=== PATIENT | female | born 1965 | race Caucasian/White ===

== ENCOUNTER 2019-12-18 09:22 | Emergency (ER) | payer OTHER, SELFPAY ==
--- NOTE | ~2019-12-18 | XR_ITS ---
EXAMINATION: XR chest 1V portable INDICATION: Shortness of breath TECHNIQUE: Portable AP chest at 1039 hours COMPARISON: None available FINDINGS: There is minimal airspace opacity of the right lung base. No pleural effusion or pneumothor ax is identified. The cardiomediastinal silhouette is normal. Surgical clips in the right upper quadr ant are likely from prior cholecystectomy. IMPRESSION: 1. Right basilar airspace opacity which could reflect atelectasis or pneumonia. Recommend followup ra diographs in 10-14 days after appropriate therapy to evaluate for improvement/resolution. Reviewed, dictated and finalized at location A. TRICAL SCENIC DESIGNER IMPRESSION: 1. Right basilar airspace opacity which could reflect atelectasis or pneumonia. Recommend followup radiographs in 10-14 days after appropriate therapy to eval uate for improvement/resolution.
[2019-12-18 09:27] VITALS: BP 130/105; PULSE 86; RESP 20; TEMP 37.2; O2SAT 95
[2019-12-18 10:30] LABS: Basophils Percent Auto 0.4 % (0.2-1.2); Eosinophils Absolute Auto 0.1 K/mm3 (0-0.3); Eosinophils Percent Auto 2.2 % (0-4.4); Hematocrit 42.7 % (37.0-47.0); Hemoglobin 14.4 g/dL (12.0-15.0); Immature Granulocyte Absolute 0.02 K/mm3 (0.00-0.031); Immature Granulocyte Percent A 0.4 % (0-0.5); Lymphocytes Percent Auto 24.2 % (18.3-44.2); Mean Corpuscular HGB Conc 33.7 g/dl (32-36); Mean Corpuscular Volume 85.9 fl (80-100); Mean Platelet Volume 10.5 fl (7.4-10.4); Monocytes Absolute Auto 0.3 K/mm3 (0.1-0.6); Monocytes Percent Auto 6.8 % (2.6-8.5); Platelet Count Result 237 k/mm3 (150-375); Red Blood Count 4.97 M/mm3 (4.2-5.4); Red Cell Distribution Width 12.5 % (11.5-14.5); White Blood Count 4.6 K/mm3 (4.5-10.0)
[2019-12-18 10:43] VITALS: BP 138/77; PULSE 75; O2SAT 96
[2019-12-18 10:45] LABS: Alanine Aminotransferase 24 U/L (4-35); Albumin Level 4.3 g/dL (3.5-5.1); Alkaline Phosphatase 80 U/L (38-126); Anion Gap 9 mmol/L (8-16); Aspartate Amino Transferase 28 U/L (14-36); Bilirubin,Total 0.5 mg/dL (0.2-1.3); Blood Urea Nitrogen 17 mg/dL (7-17); CRP 1.9 mg/dL (<1.0); Calcium 9.1 mg/dL (8.4-10.2); Carbon Dioxide 27 mmol/L (22-30); Chloride 102 mmol/L (98-107); Estimated CRCL calculation 82 ml/min; Estimated Glomerular Filt Rate > 60; Glucose 273 mg/dL (65-105); Potassium 4.3 mmol/L (3.4-5.0); Sodium 138 mmol/L (137-145)
[2019-12-18 11:04] LABS: Phosphorus 3.2 mg/dL (2.5-4.5)
[2019-12-18 11:07] LABS: Beta-Hydroxybutyrate/Acetoacetate 0.23 mmol/L (0.02-0.27)
[2019-12-18 11:08] LABS: Lactic Acid Reflex 0.7 mmol/L (0.7-2.1)
--- NOTE | 2019-12-18 11:10 | ED.GENADULT ---
HPI - General Adult General Chief complaint: Upper Respiratory Infection <Fernando Mandujano PA-C - Last Filed: 12/18/19 11:22> Stated complaint: Covid +, CP, SOB <Fernando Mandujano PA-C - Last Filed: 12/18/19 11:22> Time Seen by Provider: 12/18/19 10:03 <Fernando Mandujano PA-C - Last Filed: 12/18/19 11:22> Source: patient <Fernando Mandujano PA-C - Last Filed: 12/18/19 11:22> Mode of arrival: ambulatory <Fernando Mandujano PA-C - Last Filed: 12/18/19 11:22> Limitations: no limitations <Fernando Mandujano PA-C - Last Filed: 12/18/19 11:22> History of Present Illness HPI narrative: Patient is a 54-year-old female who presents with a roughly 6 days of COVID-19 illness diagnosed has been experiencing cough headache mild sore throat with her symptoms patient is taking vatw-[id number]-edsnadb medications with minimal improvement. Patient an insulin-dependent diabetic notes that her sugar was around 200 today. Patient notes increasing coughing last night with now having some right-sided chest discomfort. Patient also notes feeling fatigued and weak. Denies vomiting does note some loose stools <Fernando Mandujano PA-C - Last Filed: 12/18/19 11:22> Related Data Home medications: Home Medications Medication Instructions Recorded Confirmed canagliflozin [Invokana] mg 12/18/19 <Fernando Mandujano PA-C - Last Filed: 12/18/19 11:22> Allergies/adverse reactions: Allergies Allergy/AdvReac Type Severity Reaction Status Date / Time codeine Allergy Unknown Unknown Verified 12/18/19 09:38 <Fernando Mandujano PA-C - Last Filed: 12/18/19 11:22> Review of Systems Review of Systems: All systems reviewed & are unremarkable except as noted in HPI and below <Fernando Mandujano PA-C - Last Filed: 12/18/19 11:22> PMFSH Past Medical History Medical History: Medical History (Updated 12/18/19 @ 11:18 by Fernando Mandujano PA-C) Diabetes mellitus type 1 <MADISYN Mcallister Last Filed: 12/18/19 11:22> Family History Family History: Family History (Updated 07/03/17 @ 10:22 by DOCTOR UNKNOWN) Grandparent Family history of Alzheimer's disease Sibling Family history of malignant neoplasm of esophagus <Fernando Mandujano PA-C - Last Filed: 12/18/19 11:22> Social History Social History: Social History Smoking status: Never smoker Alcohol intake: never Gender identity (if verbalized by the patient): Female <Fernando Mandujano PA-C - Last Filed: 12/18/19 11:22> Exam Narrative: Exam Narrative: GENERAL: Ill-appearing, well-nourished, and in no acute distress. HEAD: Normocephalic, atraumatic. EYES: PERRLA and EOMI. ENT: Nares clear, no rhinorrhea or epistaxis. CHEST: Clear to auscultation. No respiratory distress. Slight crackles in the lung bases HEART: Regular rate and rhythm. No murmur heard. Normal peripheral pulses. EXTREMITIES: Normal range of motion. No edema. SKIN: Warm, dry, no rash. NEURO: No focal deficits. Alert and oriented x3. PSYCH: Normal mood and affect. <MADISYN Mcallister Last Filed: 12/18/19 11:22> Course Course Emergency Course: Patient in the room is been hydrated given an MDI will be sent home with continued outpatient evaluation by her physician patient hemodynamically stable ABCs stable felt appropriate for outpatient reevaluation <Fernando Mandujano PA-C - Last Filed: 12/18/19 11:22> Vital Signs Vital signs: Vital Signs Temperature 98.9 F 12/18/19 09:27 Pulse Rate 86 12/18/19 09:27 Respiratory Rate 20 12/18/19 09:27 Blood Pressure 130/105 H 12/18/19 09:27 Pulse Oximetry 95 12/18/19 09:27 Temperature 98.9 F 12/18/19 09:27 Pulse Rate 75 12/18/19 10:43 Respiratory Rate 20 12/18/19 09:27 Blood Pressure 138/77 12/18/19 10:43 Pulse Oximetry 96 12/18/19 10:43 <Fernando Mandujano PA-C - Last Filed: 12/18/19 11:22>
[2019-12-18 11:12] LABS: Alveolar/Arterial O2 Gradient 23.5 mmHg; Base Excess ABG -2.4 mEq/l (+/-2.0); Carboxyhemoglobin 0.1 % THb (0-2.0); Fractional Inspired Oxygen 21 %; HCO3 ABG 21.1 mEq/l (22.0-26.0); Methemoglobin ABG 0.2 %THb (0-1.5); Oxygen Saturation ABG 96.9 % (95.0-100.0); Oxyhemoglobin 96.1 % THb (90.0-100.0); PO2 ABG 86.7 mmHg (80.0-100.0); PO2 FiO2 Ratio Arterial Blood 4.13 %; Reduced Hemoglobin 3.6 %THb (0-5.0); Total Hemoglobin 14.8 g/dL (12.0-18.0); pH ABG 7.424 (7.350-7.450)
[2019-12-18 11:14] LABS: Device ROOM AIR; Modified Allen's Test Pass; Site Drawn RIGHT RADIAL
--- NOTE | 2019-12-18 13:39 | ECG_ITS ---
Measurements Intervals [place] Rate: 80 P: 35 ID: 154 QRS: 16 QRSD: 86 T: 34 QT: 360 QTc: 416 Interpretive Statements SINUS RHYTHM DELAYED PRECORDIAL R/S TRANSITION BORDERLINE ST ABNORMALITY- ANTEROLATERAL LEADS BASELINE ARTIFACT- I, II, III, AVR, AVF BORDERLINE ECG Electronically Signed On 12-18-2019 15:06:31 FIRER BOILER by John Jenkins D.O.
== END 2019-12-18 11:57 | disposition home or self-care (01) ==
PROVIDERS: Emergency Medicine Emergency Medical Services; Emergency Provider General Practice; PCP Family Medicine
DX: U07.1 COVID-19 (principal); E10.9 Type 1 diabetes mellitus without complications; Z79.84 Long term (current) use of oral hypoglycemic drugs; R94.31 Abnormal electrocardiogram [ECG] [EKG]
CPT/HCPCS: 36415; 36600; 71045; 80053; 82010; 82375; 82805; 83050; 83605; 83735; 84100; 85025; 86140; 93005; 99283

== ENCOUNTER 2020-08-31 06:39 | Outpatient (CLI) | payer OTHER, SELFPAY ==
--- NOTE | 2020-08-31 | ECHO_ITS ---
Patient Info Name: Kassy Maher Age: 54 years : 1965 Gender: Female Ht: 64 in Wt: 197 lbs BSA: 2.05 m2 HR: 68 bpm BP: 123 / 75 mmHg Technical Quality: Good Exam Date: 08/31/2020 7:08 AM Exam Location: [facility] Patient Status: Outpatient Admit Date: 08/31/2020 Staff Ordering Physician: Cuco Izquierdo MD Oracle Sql Developer: Linnea Boland RDCS Attending Provider: Cuco Izquierdo MD Referring Physician: Timbo SERNA; Exam Type: CA echo doppler color flow Study Info Indications C50.011 - Malignant neoplasm of nipple and areola, right female breast Complete two-dimensional, color flow and Doppler transthoracic echocardiogram is performed. Summary 1. Complete two-dimensional, color flow and Doppler transthoracic echocardiogram is performed. 2. Left ventricular chamber dimension is normal. 3. Left ventricular systolic function is normal, estimated at 65-70%. 4. There is mildly increased left ventricular wall thickness. 5. The left ventricular diastolic function is grade II diastolic dysfunction. 6. E/e' 11 is mildly elevated. 7. Global longitudinal strain is normal at -22.1%. 8. Left atrial chamber dimension is mildly enlarged. Left Ventricle E/e' 11 is mildly elevated. Global longitudinal strain is normal at -22.1%. Left ventricular chamber dimension is normal. Left ventricular systolic function is normal, estimated at 65-70%. There is mildly increased left ventricular wall thickness. The left ventricular diastolic function is grade II diastolic dysfunction. Right Ventricle Right ventricular chamber dimension is normal. Right ventricular systolic function is normal. Left Atria Left atrial chamber dimension is mildly enlarged. Right Atria Right atrial chamber dimension is normal. Aortic Valve The aortic valve is trileaflet. There is no aortic valve stenosis. There is no aortic valve regurgitation. Pulmonic Valve There is no pulmonic regurgitation. Mitral Valve There is no mitral valve stenosis. There is no mitral valve regurgitation. Tricuspid Valve There is no tricuspid valve regurgitation. Pericardium/Pleural There is trivial pericardial effusion. Inferior Vena Cava Normal inferior vena cava with >50% collapse upon inspiration consistent with normal right atrial pressure, 5 mmHg. Aorta The aortic root size at the sinus of Valsalva is normal. Left Ventricular Outflow Tract Name Value Normal LVOT 2D LVOT Diameter 1.9 cm LVOT Doppler LVOT Peak Gradient 8 mmHg LVOT Mean Gradient 4 mmHg LVOT VTI 28 cm LVOT VTI/AV VTI Ratio 1.0 LVOT Stroke Volume 80 ml LVOT CO 5.0 l/min LVOT CI 2.4 l/min/m2 Pulmonic Valve Name Value Normal RVOT Doppler
== END 2020-08-31 06:40 | disposition home or self-care (01) ==
PROVIDERS: PCP Family Medicine; Visit Provider Internal Medicine Hematology & Oncology
DX: C50.911 Malignant neoplasm of unspecified site of right female breast (principal); I51.7 Cardiomegaly
CPT/HCPCS: 93306

== ENCOUNTER 2021-03-12 08:53 | Outpatient (CLI) | payer OTHER, SELFPAY ==
--- NOTE | ~2021-03-12 | PE_ITS ---
EXAMINATION: PET skull to mid thigh DATE: 03/12/2021 10:41 INDICATION: Breast cancer TECHNIQUE: 11 mCi of 18-fluorodeoxyglucose (18-FDG) was administered i.v. Low dose computed tomograph y (CT) images were acquired from the base of the brain to the proximal thighs for attenuation correct ion and anatomic localization. Positron emission tomography (PET) images were acquired after injectio n. Images including fused PET/CT images were reconstructed in axial, coronal, and sagittal planes. Au tomatic exposure control is employed as a dose reduction technique. COMPARISON: None FINDINGS: Head/neck: There is mild FDG uptake in the mucosal space without mass, physiologic. No focal hypermetabolic area s of the neck are identified to suggest metastatic disease. There is a left internal jugular central line, tip in the SVC. Chest: There is mild asymmetry of the right pectoralis muscle with subtle asymmetric FDG uptake which may be due to prior surgery and/or radiation therapy. No discrete mass identified. There are surgical clips in the right axilla, consistent with previous lymph node dissection. There i s asymmetric soft tissue/fluid extending from the lateral margin of the pectoralis into the lateral c hest wall, likely postoperative seroma. No significant FDG uptake at this location. There is a small amount of fluid/soft tissue at a similar location in the left lateral chest wall without focal mass. No significant pleural or pericardial effusion. No thoracic lymphadenopathy. No hypermetabolic activity in the mediastinum. There is dependent atelec tasis in the lung bases. No endobronchial lesions. There is a small 3 mm right upper lobe nodule with out FDG uptake, likely benign. No abnormal FDG avid pulmonary nodules/masses. Abdomen/pelvis/proximal thighs: The liver, spleen, pancreas, adrenal glands and kidneys are unremarkable. There is mild functional up take of FDG in the small bowel without focal mass. Status post cholecystectomy. No lymphadenopathy. N o significant vascular abnormality. Bladder is decompressed. No suspicious areas of hypermetabolic ac tivity are identified in the abdomen or pelvis. Bones/Soft tissues: No abnormal FDG uptake in the osseous structures. IMPRESSION: 1. Curvilinear fluid/soft tissue involving the chest wall bilaterally with mild FDG uptake, most like ly postsurgical/post radiation therapy change. Recommend correlation with prior clinical history and prior studies. Reviewed, dictated and finalized at location B. ESSING ASSISTANT IMPRESSION: 1. Curvilinear fluid/soft tissue involving the chest wall bilaterally with mild FDG uptake, most likely postsurgical/post radiation therapy change. Recommend correlation with prior clinical history and prior studies.
[2021-03-12 09:22] LABS: Glucose Point of Care 205 mg/dl (65-105)
== END 2021-03-12 08:54 | disposition home or self-care (01) ==
PROVIDERS: PCP Family Medicine; Visit Provider Internal Medicine Hematology & Oncology
DX: C50.919 Malignant neoplasm of unspecified site of unspecified female breast (principal); R91.8 Other nonspecific abnormal finding of lung field
CPT/HCPCS: 78815; A9552

== ENCOUNTER 2021-04-23 09:21 | Outpatient (CLI) | payer OTHER, SELFPAY ==
[2021-04-23 12:53] LABS: Hemoglobin A1C 8.6 % (<5.7)
[2021-04-23 12:58] LABS: Cholesterol 179 mg/dL (0-200); HDL Direct 56 mg/dL; Triglycerides 186 mg/dL (<150)
[2021-04-23 13:09] LABS: LDL Cholesterol Direct 87 mg/dL
== END 2021-04-23 09:22 | disposition home or self-care (01) ==
PROVIDERS: PCP Family Medicine; Visit Provider Internal Medicine Hematology & Oncology
DX: R53.83 Other fatigue (principal); E11.9 Type 2 diabetes mellitus without complications; E78.2 Mixed hyperlipidemia
CPT/HCPCS: 36415; 80061; 83036; 84443

== ENCOUNTER 2021-09-18 08:59 | Outpatient (CLI) | payer OTHER, SELFPAY ==
[2021-09-18 10:54] LABS: Hemoglobin A1C 7.8 % (<5.7)
== END 2021-09-18 09:00 | disposition home or self-care (01) ==
LOC: ANHLAB 09:02
PROVIDERS: PCP Family Medicine; Visit Provider Family Medicine
DX: E11.9 Type 2 diabetes mellitus without complications (principal)
CPT/HCPCS: 36415; 83036

== ENCOUNTER 2021-09-27 08:16 | Outpatient (CLI) | payer OTHER, SELFPAY ==
--- NOTE | ~2021-09-27 | NM_ITS ---
NM bone scan whole body INDICATION: Inflammatory breast cancer TECHNIQUE: The patient was injected with 25 PET/CT scan dated 03/12/2021 mCi Tc 99m HDP. Gamma camera images of the region of interest and whole body were obtained. COMPARISON: None FINDINGS: There is normal distribution of radiopharmaceutical throughout the skeletal and soft tissue structures. There is mild polyarticular radiotracer uptake, consistent with degenerative joint disea se. IMPRESSION: 1: Normal bone scan for age. No scintigraphic evidence for metastases. Reviewed, dictated and finalized at location A.
== END 2021-09-27 08:17 | disposition home or self-care (01) ==
PROVIDERS: PCP Family Medicine; Visit Provider Internal Medicine Hematology & Oncology
DX: C50.911 Malignant neoplasm of unspecified site of right female breast (principal)
CPT/HCPCS: 78306; A9561

== ENCOUNTER 2021-10-01 10:08 | Outpatient (CLI) | payer OTHER, SELFPAY ==
--- NOTE | ~2021-10-01 | CT_ITS ---
EXAMINATION: CT chest abdomen pelvis w con DATE: 10/01/2021 11:01 INDICATION: Inflammatory breast cancer TECHNIQUE: Transaxial computed tomographic images of the chest, abdomen, and pelvis were obtained aft er the administration of 100 cc of Omnipaque 350 intravenous contrast. The dose-length product (DLP) was 738.29 mGy-cm. Automated exposure control and iterative reconstruction technique were employed. COMPARISON: PET/CT, 03/12/2021 FINDINGS: CHEST CT: There are changes of bilateral mastectomy and axillary lymph node dissection. There are subpleural op acities anteriorly in the lungs which likely reflect radiation change. There are small nodules of the right lower lobe which measure up to 4 mm, possibly obscured by atelectasis on the comparison PET/CT . No pathologically enlarged thoracic lymph nodes are identified. The heart size is normal. No pleura l effusion or pneumothorax. ABDOMEN/PELVIS CT: The liver is diffusely low in attenuation when compared with the spleen, consistent with hepatic stea tosis. The gallbladder is surgically absent. The spleen, pancreas, and adrenal glands are normal. The kidneys are unremarkable. No pathologically enlarged abdominal or pelvic lymph nodes are identified. There is a small umbilical hernia containing fat. There is mild lumbar spondylosis. There is no free intraperitoneal gas or evidence of bowel obstruction. IMPRESSION: 1. Subpleural opacities in the upper lobes anteriorly likely related to radiation change. 2. Small right lower lobe nodule which may be benign but are likely obscured by atelectasis on the co mparison CT. 3. Diffuse hepatic steatosis. Reviewed, dictated and finalized at location A. IMPRESSION: 1. Subpleural opacities in the upper lobes anteriorly likely related to radiati on change. 2. Small right lower lobe nodule which may be benign but are likely obscured by atelectasis on the comparison CT. 3. Diffuse hepatic steatosis.
== END 2021-10-01 10:09 | disposition home or self-care (01) ==
LOC: ANHIMG 10:09
PROVIDERS: PCP Family Medicine; Visit Provider Internal Medicine Hematology & Oncology
DX: C50.911 Malignant neoplasm of unspecified site of right female breast (principal); K76.0 Fatty (change of) liver, not elsewhere classified; R91.8 Other nonspecific abnormal finding of lung field
CPT/HCPCS: 71260; 74177; Q9967

== ENCOUNTER 2022-01-22 10:42 | Outpatient (CLI) | payer OTHER, SELFPAY ==
[2022-01-22 11:46] LABS: Hemoglobin A1C 11.6 % (<5.7)
[2022-01-22 12:05] LABS: Cholesterol 147 mg/dL (0-200); HDL Direct 48 mg/dL; Triglycerides 103 mg/dL (<150)
[2022-01-22 12:15] LABS: LDL Cholesterol Direct 70 mg/dL
== END 2022-01-22 10:43 | disposition home or self-care (01) ==
LOC: ANHLAB 10:44
PROVIDERS: PCP Family Medicine; Visit Provider Physician Assistant
DX: Z13.220 Encounter for screening for lipoid disorders (principal); E11.9 Type 2 diabetes mellitus without complications
CPT/HCPCS: 36415; 80061; 83036

== ENCOUNTER 2022-03-22 07:49 | Outpatient (CLI) | payer OTHER, SELFPAY ==
--- NOTE | ~2022-03-22 | CT_ITS ---
Clinical Indication: Inflammatory breast cancer CT Scan of the Chest, Abdomen, and Pelvis with Contrast: Technique: Contiguous sections were acquired throughout the chest, abdomen, and pelvis after intraven ous administration of 100 cc of Omnipaque 350. Dose reduction technique was used on this scan by alma rosa lanier automated exposure control and iterative reconstruction technique. The dose-length product (DL P) was 1173.42 mGy-cm. COMPARISON: 10/01/2021 Findings: There is no evidence of any significant mediastinal, hilar or axillary lymphadenopathy. The mediastin al soft tissues and vascular structures appear normal. Small hiatal hernia noted. Bilateral mastectom y noted. There is no evidence of pleural or pericardial effusion. Probable minimal postradiation changes noted peripherally in the bilateral upper lobes. No other pulm onary reality seen. Stable tiny right lower lobe nodule noted. Diffuse fatty infiltration of the liver noted. The spleen, pancreas, adrenals and kidneys are within normal limits. Cholecystectomy clips present. No evidence of aortic aneurysm. No lymphadenopathy. No bowel obstruction or bowel wall thickening. There is no evidence to suggest acute appendicitis. Urinary bladder is unremarkable. No pelvic mass seen. No ascites. Impression: No change from prior exam. No definite evidence for active malignancy or metastatic disease. Tiny right lower lobe pulmonary nodule, unchanged. Diffuse fatty infiltration of liver. Small hiatal hernia. Reviewed, dictated and finalized at [facility]. GAGE ADVISOR Impression: No change from prior exam. No definite evidence for active malignancy or metast atic disease. Tiny right lower lobe pulmonary nodule, unchanged. Diffuse fatty infiltration of liver. Small hiatal hernia.
[2022-03-22 08:40] LABS: Estimated Glomerular Filt Rate > 60
== END 2022-03-22 07:50 | disposition home or self-care (01) ==
PROVIDERS: PCP Family Medicine; Visit Provider Internal Medicine Hematology & Oncology
DX: C50.911 Malignant neoplasm of unspecified site of right female breast (principal); K44.9 Diaphragmatic hernia without obstruction or gangrene; K76.0 Fatty (change of) liver, not elsewhere classified
CPT/HCPCS: 71260; 74177; Q9967

== ENCOUNTER 2022-06-12 11:58 | Outpatient (CLI) | payer OTHER, SELFPAY ==
--- NOTE | ~2022-06-12 | PE_ITS ---
EXAMINATION: PET skull to mid thigh DATE: 06/12/2022 14:12 INDICATION: Inflammatory breast cancer TECHNIQUE: Blood glucose level was 150 mg/dL. 11.0 mCi of 18-fluorodeoxyglucose (18-FDG) was administ ered i.v. Low dose computed tomography (CT) images were acquired from the base of the brain to the pr oximal thighs for attenuation correction and anatomic localization. Positron emission tomography (PET ) images were acquired in the same distribution beginning 65 minutes after injection. The dose-length product (DLP) was 629.17 mGy-cm. COMPARISON: 03/12/2021 FINDINGS: Head/neck: No abnormal FDG uptake is identified. FDG activity in the oral cavity, vocal cords, and or bits without suspicious CT correlate is likely physiologic. Chest: No abnormal FDG uptake is identified. A left internal jugular Port-A-Cath ends in the proximal superior vena cava. There are changes of bilateral mastectomy and axillary lymph node dissection. No pathologically enlarged thoracic lymph nodes are identified. The heart size is normal. Again seen ar e subpleural opacities anteriorly in the lungs, likely related to radiation change. The lungs are aurelio e of acute airspace opacities. Tiny nodules of the right lower lobe are stable and do not demonstrate significant FDG uptake. There are no pathologically enlarged thoracic lymph nodes. The heart size is normal. Abdomen/pelvis/proximal thighs: Physiologic FDG activity is present in the bowel and urinary tract. No abnormal FDG uptake is identif ied. Gallbladder is surgically absent. The liver, spleen, pancreas, and adrenal glands are normal. Th e kidneys are unremarkable. No pathologically enlarged abdominal or pelvic lymph nodes are identified . No free intraperitoneal gas or evidence of bowel obstruction. Musculoskeletal: No suspicious FDG uptake is identified. There is osteoarthritis of the shoulders. Th ere is mild spondylosis of the spine. IMPRESSION: 1. No evidence of recurrent or metastatic disease. Reviewed, dictated and finalized at location L.
[2022-06-12 12:22] LABS: Glucose Point of Care 150 mg/dl (65-105)
== END 2022-06-12 11:59 | disposition home or self-care (01) ==
PROVIDERS: PCP Family Medicine; Visit Provider Internal Medicine Hematology & Oncology
DX: C50.911 Malignant neoplasm of unspecified site of right female breast (principal)
CPT/HCPCS: 78815; A9552

== ENCOUNTER 2022-09-19 08:07 | Outpatient (CLI) | payer OTHER, SELFPAY ==
[2022-09-19 12:27] LABS: Cholesterol 137 mg/dL (0-200); HDL Direct 43 mg/dL; Triglycerides 111 mg/dL (<150)
[2022-09-19 12:38] LABS: Hemoglobin A1C 10.6 % (<5.7)
[2022-09-19 12:38] LABS: LDL Cholesterol Direct 68 mg/dL
== END 2022-09-19 08:08 | disposition home or self-care (01) ==
LOC: ANHLAB 08:09
PROVIDERS: Physician Assistant; PCP Family Medicine; Visit Provider Internal Medicine Hematology & Oncology
DX: Z13.220 Encounter for screening for lipoid disorders (principal); E11.9 Type 2 diabetes mellitus without complications; Z13.1 Encounter for screening for diabetes mellitus
CPT/HCPCS: 36415; 80061; 83036

== ENCOUNTER 2022-10-13 00:43 | Day surgery (SDC) | payer OTHER, SELFPAY ==
[2022-10-09 09:43] VITALS: BMI 33.7
--- NOTE | 2022-10-09 09:52 | PC.NURSE ---
Report to the Outpatient Waiting Room, entrance under the green pavilion located off [facility], at time 0900 on date 10/13/22. Planned Procedure Time: 1100. Time changes happen often and if your time is changed the preop area will call you the afternoon before. - You and your visitor will be asked to self-screen and do not enter if you have any COVID symptoms. - A mask is optional within the hospital at this time. Patients may have clear liquids (water, carbonated beverages, clear teas, apple juice) until 3 hours prior to surgery with a maximum of 20 ounces. - No food from midnight until time of surgery Take the following medications with a SIP of water the morning of surgery: CITALOPRAM, LORAZEPAM IF NEEDED DO NOT STOP ANY OF YOUR OTHER PRESCRIPTION MEDICATIONS PRIOR TO SURGERY ?EXCEPT THE FOLLOWING Medications to discontinue per physician: N/A Date to take last dose: N/A Please no make-up, nail south african, hairspray, perfume, deodorant, or body powder the day of surgery. No jewelry (including any body piercings) or valuables the day of surgery, leave them at home. Please take a shower or bath the night before, or the morning of, surgery with an antibacterial soap. Wear comfortable, loose fitting clothing. - Jewelry must be removed prior to entering the operating room. Rings and piercings that are not removed may be cut off. - The hospital will not accept responsibility for valuables. - Please leave all valuables, including medications, at home the day of surgery. If you are going home after surgery, a licensed driver guide must drive you home. - NO public transportation without another adult if you receive anesthesia. - We recommend that an adult stay with you for 24 hours following discharge. - We also recommend that you do not drive, make important decision, drink alcoholic beverages, or take any drugs that were not prescribed by your health care provider for at least 24 hours after your discharge time. Follow any additional instructions given to you from your surgeon. If you or anyone in your household have experienced Covid symptoms in the past week, please notify your surgeon or the nurse liaison at the phone number below for possible testing. Telephone instructions given to PT - ROBERT RODRIGUEZ and asked if any additional questions and then verbalized understanding. Patient advised to call surgeon office or pre surgery nurse liaison [phone] if any additional questions.
[2022-10-13 09:30] VITALS: BP 149/108; PULSE 84; RESP 16; TEMP 36.2; O2SAT 98
[2022-10-13 09:52] LABS: Glucose Point of Care 212 mg/dl (65-105)
--- NOTE | 2022-10-13 09:59 | SUR.PREOP ---
Informed Dr Ford of blood sugar of 212 and that patient had taken 6 units insulin this am.
--- NOTE | 2022-10-13 10:04 | WPDANESEPPF ---
Anes - Initial Pre Proc Eval Procedure: Operation Date: 10/13/22 11:00 Proposed Procedures p Removal Sera Cath - Anthony Powell MD Date/Time: 10/13/22 10:04 Surgeon: Anthony Powell MD Pre Op Diagnosis: breast cancer Patient Data Age: 57 Gender: F Height: 1.63 m Weight: 88.5 kg Last Vital Signs Temp 97.1 F L 10/13/22 09:30 Pulse 84 10/13/22 09:30 Resp 16 10/13/22 09:30 BP 149/108 H 10/13/22 09:30 Pulse Ox 98 10/13/22 09:30 O2 Del Method Room Air 10/13/22 09:30 Allergies Allergy/AdvReac Type Severity Reaction Status Date / Time No Known Allergies Allergy Verified 10/13/22 09:20 Home Medications Medication Instructions Recorded Confirmed Type lorazepam 0.5 mg tablet 0.5 mg PO BID PRN anxiety #10 tabs 08/16/20 10/09/22 Rx insulin lispro 100 unit/mL See Rx Instructions .Route 05/13/21 10/09/22 Rx subcutaneous pen .COMPLEX #15 mL sitagliptin phosphate 25 mg tablet 25 mg PO DAILY #90 tabs 11/25/21 10/09/22 Rx (Januvia) anastrozole 1 mg tablet 1 mg PO DAILY 12/20/21 10/09/22 History insulin detemir U-100 100 unit/mL 70 unit (0.7 mL) subcut QHS #30 mL 03/20/22 10/09/22 Rx (3 mL) subcutaneous pen (Levemir FlexPen) pen needle, diabetic 32 gauge x #200 ea 05/07/22 08/26/22 Rx (BD Joya 2nd Gen Pen Needle) atorvastatin 40 mg tablet 40 mg PO DAILY #90 tabs 08/25/22 10/09/22 Rx citalopram 40 mg tablet See Rx Instructions .Route 08/25/22 10/09/22 Rx .COMPLEX #90 tabs ezetimibe 10 mg tablet 10 mg PO DAILY #90 tabs 08/25/22 10/09/22 Rx Laboratory Tests 10/13/22 09:49 POC Capillary Glucose 212 H mg/dl (65-105) Patient hx anesthesia problems: none Family hx anesthesia problems: none Results Review: All pre-operative results and documents have been reviewed as part of the pre-operative evaluation. FOR[facility]LY [facility], [facility] Past Medical History Medical History Anxiety Chronic right shoulder pain Depression Diabetes mellitus type 1 Generalized anxiety disorder Hypercholesteremia retirement (current) use of insulin Shoulder pain Suspected sleep apnea Type 2 diabetes mellitus Type 2 diabetes mellitus treated with insulin Surgical History Surgical History History of hysterectomy Family History Family History Grandparent Family history of Alzheimer's disease Sibling Family history of malignant neoplasm of esophagus Social History Social History Smoking status: Never smoker Second hand tobacco smoke exposure: No Alcohol intake: never Substance use: never Substance use type: does not use Lack of Transportation: No Lack of Food: Never True Current Housing: I Have Housing Concerned About Future Housing: No Difficulty Paying Gas/Electric Bills: No Difficulty Paying for Meds: No Currently Unemployed: YES Education: Bachelor's Degree Difficulty w/ Childcare or Family Care: No Living arrangements: with family Gender identity (if verbalized by the patient): Female Spiritual care concerns: No Anes - Eval Final PreProcedure Day of Procedure 10/13/22 10:04 Patient weight: obese Heart: regular rate and rhythm Lungs: clear to auscultation Airway: Mallampati scale class II Neurological: alert and oriented Last oral intake: >/= 8 hours ASA classification: III Emergent: no Anesthetic plan: proceed Anesthesia type and monitoring: general GIVS and standard monitoring Results Review: All pre-operative results and documents have been reviewed as part of the pre-operative evaluation. Informed Consent: The patient's anesthetic plan and its attendant risks and benefits were discussed with the patient/family/POA. Questions were solicited and answers provided to the satisfaction of the patient/family/P
--- NOTE | 2022-10-13 10:54 | PM.IMHP ---
H&P: HPI History of Present Illness Date/Time: 10/13/22 10:54 Chief Complaint: Hx breast CA, need for port removal. Narrative: Pt with hx of breast CA now in remission. No longer needs left side port and presents for removal. Review of Systems Review of Systems: The remainder of the review of systems to include constitutional, HEENT, cardiovascular, respiratory, GI, , integumentary, musculoskeletal, endocrine, immunologic, hematologic, psychiatric, and neurologic are all negative except for which is mentioned above in the HPI. 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 Shoulder pain Suspected sleep apnea Type 2 diabetes mellitus Type 2 diabetes mellitus treated with insulin Surgical History Surgical History History of hysterectomy Family History Family History Grandparent Family history of Alzheimer's disease Sibling Family history of malignant neoplasm of esophagus Social History Social History Smoking status: Never smoker Second hand tobacco smoke exposure: No Alcohol intake: never Substance use: never Substance use type: does not use Lack of Transportation: No Lack of Food: Never True Current Housing: I Have Housing Concerned About Future Housing: No Difficulty Paying Gas/Electric Bills: No Difficulty Paying for Meds: No Currently Unemployed: YES Education: Bachelor's Degree Difficulty w/ Childcare or Family Care: No Living arrangements: with family Gender identity (if verbalized by the patient): Female Spiritual care concerns: No Meds Home Medications and Allergies Home Medications Medication Instructions Recorded Confirmed Type lorazepam 0.5 mg tablet 0.5 mg PO BID PRN anxiety #10 tabs 08/16/20 10/09/22 Rx insulin lispro 100 unit/mL See Rx Instructions .Route 05/13/21 10/09/22 Rx subcutaneous pen .COMPLEX #15 mL sitagliptin phosphate 25 mg tablet 25 mg PO DAILY #90 tabs 11/25/21 10/09/22 Rx (Januvia) anastrozole 1 mg tablet 1 mg PO DAILY 12/20/21 10/09/22 History insulin detemir U-100 100 unit/mL 70 unit (0.7 mL) subcut QHS #30 mL 03/20/22 10/09/22 Rx (3 mL) subcutaneous pen (Levemir FlexPen) pen needle, diabetic 32 gauge x #200 ea 05/07/22 08/26/22 Rx (BD Joya 2nd Gen Pen Needle) atorvastatin 40 mg tablet 40 mg PO DAILY #90 tabs 08/25/22 10/09/22 Rx citalopram 40 mg tablet See Rx Instructions .Route 08/25/22 10/09/22 Rx .COMPLEX #90 tabs ezetimibe 10 mg tablet 10 mg PO DAILY #90 tabs 08/25/22 10/09/22 Rx Allergies Allergy/AdvReac Type Severity Reaction Status Date / Time No Known Allergies Allergy Verified 10/13/22 09:20 Vital Signs Vital Signs - 24 hr 10/13/22 09:30 Temperature 36.2 C L Pulse Rate 84 Respiratory Rate 16 Blood Pressure 149/108 H Pulse Oximetry 98 Oxygen Delivery Room Air Exam Const: General: comfortable and no acute distress HENMT: Ears: TM's normal bilaterally Face/Nose/Sinus: Normal nares present Mouth: Yes moist mucous membranes Eyes: General: appearance normal, both eyes and all related structures Sclera: sclerae normal Pupils: Equal, round and reactive pupils present EOM: EOMs intact bilaterally Neck: Neck: supple and no JVD Chest: Other: Left anterior chest wall port in place. No redness or tenderness. Resp: Effort & Inspection: normal respiratory effort Auscultation: clear to auscultation bilaterally Cardio: Rate: regular rate Rhythm: regular rhythm GI: GI Palp: Yes Soft to palpation, No Firmness to palpation present (GI), No Tenderness to palpation present (GI), No Guarding due to palpation
--- NOTE | 2022-10-13 10:58 | WPDHPUPDATE1 ---
History and Physical Update Update Date/Time: 10/13/22 10:58 History and Physical has been reviewed, including an updated exam of the patient. There are NO changes in the patient's condition. Risks, benefits, and alternatives have been discussed and questions answered. Patient agrees to proceed with procedure.
[2022-10-13] MEDS: ceFAZolin 2 GM/D5W 50 ML 2 GM/50 ML BAG IVPB (11:03)
[2022-10-13] MEDS: BUPivacaine HCL 0.5% 10 ML AMP INFILTRATE (11:32)
[2022-10-13] MEDS: LIDO 1%/EPINEPHRINE 1:100,000 20 ML VIAL 10 ML INFILTRATE (11:34)
--- NOTE | 2022-10-13 11:44 | W.PM.PROC2 ---
Procedure Note - Detailed Date of Procedure 10/13/22 Pre-op Diagnosis History of bilateral breast cancer Post-op Diagnosis Same Procedure Performed Removal of her left subclavian vein anderson catheter Surgeon Anthony Powell MD Anesthesia MAC Indications Patient is a 57-year-old female who has a history of bilateral breast cancer treated with adjuvant chemotherapy. She has been in remission for 1 year now and no longer needs the port. She presents now for removal Port-A-Cath. Findings None Description of Procedure After informed consent was obtained patient brought to the operating room she was placed supine position and then IV sedation was administered by anesthesia. The area the left upper anterior neck and chest was then prepped and draped in usual sterile fashion. A time-out was then performed correctly identifying the patient as well as procedure to be performed verifying she was gotten some perioperative IV antibiotics. 1% lidocaine mixed with 0.5% Marcaine in a 50 50 mixture with some epinephrine was injected around the port for local anesthetic effect. I then made a small elliptical transverse incision with a scalpel to include the old scar from the placement of the port. Dissection carried deeply down through the dermis skin with a scalpel and then electrocautery was used to resect off the ellipse of skin. I then continued to dissect down through the subcutaneous tissues to I encountered the port and the hub to the port. I continued dissection around the hub of the port and then identified the catheter. Once I freed up the catheter from the surrounding subcutaneous tissue with electrocautery I then proceeded to gently pull on the catheter until was removed from the left subclavian vein. Pressure was then held on the area the left subclavian vein for hemostasis. I then completely excised out the port from the subcutaneous port pocket utilized electrocautery. The port and catheter were passed off the table and discarded. I then fulgurated the fibrous capsule in the subcutaneous tissues from the port pocket. This abdominal electrocautery. The incision was irrigated sterile saline solution hemostasis was good. I then close incision utilizing interrupted 3-0 Vicryl sutures in the subcutaneous tissues. The skin edges were approximated utilizing a running subcuticular 4 Monocryl suture. The incision was then cleaned the skin glue was applied. The patient tolerated the procedure well no complications. All sponges, needles, and instrument counts were correct at the end procedure. EBL was __5_cc. The patient was awakened and taken to recovery in stable and satisfactory condition. Implants None Estimated Blood Loss 5 Drains No Packing No Pathology None sent Complications No immediate complications Condition Stable Disposition PACU [facility] Billing Surgery - Charge Forward: Surgery Billing
[2022-10-13 11:45] VITALS: BP 118/64; PULSE 76; RESP 16; O2SAT 98
[2022-10-13] MEDS: LACTATED RINGERS 1,000 ML 30 ML IV CONT (11:45)
[2022-10-13 12:15] VITALS: BP 137/97; PULSE 75; RESP 16
[2022-10-13 12:36] VITALS: BP 143/115; PULSE 68; RESP 16
[2022-10-13 12:51] LABS: Glucose Point of Care 199 mg/dl (65-105)
== END 2022-10-13 12:54 | disposition home or self-care (01) ==
PROVIDERS: PCP Family Medicine; Visit Provider Surgery
PROC: (CPT 36589; principal; 2022-10-13 11:00)
DX: Z45.2 Encounter for adjustment and management of vascular access device (principal); Z92.21 Personal history of antineoplastic chemotherapy; Z85.3 Personal history of malignant neoplasm of breast; E10.9 Type 1 diabetes mellitus without complications; F32.A Depression, unspecified; E78.00 Pure hypercholesterolemia, unspecified; F41.1 Generalized anxiety disorder; Z79.4 Long term (current) use of insulin; E66.9 Obesity, unspecified; Z68.33 Body mass index [BMI] 33.0-33.9, adult; Z79.811 Long term (current) use of aromatase inhibitors
CPT/HCPCS: 36590; 82948; J0690; J2405; J2704; J7120

== ENCOUNTER 2022-12-22 08:34 | Outpatient (CLI) | payer OTHER, SELFPAY ==
[2022-12-22 09:53] LABS: Alanine Aminotransferase 31 U/L (6-35); Albumin Level 4.6 g/dL (3.5-5.1); Alkaline Phosphatase 67 U/L (38-126); Aspartate Amino Transferase 28 U/L (14-36); Bilirubin,Total 0.5 mg/dL (0.2-1.3)
[2022-12-22 12:32] LABS: Hemoglobin A1C 6.8 % (<5.7)
== END 2022-12-22 08:35 | disposition home or self-care (01) ==
LOC: ANHLAB 08:35
PROVIDERS: Internal Medicine; Physician Assistant; PCP Family Medicine; Visit Provider Family Medicine
DX: R74.8 Abnormal levels of other serum enzymes (principal); E11.65 Type 2 diabetes mellitus with hyperglycemia
CPT/HCPCS: 36415; 80076; 83036

== ENCOUNTER 2023-04-01 09:04 | Outpatient (CLI) | payer BC, SELFPAY ==
[2023-04-01 15:57] LABS: Free T4 Free Thyroxine 0.75 ng/mL (0.78-2.19)
[2023-04-04 04:49] LABS: Thyroid Peroxidase Antibodies <1 IU/mL (<9)
== END 2023-04-01 09:05 | disposition home or self-care (01) ==
LOC: ANHLAB 09:05
PROVIDERS: PCP Family Medicine; Visit Provider Internal Medicine
DX: E78.5 Hyperlipidemia, unspecified (principal); L67.9 Hair color and hair shaft abnormality, unspecified; Z13.820 Encounter for screening for osteoporosis
CPT/HCPCS: 36415; 84439; 84443; 86376

== ENCOUNTER 2023-05-22 08:17 | Outpatient (CLI) | payer BC, SELFPAY ==
[2023-05-22 14:41] LABS: Free T4 Free Thyroxine 0.88 ng/mL (0.78-2.19)
[2023-05-22 14:59] LABS: Total Triiodothyronine (T3) 1.12 NG/ML (0.97-1.69)
[2023-05-25 05:06] LABS: Thyroid Peroxidase Antibodies <1 IU/mL (<9)
== END 2023-05-22 08:18 | disposition home or self-care (01) ==
PROVIDERS: Internal Medicine; PCP Family Medicine; Visit Provider Internal Medicine Hematology & Oncology
DX: E03.9 Hypothyroidism, unspecified (principal)
CPT/HCPCS: 36415; 84439; 84443; 84480; 86376

== ENCOUNTER 2023-07-09 08:24 | Outpatient (CLI) | payer BC, SELFPAY ==
[2023-07-09 08:41] LABS: Basophils Percent Auto 0.8 % (0.2-1.2); Eosinophils Absolute Auto 0.2 K/mm3 (0-0.3); Eosinophils Percent Auto 4.3 % (0-4.4); Hematocrit 43.2 % (37.0-47.0); Hemoglobin 13.8 g/dL (12.0-15.0); Immature Granulocyte Absolute 0.02 K/mm3 (0.00-0.031); Immature Granulocyte Percent A 0.4 % (0-0.5); Lymphocytes Absolute Auto 1.18 K/mm3 (0.9-3.2); Lymphocytes Percent Auto 23.2 % (18.3-44.2); Mean Corpuscular HGB Conc 31.9 g/dl (32-36); Mean Corpuscular Volume 90.8 fl (80-100); Mean Platelet Volume 9.8 fl (7.4-10.4); Monocytes Absolute Auto 0.3 K/mm3 (0.1-0.6); Monocytes Percent Auto 6.7 % (2.6-8.5); Neutrophils Absolute Auto 3.3 K/mm3 (1.3-6.7); Neutrophils Percent Auto 64.6 % (45.5-73.1); Platelet Count Result 254 k/mm3 (150-375); Red Blood Count 4.76 M/mm3 (4.2-5.4); Red Cell Distribution Width 13.1 % (11.5-14.5); White Blood Count 5.1 K/mm3 (4.5-10.0)
[2023-07-09 09:29] LABS: Alanine Aminotransferase 28 U/L (6-35); Albumin Level 4.7 g/dL (3.5-5.1); Alkaline Phosphatase 74 U/L (38-126); Anion Gap 6 mmol/L (4-12); Aspartate Amino Transferase 28 U/L (14-36); Bilirubin,Total 0.7 mg/dL (0.2-1.3); Blood Urea Nitrogen 20 mg/dL (7-17); Calcium 9.4 mg/dL (8.4-10.2); Carbon Dioxide 27 mmol/L (22-30); Chloride 106 mmol/L (98-107); Estimated Glomerular Filt Rate > 60; Glucose 179 mg/dL (65-110); Potassium 4.3 mmol/L (3.4-5.0); Sodium 139 mmol/L (137-145)
[2023-07-10 16:09] LABS: CA 15-3 16 U/mL (<32)
== END 2023-07-09 08:25 | disposition home or self-care (01) ==
LOC: ANHLAB 08:26
PROVIDERS: PCP Family Medicine; Visit Provider Internal Medicine Hematology & Oncology
DX: C50.911 Malignant neoplasm of unspecified site of right female breast (principal)
CPT/HCPCS: 36415; 80053; 85025; 86300

== ENCOUNTER 2023-11-02 08:15 | Outpatient (CLI) | payer BC, SELFPAY ==
[2023-11-02 08:35] LABS: Basophils Percent Auto 0.9 % (0.2-1.2); Eosinophils Absolute Auto 0.3 K/mm3 (0-0.3); Eosinophils Percent Auto 6.8 % (0-4.4); Hematocrit 42.6 % (37.0-47.0); Hemoglobin 13.7 g/dL (12.0-15.0); Lymphocytes Absolute Auto 1.04 K/mm3 (0.9-3.2); Lymphocytes Percent Auto 23.6 % (18.3-44.2); Mean Corpuscular HGB Conc 32.2 g/dl (32-36); Mean Corpuscular Hemoglobin 29.5 pg (26-34); Mean Corpuscular Volume 91.6 fl (80-100); Mean Platelet Volume 9.5 fl (7.4-10.4); Monocytes Absolute Auto 0.4 K/mm3 (0.1-0.6); Monocytes Percent Auto 8.8 % (2.6-8.5); Neutrophils Absolute Auto 2.6 K/mm3 (1.3-6.7); Neutrophils Percent Auto 59.9 % (45.5-73.1); Platelet Count Result 259 k/mm3 (150-375); Red Blood Count 4.65 M/mm3 (4.2-5.4); White Blood Count 4.4 K/mm3 (4.5-10.0)
[2023-11-02 10:58] LABS: Alanine Aminotransferase 33 U/L (6-35); Albumin Level 4.7 g/dL (3.5-5.1); Alkaline Phosphatase 69 U/L (38-126); Anion Gap 9 mmol/L (4-12); Aspartate Amino Transferase 30 U/L (14-36); Bilirubin,Total 0.6 mg/dL (0.2-1.3); Blood Urea Nitrogen 17 mg/dL (7-17); Calcium 9.3 mg/dL (8.4-10.2); Carbon Dioxide 26 mmol/L (22-30); Chloride 101 mmol/L (98-107); Estimated Glomerular Filt Rate > 60; Glucose 122 mg/dL (65-110); Potassium 4.3 mmol/L (3.4-5.0); Sodium 136 mmol/L (137-145)
[2023-11-02 11:07] LABS: MALB Creatinine Ratio 8.7 mg/g (0-30); Microalbumin Urine Random 12.3 mg/L (0-16.7)
[2023-11-02 12:57] LABS: Free T4 Free Thyroxine 0.65 ng/mL (0.78-2.19)
[2023-11-05 07:08] LABS: CA 15-3 20 U/mL (<32)
== END 2023-11-02 08:16 | disposition home or self-care (01) ==
LOC: ANHLAB 08:17
PROVIDERS: Internal Medicine; PCP Family Medicine; Visit Provider Internal Medicine Hematology & Oncology
DX: C50.911 Malignant neoplasm of unspecified site of right female breast (principal); E78.5 Hyperlipidemia, unspecified; E03.8 Other specified hypothyroidism; E11.65 Type 2 diabetes mellitus with hyperglycemia
CPT/HCPCS: 36415; 80053; 82043; 84439; 84443; 85025; 86300

== ENCOUNTER 2024-07-22 08:33 | Outpatient (CLI) | payer OTHER, SELFPAY ==
--- OUTSIDE RECORDS SUMMARY | 2024-07-22 08:38 | XMS_ITS | Clinical Summary ---
Author Organization [facility] Address [address] [place] [address] Phone Care Team Providers Care Sociology Faculty Member Name Role Phone Brianne Yusuf MD Primary Care Provider [phone] Allergies Active Allergy Reactions Criticality Noted Date Comments Codeine Other (See Comments) 08/14/2020 My chest hurts Medications atorvastatin (LIPITOR) 40 mg tablet Take 40 mg by mouth daily at bedtime. Active ezetimibe-rosuv astatin 10-10 mg Tablet Take by mouth daily. Active citalopram (CeleXA) 40 mg tablet Take 40 mg by mouth daily. Active insulin glargine,hum.re c.anlog (LANTUS SUBCUT) Inject 50 Units by subcutaneous injection daily at bedtime. Active insulin lispro (HumaLOG) 100 unit/mL vial Inject by subcutaneous injection. Active LORazepam (ATIVAN) 0.5 mg tabletIndicatio ns:Inflammatory breast cancer, right (CMS/HCC) Take 1 Tablet (0.5 mg) by mouth every 8 hours as needed for Anxiety. 30 Tablet 2 2 Active Januvia 25 mg Tablet Take 25 mg by mouth daily. 1 Active ezetimibe (ZETIA) 10 mg tablet Take 10 mg by mouth daily. 2 Active diphenhydrAMINE 12.5 mg/5 mL-viscous lidocaine-Maalo x 1:1:1 (MAGIC MOUTHWASH) oral suspension compound 2 Active capecitabine (XELODA) 150 mg tablet Take 3 Tablets (450 mg) by mouth 2 times daily with meals with 1 other capecitabine prescription for 2,450 mg total. 84 Tablet 6 2 Active capecitabine (Xeloda) 500 mg tablet Take 4 Tablets (2,000 mg) by mouth 2 times daily with meals with 1 other capecitabine prescription for 2,450 mg total. 112 Tablet 6 2 Active BD Joya 2nd Gen Pen Needle 32 gauge x 5/32 Needle USE TO INJECT INSULIN TWICE A DAY 2 Active Levemir FlexTouch U-100 Insuln 100 unit/mL (3 mL) pen syringe INJECT 65 UNITS UNDER THE SKIN EVERY NIGHT AT BEDTIME 2 Active busPIRone (BUSPAR) 5 mg tablet Take 5 mg by mouth 3 times daily. 4 Active Ozempic 2 mg/dose (8 mg/3 mL) Pen Injector Inject 2 mg by subcutaneous injection every 7 days. 4 Active levothyroxine 25 mcg tablet Take 50 mcg by mouth daily. 4 Active anastrozole (ARIMIDEX) 1 mg tabletIndicatio ns:Inflammatory breast cancer, right (CMS/HCC) Take 1 Tablet (1 mg) by mouth daily. 90 Tablet 1 5 Active Active Problems Patient Care Coordination No te Formatting of this note migh t be different from the original. Primary Care: Brianne Yusuf MD Referring Provider: Brianne Yusuf MD [address] [place] [address] Other: Dr. Kerry Correia MD Problem Noted Date Diagnosed Date S/P bilateral mastectomy 03/07/2021 Hard to intubate 01/30/2021 Inflammatory breast cancer, right 08/23/2020 Cancer Staging:Clinical stage from 08/23/2020:Stage IIIB(cT4b, cN1(f), cM0, G2, ER+, OH+, HER2-) - Signed by Kerry Correia MD on 08/23/2020 Encounters Date Type Department Care Team Description 07/06/2024 External Device Data ST[facility] ABSTRACTION Provider, Abstract 07/05/2024 External Device Data [facility] ABSTRACTION Provider, Abstract 06/15/2024 [facility]ology [address] [place] [address] Cuco Izquierdo MD Inflammatory breast cancer, right (CMS/HCC) (Primary Dx) 04/25/2024 External Device Data STL ABSTRACTION Provider, Abstract from Last 3 Months Immunizations Immunization Administration Dates Next Due (NORBERTO) COVID-19 VACCINE - EMERGENCY USE AUTHORIZATION, AD26,COV2S(PF) 0.5 ML IM SUSP 04/24/2020 Family History Medical History Relation Name Comments Esophageal Cancer Brother 47 Breast Cancer Other mat gr gma Relation Name Status Comments Brother 47 Father Mother Alive Other mat gr gma Alive Sister 1 Alive Sister 2 Alive Son Social History Tobacco Use Types Packs/Day Years Used Date Smoking Tobacco: Never Smokeless Tobacco: Never Tobacco Cessation:Counseling Given: Not Answered Alcohol Use Standard Drinks/Week Comments Yes 0 (1 standard drink = 0.6 oz pur e alcohol) 2/ year Feeling Safe Answer Date Recorded Fear of Current or Ex-Partner Not on file Emotionally Abused Not on file 09/22/2023 Within the last year, have y ou been kicked, hit, slapped, or otherwise physically hurt by your partner or ex-partner? No 09/22/2023 Sexually Abused Not on file 09/22/2023 Comments No Sex and Gender Information Value Date Recorded Sex Assigned at Not on file Legal Sex Female 9:16 AM CDT Gender Identity Not on file Sexual Orientation Not on file Last Filed Vital Signs Vital Sign Reading Time Taken Comments Blood Pressure 102/67 03/25/2024 8:34 AM TRACTOR MECHANIC HELPER Pulse 80 03/25/2024 8:34 AM TRACTOR MECHANIC HELPER Temperature 36.2 C (97.1 F) 03/25/2024 8:34 AM TRACTOR MECHANIC HELPER Respiratory Rate 16 03/25/2024 8:34 AM TRACTOR MECHANIC HELPER Oxygen Saturation 98% 03/25/2024 8:34 AM TRACTOR MECHANIC HELPER Inhaled Oxygen Concentration - - Weight 72.1 kg (159 lb) 03/25/2024 8:34 AM TRACTOR MECHANIC HELPER Height 162.6 cm (5' 4) 09/22/2023 10:56 AM CDT Body Mass Index 27.29 09/22/2023 10:56 AM CDT Plan of Treatment Upcoming Encounters Date Type Department Care Team (Late st Contact Info) Description 07/29/2024 9:15 AM CDT Office Visit [facility] Oncology and Hematology - [address] [facility] [address] [place] [address] Cuco Izquierdo MD [address] [facility] [address] [place] [address] 09/22/2024 11:00 AM CDT Office Visit [facility] Breast Surgery [facility] [address] [facility] [address] [place] [address] [place] [address] [facility] [address] [place] [address] Health Maintenance Due Date Last Done Comments DTAP/TDAP/TD VACCINES (1 - Tdap) 09/13/1982 HPV/Cotest (21-29) 09/13/1984 CERVICAL CANCER SCREENING 09/13/1993 HPV/Cotest (30-65) 09/13/1993 PAP SMEAR 09/13/1993 COLORECTAL SCREENING 09/13/2008 Colorectal Cancer Screening 09/13/2008 FIT-DNA Q 3 years 09/13/2008 FIT/FOBT Q 1 year 09/13/2008 Flex Sig/CT Colonography Q 5 years 09/13/2008 ZOSTER VACCINE (1 of 2) 09/13/2013 INFLUENZA VACCINE (#1) 2023 COVID-19 Vaccine (2 - 2023-2 5 season) 2023 04/24/2020 Preventative Visit- Commercial 02/17/2024 Pre-Diabetes and Diabetes Screening 04/23/2024 04/23/2021 RSV VACCINE (60+ or ) (1 - 1-dose 75+ series) 09/13/2038 HEPATITIS B VACCINES Aged Out No long er eligible based on patient's age to complete this topic Medical Devices Implanted Type Area City Planning Engineer Device Identifier Shelf Expiration Date Model / Serial / Lot Boil Off Worker Clip Surgiclip Ii Cheo 9.75in [id number] - [id number] Implanted:Qty: 1 on 01/30/2021 by Kerry Correia MD at [facility] Clip Right: Breast [employer] - COVIDIEN 05/16/2025 [id number] / / [id number] Boil Off Worker Clip Surgiclip Ii Cheo 9.75in [id number] - [id number] Implanted:Qty: 1 on 01/30/2021 by Kerry Correia MD at [facility] Clip Right: Breast [employer] - COVIDIEN 07/16/2025 [id number] / / [id number] Hemostatic Surgicel 4x8in 1953 [id number] Implanted:Qty: 4 on 01/30/2021 by Kerry Correia MD at [facility] Hemostatic N/A: Breast [employer] 02/15/20251951 / / [id number] Description:two on left,two on right Port Powerport Clearvue 8fr Mri [id number] - [id number] Implanted:Qty: 1 on 09/03/2020 by Kerry Correia MD at [facility] Port Left: Chest CR BARD- REGIN[employer]ASC [employer] 10/16/2021 [id number] / / [id number] Procedures Procedure Name Priority Date/Time Associated Diagnosis Comments HEMOGLOBIN A1C Routine 04/23/2021 from Last 3 Months or Most Recently Relevant to Health Maintenance Results * HEMOGLOBIN A1C (04/23/2021) Blood us Abstract Provider CHEMISTRY ORDERABLES Final Res ult from Last 3 Months or Most Recently Relevant to Health Maintenance Insurance RX [employer] [facility] Advance Directives For more information, please contact: [phone] * Full Code (Latest Code Status on File) Date Activated Date Inactivated Comments 01/30/2021 3:28 PM 01/31/2021 12:30 PM Care Teams Sociology Faculty Member Relationship Specialty Start Date End Date Brianne Yusuf MD [facility] [place] [address] PCP - General Family Practice 08/17/20
--- OUTSIDE RECORDS SUMMARY | 2024-07-22 08:38 | XMS_ITS ---
Author Organization [facility] Address [address] [place] [address] Phone Care Team Providers Care Biogeographer Name Role Phone Brianne Yusuf MD Primary Care Provider [phone] Active Problems Patient Care Coordination No te Formatting of this note migh t be different from the original. Primary Care: Brianne Yusuf MD Referring Provider: Brianne Yusuf MD [address] [place] [address] Other: Dr. Kerry Correia MD Problem Noted Date Diagnosed Date S/P bilateral mastectomy 03/07/2021 Hard to intubate 01/30/2021 Inflammatory breast cancer, right 08/23/2020 Cancer Staging:Clinical stage from 08/23/2020:Stage IIIB(cT4b, cN1(f), cM0, G2, ER+, DE+, HER2-) - Signed by Kerry Correia MD on 08/23/2020 Current Treatment and Therapy Plans No current plan information found. Past Treatment and Therapy Plans No past plan information found. Lifetime Dose Tracking * Chemical Lifetime Dose Automatic Entry Manual Entr y Effective Dose 23.7 mSv 23.7 mSv 0 mSv Total DLP 1,723 DLP 1,723 DLP 0 DLP CTDIvol Max 31.2 mGy 31.2 mGy 0 mGy CTDIvol Min 29 mGy 29 mGy 0 mGy
--- OUTSIDE RECORDS SUMMARY | 2024-07-22 08:38 | XMS_ITS | Encounter Summary ---
Author Organization [facility] Address [address] [place] [address] Care Team Providers Care Racing Mechanic Name Role Phone Brianne Yusuf MD Primary Care Provider [phone] Encounter Details Date Type Department Care Team ([facility] Contact Info) Description 02/14/2021 Chart Note [facility] Radiation Oncology [address] [place] [address] Jorge Farmer MD [address] [address] Social History Tobacco Use Types Packs/Day Years Used Date Smoking Tobacco: Never Smokeless Tobacco: Never Alcohol Use Standard Drinks/Week Comments Yes 0 (1 standard drink = 0.6 oz pur e alcohol) 2/ year Comments No Sex and Gender Information Value Date Recorded Sex Assigned at Not on file Legal Sex Female 9:16 AM CDT Gender Identity Not on file Sexual Orientation Not on file COVID-19 Exposure Response Date Recorded In the last month, have you been in contact with someone who was confirmed or suspected to have Coronavirus / COVID-19? No / Unsure 02/05/2021 12:22 PM LAUNDRY OPERATOR WASH ROOM documented as of this encounter Plan of Treatment Upcoming Encounters Date Type Department Care Team (Late Contact Info) Description 07/29/2024 9:15 AM CDT Office Visit [facility] Oncology and Hematology - [address] [facility] [address] [place] [address] Cuco Izquierdo MD [address] [facility] [address] [place] [phone] 09/22/2024 11:00 AM CDT Office Visit [facility] Breast Surgery [address] [facility] [address] [place] [address] [place] [address] [address] [facility] [address] [place] [address] documented as of this encounter Visit Diagnoses Not on filedocumented in this encounter Care Teams Racing Mechanic Relationship Specialty Start Date End Date Brianne Yusuf MD [address] [place] [phone] PCP - General Family Practice 08/17/20 documented as of this encounter
[2024-07-22 08:54] LABS: Basophils Percent Auto 0.6 % (0.2-1.2); Eosinophils Absolute Auto 0.2 K/mm3 (0-0.3); Eosinophils Percent Auto 3.8 % (0-4.4); Hematocrit 41.6 % (37.0-47.0); Hemoglobin 13.5 g/dL (12.0-15.0); Immature Granulocyte Absolute 0.01 K/mm3 (0.00-0.031); Immature Granulocyte Percent A 0.2 % (0-0.5); Lymphocytes Absolute Auto 0.96 K/mm3 (0.9-3.2); Lymphocytes Percent Auto 20.2 % (18.3-44.2); Mean Corpuscular HGB Conc 32.5 g/dl (32-36); Mean Corpuscular Hemoglobin 29.8 pg (26-34); Mean Corpuscular Volume 91.8 fl (80-100); Mean Platelet Volume 9.5 fl (7.4-10.4); Monocytes Absolute Auto 0.4 K/mm3 (0.1-0.6); Monocytes Percent Auto 7.8 % (2.6-8.5); Neutrophils Absolute Auto 3.2 K/mm3 (1.3-6.7); Neutrophils Percent Auto 67.4 % (45.5-73.1); Platelet Count Result 254 k/mm3 (150-375); Red Blood Count 4.53 M/mm3 (4.2-5.4); Red Cell Distribution Width 12.6 % (11.5-14.5); White Blood Count 4.8 K/mm3 (4.5-10.0)
[2024-07-22 09:27] LABS: Alanine Aminotransferase 54 U/L (6-35); Albumin Level 4.4 g/dL (3.5-5.1); Alkaline Phosphatase 66 U/L (38-126); Anion Gap 8 mmol/L (4-12); Aspartate Amino Transferase 34 U/L (14-36); Bilirubin,Total 0.6 mg/dL (0.2-1.3); Blood Urea Nitrogen 19 mg/dL (7-17); Calcium 9.4 mg/dL (8.4-10.2); Carbon Dioxide 26 mmol/L (22-30); Chloride 103 mmol/L (98-107); Estimated Glomerular Filt Rate > 60; Glucose 141 mg/dL (65-110); Potassium 4.5 mmol/L (3.4-5.0); Sodium 137 mmol/L (137-145); Total Protein 7.3 g/dL (6.3-8.2)
[2024-07-22 09:42] LABS: Free T4 Free Thyroxine 1.15 ng/dL (0.78-2.19)
[2024-07-24 02:12] LABS: CA 15-3 22 U/mL (<32)
== END 2024-07-22 08:34 | disposition home or self-care (01) ==
LOC: ANHLAB 08:34
PROVIDERS: Internal Medicine; PCP Family Medicine; Visit Provider Internal Medicine Hematology & Oncology
DX: C50.911 Malignant neoplasm of unspecified site of right female breast (principal); E03.8 Other specified hypothyroidism
CPT/HCPCS: 36415; 80053; 84439; 84443; 85025; 86300

== ENCOUNTER 2024-09-12 08:10 | Outpatient (CLI) | payer OTHER, SELFPAY ==
--- NOTE | ~2024-09-12 | DEXA_ITS ---
Bone Density Report Name: ASH RODRIGUEZ Age: 58 Sex: Female Ethnicity: White Date of : 1965 Indication: postmenopausal; screening for osteoporosis; cancer; hysterectomy; Referring Provider: PORFIRIO WHALEN Study: Bone densitometry was performed. Exam Date: September 12, 2024 Accession number: [id number] Bone Density: Region BMD T-score Z-score Classification AP Spine(L1-L4) 0.875 -1.6 -0.1 Osteopenia Femoral Neck (Left) 0.698 -1.4 0.0 Osteopenia Total Hip (Left) 0.901 -0.3 0.7 Normal Femoral Neck (Right) 0.680 -1.5 -0.2 Osteopenia Total Hip (Right) 0.809 -1.1 -0.1 Osteopenia Total Hip Mean 0.855 -0.7 0.3 Normal World Health Organization criteria for BMD impression classify patients as: Normal (T-score at or above -1.0), Osteopenia (T-score between -1.0 and -2.5), or Osteoporosis (T-score at or below -2.5). 10-year Fracture Risk(1): Major Osteoporotic Fracture 8.3% Hip Fracture 0.7% Reported Risk Factors: [place] (), Neck BMD=0.680, BMI=26.8 (1) FRAX(R) Version 3.08. Fracture probability calculated for an untreated patient. Fracture probability may be lower if the patient has received treatment. Clinical Information Provided by Patient: Has the following medical conditions: Cancer, Hysterectomy Patient maximum height was 64.0 Menopause Age: 34 No regular weight bearing exercise Drinks caffeinated beverages Onset of menses at age 11 Number of children 1 Impression: The patient has low bone mass, based on the Total Spine T-score. The patient has an estimated ten-year risk of hip fracture of 0.7% and an estimated ten-year risk of major fracture of 8.3%, based on the WHO FRAX algorithm. Discussion: BONE DENSITY IS LOW AT ONE OR MORE SKELETAL SITES. This patient's lowest T-score is low at one or more skeletal sites. It meets the World Health Organization's (WHO) criteria for ?low bone mass? (T-score between -1.0 and -2.5). The patient's 10-year risk of fracture as calculated by FRAX is less than the threshold where pharmacological therapy is recommended by the National Osteoporosis Foundation (NOF). However, all treatment decisions require clinical judgment and consideration of individual patient factors, including patient preferences, comorbidities, previous drug use, risk factors not captured in the FRAX model (e.g., frailty, falls, vitamin D deficiency, increased bone turnover, interval significant decline in bone density) and possible under or overestimation of fracture risk by FRAX. The patient should follow a healthful lifestyle (good nutrition with adequate calcium and vitamin D, and appropriate weight-bearing exercise). Follow-Up: Consider repeating this study in 2 to 3 years to reassess this patient's status, or sooner if there is some new clinical indication. Reported by: LIZET on 09/12/2024 8:57:00 AM. Reviewed, dictated and finalized at location A.
--- OUTSIDE RECORDS SUMMARY | 2024-09-12 08:17 | XMS_ITS | Encounter Summary ---
Author Organization [facility] Address [address] [place] [address] Care Team Providers Care Inspector Water Pollution Control Name Role Phone Brianne Yusuf MD Primary Care Provider [phone] Encounter Details Date Type Department Care Team (Late Contact Info) Description 02/14/[address] [facility] Radiation Oncology [address] [place] [address] Jorge Farmer MD [address] [address] Social History Tobacco Use Types [...] COVID-19? No / Unsure 02/05/2021 12:22 PM DIRECTOR OF CASEWORK DEPARTMENT documented as of this encounter Plan of Treatment Upcoming Encounters Date Type Department Care Team (Late Contact Info) Description 09/22/2024 12:30 PM CDT Office Visit [facility] Breast Surgery [address] [facility] [address] [place] [address] Margoth Pineda, YARN TWISTER [address] [facility] [address] [place] [address] 12/02/2024 9:00 AM CDT Office Visit [facility] Oncology and Hematology - [place] [address] [facility] [address] [place] [address] Cuco Izquierdo MD [address] [facility] [address] [place] [address] documented as of this encounter Visit Diagnoses Not on filedocumented in this encounter Care Teams Inspector Water Pollution Control Relationship Specialty Start Date End Date Brianne Yusuf MD [address] [place] [address] PCP - General Family Practice 08/17/20 documented as of this encounter
--- OUTSIDE RECORDS SUMMARY | 2024-09-12 08:17 | XMS_ITS ---
Author Organization [facility] [place] Address [address] [place] [address] Phone Care Team Providers Care Resident Doctor Name Role Phone Brianne Yusuf MD Primary Care Provider [phone] Active Problems Patient Care Coordination No te Formatting of this note migh t be different from the original. Primary Care: Brianne Yusuf MD Referring Provider: Brianne Yusuf MD [address] [place] [address] Other: Dr. Kerry Correia MD Problem Noted Date Diagnosed Date S/P bilateral mastectomy 03/07/2021 Hard to intubate 01/30/2021 Inflammatory breast cancer, right 08/23/2020 Cancer Staging:Clinical stage from 08/23/2020:Stage IIIB(cT4b, cN1(f), cM0, G2, ER+, MT+, HER2-) - Signed by Kerry Correia MD [...]
--- OUTSIDE RECORDS SUMMARY | 2024-09-12 08:17 | XMS_ITS | Clinical Summary ---
Author Organization [facility] Address [address] [place] [address] Phone Care Team Providers Care Billet Worker Name Role Phone Brianne Yusuf MD Primary Care Provider [phone] Allergies Active Allergy Reactions Criticality Noted Date Comments Codeine Other (See Comments) 08/14/2020 My chest hurts Medications atorvastatin (LIPITOR) 40 mg tablet Take 40 mg by mouth daily at bedtime. Active ezetimibe-rosuv astatin 10-10 mg Tablet Take by mouth daily. Active citalopram (CeleXA) 40 mg tablet Take 40 mg by mouth daily. Active LORazepam (ATIVAN) 0.5 mg tabletIndicatio ns:Inflammatory [...] 2nd Gen Pen Needle 32 gauge x /32 Needle USE TO INJECT INSULIN TWICE A DAY 2 Active busPIRone (BUSPAR) 5 mg tablet [...] Yusuf MD Referring Provider: Brianne Yusuf MD [address] [place] [phone] Other: Dr. Kerry Correia MD Problem Noted Date Diagnosed Date S/P bilateral mastectomy 03/07/2021 Hard to intubate 01/30/2021 Inflammatory breast cancer, right 08/23/2020 Cancer Staging:Clinical stage from 08/23/2020:Stage IIIB(cT4b, cN1(f), cM0, G2, ER+, IA+, HER2-) - Signed by Kerry Correia MD on 08/23/2020 Encounters Date Type Department Care Team Description 08/31/2024 External Device Data STL ABSTRACTION Provider, Abstract 08/30/2024 External Device Data STL ABSTRACTION Provider, Abstract 08/03/2024 External Device Data STL ABSTRACTION Provider, Abstract 07/29/2024 9:15 AM CDT Office Visit [facility] Oncology and Hematology [facility] [address] [place] [address] Cuco Izquierdo MD Inflammatory breast cancer, right (CMS/HCC) (Primary Dx) 07/29/2024 Orders Only [facility] On[facility] and [facility] [address] [place] [address] Cuco Izquierdo MD 07/25/2024 Orders Only [facility] [address] [place] [address] Cuco Izquierdo MD 07/06/2024 External Device Data STL ABSTRACTION Provider, Abstract 07/05/2024 External Device Data STL ABSTRACTION Provider, Abstract 06/15/2024 Refill [facility] Oncology and Hematology [facility] [address] [place] [address] Cuco Izquierdo MD Inflammatory breast cancer, right (CMS/HCC) (Primary Dx) from Last 3 Months Immunizations Immunization Administration Dates Next Due (CL3VER) COVID-19 VACCINE - EMERGENCY USE AUTHORIZATION, AD26,COV2S(PF) [...] Sign Reading Time Taken Comments Blood Pressure 115/73 07/29/2024 9:17 AM CDT Pulse 74 07/29/2024 9:17 AM CDT Temperature 36.6 C (97.8 F) 07/29/2024 9:17 AM CDT Respiratory Rate 15 07/29/2024 9:17 AM CDT Oxygen Saturation 97% 07/29/2024 9:17 AM CDT Inhaled Oxygen Concentration - - Weight 71.2 kg (157 lb) 07/29/2024 9:17 AM CDT Height 162.6 cm (5' 4) 09/22/2023 10:56 AM CDT Body Mass Index 26.95 09/22/2023 10:56 AM CDT Plan of Treatment Upcoming Encounters Date Type Department Care Team (Late st Contact Info) Description 09/22/2024 12:30 PM CDT Office Visit [facility] Breast Surgery [place] Day [address] [facility] [address] [place] [address] Margoth Pineda FNP [address] [facility] [address] [place] [address] 12/02/2024 9:00 AM CDT Office Visit [facility] Oncology and Hematology [facility] [address] [facility] [address] [place] [address] Cuco Izquierdo MD [address] [facility] [address] [place] [address] Health Maintenance Due Date Last Done Comments DTAP/TDAP/TD VACCINES (1 - Tdap) 09/13/1982 HPV/Cotest (21-29) 09/13/1984 CERVICAL CANCER SCREENING 09/13/1993 HPV/Cotest (30-65) 09/13/1993 PAP SMEAR 09/13/1993 COLORECTAL SCREENING 09/13/2008 Colorectal Cancer Screening 09/13/2008 FIT-DNA Q 3 years 09/13/2008 FIT/FOBT Q 1 year 09/13/2008 Flex Sig/CT Colonography Q 5 years 09/13/2008 ZOSTER VACCINE (1 of 2) 09/13/2013 COVID-19 Vaccine (2 - 2023-2 5 season) 2023 04/24/2020 Pre-Diabetes and Diabetes Screening 04/23/2024 04/23/2021 INFLUENZA VACCINE (#1) 2024 RSV VACCINE (60+ or ) (1 - 1-dose 75+ series) 09/13/2038 HEPATITIS B VACCINES Aged Out No long er eligible based on patient's age to complete this topic Medical Devices Implanted Type Area Assistant Infant Toddler Teacher Device Identifier Shelf Expiration Date Model / Serial / Lot Aquaculture Farm Manager Clip Surgiclip Ii Cheo 9.75in [id number] - [id number] Implanted:Qty: 1 on 01/30/2021 by Kerry Correia MD at [facility] Clip Right: Breast [employer] - COVIDIEN 05/16/2025 [id number] / / [id number] Aquaculture Farm Manager Clip Surgiclip Ii Cheo 9.75in [id number] - [id number] Implanted:Qty: 1 on 01/30/2021 by Kerry Correia MD at [facility] Clip Right: Breast [employer] - COVIDIEN 07/16/2025 [id number] / / [id number] Hemostatic Surgicel 4x8in 1953 - [id number] Implanted:Qty: 4 on 01/30/2021 by Kerry Correia MD at [facility] Hemostatic N/A: Breast [employer]- [employer] 02/15/20251951 / / [id number] Description:two on left,two on right Port Powerport Clearvue 8fr Mri [id number] - [id number] Implanted:Qty: 1 on 09/03/2020 by Kerry Correia MD at [facility] Port Left: Chest CR BARD- REGINO VASC INC 10/16/2021 [id number] / / [id number] Procedures Procedure Name Priority Date/Time Associated Diagnosis Comments COMPREHENSIVE METABOLIC PANEL Routine 07/22/2024 1:17 PM CDT CHG CA 15 3 Routine 07/22/2024 11:26 AM CDT HEMOGLOBIN A1C Routine 04/23/2021 from Last 3 Months or Most Recently Relevant to Health Maintenance Results * COMPREHENSIVE METABOLIC PANEL (07/22/2024 1:17 PM CDT) Blood us Cuco Izquierdo MD CHEMISTRY ORDERABLES Final Resu lt * CHG CA 15 3 (07/22/2024 11:26 AM CDT) us Cuco Izquierdo MD CHG - LABORATORY Final Result * HEMOGLOBIN A1C (04/23/2021) Blood us Abstract Provider CHEMISTRY ORDERABLES Final Res ult from Last 3 Months or Most Recently Relevant to Health Maintenance Insurance [employer] CIGNA HMO CIGNA HMO Advance Directives For more information, please contact: [phone] * Full Code (Latest Code Status on File) Date Activated Date Inactivated Comments 01/30/2021 3:28 PM 01/31/2021 12:30 PM Care Teams Billet Worker Relationship Specialty Start Date End Date Brianne Yusuf MD [address] [place] [phone] PCP - General Family Practice 08/17/20
== END 2024-09-12 08:11 | disposition home or self-care (01) ==
LOC: ANHIMG 08:12
PROVIDERS: PCP Family Medicine; Visit Provider Internal Medicine Hematology & Oncology
DX: M85.89 Other specified disorders of bone density and structure, multiple sites (principal)
CPT/HCPCS: 77080

== ENCOUNTER 2024-11-12 14:19 | Inpatient (IN) | payer OTHER, SELFPAY ==
[2024-11-12] VITALS (9 sets, daily range): BP systolic 129–167; BP diastolic 72–90; PULSE 83–96; RESP 15–22; TEMP 36.4–36.6; O2SAT 96–100; BMI 29.0
--- NOTE | ~2024-11-12 | XR_ITS ---
EXAMINATION: [id number] DATE: 11/14/2024 11:56 INDICATION: Status post thoracentesis for left pleural effusion TECHNIQUE: frontal view of the chest was obtained. COMPARISON: Chest radiograph dated 11/12/2024 FINDINGS: Significant decrease in size of a now small to moderate-sized residual left pleural effusion with improved aeration at the medial two thirds of the left mid to lower lung zones. Residual opacities in the mid to lower lung zone corresponding to the pleural effusion and associated atelectasis and/or pneu monia. Mild rightward shift of the heart and mediastinum has resolved. Minimal increased interstitial pattern at the right lower lung zone suggesting minimal pulmonary edema. There is also a tiny right pleural effusion. No pneumothorax. Cardiac silhouette is partially obscured but does not appear enlarged. Multiple surgical clips projecting over the bilateral axillae and lateral chest wall suggesting prior lymph node dissections. Cholecystectomy clips in right upper quadrant. IMPRESSION: 1. Interval decrease in size of a now small to moderate left pleural effusion with improved aeration of the left lung. Residual opacity left mid to lower lung zone consistent with associated atelectasis and/or pneumonia. 2. Minimal pulmonary edema in the right lower lung zone and tiny right pleural effusion. Reviewed, dictated and finalized at location A. IMPRESSION: 1. Interval decrease in size of a now small to moderate left pleural effusion w ith improved aeration of the left lung. Residual opacity left mid to lower lung zone consistent with associated atelectasis and/or pneumonia. 2. Minimal pulmonary edema in the right lower lung zone and tiny right pleural effusion.
--- NOTE | ~2024-11-12 | CT_ITS ---
EXAMINATION: CTA chest PE protocol, 11/12/2024 16:15 CDT HISTORY: shortness of breath COMPARISON: No comparisons available. TECHNIQUE: CTA examination is obtained with contrast CTA examination technique is performed with arterial phase of contrast-enhancement. 3-D reconstruction with thin MIP axial and MPR coronal imaging is provided Isovue 300, 92cc injected IV. One or more of the following dose reduction techniques were used: automated exposure control, adjustment of the mA and/or kV according to patient size, use of iterative reconstruction technique. FINDINGS: No significant coronary calcification is present ([id number]) LUNGS: Small simple appearing right pleural effusion. Large left pleural effusion with compressive atelectasis with abnormal density noted in the left lung which appears confluent with the hilum with narrowing of the bronchi in this location consenting for neoplasm. Contrast bolus adequate, no pulmonary embolism identified. Minimal emphysematous changes. Right lower leg there are micronodules noted the largest 7 x 7 mm. Moderate emphysematous changes are noted. Mild pulmonary fibrotic changes. HEART AND PERICARDIUM: Within normal limits. AORTA: Normal caliber aorta.. PULMONARY ARTERIES: No pulmonary embolism ADENOPATHY/MEDIASTINUM: There are enlarged lymph nodes in the visualized abdomen the largest peripancreatic space 2.3 x 2.4 cm. LIMITED VIEWS OF THE ABDOMEN: Within normal limits. OSSEOUS STRUCTURES: No sclerotic or lytic lesions appreciated. OVERLYING SOFT TISSUES: Unremarkable. THYROID: The thyroid is unremarkable. IMPRESSION: 1. Negative for pulmonary embolism. Left-sided bronchopneumonia with neoplasm suspected. Bronchoscopy suggested. 2. Incidental findings above Reviewed, dictated and finalized at location P. IMPRESSION: 1. Negative for pulmonary embolism. Left-sided bronchopneumonia with neoplasm s uspected. Bronchoscopy suggested. 2. Incidental findings above
--- NOTE | ~2024-11-12 | US_ITS ---
EXAMINATION: US thoracentesis DATE: 11/14/2024 12:05 INDICATION: Left pleural effusion TECHNIQUE: The procedure and its risks and benefits were discussed with the patient. Potential risks discussed included bleeding, infection, and pneumothorax. The patient understood the risks and agreed to proceed. The skin was prepped and draped in sterile fashion. 1% lidocaine was used for local anes thesia. Under ultrasound guidance, a 5 Fr catheter with trochar was advanced into the left pleural effusion. Fluid was aspirated. The catheter was removed, and a dressing was applied. There were no immediate complications. FINDINGS: Ultrasound images demonstrate a large left pleural effusion and the catheter within the fluid. IMPRESSION: 1. Successful ultrasound-guided thoracentesis yielding 1100 mL of straw-colored fluid. Reviewed, dictated and finalized at location A. IMPRESSION: 1. Successful ultrasound-guided thoracentesis yielding 1100 mL of straw-colore d fluid.
--- NOTE | ~2024-11-12 | XR_ITS ---
EXAMINATION: XR chest 2V, 11/12/2024 15:32 CDT HISTORY: SOB, chest pain COMPARISON: No comparisons available. Technique: 2 views obtained. Findings: Large right basilar infiltrate and effusion. Small right basilar infiltrate. No pneumothorax. Heart is normal size. Mediastinal and hilar contours are within normal limits. Bony thorax no acute abnormality. Impression: Bilateral pneumonia. Underlying mass is not excluded. CT suggested Reviewed, dictated and finalized at location P. Impression: Bilateral pneumonia. Underlying mass is not excluded. CT suggested
--- OUTSIDE RECORDS SUMMARY | 2024-11-12 14:21 | XMS_ITS | Encounter Summary ---
Author Organization [facility] Address [address] [place] [address] Care Team Providers Care Venetian Blind Worker Name Role Phone Brianne Yusuf MD Primary Care Provider [phone] Encounter Details Date Type Department Care Team ([facility] Contact Info) Description 02/14/2021 Chart Note [facility] Radiation Oncology [address] [place] [address] Jorge Farmer MD [address] [address] Social History Tobacco Use Types [...] COVID-19? No / Unsure 02/05/2021 12:22 PM GLUE JOINTER FEEDER documented as of this encounter Plan of Treatment Upcoming Encounters Date Type Department Care Team (Late Contact Info) Description 12/02/2024 9:00 AM CDT Office Visit [facility] Oncology and Hematology - [place] [address] [facility] [address] [place] [address] Cuco Izquierdo MD [address] [address] documented as of this encounter Visit Diagnoses Not on filedocumented in this encounter Care Teams Venetian Blind Worker Relationship Specialty Start Date End Date Brianne Yusuf MD [address] [place] [address] PCP - General Family Practice 08/17/20 documented as of this encounter
--- OUTSIDE RECORDS SUMMARY | 2024-11-12 14:21 | XMS_ITS | Clinical Summary ---
Author Organization [facility] [place] Address [address] [place] [address] Phone Care Team Providers Care Professor Of Chemistry Name Role Phone Brianne Yusuf MD Primary Care Provider [phone] Allergies Active Allergy Reactions Criticality Noted Date Comments Codeine Other (See Comments) 08/14/2020 My chest hurts Medications atorvastatin (LIPITOR) 40 mg tablet Take 40 mg by mouth daily at bedtime. Active ezetimibe-rosuv astatin 10-10 mg Tablet Take by mouth daily. Active citalopram (CeleXA) 40 mg tablet Take 40 mg by mouth daily. Active LORazepam (ATIVAN) 0.5 mg tabletIndicatio ns:Inflammatory breast cancer, right Take 1 Tablet (0.5 mg) by mouth [...] 2nd Gen Pen Needle 32 gauge x 32 Needle USE TO INJECT INSULIN TWICE A [...] 1 mg tabletIndicatio ns:Inflammatory breast cancer, right Take 1 Tablet (1 mg) by mouth daily. 90 Tablet 1 5 Active Active Problems Patient Care Coordination No te Formatting of this note migh t be different from the original. Primary Care: Brianne Yusuf MD Referring Provider: Brianne Yusuf MD [address] [place] [address] Other: Dr. Kerry Correia MD Problem Noted Date Diagnosed Date S/P bilateral mastectomy 03/07/2021 Hard to intubate 01/30/2021 Inflammatory breast cancer, right 08/23/2020 Cancer Staging:Clinical stage from 08/23/2020:Stage IIIB(cT4b, cN1(f), cM0, G2, ER+, [place]+, HER2-) - Signed by Kerry Correia MD on 08/23/2020 Encounters Date Type Department Care Team Description 10/25/2024 External Device Data STL ABSTRACTION Provider, Abstract 10/18/2024 External Device Data STL ABSTRACTION Provider, Abstract 10/04/2024 External Device Data STL ABSTRACTION Provider, Abstract 10/04/2024 External Device Data STL ABSTRACTION Provider, Abstract 09/27/2024 External Device Data STL ABSTRACTION Provider, Abstract 09/21/2024 External Device Data STL ABSTRACTION Provider, Abstract 2024 Orders Only [facility] Oncology and Hematology - [place] [address] [address] Cuco Izquierdo MD 08/31/2024 External Device Data STL ABSTRACTION Provider, [...] Care Team (Late st Contact Info) Description 12/02/2024 9:00 AM CDT Office Visit [facility] Oncology and Hematology - [place] [address] [place] [address] Cuco Izquierdo MD [address] [facility] [address] [place] [address] Health Maintenance Due Date Last Done Comments DTAP/TDAP/TD VACCINES (1 - Tdap) 09/13/1982 HPV/Cotest (21-29) 09/13/1984 CERVICAL CANCER SCREENING 09/13/1993 HPV/Cotest (30-65) 09/13/1993 PAP SMEAR 09/13/1993 COLORECTAL SCREENING 09/13/2008 Colorectal Cancer Screening 09/13/2008 FIT-DNA Q 3 years 09/13/2008 FIT/FOBT Q 1 year 09/13/2008 Flex Sig/CT Colonography Q 5 years 09/13/2008 ZOSTER VACCINE (1 of 2) 09/13/2013 Pre-Diabetes and Diabetes Screening 04/23/202404/23 INFLUENZA VACCINE (#1) 2024 COVID-19 Vaccine (2 - season) 10/17/202410/2020 RSV VACCINE (60+ or ) (1 - 1-dose 75+ series) 09/13/2038 Medical Devices Implanted Type Area Metal Stamper Device Identifier Shelf Expiration Date Model / Serial / Lot Hand Fretted Instrument Maker Clip Surgiclip Ii Cheo 9.75in [id number] - [id number] Implanted:Qty: 1 on 01/30/2021 by Kerry Correia MD at [facility] Clip Right: Breast [employer] - COVIDIEN 05/16/2025 [id number] / / [id number] Hand Fretted Instrument Maker Clip Surgiclip Ii Cheo 9.75in [id number] - [id number] Implanted:Qty: 1 on 01/30/2021 by Kerry Correia MD at [facility] Clip Right: Breast [employer] - COVIDIEN 07/16/2025 [id number] / / [id number] Hemostatic Surgicel 4x8in 1953 - [id number] Implanted:Qty: 4 on 01/30/2021 by Kerry Correia MD at [facility] Hemostatic N/A: Breast J[employer]J- [employer] 02/15/20251951 / / [id number] Description:two on left,two on right Port Powerport Clearvue 8fr Mri [id number] - [id number] Implanted:Qty: 1 on 09/03/2020 by Kerry Correia MD at [facility] Port Left: Chest CR BARD- REGINO VASC INC 10/16/2021 [id number] / / [id number] Procedures Procedure Name Priority Date/Time Associated Diagnosis Comments NM BONE DENSITY Routine 09/12/2024 2:43 PM CDT HEMOGLOBIN A1C Routine 04/23/2021 from Last 3 Months or Most Recently Relevant to Health Maintenance Results * NM BONE DENSITY (09/12/2024 2:43 PM CDT) Anatomical Region Laterality Modality Nuclear Medicine us Cuco Izquierdo MD NM ORDERABLES Final Result * HEMOGLOBIN A1C (04/23/2021) Blood us Abstract Provider CHEMISTRY ORDERABLES Final Res ult from Last 3 Months or Most Recently Relevant to Health Maintenance Insurance [employer] CIGNA HMO CIG HMO Advance Directives For more information, please contact: [phone] * Full Code (Latest Code Status on File) Date Activated Date Inactivated Comments 01/30/2021 3:28 PM 01/31/2021 12:30 PM Care Teams Professor Of Chemistry Relationship Specialty Start Date End Date Brianne Yusuf MD [address] [place] [phone] PCP - General Family Practice 08/17/20
--- NOTE | 2024-11-12 15:04 | ECG_ITS ---
Test Date: 2024-11-12 15:12:18 Measurements Intervals [place] Rate: 82 P: 39 MS: 167 QRS: 19 QRSD: 89 T: 28 QT: 373 QTc: 437 Interpretive Statements SINUS RHYTHM No previous ECG available for comparison Electronically Signed On 11-13-2024 20:44:26 CDT by Paul Veronica D.O
--- NOTE | 2024-11-12 15:06 | ED_ITS ---
HPI - SOB/Dyspnea General Chief Complaint: Shortness of Breath/Dyspnea Stated Complaint: DYSPNEA Time Seen by Provider: 11/12/24 14:50 History of Present Illness HPI Narrative: Patient is a 59-year-old female presents to the ER with complaints of shortness of breath and right-sided back pain for the past week. She reports she has had the symptoms before when she had COVID pneumonia. Patient endorses a dry cough and intermittent chest pain. She denies any recent fevers, lower extremity edema, or productive cough. Patient endorses a history of breast cancer, but she completed her treatment 3 years ago. 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 Obesity (BMI 30.0-34.9) Suspected sleep apnea Generalized anxiety disorder Anxiety Hypercholesteremia Depression Surgical History Surgical History Hx of section Hx of cholecystectomy History of removal of Port-a-Cath H/O bilateral mastectomy History of hysterectomy Family History Family History Grandparent Family history of Alzheimer's disease Sibling Family history of malignant neoplasm of esophagus Social History Social History Smoking status: Never smoker Second hand tobacco smoke exposure: No Alcohol intake: never Substance use: never Substance use type: does not use Do You Feel Safe in your Home?: Yes Lack of Transportation: No Lack of Food: Never True Current Housing: I Have Housing Concerned About Future Housing: No Difficulty Paying Gas/Electric Bills: No Difficulty Paying for Meds: No Currently Unemployed: YES Education: Bachelor's Degree Difficulty w/ Childcare or Family Care: No Living arrangements: with family Gender identity (if verbalized by the patient): Female Spiritual care concerns: No Exam 2 Narrative: GENERAL: Well appearing, well-nourished, non-toxic, in no acute distress. HEAD: Normocephalic, atraumatic. NECK: Supple. No adenopathy, no masses. RESPIRATORY: Airway patent, respirations nonlabored. Clear to auscultation bilaterally, L side diminished CARDIOVASCULAR: Regular rate and rhythm without murmurs, rubs, or gallops. Peripheral pulses 2+ and equal bilaterally. ABDOMINAL: Soft, nontender, nondistended, no hepatosplenomegaly. Normoactive BS. MUSCULOSKELETAL: Moves all extremities. Strength/ROM intact without gross deformities. SKIN: Warm, dry, normal color. No rashes. NEURO: A&O X3. Speech clear. Cranial nerves II-XII intact. No ataxic movements. PSYCHIATRIC: Appropriate mood and affect. Normal interaction. Course Vital Signs Vital signs: Vital Signs Temperature 36.6 C 11/12/24 14:20 Pulse Rate 94 11/12/24 14:20 Respiratory Rate 22 H 11/12/24 14:20 Blood Pressure 129/87 11/12/24 14:20 Pulse Oximetry 100 11/12/24 14:20 Oxygen Delivery Room Air 11/12/24 14:20 Temperature 36.6 C 11/12/24 14:20 Pulse Rate 92 11/12/24 16:38 Respiratory Rate 18 11/12/24 16:38 Blood Pressure 129/78 11/12/24 16:38 Pulse Oximetry 96 11/12/24 16:38 Oxygen Delivery Room Air 11/12/24 14:20 MDM - SOB/Dyspnea MDM Narrative Medical decision making narrative: Patient is a 59-year-old female presents to the ER with complaints of shortness of breath and right-sided back pain for the past week. She reports she has had the symptoms before when she had COVID pneumonia. Patient endorses a dry cough and intermittent chest pain. She denies any recent fevers, lower extremity edema, or productive cough. Patient endorses a history of breast cancer, but she completed her treatment 3 years ago. Labs Ordered: CBC, CMP, lactic acid, magnesium, proBNP, CRP, ESR, UA, procalcitonin, blood cultures, COVID/flu/RSV Imaging Ordered: CTA chest PE, chest x-ray Medications Ordered: DuoNeb, ceftriaxone IV, azithromycin IV, 1 L normal saline IV bolus Results: Pt's CTA indicates LUNGS: Small simple appearing right pleural effusion. Large left pleural effusion with compressive atelectasis with abnormal density noted in the left lung which appears confluent with the hilum with narrowing of the bronchi in this location consenting for neoplasm. Contrast bolus adequate, no pulmonary embolism identified. Minimal emphysematous changes. Right lower leg there are micronodules noted the largest 7 x 7 mm. Moderate emphysematous changes are noted. Mild pulmonary fibrotic changes. HEART AND PERICARDIUM: Within normal limits. AORTA: Normal caliber aorta.. PULMONARY ARTERIES: No pulmonary embolism ADENOPATHY/MEDIASTINUM: There are enlarged lymph nodes in the visualized abdomen the largest peripancreatic space 2.3 x 2.4 cm. LIMITED VIEWS OF THE ABDOMEN: Within normal limits. OSSEOUS STRUCTURES: No sclerotic or lytic lesions appreciated. OVERLYING SOFT TISSUES: Unremarkable. THYROID: The thyroid is unremarkable. Diagnosis: Pulmonary neoplasm, bilateral pneumonia Consults: 1700-spoke with pulmonology, Dr. Cee, who was in agreement with plan for patient to be admitted to the hospital. He would like patient to receive ceftriaxone and azithromycin IV to treat her pneumonia. He would also like patient to receive DuoNebs every [address] Cee reports if patient's proBNP is elevated she can receive Lasix. He reports he will see patient tomorrow morning in the hospital and will plan to do a thoracentesis on Thursday. 1730-spoke with hospitalist, TATYANA Ortiz, who was in agreement with plan for admission. Patient will be admitted to the med/surg with telemetry. Results of imaging and lab work shared with patient and her family. They were very tearful upon diagnosis. It was advised patient be admitted to the hospital for further evaluation and treatment. Patient and her family verbalized understanding and are in agreement with plan. CRITICAL CARE ADDENDUM: Indication: shortness of breath, concern for sepsis Time type: intermittent I provided a total of 45 minutes of critical care excluding separately billable procedures. This includes time w/initial bedside evaluation, reviewing old records, review of testing done while under my care, discussion w/ the family, nurses, wealth management consultant and guiding the patient?s care while in the emergency department. Approximate time distribution: 5 minutes ? Initial evaluation, d/w involved parties, attempting to gather old records. 10 minutes ? Documenting medical record 10 minutes ? Review of results (EKGs, labs, imaging) 10 minutes ? Serial repeat bedside evaluation 10 minutes ? Discussing case with multiple providers Please see main chart for details. Excludes separately billable procedures. Differential Diagnosis Differential diagnosis: Likely acute exacerbation of chronic obstructive airways disease, congestive heart failure, community acquired pneumonia, asthma with exacerbation, pulmonary embolism and other (Neoplasm) Lab Data Attestation: I reviewed the patient's lab results. 11/12/24 15:46 11/12/24 16:57 Labs: Lab Results 11/12/24 11/12/24 11/12/24 Range/Units 15:46 15:55 16:57 WBC 6.5 (4.5-10.0) K/mm3 RBC 4.69 (4.2-5.4) M/mm3 Hgb 13.8 (12.0-15.0) g/dL Hct 42.4 (37.0-47.0) % MCV 90.4 (80-100) fl MCH 29.4 (26-34) pg MCHC 32.5 (32-36) g/dl RDW 12.9 (11.5-14.5) % Plt Count 291 (150-375) k/mm3 MPV 9.6 (7.4-10.4) fl Immature Gran % (Auto) 0.2 (0-0.5) % Neut % (Auto) 73.6 H (45.5-73.1) % Lymph % (Auto) 15.8 L (18.3-44.2) % [place] % (Auto) 7.6 (2.6-8.5) % Eos % (Auto) 2.3 (0-4.4) % Baso % (Auto) 0.5 (0.2-1.2) % Lymph # (Auto) 1.02 (0.9-3.2) K/mm3 [place] # (Auto) 0.5 (0.1-0.6) K/mm3 Eos # (Auto) 0.2 (0-0.3) K/mm3 Baso # (Auto) 0.0 (0.0-0.1) K/mm3 Abs Immat Gran (auto) 0.01 (0.00-0.031) K/mm3 Absolute Neuts (auto) 4.8 (1.3-6.7) K/mm3 Absolute Nucleated RBC 0.000 (0.0-0.012) K/mm3 Nucleated RBC % 0.0 (0.0-0.2) % ESR 18 (0-20) mm/hr PT 13.1 (11.1-14.7) Seconds INR 1.0 APTT 23.3 (22.3-36.8) Seconds D-Dimer 0.32 (<0.48) ug/mL Sodium 136 L (137-145) mmol/L Potassium 3.8 (3.4-5.0) mmol/L Chloride 103 (98-107) mmol/L Carbon Dioxide 27 (22-30) mmol/L Anion Gap 6 (4-12) mmol/L BUN 21 H (7-17) mg/dL Creatinine 1.08 H (0.7-1.0) mg/dL Estim Creat Clear Calc 42 ml/min Estimated GFR 52 L (59 - ) Glucose 158 H (65-110) mg/dL Lactic Acid 1.0 1.4 (0.7-2.0) mmol/L Calcium 8.7 (8.4-10.2) mg/dL Magnesium 2.2 (1.6-2.3) mg/dL Total Bilirubin 0.4 (0.2-1.3) mg/dL AST 31 (14-36) U/L ALT 36 H (6-35) U/L Alkaline Phosphatase 77 (38-126) U/L Troponin I < 0.012 (0.000-0.034) ng/mL C-Reactive Protein < 0.5 (<1.0) mg/dL NT-Pro-B Natriuret Pep (19.9-100) pg/mL Total Protein (6.3-8.2) g/dL Albumin (3.5-5.1) g/dL Urine Color (Yellow) Urine Appearance (Clear) Urine pH (5.0-9.0) Ur Specific [place] (1.001-1.035) Urine Protein (Negative) mg/dL Urine Glucose (UA) (Negative) mg/dL Urine Ketones (Negative) mg/dL Ur Blood (Man) (Negative) Urine Nitrate (Negative) Urine Bilirubin (Negative) Urine Urobilinogen (<2.0) mg/dL Leukocyte Esterase Rfl (Negative) SHANICE/UL Urine RBC (0-2) /hpf Urine WBC (0-3) /hpf Ur Squamous Epith Cells (Few) /hpf Urine Bacteria /hpf Urine Casts Influenza A (RT-PCR) Negative (Negative) Influenza B (RT-PCR) Negative (Negative) RSV (RT-PCR) Negative (Negative) SARS-CoV-2 RNA (RT-PCR) Negative (Negative) 11/12/24 Range/Units 16:57 WBC (4.5-10.0) K/mm3 RBC (4.2-5.4) M/mm3 Hgb (12.0-15.0) g/dL Hct (37.0-47.0) % MCV (80-100) fl MCH (26-34) pg MCHC (32-36) g/dl RDW (11.5-14.5) % Plt Count (150-375) k/mm3 MPV (7.4-10.4) fl Immature Gran % (Auto) (0-0.5) % Neut % (Auto) (45.5-73.1) % Lymph % (Auto) (18.3-44.2) % [place] % (Auto) (2.6-8.5) % Eos % (Auto) (0-4.4) % Baso % (Auto) (0.2-1.2) % Lymph # (Auto) (0.9-3.2) K/mm3 [place] # (Auto) (0.1-0.6) K/mm3 Eos # (Auto) (0-0.3) K/mm3 Baso # (Auto) (0.0-0.1) K/mm3 Abs Immat Gran (auto) (0.00-0.031) K/mm3 Absolute Neuts (auto) (1.3-6.7) K/mm3 Absolute Nucleated RBC (0.0-0.012) K/mm3 Nucleated RBC % (0.0-0.2) % ESR (0-20) mm/hr PT (11.1-14.7) Seconds INR APTT (22.3-36.8) Seconds D-Dimer (<0.48) ug/mL Sodium (137-145) mmol/L Potassium (3.4-5.0) mmol/L Chloride (98-107) mmol/L Carbon Dioxide (22-30) mmol/L Anion Gap (4-12) mmol/L BUN (7-17) mg/dL Creatinine (0.7-1.0) mg/dL Estim Creat Clear Calc ml/min Estimated GFR (59 - ) Glucose (65-110) mg/dL Lactic Acid (0.7-2.0) mmol/L Calcium (8.4-10.2) mg/dL Magnesium (1.6-2.3) mg/dL Total Bilirubin (0.2-1.3) mg/dL AST (14-36) U/L ALT (6-35) U/L Alkaline Phosphatase (38-126) U/L Troponin I (0.000-0.034) ng/mL C-Reactive Protein Cancelled (<1.0) mg/dL NT-Pro-B Natriuret Pep 175 H (19.9-100) pg/mL Total Protein 6.9 (6.3-8.2) g/dL Albumin 4.1 (3.5-5.1) g/dL Urine Color Yellow (Yellow) Urine Appearance Clear (Clear) Urine pH 7.0 (5.0-9.0) Ur Specific [place] > 1.045 H (1.001-1.035) Urine Protein Negative (Negative) mg/dL Urine Glucose (UA) 3+ H (Negative) mg/dL Urine Ketones Negative (Negative) mg/dL Ur Blood (Man) Negative (Negative) Urine Nitrate Negative (Negative) Urine Bilirubin Negative (Negative) Urine Urobilinogen 0.2 (<2.0) mg/dL Leukocyte Esterase Rfl 1+ H (Negative) SHANICE/UL Urine RBC 0-2 (0-2) /hpf Urine WBC 21-50 H (0-3) /hpf Ur Squamous Epith Cells None seen (Few) /hpf Urine Bacteria None seen /hpf Urine Casts 0-2 Influenza A (RT-PCR) (Negative) Influenza B (RT-PCR) (Negative) RSV (RT-PCR) (Negative) SARS-CoV-2 RNA (RT-PCR) (Negative) Imaging Data Attestation: I personally reviewed and interpreted this imaging study as follows: Radiologist's impression: Impressions Chest X-Ray 11/12/24 15:39 Impression: Bilateral pneumonia. Underlying mass is not excluded. CT suggested Chest CTA 11/12/24 16:36 IMPRESSION: 1. Negative for pulmonary embolism. Left-sided bronchopneumonia with neoplasm suspected. Bronchoscopy suggested. 2. Incidental findings above Discharge Plan Discharge Clinical Impression: Lung neoplasm, Bilateral pneumonia, H/O bilateral mastectomy, History of bilateral breast cancer, Urinary tract infection Patient Disposition: Still a Patient Condition: Serious Patient Language: Belizean Prescriptions: No Action anastrozole 1 mg tablet 1 mg PO DAILY glucose 4 gram tablet,chewable 16 g PO Q15M PRN (Reason: hypoglycemia) Qty: 360 4RF Rx Instructions: until symptoms of low blood sugar are controlled atorvastatin 40 mg tablet 40 mg PO DAILY Qty: 90 5RF lorazepam 0.5 mg tablet 0.5 mg PO BID PRN (Reason: anxiety) Qty: 10 0RF (DME) pen needle, diabetic [BD Joya 2nd Gen Pen Needle] 32 gauge x 5/32 needle See Rx Instructions .ROUTE .COMPLEX Qty: 200 11RF Dose Instruction: USE TO INJECT INSULIN TWICE A DAY Rx Instructions: USE TO INJECT INSULIN FIVE TIMES A DAY citalopram 40 mg tablet See Rx Instructions .ROUTE .COMPLEX Qty: 90 1RF Dose Instruction: TAKE 1 TABLET BY MOUTH EVERY DAY Rx Instructions: TAKE 1 TABLET BY MOUTH EVERY DAY buspirone 5 mg tablet 10 mg PO TID Qty: 90 1RF glucagon 1 mg/0.2 mL auto-injector 1 mg subcut ONCE Qty: 0.4 0RF Rx Instructions: as a single dose; may repeat once after 15 minutes if no response (DME) FreeStyle Ania 3 Plus Sensor Device See Rx Instructions .Route Qty: 6 1RF Rx Instructions: change sensor every 15 days Ozempic 2 mg/dose (8 mg/3 mL) pen injector See Rx Instructions .ROUTE .COMPLEX Qty: 9 2RF Dose Instruction: INJECT 2 MG ONCE A WEEK Rx Instructions: INJECT 2 MG ONCE A WEEK levothyroxine 50 mcg tablet See Rx Instructions .ROUTE .COMPLEX Qty: 90 2RF Dose Instruction: Take 1 tablet by mouth once daily Rx Instructions: Take 1 tablet by mouth once daily Jardiance 25 mg tablet See Rx Instructions .ROUTE .COMPLEX Qty: 90 1RF Dose Instruction: Take 1 tablet by mouth once daily Rx Instructions: Take 1 tablet by mouth once daily ezetimibe 10 mg tablet See Rx Instructions .ROUTE .COMPLEX Qty: 90 3RF Dose Instruction: Take 1 tablet by mouth once daily Rx Instructions: Take 1 tablet by mouth once daily Follow-up/Referrals: Brianne Yusuf MD [Primary Care Provider, Family Practice]
--- OUTSIDE RECORDS SUMMARY | 2024-11-12 15:35 | XMS_ITS ---
Author Organization [facility] Address [address] [place] [address] Phone Care Team Providers Care Senior Business Development Manager Name Role Phone Brianne Yusuf MD Primary Care Provider [phone] Active Problems Patient Care Coordination No te Formatting of this note migh t be different from the original. Primary Care: Brianne Yusuf MD Referring Provider: Brianne Yusuf MD [address] [place] [address] Other: Dr. Kerry Correia MD Problem Noted Date Diagnosed Date S/P bilateral mastectomy 03/07/2021 Hard to intubate 01/30/2021 Inflammatory breast cancer, right 08/23/2020 Cancer Staging:Clinical stage from 08/23/2020:Stage IIIB(cT4b, cN1(f), cM0, G2, ER+, UT+, HER2-) - Signed by Kerry Correia MD [...]
--- OUTSIDE RECORDS SUMMARY | 2024-11-12 15:36 | XMS_ITS | Encounter Summary ---
Author Organization [facility] Address [address] [place] [address] Care Team Providers Care Kersey Department Supervisor Name Role Phone Brianne Yusuf MD Primary Care Provider [phone] Encounter Details Date Type Department Care Team ([facility] Contact Info) Description 02/14/20[address] Note [facility] Radiation Oncology [address] [place] [address] Jorge Farmer MD [address] [address] Social History Tobacco Use Types [...] COVID-19? No / Unsure 02/05/2021 12:22 PM STATE ASSESSED PROPERTIES DIRECTOR documented as of this encounter Plan of Treatment Upcoming Encounters Date Type Department Care Team (Late Contact Info) Description 12/02/2024 9:00 AM CDT Office Visit [facility] Oncology and Hematology - [place] [address] [facility] [address] [place] [address] Cuco Izquierdo MD [address] [address] documented as of this encounter Visit Diagnoses Not on filedocumented in this encounter Care Teams Kersey Department Supervisor Relationship Specialty Start Date End Date Brianne Yusuf MD [address] [place] [address] PCP - General Family Practice 08/17/20 documented as of this encounter
--- OUTSIDE RECORDS SUMMARY | 2024-11-12 15:36 | XMS_ITS | Clinical Summary ---
Author Organization [facility] Address [address] [place] [address] Phone Care Team Providers Care Metal Trim Erector Name Role Phone Brianne Yusuf MD Primary Care Provider [phone] Allergies Active Allergy Reactions Criticality Noted Date [...] Yusuf MD Referring Provider: Brianne Yusuf MD [address] [place] [address] Other: Dr. Kerry Correia MD Problem Noted Date Diagnosed Date S/P bilateral mastectomy 03/07/2021 Hard to intubate 01/30/2021 Inflammatory breast cancer, right 08/23/2020 Cancer Staging:Clinical stage from 08/23/2020:Stage IIIB(cT4b, cN1(f), cM0, G2, ER+, WA+, HER2-) - Signed by Kerry Correia MD [...] STL ABSTRACTION Provider, Abstract 2024 Orders Only [facility] Oncology and Hematology - [place] [address] [place] [address] [address] Cuco Izquierdo MD 08/31/2024 External [...] Description 12/02/2024 9:00 AM CDT Office Visit [facility] Oncology and Hematology - [place] [address] [place] [address] Cuco Izquierdo MD [address] [facility] [address] [place] [address] Health Maintenance Due Date Last [...] series) 09/13/2038 Medical Devices Implanted Type Area Central Stores Attendant Device Identifier Shelf Expiration Date Model / Serial / Lot Database Marketing Specialist Clip Surgiclip Ii Cheo 9.75in [id number] - [id number] Implanted:Qty: 1 on 01/30/2021 [place] [facility] [place]: Breast [employer] - COVIDIEN 05/16/2025 [id number] / / [id number] Database Marketing Specialist Clip Surgiclip Ii Cheo 9.75in [id number] - [id number] Implanted:Qty: 1 on 01/30/2021 by [place]ia [place] [facility] Right: Breast [employer] - COVIDIEN 07/16/2025 [id number] / / [id number] Hemostatic Surgicel 4x8in 1953 - [id number] Implanted:Qty: 4 on 01/30/2021 by [place] [facility] [place]ostatic N/A: Breast [employer] 02/15/20251951 / / [id number] Description:two on left,two on right Port Powerport Clearvue 8fr Mri [id number] - [id number] Implanted:Qty: 1 on 09/03/2020 by Kerry Correia MD at [facility] Port Left: Chest CR BARD- [employer]ASC [employer] 10/16/2021 [id number] / / [id number] Procedures Procedure Name Priority Date/Time Associated Diagnosis [...] Advance Directives For more information, please contact: [phone] * Full Code (Latest Code Status on File) Date Activated Date Inactivated Comments 01/30/2021 3:28 PM 01/31/2021 12:30 PM Care Teams Metal Trim Erector Relationship Specialty Start Date End Date Brianne Yusuf MD [address] [place] [id number] PCP - General Family Practice 08/17/20
[2024-11-12 15:52] LABS: Hematocrit 42.4 % (37.0-47.0); Hemoglobin 13.8 g/dL (12.0-15.0); Immature Granulocyte Percent A 0.2 % (0-0.5); Lymphocytes Absolute Auto 1.02 K/mm3 (0.9-3.2); Mean Corpuscular HGB Conc 32.5 g/dl (32-36); Mean Corpuscular Hemoglobin 29.4 pg (26-34); Mean Corpuscular Volume 90.4 fl (80-100); Nucleated Red Blood Cells Absolute Auto 0.000 K/mm3 (0.0-0.012); Nucleated Red Blood Cells Perc 0.0 % (0.0-0.2); Platelet Count Result 291 k/mm3 (150-375); Red Blood Count 4.69 M/mm3 (4.2-5.4); White Blood Count 6.5 K/mm3 (4.5-10.0)
[2024-11-12 16:03] LABS: INR 1.0; Prothrombin Time 13.1 Seconds (11.1-14.7)
[2024-11-12 16:04] LABS: Partial Thromboplastin Time 23.3 Seconds (22.3-36.8)
[2024-11-12] MEDS: IPRATROPIUM 0.5 MG/ALBUTEROL SULFATE 2.5 MG AMPUL.NEB 3 ML INHALATION ×2 (16:05→19:49)
[2024-11-12 16:14] LABS: Troponin I < 0.012 ng/mL (0.000-0.034)
[2024-11-12 17:13] LABS: Add Urine Microscopic? YES; Appearance Urine Clear (Clear); Glucose Urine UA 3+ mg/dL (Negative); Leukocyte Esterase Ur 1+ LEU/UL (Negative); Nitrate Urine Negative (Negative); Non Pathogenic Casts 0-2; Specific Grav Ur > 1.045 (1.001-1.035)
[2024-11-12 17:23] LABS: Alanine Aminotransferase 36 U/L (6-35); Albumin Level 4.1 g/dL (3.5-5.1); Alkaline Phosphatase 77 U/L (38-126); Anion Gap 6 mmol/L (4-12); Aspartate Amino Transferase 31 U/L (14-36); Bilirubin,Total 0.4 mg/dL (0.2-1.3); Blood Urea Nitrogen 21 mg/dL (7-17); CRP < 0.5 mg/dL (<1.0); Calcium 8.7 mg/dL (8.4-10.2); Carbon Dioxide 27 mmol/L (22-30); Chloride 103 mmol/L (98-107); Estimated CRCL calculation 42 ml/min; Estimated Glomerular Filt Rate 52; Glucose 158 mg/dL (65-110); Magnesium 2.2 mg/dL (1.6-2.3); Potassium 3.8 mmol/L (3.4-5.0); Sodium 136 mmol/L (137-145); Total Protein 6.9 g/dL (6.3-8.2)
[2024-11-12 17:29] LABS: NT Pro B Type Natriuretic Pept 175 pg/mL (19.9-100)
[2024-11-12 17:51] LABS: Influenza A QL RT-PCR Negative (Negative); Influenza B QL RT-PCR Negative (Negative); RSV RNA, RT-PCR Negative (Negative); SARS-CoV-2 RNA PCR Negative (Negative)
[2024-11-12] MEDS: SODIUM CHLORIDE 0.9% IV 1,000 ML 999 ML IV CONT (18:01)
--- NOTE | 2024-11-12 18:10 | PC.NURSE ---
Phlebotomy called for blood cultures due to limited options due to limb alert.
[2024-11-12] MEDS: cefTRIAXone 1 GM in SODIUM CHLORIDE 0.9% IV 50 ML 100 ML IVPB (18:32)
[2024-11-12] MEDS: AZITHROMYCIN IV 500 MG in SODIUM CHLORIDE 0.9% IV 250 ML IVPB (19:09)
--- NOTE | 2024-11-12 21:35 | ADMGEN ---
This patient, Kassy Maher, was admitted to Medical Room 254-01. Patient/family oriented to hospital policies and general routines including ID bracelet, bed and alarms, visiting hours, pain management, procedures, bathroom and other care routines, personal items, smoking policy, room service/diet, and visiting hours. Information on how to activate the Rapid Response Team has been discussed. Patient/Family are encouraged to report perceived risks to care and to ask questions if they do not understand what they are told or what they should do.
[2024-11-12 22:11] LABS: Procalcitonin 0.1 ng/mL
[2024-11-13] VITALS (9 sets, daily range): BP systolic 142–155; BP diastolic 77–89; PULSE 77–97; RESP 14–16; TEMP 36.7–37; O2SAT 91–97
[2024-11-13] MEDS: IPRATROPIUM 0.5 MG/ALBUTEROL SULFATE 2.5 MG AMPUL.NEB 3 ML INHALATION (04:19)
--- NOTE | 2024-11-13 04:20 | PCRCNOTE ---
Patients 0200 was missed, due to miscommunication on being moved from ED to [address] [place] [address].
[2024-11-13] MEDS: LEVOTHYROXINE SODIUM 50 MCG TABLET PO (05:45)
--- NOTE | 2024-11-13 07:33 | PM.CNPUL ---
Assessment and Plan Assessment and plan (1) Pleural effusion, left: Code(s): J90 - Pleural effusion, not elsewhere classified Status: Acute Assessment and Plan: Patient had T4 N3aM1 stage IV right breast cancer with 16 of 19 positive lymph nodes and left metastatic cancer with 1 of 5 lymph nodes positive, status post right and left mastectomy on 01/30/2021. She received Adriamycin, Cytoxan and Taxol x4 cycles completed 11. She received radiation therapy with Xeloda completed 04/26/2021. She received adjuvant Xeloda 6 of 6 cycles completed 10/15/2021 and has been maintained on Arimidex 1 mg p.o. q.day since 10/29/2021. CT scan of the chest on 03/22/2022 with minimal post radiation scarring of the upper lobe. On 06/12/2022 she had a skin punch biopsy of the right breast which was negative for malignancy. On 06/12/2022 she had a PET scan with no evidence of recurrent or metastatic disease. On 07/29/2024 the patient had no complaints with no evidence of metastatic or recurrent disease with plan for CT scan chest abdomen pelvis in 4 months and follow-up in 4 months. 11/13/24: she presents now with a large left pleural effusion and a left hilar mass. She is on room air. Plan: Will order left thoracentesis for 11/14/2024 and will send full set of chemistries, cytology, cell count and microbiology studies. discussed with Britt Esteban, will follow with you. (2) Lung mass: Code(s): R91.8 - Other nonspecific abnormal finding of lung field Status: Acute Assessment and Plan: Patient with a CT scan with a large left pleural effusion and a left lung lesion at the confluence of the left upper and lower lobe takeoff with compression of both airways. This is new from her most recent CT scan on 03/22/2022. She has a cough and worsening shortness of breath. Plan: I have a low clinical suspicion for pneumonia but this time will continue ceftriaxone and azithromycin, Both started 11/12/2024. Await cytology studies from thoracentesis on 11/14/2024. If this is negative, the patient will need to be referred for EBUS procedure as I am unable to perform EBUS and feel the diagnostic yield would be low without EBUS. recommend consulting Dr. Izquierdo's team on 11/14/2024. History of Present Illness History of Present Illness Consult date: 11/13/24 Chief complaint: Bilateral pneumonia, New diagnosis lung cancer Narrative: 11/13/2024: This is a new pulmonary consult for large left pleural effusion and lung nodule. 59-year-old with a history of breast cancer, depression, fatty liver, diabetes. Regarding patient's breast cancer: She is followed by oncology Dr. Izquierdo and last office visit note 07/29/2024. Patient had T4 N3aM1 stage IV right breast cancer with 16 of 19 positive lymph nodes and left metastatic cancer with 1 of 5 lymph nodes positive, status post right and left mastectomy on 01/30/2021. She received Adriamycin, Cytoxan and Taxol x4 cycles completed . She received radiation therapy with Xeloda completed 04/26/2021. She received adjuvant Xeloda 6 of 6 cycles completed 10/15/2021 and has been maintained on Arimidex 1 mg p.o. q.day since 10/29/2021. CT scan of the chest on 03/22/2022 with minimal post radiation scarring of the upper lobe. On 06/12/2022 she had a skin punch biopsy of the right breast which was negative for malignancy. On 06/12/2022 she had a PET scan with no evidence of recurrent or metastatic disease. On 07/29/2024 the patient had no complaints with no evidence of metastatic or recurrent disease with plan for CT scan chest abdomen pelvis in 4 months and follow-up in 4 months. At baseline the patient tells me she could walk 1.5 miles over 30 minutes 2 to 3 times a week and had no respiratory limitations in her activities of daily living. Patient is a never smoker. She was exposed to secondhand smoke from her father and from her from [id number] and is currently exposed to her 's secondhand vaping since then. She denies illicit drug use. 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 11/12/2024: Patient presented to the emergency room with 1 week history of rest shortness of breath and dyspnea on exertion. She also complained of a dry cough that started at that time and right back pain when she was walking. Over the last week her ability to walk has decreased to 1/4 block. In the emergency room her blood pressure is 129/87, heart rate 94, respirations 22, room air saturations 100%. White blood cell count 6.5, creatinine 1.08, BUN 21, BNP 175, CRP less than 0.5, troponin negative x2, D-dimer negative at 0.32. COVID influenza and RSV RT PCR assay negative. Patient had a chest x-ray with a large left pleural effusion occupying approximately 80% of the left hemithorax. CT angiogram of the chest showed no PE, large left pleural effusion with shift to the mediastinum left to right, left hilar mass at the confluence of the left upper lobe and left lower lobe with compression on both. Patient was started on ceftriaxone azithromycin. She was given DuoNebs and admitted. 11/13/2024: Overall the patient states she feels the same. Her cough is better. She denies fever, chills, rigors, phlegm production or hemoptysis. Room air saturations are 94%. She tells me the DuoNebs have provided her no benefit. DATA: 11/12/24: EXAMINATION: CTA chest PE protocol, 11/12/2024 16:15 CDT HISTORY: shortness of breath COMPARISON: No comparisons available. FINDINGS: No significant coronary calcification is present ([id number]) LUNGS: Small simple appearing right pleural effusion. Large left pleural effusion with compressive atelectasis with abnormal density noted in the left lung which appears confluent with the hilum with narrowing of the bronchi in this location consenting for neoplasm. Contrast bolus adequate, no pulmonary embolism identified. Minimal emphysematous changes. Right lower leg there are micronodules noted the largest 7 x 7 mm. Moderate emphysematous changes are noted. Mild pulmonary fibrotic changes. HEART AND PERICARDIUM: Within normal limits. AORTA: Normal caliber aorta.. PULMONARY ARTERIES: No pulmonary embolism ADENOPATHY/MEDIASTINUM: There are enlarged lymph nodes in the visualized abdomen the largest peripancreatic space 2.3 x 2.4 cm. LIMITED VIEWS OF THE ABDOMEN: Within normal limits. OSSEOUS STRUCTURES: No sclerotic or lytic lesions appreciated. OVERLYING SOFT TISSUES: Unremarkable. THYROID: The thyroid is unremarkable. IMPRESSION: 1. Negative for pulmonary embolism. Left-sided bronchopneumonia with neoplasm suspected. Bronchoscopy suggested. 2. Incidental findings above 06/12/2022: EXAMINATION: PET skull to mid thigh DATE: 06/12/2022 14:12 INDICATION: Inflammatory breast cancer TECHNIQUE: Blood glucose level was 150 mg/dL. 11.0 mCi of 18-fluorodeoxyglucose (18-FDG) was administered i.v. Low dose computed tomography (CT) images were acquired from the base of the brain to the proximal thighs for attenuation correction and anatomic localization. Positron emission tomography (PET) images were acquired in the same distribution beginning 65 minutes after injection. The dose-length product (DLP) was 629.17 mGy-cm. COMPARISON: 03/12/2021 FINDINGS: Head/neck: No abnormal FDG uptake is identified. FDG activity in the oral cavity, vocal cords, and orbits without suspicious CT correlate is likely physiologic. Chest: No abnormal FDG uptake is identified. A left internal jugular Port-A-Cath ends in the proximal superior vena cava. There are changes of bilateral mastectomy and axillary lymph node dissection. No pathologically enlarged thoracic lymph nodes are identified. The heart size is normal. Again seen are subpleural opacities anteriorly in the lungs, likely related to radiation change. The lungs are free of acute airspace opacities. Tiny nodules of the right lower lobe are stable and do not demonstrate significant FDG uptake. There are no pathologically enlarged thoracic lymph nodes. The heart size is normal. Abdomen/pelvis/proximal thighs: Physiologic FDG activity is present in the bowel and urinary tract. No abnormal FDG uptake is identified. Gallbladder is surgically absent. The liver, spleen, pancreas, and adrenal glands are normal. The kidneys are unremarkable. No pathologically enlarged abdominal or pelvic lymph nodes are identified. No free intraperitoneal gas or evidence of bowel obstruction. Musculoskeletal: No suspicious FDG uptake is identified. There is osteoarthritis of the shoulders. There is mild spondylosis of the spine. IMPRESSION: 1. No evidence of recurrent or metastatic disease. 03/22/2022: Clinical Indication: Inflammatory breast cancer CT Scan of the Chest, Abdomen, and Pelvis with Contrast: Technique: Contiguous sections were acquired throughout the chest, abdomen, and pelvis after intravenous administration of 100 cc of Omnipaque 350. Dose reduction technique was used on this scan by utilizing automated exposure control and iterative reconstruction technique. The dose-length product (DLP) was 1173.42 mGy-cm. COMPARISON: 10/01/2021 Findings: There is no evidence of any significant mediastinal, hilar or axillary lymphadenopathy. The mediastinal soft tissues and vascular structures appear normal. Small hiatal hernia noted. Bilateral mastectomy noted. There is no evidence of pleural or pericardial effusion. Probable minimal postradiation changes noted peripherally in the bilateral upper lobes. No other pulmonary reality seen. Stable tiny right lower lobe nodule noted. Diffuse fatty infiltration of the liver noted. The spleen, pancreas, adrenals and kidneys are within normal limits. Cholecystectomy clips present. No evidence of aortic aneurysm. No lymphadenopathy. No bowel obstruction or bowel wall thickening. There is no evidence to suggest acute appendicitis. Urinary bladder is unremarkable. No pelvic mass seen. No ascites. Impression: No change from prior exam. No definite evidence for active malignancy or metastatic disease. Tiny right lower lobe pulmonary nodule, unchanged. Diffuse fatty infiltration of liver. Small hiatal hernia. Review of Systems Constitutional: Constitutional: Reports no additional constitutional complaints Eyes: Eyes: Reports no additional eye complaints ENT: Reports system reviewed and no additional complaints, except as documented Cardiovascular: Cardiovascular: Reports no additional cardiovascular complaints Respiratory: Respiratory: Reports no additional respiratory complaints Gastrointestinal: Gastrointestinal: Reports no additional gastrointestinal complaints Musculoskeletal: Musculoskeletal: Reports no additional musculoskeletal complaints Neurologic: Reports system reviewed and no additional complaints, except as documented Psychiatric: Psychiatric: Reports no additional psychiatric complaints Endocrine: Endocrine: Reports no additional endocrine complaints Hematologic/Lymphatic: Hematologic/Lymphatic: Reports no additional hematologic/lymphatic complaints Allergic/Immunologic: Allergic/Immunologic: Reports no additional allergic/immunologic complaints FOR[facility]LY [facility] Past Medical History Medical History Hair changes Type 2 diabetes mellitus treated with insulin retirement (current) use of insulin Obesity (BMI 30.0-34.9) Suspected sleep apnea Generalized anxiety disorder Anxiety Hypercholesteremia Depression Surgical History Surgical History Hx of section Hx of cholecystectomy History of removal of Port-a-Cath H/O bilateral mastectomy History of hysterectomy Family History Family History Grandparent Family history of Alzheimer's disease Sibling Family history of malignant neoplasm of esophagus Social History Social History Smoking status: Never smoker Second hand tobacco smoke exposure: No Alcohol intake: never Substance use: never Substance use type: does not use Do You Feel Safe in your Home?: Yes Lack of Transportation: No Lack of Food: Never True Current Housing: I Have Housing Concerned About Future Housing: No Difficulty Paying Gas/Electric Bills: No Difficulty Paying for Meds: No Currently Unemployed: No Education: Bachelor's Degree Difficulty w/ Childcare or Family Care: No Living arrangements: with family Gender identity (if verbalized by the patient): Female Spiritual care concerns: No Meds Home Medications and Allergies Home Medications ?Medication ?Instructions ?Recorded ?Confirmed ?Type anastrozole 1 mg tablet 1 mg PO DAILY 12/20/21 11/12/24 History pen needle, diabetic 32 gauge x #200 ea 05/07/22 11/12/24 Rx /32 (BD Joya 2nd Gen Pen Needle) glucose 4 gram chewable tablet 16 g (4 x 4 gram) PO Q15M PRN 10/16/22 11/12/24 Rx hypoglycemia #360 tabs buspirone 5 mg tablet 10 mg (2 x 5 mg) PO TID #90 tabs 01/26/24 11/12/24 Rx citalopram 40 mg tablet See Rx Instructions .Route 01/26/24 11/12/24 Rx .COMPLEX #90 tabs glucagon 1 mg/0.2 mL subcutaneous 1 mg (0.2 mL) subcut ONCE #0.4 mL 01/27/24 11/12/24 Rx auto-injector atorvastatin 40 mg tablet 40 mg PO DAILY #90 tabs 02/12/24 11/12/24 Rx FreeStyle Ania 3 Plus Sensor #6 ea 03/03/24 11/12/24 Rx (blood-glucose sensor) semaglutide 2 mg/dose (8 mg/3 mL) See Rx Instructions .Route 07/12/24 11/12/24 Rx subcutaneous pen injector (Ozempic) .COMPLEX #9 mL levothyroxine 50 mcg tablet See Rx Instructions .Route 08/26/24 11/12/24 Rx .COMPLEX #90 tabs empagliflozin 25 mg tablet See Rx Instructions .Route 08/29/24 11/12/24 Rx (Jardiance) .COMPLEX #90 tabs ezetimibe 10 mg tablet See Rx Instructions .Route 10/24/24 11/12/24 Rx .COMPLEX #90 tabs Allergies Allergy/AdvReac Type Severity Reaction Status Date / Time metformin AdvReac Intermediate Gastrointestinal Verified 08/12/24 09:36 Upset Vital Signs Vital Signs - 24 hr 11/12/24 14:20 11/12/24 14:53 11/12/24 16:05 Temperature 36.6 C Pulse Rate 94 90 83 Respiratory Rate 22 H 16 Blood Pressure 129/87 Pulse Oximetry 100 Oxygen Delivery Room Air 11/12/24 16:13 11/12/24 16:38 11/12/24 19:51 Temperature Pulse Rate 84 92 93 Respiratory Rate 15 18 16 Blood Pressure 129/78 Pulse Oximetry 96 Oxygen Delivery 11/12/24 19:54 11/12/24 20:23 11/12/24 21:15 Temperature 36.4 C Pulse Rate 90 89 96 Respiratory Rate 18 20 16 Blood Pressure 149/90 H 167/72 H Pulse Oximetry 99 96 Oxygen Delivery 11/13/24 00:00 11/13/24 04:00 11/13/24 05:36 Temperature 36.7 C Pulse Rate 77 80 85 Respiratory Rate 14 Blood Pressure 142/77 H Pulse Oximetry 93 Oxygen Delivery Exam Const: General: cooperative, healthy appearing and comfortable Orientation/consciousness: oriented to person, oriented to place and oriented to time Other: no distress HENMT: Head: normal to inspection Ears: hearing grossly normal bilaterally Eyes: General: appearance normal, both eyes and all related structures Neck: Neck: normal visual inspection Chest: Chest palpation & inspection: normal inspection of the chest Other: mastectomy stars well-healed with no changes per patient. Resp: Effort & Inspection: normal respiratory effort and able to speak in complete sentences Auscultation: no crackles, no rales, no rhonchi, no wheezes and diminished lung sounds Other: decreased breath sounds entire left lung Cardio: Jugular venous distension: no JVD GI: Inspection: normal to inspection GI Palp: No abdominal tenderness Skin: General skin exam: normal color Neuro: General: oriented to person, oriented to place and oriented to time Extrem: General: normal to inspection Other: No edema Psych: Appearance: grossly normal Results Laboratory Findings 11/12/24 15:46 11/12/24 16:57 ABG, PT/INR, D-dimer: PT/INR, D-dimer PT 13.1 Seconds (11.1-14.7) 11/12/24 15:46 INR 1.0 11/12/24 15:46 D-Dimer 0.32 ug/mL (<0.48) 11/12/24 15:46 Abnormal lab findings: Abnormal Labs 11/12/24 11/12/24 15:46 16:57 Neut % (Auto) 73.6 H Lymph % (Auto) 15.8 L Sodium 136 L BUN 21 H Creatinine 1.08 H Estimated GFR 52 L Glucose 158 H ALT 36 H NT-Pro-B Natriuret Pep 175 H Ur Specific [place] > 1.045 H Urine Glucose (UA) 3+ H Leukocyte Esterase Rfl 1+ H Urine WBC 21-50 H Diagnostic Findings Additional studies: ITS Impressions Chest X-Ray 11/12/24 15:39 Impression: Bilateral pneumonia. Underlying mass is not excluded. CT suggested Chest CTA 11/12/24 16:36
--- NOTE | 2024-11-13 08:16 | PM.IMHP ---
H&P: HPI History of Present Illness Date/Time: 11/13/24 08:16 Chief Complaint: Shortness of breath & right sided back pain Narrative: Kassy Maher hx DMII, S[place], breast cancer s/p double mastectomy with chemo and radiation, who presented for shortness of breath and right sided back pain. In the ED, WBC normal. Creatine 1.08, glucose 158, Na 136 She reports she's been feeling well until a week ago when she noticed shortness of breath with activity. She denies fevers, chills, sweats, nausea, vomiting, diarrhea, chest pain, rashes or other symptoms. Started on empiric Ceftiraxone and Azithromycin for Pneumonia. 11/12 Chest x-ray Bilateral pneumonia. Underlying mass is not excluded. CT suggested 11/12/24 CTA 1. Negative for pulmonary embolism. Left-sided bronchopneumonia with neoplasm suspected. Bronchoscopy suggested. 2. Incidental findings above Pulmonary was consulted, planning a thoracentesis in AM She follows with Dr. 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 She completed treatment with neoadjuvant chemotherapy with Adriamycin, Cytoxan, and Taxol cycle 4 in December 2020. Adjuvant radiation with Xeloda in April 2021. Xeloda cycle 6/6 completed in October 15, 2021. Has been tolerating anastrozole. PET scan 08/2022 showed no evidence of recurrent or metastatic disease. Patient reports monitoring labs every 3 months. [facility] Past Medical History Medical History Hair changes Type 2 diabetes mellitus treated with insulin skilled nursing (current) use of insulin Obesity (BMI 30.0-34.9) Suspected sleep apnea Generalized anxiety disorder Anxiety Hypercholesteremia Depression Surgical History Surgical History Hx of section Hx of cholecystectomy History of removal of Port-a-Cath H/O bilateral mastectomy History of hysterectomy Family History Family History Grandparent Family history of Alzheimer's disease Sibling Family history of malignant neoplasm of esophagus Social History Social History Smoking status: Never smoker Second hand tobacco smoke exposure: No Alcohol intake: never Substance use: never Substance use type: does not use Do You Feel Safe in your Home?: Yes Lack of Transportation: No Lack of Food: Never True Current Housing: I Have Housing Concerned About Future Housing: No Difficulty Paying Gas/Electric Bills: No Difficulty Paying for Meds: No Currently Unemployed: No Education: Bachelor's Degree Difficulty w/ Childcare or Family Care: No Living arrangements: with family Gender identity (if verbalized by the patient): Female Spiritual care concerns: No Meds Home Medications and Allergies Home Medications ?Medication ?Instructions ?Recorded ?Confirmed ?Type anastrozole 1 mg tablet 1 mg PO DAILY 12/20/21 11/12/24 History pen needle, diabetic 32 gauge x #200 ea 05/07/22 11/12/24 Rx (BD Joya 2nd Gen Pen Needle) glucose 4 gram chewable tablet 16 g (4 x 4 gram) PO Q15M PRN 10/16/22 11/12/24 Rx hypoglycemia #360 tabs buspirone 5 mg tablet 10 mg (2 x 5 mg) PO TID #90 tabs 01/26/24 11/12/24 Rx citalopram 40 mg tablet See Rx Instructions .Route 01/26/24 11/12/24 Rx .COMPLEX #90 tabs glucagon 1 mg/0.2 mL subcutaneous 1 mg (0.2 mL) subcut ONCE #0.4 mL 01/27/24 11/12/24 Rx auto-injector atorvastatin 40 mg tablet 40 mg PO DAILY #90 tabs 02/12/24 11/12/24 Rx FreeStyle Ania 3 Plus Sensor #6 ea 03/03/24 11/12/24 Rx (blood-glucose sensor) semaglutide 2 mg/dose (8 mg/3 mL) See Rx Instructions .Route 07/12/24 11/12/24 Rx subcutaneous pen injector (Ozempic) .COMPLEX #9 mL levothyroxine 50 mcg tablet See Rx Instructions .Route 08/26/24 11/12/24 Rx .COMPLEX #90 tabs empagliflozin 25 mg tablet See Rx Instructions .Route 08/29/24 11/12/24 Rx (Jardiance) .COMPLEX #90 tabs ezetimibe 10 mg tablet See Rx Instructions .Route 10/24/24 11/12/24 Rx .COMPLEX #90 tabs Allergies Allergy/AdvReac Type Severity Reaction Status Date / Time metformin AdvReac Intermediate Gastrointestinal Verified 08/12/24 09:36 Upset Vital Signs Vital Signs - 24 hr 11/12/24 14:20 11/12/24 14:53 11/12/24 16:05 Temperature 97.9 F Pulse Rate 94 90 83 Respiratory Rate 22 H 16 Blood Pressure 129/87 Pulse Oximetry 100 Oxygen Delivery Room Air 11/12/24 16:13 11/12/24 16:38 11/12/24 19:51 Temperature Pulse Rate 84 92 93 Respiratory Rate 15 18 16 Blood Pressure 129/78 Pulse Oximetry 96 Oxygen Delivery 11/12/24 19:54 11/12/24 20:23 11/12/24 21:15 Temperature 97.6 F Pulse Rate 90 89 96 Respiratory Rate 18 20 16 Blood Pressure 149/90 H 167/72 H Pulse Oximetry 99 96 Oxygen Delivery 11/13/24 00:00 11/13/24 04:00 11/13/24 05:36 Temperature 98.0 F Pulse Rate 77 80 85 Respiratory Rate 14 Blood Pressure 142/77 H Pulse Oximetry 93 Oxygen Delivery Exam Narrative: General - Awake and alert. No acute distress Eyes - PERRLA, EOM intact ENT - No thrush, No erythema Neck - No noticeable or palpable swelling Lymph Nodes - No lymphadenopathy Cardiovascular - RRR no m/r/g, no JVD Lungs: Clear to auscultation, No wheezing, use of accessory muscles, no crackles Skin - Skin warm and dry, no wounds or rashes Abdomen - Normal bowel sounds, abdomen soft and nontender Extremities - No edema, cyanosis or clubbing Musculoskeletal - 5/5 strength, normal range of motion, no swollen or erythematous joints. Neurological ? Alert and oriented x 3, CN 2-12 grossly intact. Psych: Normal mood and affect H&P: Results Labs Labs: Short CBC 11/12/24 Range/Units 15:46 WBC 6.5 (4.5-10.0) K/mm3 Hgb 13.8 (12.0-15.0) g/dL Hct 42.4 (37.0-47.0) % Plt Count 291 (150-375) k/mm3 BMP 11/12/24 16:57 Sodium 136 L Potassium 3.8 Chloride 103 Carbon Dioxide 27 BUN 21 H Creatinine 1.08 H Glucose 158 H Calcium 8.7 Cardiac Enzymes 11/12/24 Range/Units 15:46 Troponin I < 0.012 (0.000-0.034) ng/mL Liver Function 11/12/24 Range/Units 16:57 Total Bilirubin 0.4 (0.2-1.3) mg/dL AST 31 (14-36) U/L ALT 36 H (6-35) U/L Alkaline Phosphatase 77 (38-126) U/L Albumin 4.1 (3.5-5.1) g/dL Urine 11/12/24 Range/Units 16:57 Urine Color Yellow (Yellow) Urine Appearance Clear (Clear) Urine pH 7.0 (5.0-9.0) Ur Specific [place] > 1.045 H (1.001-1.035) Urine Protein Negative (Negative) mg/dL Urine Glucose (UA) 3+ H (Negative) mg/dL Assessment and Plan Assessment and plan (1) Type 2 diabetes mellitus with hyperglycemia: Qualifiers: Diabetes mellitus nursing home insulin use: with nursing home use Qualified Code(s): E11.65 - Type 2 diabetes mellitus with hyperglycemia; Z79.4 - skilled nursing (current) use of insulin Code(s): E11.65 - Type 2 diabetes mellitus with hyperglycemia Status: Acute Assessment and Plan: Home meds: Empagliflozin 25mg daily, Ozempic weekly Continue empagliflozin --SSI --Holding ozempic during admission (2) Pneumonia: Code(s): J18.9 - Pneumonia, unspecified organism Status: Acute Assessment and Plan: Continue Ceftiriaxone and Azithromycin (3) HX: breast cancer: Code(s): Z85.3 - Personal history of malignant neoplasm of breast Status: Acute Assessment and Plan: continue anastrozole 1mg daily (4) Hypothyroidism: Code(s): E03.9 - Hypothyroidism, unspecified Status: Acute Assessment and Plan: Continue synthroid (5) Pleural effusion, left: Code(s): J90 - Pleural effusion, not elsewhere classified Status: Acute Assessment and Plan: 11/12 CT showed a large left pleural effusion, abnormal density noted in the left lung which appears confluent with the hilum and narrowing of the bronchi concerning for neoplasm --Thoracentesis in AM --Cytology, pH, cell count, cholesterol, glucose, body fluid GS & culture, amylase, albumin ordered --LDH, amylase in AM Plan 57 minutes Quality VTE Prophylaxis VTE prophylaxis: mechanical ordered Hospitalist MIPS Advance Care Plan I have confirmed that the patient's Advanced Care Plan is present, code status is documented, or surrogate decision maker is listed in patient medical record.: Yes Medication Reconciliation I have utilized all available resources to obtain, update and review the patients current medications (includes all prescriptions, OTC, herbals, cannabis, and nutritional supplements).: Yes
[2024-11-13] MEDS: EZETIMIBE 10 MG TABLET PO (09:20)
[2024-11-13] MEDS: ATORVASTATIN 40 MG TABLET PO (09:20)
[2024-11-13] MEDS: ANASTROZOLE (*CHEMO) 1 MG TABLET PO (09:20)
[2024-11-13] MEDS: ENOXAPARIN 40 MG/0.4 ML SYRINGE SUB-Q (09:20)
[2024-11-13] MEDS: CITALOPRAM HYDROBROMIDE 20 MG TABLET 40 MG PO (09:20)
--- NOTE | 2024-11-13 12:16 | CY_PTH ---
PATIENT: Kassy Maher LOC: [id number] U#:[id number] AGE/SX: 59/F ROOM: 254 RE11/12/[address]: Sofie Ordoñez MD : [id number] BED: 01 DIS: 11/14/2024 SPEC #: [id number] RECD: 11/15/24 07:38 STATUS: JONG REQ #: [id number] OLI: 11/13/24 12:[address]: Federico Cee DEPT: [facility] Cytology RECD BY: Rk Castellon ENTERED: 11/15/24 07:38 SP TYPE: Cytology OTHR DR: MD Brianne Khan, MD Nova Lynn, CNA HHA Tissues: A - Pleural Fluid Procedures: Dubois Keratin Hematoxylin and Eosin Stain Estrogen Receptor Immuno Cell Block [id number] Calretinin Cytopathology Cytospin AYLIN-3
[2024-11-13] MEDS: AZITHROMYCIN 500 MG TABLET PO (13:37)
[2024-11-13] MEDS: cefTRIAXone 2 GM in SODIUM CHLORIDE 0.9% IV 100 ML 200 ML IVPB (17:26)
[2024-11-13] MEDS: ACETAMINOPHEN 325 MG TABLET 650 MG PO (17:35)
[2024-11-14] VITALS (8 sets, daily range): BP systolic 137–144; BP diastolic 78–86; PULSE 73–92; RESP 16–17; TEMP 36.4–36.7; O2SAT 92–99
[2024-11-14 05:19] LABS: Hematocrit 39.4 % (37.0-47.0); Hemoglobin 12.7 g/dL (12.0-15.0); Immature Granulocyte Percent A 0.0 % (0-0.5); Lymphocytes Absolute Auto 1.07 K/mm3 (0.9-3.2); Mean Corpuscular HGB Conc 32.2 g/dl (32-36); Mean Corpuscular Hemoglobin 29.3 pg (26-34); Mean Corpuscular Volume 90.8 fl (80-100); Nucleated Red Blood Cells Absolute Auto 0.000 K/mm3 (0.0-0.012); Nucleated Red Blood Cells Perc 0.0 % (0.0-0.2); Platelet Count Result 251 k/mm3 (150-375); Red Blood Count 4.34 M/mm3 (4.2-5.4); White Blood Count 4.2 K/mm3 (4.5-10.0)
[2024-11-14 05:31] LABS: INR 1.1; Prothrombin Time 14.6 Seconds (11.1-14.7)
[2024-11-14 05:32] LABS: Partial Thromboplastin Time 26.1 Seconds (22.3-36.8)
[2024-11-14 05:45] LABS: Albumin Level 3.8 g/dL (3.5-5.1); Anion Gap 6 mmol/L (4-12); Blood Urea Nitrogen 18 mg/dL (7-17); Calcium 8.9 mg/dL (8.4-10.2); Carbon Dioxide 24 mmol/L (22-30); Chloride 108 mmol/L (98-107); Estimated CRCL calculation 60 ml/min; Estimated Glomerular Filt Rate > 60; Glucose 106 mg/dL (65-110); Potassium 3.9 mmol/L (3.4-5.0); Sodium 138 mmol/L (137-145); Total Protein 6.4 g/dL (6.3-8.2)
[2024-11-14] MEDS: LEVOTHYROXINE SODIUM 50 MCG TABLET PO (05:53)
--- NOTE | 2024-11-14 08:00 | P.PNIM_ITS ---
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: with longterm use Qualified Code(s): E11.65 - Type 2 diabetes mellitus with hyperglycemia; Z79.4 - USP (current) use of insulin Code(s): E11.65 - Type 2 diabetes mellitus with hyperglycemia Status: Acute (2) Pneumonia: Code(s): J18.9 - Pneumonia, unspecified organism Status: Acute (3) HX: breast cancer: Code(s): Z85.3 - Personal history of malignant neoplasm of breast Status: Acute Assessment and Plan: continue anastrozole 1mg daily (4) Hypothyroidism: Code(s): E03.9 - Hypothyroidism, unspecified Status: Acute (5) Pleural effusion, left: Code(s): J90 - Pleural effusion, not elsewhere classified Status: Acute Plan 1. Left-sided bronchopneumonia with neoplasm Status post thoracentesis G stain negative for organism but shows white blood cells Pending cytology and microbiology Pulmonology was consulted, appreciate rec Discussed with oncology office-'s office will schedule appointment with cass gonzalez so if they need additional investigations, they will do it as Outpatient. will discharge patient with levaquin Time Spent With Patient Time: 45 minutes. Subjective Date/time seen: 11/14/24 08:00 Interval history: Patient is not complaining shortness of breath any longer. She is working better. Exam Narrative: APPEARANCE: No acute distress, and obese EYES: EOMI HEENT: Normocephalic, atraumatic, OMM RESPIRATORY: No respiratory distress Clear to auscultation bilaterally with no rhonchi wheezing or rales. CARDIOVASCULAR: RRR, S1 and S2 without murmurs rubs or gallops. ABDOMINAL: Soft, nontender, nondistended, no rebound or guarding MUSCULOSKELETAl: No issues NEURO: Awake and alert. Following commands, speech normal, no focal deficits SKIN:: Warm, dry. No rashes lesions or abrasions PSYCHIATRIC: Bright Objective Data Vital Signs Vital Signs: Vital Signs - 24 hr 11/13/24 11:07 11/13/24 12:00 11/13/24 12:14 Temperature 36.7 C Pulse Rate 97 88 Respiratory Rate 16 Blood Pressure 142/89 H Pulse Oximetry 93 91 Oxygen Delivery Room Air Oxygen Flow Rate 11/13/24 16:00 11/13/24 20:00 11/13/24 20:00 Temperature 37.0 C Pulse Rate 81 87 Respiratory Rate 16 Blood Pressure 155/88 H Pulse Oximetry 97 Oxygen Delivery Room Air Oxygen Flow Rate 11/13/24 20:00 11/14/24 00:00 11/14/24 01:32 Temperature Pulse Rate 80 73 Respiratory Rate Blood Pressure Pulse Oximetry 98 Oxygen Delivery Nasal Cannula Oxygen Flow Rate 1 11/14/24 04:00 11/14/24 05:19 Temperature 36.7 C Pulse Rate 73 85 Respiratory Rate 17 Blood Pressure 144/86 H Pulse Oximetry 99 Oxygen Delivery Oxygen Flow Rate Intake/Output Intake/Output: Intake & Output 11/11/24 11/12/24 11/13/24 11/14/24 23:59 23:59 23:59 23:59 Intake Total 1300 1740 150 Balance 1300 1740 150 Meds/Results Medications: Active Medications Generic Name Dose Route Start Last Admin Trade Name Freq PRN Reason Stop Dose Admin Acetaminophen 650 mg 11/12/24 17:23 11/13/24 17:35 Acetaminophen 325 Mg Tablet PO 650 mg Q4H PRN Administration Mild Pain (1-3) or Fever Anastrozole 1 mg 11/13/24 09:00 11/13/24 09:20 Anastrozole (*Chemo) 1 Mg Tablet PO 1 mg DAILY PATT Administration Atorvastatin Calcium 40 mg 11/13/24 09:00 11/13/24 09:20 Atorvastatin 40 Mg Tablet PO 40 mg DAILY PATT Administration Azithromycin 500 mg 11/13/24 12:30 11/13/24 13:37 Azithromycin 500 Mg Tablet PO 11/16/24 12:29 500 mg DAILY PATT Administration Buspirone HCl 10 mg 11/13/24 06:00 11/14/24 05:53 Buspirone Hcl 10 Mg Tablet PO 10 mg Q8HR PATT Administration Calcium Carbonate 200 mg 11/12/24 23:33 Calcium Carbonate (Tums) 500 Mg (200 Mg Elemental) PO Q6H PRN Indigestion Citalopram Hydrobromide 40 mg 11/13/24 09:00 11/13/24 09:20 Citalopram Hydrobromide 20 Mg Tablet PO 40 mg DAILY PATT Administration Dextrose 12.5 gm 11/13/24 11:39 Dextrose 50% 25 Gm/50 Ml Syringe IV PUSH PRN PRN Hypoglycemia Protocol Docusate Sodium 100 mg 11/12/24 23:33 Docusate Sodium 100 Mg Capsule PO Q12H PRN Constipation Ezetimibe 10 mg 11/13/24 09:00 11/13/24 09:20 Ezetimibe 10 Mg Tablet PO 10 mg DAILY PATT Administration Glucagon 1 mg 11/13/24 11:39 Glucagon For Inj 1 Mg Vial IM PRN PRN Hypoglycemia Protocol Glucose 15 gm 11/13/24 11:39 Glucose Oral Gel 15 Gm Of Glucse In 37.5 Gm Tube PO PRN PRN Hypoglycemia Protocol Dextrose 1,000 mls @ 100 mls/hr 11/13/24 11:39 Dextrose 5% 1,000 Ml IVPB PRN PRN Hypoglycemia Protocol Ceftriaxone Sodium 2 gm/ 100 mls @ 200 mls/hr 11/13/24 18:00 11/13/24 17:26 Sodium Chloride IVPB 11/18/24 18:29 200 mls/hr Q24H PATT Administration Insulin Aspart 2 - 5 units 11/13/24 12:00 11/13/24 17:25 Insulin Aspart (*Bkc) 100 Units/Ml SUB-Q Not Given TIDWM [facility] Protocol Insulin Aspart 1 - 2 units 11/13/24 21:00 11/13/24 21:09 Insulin Aspart (*Bkc) 100 Units/Ml SUB-Q Not Given HS [facility] Protocol Levothyroxine Sodium 50 mcg 11/13/24 06:30 11/14/24 05:53 Levothyroxine Sodium 50 Mcg Tablet PO 50 mcg DAILY@0630 PATT Administration Morphine Sulfate 2 mg 11/12/24 17:31 Morphine Sulfate (*Crx) 4 Mg/Ml Inj IV PUSH Q2H PRN Pain Rated 7-10 Radiology Results: ITS Impressions Chest X-Ray 11/12/24 15:39 Impression: Bilateral pneumonia. Underlying mass is not excluded. CT suggested Chest CTA 11/12/24 16:36 IMPRESSION: 1. Negative for pulmonary embolism. Left-sided bronchopneumonia with neoplasm suspected. Bronchoscopy suggested. 2. Incidental findings above Labs Labs: Laboratory Results - last 24 hr 11/13/24 11/13/24 11/13/24 08:31 12:00 17:22 WBC RBC Hgb Hct MCV MCH MCHC RDW Plt Count MPV Immature Gran % (Auto) Neut % (Auto) Lymph % (Auto) [place] % (Auto) Eos % (Auto) Baso % (Auto) Lymph # (Auto) [place] # (Auto) Eos # (Auto) Baso # (Auto) Abs Immat Gran (auto) Absolute Neuts (auto) Absolute Nucleated RBC Nucleated RBC % PT INR APTT Sodium Potassium Chloride Carbon Dioxide Anion Gap BUN Creatinine Estim Creat Clear Calc Estimated GFR Glucose POC Capillary Glucose 134 H 165 H 108 H Calcium Lactate Dehydrogenase Total Protein Albumin 11/13/24 11/14/24 11/14/24 19:58 04:56 07:51 WBC 4.2 L RBC 4.34 Hgb 12.7 Hct 39.4 MCV 90.8 MCH 29.3 MCHC 32.2 RDW 12.9 Plt Count 251 MPV 9.7 Immature Gran % (Auto) 0.0 Neut % (Auto) 54.9 Lymph % (Auto) 25.5 [place] % (Auto) 13.1 H Eos % (Auto) 5.5 H Baso % (Auto) 1.0 Lymph # (Auto) 1.07 [place] # (Auto) 0.6 Eos # (Auto) 0.2 Baso # (Auto) 0.0 Abs Immat Gran (auto) 0.00 Absolute Neuts (auto) 2.3 Absolute Nucleated RBC 0.000 Nucleated RBC % 0.0 PT 14.6 INR 1.1 APTT 26.1 Sodium 138 Potassium 3.9 Chloride 108 H Carbon Dioxide 24 Anion Gap 6 BUN 18 H Creatinine 0.83 Estim Creat Clear Calc 60 Estimated GFR > 60 Glucose 106 POC Capillary Glucose 139 H 111 H Calcium 8.9 Lactate Dehydrogenase 243 Total Protein 6.4 Albumin 3.8 Quality VTE Prophylaxis VTE prophylaxis: mechanical ordered
[2024-11-14] MEDS: EZETIMIBE 10 MG TABLET PO (08:31)
[2024-11-14] MEDS: CITALOPRAM HYDROBROMIDE 20 MG TABLET 40 MG PO (08:31)
[2024-11-14] MEDS: ATORVASTATIN 40 MG TABLET PO (08:31)
[2024-11-14] MEDS: AZITHROMYCIN 500 MG TABLET PO (08:31)
[2024-11-14] MEDS: ANASTROZOLE (*CHEMO) 1 MG TABLET PO (08:31)
--- NOTE | 2024-11-14 10:15 | PM.PNPUL ---
Progress Note: A&P Assessment and Plan (1) Pleural effusion, left: Code(s): J90 - Pleural effusion, not elsewhere classified Status: Acute Assessment and Plan: Patient had T4 N3aM1 stage IV right breast cancer with 16 of 19 positive lymph nodes and left metastatic cancer with 1 of 5 lymph nodes positive, status post right and left mastectomy on 01/30/2021. She received Adriamycin, Cytoxan and Taxol x4 cycles completed 11. She received radiation therapy with Xeloda completed 04/26/2021. She received adjuvant Xeloda 6 of 6 cycles completed 10/15/2021 and has been maintained on Arimidex 1 mg p.o. q.day since 10/29/2021. CT scan of the chest on 03/22/2022 with minimal post radiation scarring of the upper lobe. On 06/12/2022 she had a skin punch biopsy of the right breast which was negative for malignancy. On 06/12/2022 she had a PET scan with no evidence of recurrent or metastatic disease. On 07/29/2024 the patient had no complaints with no evidence of metastatic or recurrent disease with plan for CT scan chest abdomen pelvis in 4 months and follow-up in 4 months. 11/13/24: she presents now with a large left pleural effusion and a left hilar mass. She is on room air. Plan: Will order left thoracentesis for 11/14/2024 and will send full set of chemistries, cytology, cell count and microbiology studies. 11/14/2024: Patient tells me she is breathing better. She has a dry cough with no phlegm or hemoptysis. She states her dyspnea on exertion has improved. She has hot and cold feelings but no sweats. Last night during her sleep her saturations were 87-88% and they put her on 1 L nasal cannula. Room air saturations are 99%. White blood cell count 4.2, creatinine 0.83, weight 72.1. I spoke with ultrasound and patient is on the schedule for ultrasound-guided left thoracentesis today. Oncology has been consulted. Plan: If patient tolerates the left ultrasound-guided thoracentesis with no complications and she is clinically improved she can be discharged from a pulmonary perspective on these pulmonary medications: Levofloxacin 750 mg p.o. q.day x4 days. Discussed with Dr. Ordoñez, will sign off, call with questions. (2) Lung mass: Code(s): R91.8 - Other nonspecific abnormal finding of lung field Status: Acute Assessment and Plan: Patient with a CT scan with a large left pleural effusion and a left lung lesion at the confluence of the left upper and lower lobe takeoff with compression of both airways. This is new from her most recent CT scan on 03/22/2022. She has a cough and worsening shortness of breath. 11/13/24: Plan: I have a low clinical suspicion for pneumonia but this time will continue ceftriaxone and azithromycin, Both started 11/12/2024. Await cytology studies from thoracentesis on 11/14/2024. If this is negative, the patient will need to be referred for EBUS procedure as I am unable to perform EBUS and feel the diagnostic yield would be low without EBUS. Recommend consulting Dr. Izquierdo's team on 11/14/2024. 11/14/24: Oncology, Dr. Izquierdo, has been consulted. Plan: Will complete course for possible pneumonia with Levaquin 750 mg p.o. q.day x4 days. Follow cytology results from left pleural effusion and if negative will need additional workup of lung mass with possible repeat left thoracentesis, PET scan looking for additional biopsy sites or bronchoscopy with EBUS. Will defer to Oncology at this time. Subjective Date/time seen: 11/14/24 10:15 Interval history: 11/13/2024: This is a new pulmonary consult for large left pleural effusion and lung nodule. 59-year-old with a history of breast cancer, depression, fatty liver, diabetes. Regarding patient's breast cancer: She is followed by oncology Dr. Izquierdo and last office visit note 07/29/2024. Patient had T4 N3aM1 stage IV right breast cancer with 16 of 19 positive lymph nodes and left metastatic cancer with 1 of 5 lymph nodes positive, status post right and left mastectomy on 01/30/2021. She received Adriamycin, Cytoxan and Taxol x4 cycles completed . She received radiation therapy with Xeloda completed 04/26/2021. She received adjuvant Xeloda 6 of 6 cycles completed 10/15/2021 and has been maintained on Arimidex 1 mg p.o. q.day since 10/29/2021. CT scan of the chest on 03/22/2022 with minimal post radiation scarring of the upper lobe. On 06/12/2022 she had a skin punch biopsy of the right breast which was negative for malignancy. On 06/12/2022 she had a PET scan with no evidence of recurrent or metastatic disease. On 07/29/2024 the patient had no complaints with no evidence of metastatic or recurrent disease with plan for CT scan chest abdomen pelvis in 4 months and follow-up in 4 months. At baseline the patient tells me she could walk 1.5 miles over 30 minutes 2 to 3 times a week and had no respiratory limitations in her activities of daily living. Patient is a never smoker. She was exposed to secondhand smoke from her father and from her from [id number] and is currently exposed to her 's secondhand vaping since then. She denies illicit drug use. 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 11/12/2024: Patient presented to the emergency room with 1 week history of rest shortness of breath and dyspnea on exertion. She also complained of a dry cough that started at that time and right back pain when she was walking. Over the last week her ability to walk has decreased to 1/4 block. In the emergency room her blood pressure is 129/87, heart rate 94, respirations 22, room air saturations 100%. White blood cell count 6.5, creatinine 1.08, BUN 21, BNP 175, CRP less than 0.5, troponin negative x2, D-dimer negative at 0.32. COVID influenza and RSV RT PCR assay negative. Patient had a chest x-ray with a large left pleural effusion occupying approximately 80% of the left hemithorax. CT angiogram of the chest showed no PE, large left pleural effusion with shift to the mediastinum left to right, left hilar mass at the confluence of the left upper lobe and left lower lobe with compression on both. Patient was started on ceftriaxone azithromycin. She was given DuoNebs and admitted. 11/13/2024: Overall the patient states she feels the same. Her cough is better. She denies fever, chills, rigors, phlegm production or hemoptysis. Room air saturations are 94%. She tells me the DuoNebs have provided her no benefit. 11/14/2024: Patient tells me she is breathing better. She has a dry cough with no phlegm or hemoptysis. She states her dyspnea on exertion has improved. She has hot and cold feelings but no sweats. Last night during her sleep her saturations were 87-88% and they put her on 1 L nasal cannula. Room air saturations are 99%. White blood cell count 4.2, creatinine 0.83, weight 72.1. I spoke with ultrasound and patient is on the schedule for ultrasound-guided left thoracentesis today. Oncology has been consulted. DATA: 11/12/24: EXAMINATION: CTA chest PE protocol, 11/12/2024 16:15 CDT HISTORY: shortness of breath COMPARISON: No comparisons available. FINDINGS: No significant coronary calcification is present ([id number]) LUNGS: Small simple appearing right pleural effusion. Large left pleural effusion with compressive atelectasis with abnormal density noted in the left lung which appears confluent with the hilum with narrowing of the bronchi in this location consenting for neoplasm. Contrast bolus adequate, no pulmonary embolism identified. Minimal emphysematous changes. Right lower leg there are micronodules noted the largest 7 x 7 mm. Moderate emphysematous changes are noted. Mild pulmonary fibrotic changes. HEART AND PERICARDIUM: Within normal limits. AORTA: Normal caliber aorta.. PULMONARY ARTERIES: No pulmonary embolism ADENOPATHY/MEDIASTINUM: There are enlarged lymph nodes in the visualized abdomen the largest peripancreatic space 2.3 x 2.4 cm. LIMITED VIEWS OF THE ABDOMEN: Within normal limits. OSSEOUS STRUCTURES: No sclerotic or lytic lesions appreciated. OVERLYING SOFT TISSUES: Unremarkable. THYROID: The thyroid is unremarkable. IMPRESSION: 1. Negative for pulmonary embolism. Left-sided bronchopneumonia with neoplasm suspected. Bronchoscopy suggested. 2. Incidental findings above 06/12/2022: EXAMINATION: PET skull to mid thigh DATE: 06/12/2022 14:12 INDICATION: Inflammatory breast cancer TECHNIQUE: Blood glucose level was 150 mg/dL. 11.0 mCi of 18-fluorodeoxyglucose (18-FDG) was administered i.v. Low dose computed tomography (CT) images were acquired from the base of the brain to the proximal thighs for attenuation correction and anatomic localization. Positron emission tomography (PET) images were acquired in the same distribution beginning 65 minutes after injection. The dose-length product (DLP) was 629.17 mGy-cm. COMPARISON: 03/12/2021 FINDINGS: Head/neck: No abnormal FDG uptake is identified. FDG activity in the oral cavity, vocal cords, and orbits without suspicious CT correlate is likely physiologic. Chest: No abnormal FDG uptake is identified. A left internal jugular Port-A-Cath ends in the proximal superior vena cava. There are changes of bilateral mastectomy and axillary lymph node dissection. No pathologically enlarged thoracic lymph nodes are identified. The heart size is normal. Again seen are subpleural opacities anteriorly in the lungs, likely related to radiation change. The lungs are free of acute airspace opacities. Tiny nodules of the right lower lobe are stable and do not demonstrate significant FDG uptake. There are no pathologically enlarged thoracic lymph nodes. The heart size is normal. Abdomen/pelvis/proximal thighs: Physiologic FDG activity is present in the bowel and urinary tract. No abnormal FDG uptake is identified. Gallbladder is surgically absent. The liver, spleen, pancreas, and adrenal glands are normal. The kidneys are unremarkable. No pathologically enlarged abdominal or pelvic lymph nodes are identified. No free intraperitoneal gas or evidence of bowel obstruction. Musculoskeletal: No suspicious FDG uptake is identified. There is osteoarthritis of the shoulders. There is mild spondylosis of the spine. IMPRESSION: 1. No evidence of recurrent or metastatic disease. 03/22/2022: Clinical Indication: Inflammatory breast cancer CT Scan of the Chest, Abdomen, and Pelvis with Contrast: Technique: Contiguous sections were acquired throughout the chest, abdomen, and pelvis after intravenous administration of 100 cc of Omnipaque 350. Dose reduction technique was used on this scan by utilizing automated exposure control and iterative reconstruction technique. The dose-length product (DLP) was 1173.42 mGy-cm. COMPARISON: 10/01/2021 Findings: There is no evidence of any significant mediastinal, hilar or axillary lymphadenopathy. The mediastinal soft tissues and vascular structures appear normal. Small hiatal hernia noted. Bilateral mastectomy noted. There is no evidence of pleural or pericardial effusion. Probable minimal postradiation changes noted peripherally in the bilateral upper lobes. No other pulmonary reality seen. Stable tiny right lower lobe nodule noted. Diffuse fatty infiltration of the liver noted. The spleen, pancreas, adrenals and kidneys are within normal limits. Cholecystectomy clips present. No evidence of aortic aneurysm. No lymphadenopathy. No bowel obstruction or bowel wall thickening. There is no evidence to suggest acute appendicitis. Urinary bladder is unremarkable. No pelvic mass seen. No ascites. Impression: No change from prior exam. No definite evidence for active malignancy or metastatic disease. Tiny right lower lobe pulmonary nodule, unchanged. Diffuse fatty infiltration of liver. Small hiatal hernia. Review of Systems Constitutional: Constitutional: Reports no additional constitutional complaints Eyes: Eyes: Reports no additional eye complaints ENT: Reports system reviewed and no additional complaints, except as documented Cardiovascular: Cardiovascular: Reports no additional cardiovascular complaints Respiratory: Respiratory: Reports no additional respiratory complaints Gastrointestinal: Gastrointestinal: Reports no additional gastrointestinal complaints Musculoskeletal: Musculoskeletal: Reports no additional musculoskeletal complaints Neurologic: Reports system reviewed and no additional complaints, except as documented Psychiatric: Psychiatric: Reports no additional psychiatric complaints Endocrine: Endocrine: Reports no additional endocrine complaints Hematologic/Lymphatic: Hematologic/Lymphatic: Reports no additional hematologic/lymphatic complaints Allergic/Immunologic: Allergic/Immunologic: Reports no additional allergic/immunologic complaints Exam Const: General: cooperative, healthy appearing and comfortable Orientation/consciousness: oriented to person, oriented to place and oriented to time Other: no distress HENMT: Head: normal to inspection Ears: hearing grossly normal bilaterally Eyes: General: appearance normal, both eyes and all related structures Neck: Neck: normal visual inspection Chest: Chest palpation & inspection: normal inspection of the chest Other: mastectomy stars well-healed with no changes per patient. Resp: Effort & Inspection: normal respiratory effort and able to speak in complete sentences Auscultation: no crackles, no rales, no rhonchi, no wheezes and diminished lung sounds Other: decreased breath sounds entire left lung Cardio: Jugular venous distension: no JVD GI: Inspection: normal to inspection Skin: General skin exam: normal color Neuro: General: oriented to person, oriented to place and oriented to time Extrem: General: normal to inspection Other: No edema Psych: Appearance: grossly normal Objective Data Vital Signs Vital Signs: Vital Signs - 24 hr 11/13/24 11:07 11/13/24 12:00 11/13/24 12:14 Temperature 36.7 C Pulse Rate 97 88 Respiratory Rate 16 Blood Pressure 142/89 H Pulse Oximetry 93 91 Oxygen Delivery Room Air Oxygen Flow Rate 11/13/24 16:00 11/13/24 20:00 11/13/24 20:00 Temperature 37.0 C Pulse Rate 81 87 Respiratory Rate 16 Blood Pressure 155/88 H Pulse Oximetry 97 Oxygen Delivery Room Air Oxygen Flow Rate 11/13/24 20:00 11/14/24 00:00 11/14/24 01:32 Temperature Pulse Rate 80 73 Respiratory Rate Blood Pressure Pulse Oximetry 98 Oxygen Delivery Nasal Cannula Oxygen Flow Rate 1 11/14/24 04:00 11/14/24 05:19 11/14/24 08:31 Temperature 36.7 C Pulse Rate 73 85 85 Respiratory Rate 17 17 Blood Pressure 144/86 H Pulse Oximetry 99 99 Oxygen Delivery Room Air Oxygen Flow Rate Intake/Output Intake/Output: Intake & Output 11/11/24 11/12/24 11/13/24 11/14/24 23:59 23:59 23:59 23:59 Intake Total 1300 1740 150 Balance 1300 1740 150 Meds/Results Medications: Active Medications Generic Name Dose Route Start Last Admin Trade Name Freq PRN Reason Stop Dose Admin Acetaminophen 650 mg 11/12/24 17:23 11/13/24 17:35 Acetaminophen 325 Mg Tablet PO 650 mg Q4H PRN Administration Mild Pain (1-3) or Fever Anastrozole 1 mg 11/13/24 09:00 11/14/24 08:31 Anastrozole (*Chemo) 1 Mg Tablet PO 1 mg DAILY PATT Administration Atorvastatin Calcium 40 mg 11/13/24 09:00 11/14/24 08:31 Atorvastatin 40 Mg Tablet PO 40 mg DAILY PATT Administration Azithromycin 500 mg 11/13/24 12:30 11/14/24 08:31 Azithromycin 500 Mg Tablet PO 11/16/24 12:29 500 mg DAILY PATT Administration Buspirone HCl 10 mg 11/13/24 06:00 11/14/24 05:53 Buspirone Hcl 10 Mg Tablet PO 10 mg Q8HR PATT Administration Calcium Carbonate 200 mg 11/12/24 23:33 Calcium Carbonate (Tums) 500 Mg (200 Mg Elemental) PO Q6H PRN Indigestion Citalopram Hydrobromide 40 mg 11/13/24 09:00 11/14/24 08:31 Citalopram Hydrobromide 20 Mg Tablet PO 40 mg DAILY PATT Administration Dextrose 12.5 gm 11/13/24 11:39 Dextrose 50% 25 Gm/50 Ml Syringe IV PUSH PRN PRN Hypoglycemia Protocol Docusate Sodium 100 mg 11/12/24 23:33 Docusate Sodium 100 Mg Capsule PO Q12H PRN Constipation Ezetimibe 10 mg 11/13/24 09:00 11/14/24 08:31 Ezetimibe 10 Mg Tablet PO 10 mg DAILY PATT Administration Glucagon 1 mg 11/13/24 11:39 Glucagon For Inj 1 Mg Vial IM PRN PRN Hypoglycemia Protocol Glucose 15 gm 11/13/24 11:39 Glucose Oral Gel 15 Gm Of Glucse In 37.5 Gm Tube PO PRN PRN Hypoglycemia Protocol Dextrose 1,000 mls @ 100 mls/hr 11/13/24 11:39 Dextrose 5% 1,000 Ml IVPB PRN PRN Hypoglycemia Protocol Ceftriaxone Sodium 2 gm/ 100 mls @ 200 mls/hr 11/13/24 18:00 11/13/24 17:26 Sodium Chloride IVPB 11/18/24 18:29 200 mls/hr Q24H PATT Administration Insulin Aspart 2 - 5 units 11/13/24 12:00 11/14/24 08:37 Insulin Aspart (*Bkc) 100 Units/Ml SUB-Q Not Given TIDWM [facility] Protocol Insulin Aspart 1 - 2 units 11/13/24 21:00 11/13/24 21:09 Insulin Aspart (*Bkc) 100 Units/Ml SUB-Q Not Given HS [facility] Protocol Levothyroxine Sodium 50 mcg 11/13/24 06:30 11/14/24 05:53 Levothyroxine Sodium 50 Mcg Tablet PO 50 mcg DAILY@0630 PATT Administration Morphine Sulfate 2 mg 11/12/24 17:31 Morphine Sulfate (*Crx) 4 Mg/Ml Inj IV PUSH Q2H PRN Pain Rated 7-10 Radiology Results: ITS Impressions Chest X-Ray 11/12/24 15:39 Impression: Bilateral pneumonia. Underlying mass is not excluded. CT suggested Chest CTA 11/12/24 16:36 IMPRESSION: 1. Negative for pulmonary embolism. Left-sided bronchopneumonia with neoplasm suspected. Bronchoscopy suggested. 2. Incidental findings above Labs Labs: Laboratory Results - last 24 hr 09/11/13/24 11/13/24 12:00 17:22 19:58 WBC RBC Hgb Hct MCV MCH MCHC RDW Plt Count MPV Immature Gran % (Auto) Neut % (Auto) Lymph % (Auto) [place] % (Auto) Eos % (Auto) Baso % (Auto) Lymph # (Auto) [place] # (Auto) Eos # (Auto) Baso # (Auto) Abs Immat Gran (auto) Absolute Neuts (auto) Absolute Nucleated RBC Nucleated RBC % PT INR APTT Sodium Potassium Chloride Carbon Dioxide Anion Gap BUN Creatinine Estim Creat Clear Calc Estimated GFR Glucose POC Capillary Glucose 165 H 108 H 139 H Calcium Lactate Dehydrogenase Total Protein Albumin 11/14/24 11/14/24 04:56 07:51 WBC 4.2 L RBC 4.34 Hgb 12.7 Hct 39.4 MCV 90.8 MCH 29.3 MCHC 32.2 RDW 12.9 Plt Count 251 MPV 9.7 Immature Gran % (Auto) 0.0 Neut % (Auto) 54.9 Lymph % (Auto) 25.5 [place] % (Auto) 13.1 H Eos % (Auto) 5.5 H Baso % (Auto) 1.0 Lymph # (Auto) 1.07 [place] # (Auto) 0.6 Eos # (Auto) 0.2 Baso # (Auto) 0.0 Abs Immat Gran (auto) 0.00 Absolute Neuts (auto) 2.3 Absolute Nucleated RBC 0.000 Nucleated RBC % 0.0 PT 14.6 INR 1.1 APTT 26.1 Sodium 138 Potassium 3.9 Chloride 108 H Carbon Dioxide 24 Anion Gap 6 BUN 18 H Creatinine 0.83 Estim Creat Clear Calc 60 Estimated GFR > 60 Glucose 106 POC Capillary Glucose 111 H Calcium 8.9 Lactate Dehydrogenase 243 Total Protein 6.4 Albumin 3.8
[2024-11-14 12:41] LABS: Appearance Pleural Fluid Hazy (Clear); Color Pleural Fluid Yellow (Colorless); Nucleated Cell Pleural Fluid 916 /uL (0-1000)
[2024-11-14 12:42] LABS: Lymphocytes Pleural Fluid 54 %; Macrophages Pleural Fluid 42 %; Mesothelial Cells Pleural Flui 4 %
--- NOTE | 2024-11-14 15:49 | P.DS_ITS ---
DS: Admitting Diagnosis Discharge Date 11/14/2024 Admitting Diagnosis Left pleural effusion DS: Discharge Diagnosis Discharge Diagnosis (1) Pleural effusion, left: Code(s): J90 - Pleural effusion, not elsewhere classified Status: Acute (2) Pneumonia: Code(s): J18.9 - Pneumonia, unspecified organism Status: Acute (3) Lung mass: Code(s): R91.8 - Other nonspecific abnormal finding of lung field Status: Acute (4) HX: breast cancer: Code(s): Z85.3 - Personal history of malignant neoplasm of breast Status: Acute DS: Summary Hospital Course Reason for hospitalization: Shortness of breath Hospital Course: Kassy Maher is a 59 year old female with pmhx of Breast cancer s/p chemoradiation who presented yesterday for shortness of breath. she was found to have a left-sided bronchopneumonia with neoplasm and pleural effusion. 1100 cc status post 1100 cc thoracentesis with straw-colored fluid. G-stain did show organism but shows multiple white blood cells. Cytology and microbiology are pending. Oncology office was contacted in the office will make arrangement for earlier appointment. The if the need extra investigation they will take care of that as outpatient. There was concern for pneumonia and patient was discharged with Levaquin for 4 days. Time Spent with Patient Time attestation: 35 minutes Total time spent providing and/or coordinating discharge services: Exam Narrative: APPEARANCE: Obese EYES: EOMI HEENT: Normocephalic, atraumatic, OMM RESPIRATORY: No respiratory distress Clear to auscultation bilaterally with no rhonchi wheezing or rales. CARDIOVASCULAR: RRR, S1 and S2 without murmurs rubs or gallops. ABDOMINAL: Soft, nontender, nondistended, no rebound or guarding MSK: 5/5 motor strength throughout her extremities. NEURO: Awake and alert. Following commands, speech normal, no focal deficits SKIN:: Warm, dry. No rashes lesions or abrasions PSYCHIATRIC: Normal affect/mood, DS: Data Data Completed and Pending Pending studies at discharge: Pending at discharge 11/13/24 12:16 Cytology [PTH] Routine Labs on day of discharge: Labs from last 24 hours 11/14/24 11/14/24 11/14/24 12:16 11:40 11:20 WBC RBC Hgb Hct MCV MCH MCHC RDW Plt Count MPV Immature Gran % (Auto) Neut % (Auto) Lymph % (Auto) [place] % (Auto) Eos % (Auto) Baso % (Auto) Lymph # (Auto) [place] # (Auto) Eos # (Auto) Baso # (Auto) Abs Immat Gran (auto) Absolute Neuts (auto) Absolute Nucleated RBC Nucleated RBC % PT INR APTT Sodium Potassium Chloride Carbon Dioxide Anion Gap BUN Creatinine Estim Creat Clear Calc Estimated GFR Glucose POC Capillary Glucose 108 H Calcium Lactate Dehydrogenase Total Protein Albumin Fluid Glucose Pending Fluid Total Protein Pending Fluid Albumin Pending Fluid LDH Pending Fluid Amylase Pending Fluid Cholesterol Pending Fluid Triglycerides Pending Pleural Fluid Source Pleural Color Pleural Appearance Pleural pH 7.386 Pleural RBC Pleural Nuc Cells Pleural Lymphocytes Pleural Macrophages Pleural Mesothelial 11/14/24 11/14/24 11/14/24 11:19 07:51 04:56 WBC 4.2 L RBC 4.34 Hgb 12.7 Hct 39.4 MCV 90.8 MCH 29.3 MCHC 32.2 RDW 12.9 Plt Count 251 MPV 9.7 Immature Gran % (Auto) 0.0 Neut % (Auto) 54.9 Lymph % (Auto) 25.5 [place] % (Auto) 13.1 H Eos % (Auto) 5.5 H Baso % (Auto) 1.0 Lymph # (Auto) 1.07 [place] # (Auto) 0.6 Eos # (Auto) 0.2 Baso # (Auto) 0.0 Abs Immat Gran (auto) 0.00 Absolute Neuts (auto) 2.3 Absolute Nucleated RBC 0.000 Nucleated RBC % 0.0 PT 14.6 INR 1.1 APTT 26.1 Sodium 138 Potassium 3.9 Chloride 108 H Carbon Dioxide 24 Anion Gap 6 BUN 18 H Creatinine 0.83 Estim Creat Clear Calc 60 Estimated GFR > 60 Glucose 106 POC Capillary Glucose 111 H Calcium 8.9 Lactate Dehydrogenase 243 Total Protein 6.4 Albumin 3.8 Fluid Glucose Fluid Total Protein Fluid Albumin Fluid LDH Fluid Amylase Fluid Cholesterol Fluid Triglycerides Pleural Fluid Source Pleural fluid Pleural Color Yellow Pleural Appearance Hazy Pleural pH Pleural RBC 2000 Pleural Nuc Cells 916 Pleural Lymphocytes 54 Pleural Macrophages 42 Pleural Mesothelial 4 11/13/24 11/13/24 19:58 17:22 WBC RBC Hgb Hct MCV MCH MCHC RDW Plt Count MPV Immature Gran % (Auto) Neut % (Auto) Lymph % (Auto) [place] % (Auto) Eos % (Auto) Baso % (Auto) Lymph # (Auto) [place] # (Auto) Eos # (Auto) Baso # (Auto) Abs Immat Gran (auto) Absolute Neuts (auto) Absolute Nucleated RBC Nucleated RBC % PT INR APTT Sodium Potassium Chloride Carbon Dioxide Anion Gap BUN Creatinine Estim Creat Clear Calc Estimated GFR Glucose POC Capillary Glucose 139 H 108 H Calcium Lactate Dehydrogenase Total Protein Albumin Fluid Glucose Fluid Total Protein Fluid Albumin Fluid LDH Fluid Amylase Fluid Cholesterol Fluid Triglycerides Pleural Fluid Source Pleural Color Pleural Appearance Pleural pH Pleural RBC Pleural Nuc Cells Pleural Lymphocytes Pleural Macrophages Pleural Mesothelial Preliminary micro results at discharge 11/12/24 18:14 Blood Culture - Preliminary Blood 11/12/24 18:19 Blood Culture - Preliminary Blood Discharge Plan Discharge Attending physician on discharge: Sofie Ordoñez Consulting providers: Federico Cee; Nova Esteban; Cuco Izquierdo Discharging Clinician: Sofie Ordoñez Anticipated Discharge Date/Time: 11/14/24 16:00 Patient Disposition: Home Activity: unlimited Diet: as tolerated Discharge Instructions: Take Levaquin 750 mg daily for 4 days If Oncology does not call you please make a call and make an appointment Patient Instructions: Antibiotic Form Patient Language: Greek Stand Alone Forms: General Discharge Information Follow-up/Referrals: Cuco Izquierdo MD [Physician, Hematology] - 1 Week Discharge Medications: New levofloxacin 750 mg tablet 750 mg PO DAILY Qty: 4 0RF Continued glucose 4 gram tablet,chewable 16 g PO Q15M PRN (Reason: hypoglycemia) Qty: 360 4RF Rx Instructions: until symptoms of low blood sugar are controlled (DME) pen needle, diabetic [BD Joya 2nd Gen Pen Needle] 32 gauge x 5/32 needle See Rx Instructions .ROUTE .COMPLEX Qty: 200 11RF Dose Instruction: USE TO INJECT INSULIN TWICE A DAY Rx Instructions: USE TO INJECT INSULIN FIVE TIMES A DAY (DME) FreeStyle Ania 3 Plus Sensor Device See Rx Instructions .Route Qty: 6 1RF Rx Instructions: change sensor every 15 days Ozempic 2 mg/dose (8 mg/3 mL) pen injector See Rx Instructions .ROUTE .COMPLEX Qty: 9 2RF Dose Instruction: INJECT 2 MG ONCE A WEEK Rx Instructions: INJECT 2 MG ONCE A WEEK levothyroxine 50 mcg tablet See Rx Instructions .ROUTE .COMPLEX Qty: 90 2RF Dose Instruction: Take 1 tablet by mouth once daily Rx Instructions: Take 1 tablet by mouth once daily Jardiance 25 mg tablet See Rx Instructions .ROUTE .COMPLEX Qty: 90 1RF Dose Instruction: Take 1 tablet by mouth once daily Rx Instructions: Take 1 tablet by mouth once daily ezetimibe 10 mg tablet See Rx Instructions .ROUTE .COMPLEX Qty: 90 3RF Dose Instruction: Take 1 tablet by mouth once daily Rx Instructions: Take 1 tablet by mouth once daily No Action anastrozole 1 mg tablet 1 mg PO DAILY atorvastatin 40 mg tablet 40 mg PO DAILY Qty: 90 5RF citalopram 40 mg tablet See Rx Instructions .ROUTE .COMPLEX Qty: 90 1RF Dose Instruction: TAKE 1 TABLET BY MOUTH EVERY DAY Rx Instructions: TAKE 1 TABLET BY MOUTH EVERY DAY buspirone 5 mg tablet 10 mg PO TID Qty: 90 1RF glucagon 1 mg/0.2 mL auto-injector 1 mg subcut ONCE Qty: 0.4 0RF Rx Instructions: as a single dose; may repeat once after 15 minutes if no response Date of admission: 11/12/24 17:23 Primary Care Provider: Brianne Yusuf Admitting Provider: Bautista Ragland Attending physician on admission: Bautista Ragland Condition: Serious
[2024-11-15 15:09] LABS: Albumin, Body Fluid 2.8 g/dL (Not Estab.); Glucose, Body Fluid 76 mg/dL (.); LD, Body Fluid 624 IU/L (.); Triglycerides, Body Fluid 18 mg/dL (Not Estab.)
== END 2024-11-14 17:20 | disposition home or self-care (01) | DRG 180 ==
LOC: ANHED 17:47 → ANH3MEDSUR 18:48 → ANH2MED 19:52
PROVIDERS: Internal Medicine Pulmonary Disease; Nurse Practitioner Acute Care; Admitting Provider Internal Medicine; Emergency Provider Registered Nurse; PCP Family Medicine; Visit Provider Student in an Organized Health Care Education/Training Program
DX: D49.1 Neoplasm of unspecified behavior of respiratory system (principal); J18.9 Pneumonia, unspecified organism; J91.0 Malignant pleural effusion; E11.9 Type 2 diabetes mellitus without complications; G47.30 Sleep apnea, unspecified; E78.00 Pure hypercholesterolemia, unspecified; F41.1 Generalized anxiety disorder; F32.A Depression, unspecified; Z20.822 Contact with and (suspected) exposure to COVID-19; Z90.13 Acquired absence of bilateral breasts and nipples; Z85.3 Personal history of malignant neoplasm of breast; Z79.4 Long term (current) use of insulin
CPT/HCPCS: 32555; 36415; 71046; 71275; 80048; 80053; 81001; 82040; 82042; 82150; 82945; 82948; 83605; 83615; 83735; 83880; 83986; 84145; 84155; 84157; 84311; 84478; 84484; 85025; 85380; 85610; 85652; 85730; 86140; 87040; 87086; 87206; 87637; 88108; 88305; 88342; 89051; 93005; 94640; 99285; A9270; J0456; J0696; J1650; J7030; J7050; Q9967

== ENCOUNTER 2024-11-16 10:06 | Outpatient (CLI) | payer OTHER, SELFPAY ==
--- OUTSIDE RECORDS SUMMARY | 2024-11-16 09:30 | XMS_ITS | Encounter Summary ---
Author Organization [facility] [email or web address] [facility] Address [address] [place] [address] Care Team Providers Care Fire Adjuster Name Role Phone Brianne Yusuf MD Primary Care Provider [phone] Reason for Referral * PET Scan (Urgent) - Open Specialty Diagnoses / Procedures Referred By Contac t Referred To Contact Diagnoses Inflammatory breast cancer, right Procedures PET TUMOR OR INFECTION IMG W CT SKB MD Cuco Izquierdo MD [address] [address] Phone: tel: fax: Referral ID Status Reason Start Date Expiration Date Visits Re quested Visits Authorized [id number] Open 11/16/2024 12/17/2025 1 1 Reason for Visit * Reason Comments Cancer Follow Up Encounter Details Date Type Department Care Team (Late st Contact Info) Description 11/16/2024 9:30 AM CDT Office Visit [facility] On[facility] and [facility] - [facility] [address] [facility] [address] [address] Cuco Izquierdo MD [address] [place] [address] Inflammatory breast cancer, right (Primary Dx) Social History Tobacco Use Types Packs/Day Years [...] on file Sexual Orientation Not on file documented as of this encounter Last Filed Vital Signs Vital Sign Reading Time Taken Comments Blood Pressure 118/88 11/16/2024 9:40 AM CDT Pulse 94 11/16/2024 9:40 AM CDT Temperature 35.8 C (96.5 F) 11/16/2024 9:40 AM CDT Respiratory Rate 16 11/16/2024 9:40 AM CDT Oxygen Saturation 94% 11/16/2024 9:40 AM CDT Inhaled Oxygen Concentration - - Weight 69.4 kg (153 lb) 11/16/2024 9:40 AM CDT Height - - Body Mass Index 26.26 09/22/2023 10:56 AM CDT documented in this encounter Progress Notes * Cuco Izquierdo MD - 11/16/2024 10:08 AM CDT HEMATOLOGY / ONCOLOGY PROGRESS NOTE Patient Identification: Name: Kassy Maher Age: 59 y.o. 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 Status post right-sided mastectomy with axillary lymph node dissection done on January 30, 2021. Left-sided metastatic carcinoma in one of five lymph node measures 4 mm in size status post left-sided mastectomy and Lymph node dissection done on January 30, 2021. Genetic testing negative. Prior to that patient was diagnosed with T4b N1 M0 stage IIIB invasive ductal carcinoma of the right breast status post ultrasound-guided biopsy performed on August 17, 2020. Grade 3 tumor ER/GA positive HER-2/quentin negative with DCIS intermediate grade. Metastatic ductal carcinoma in the axillary lymph node. Genetic testing negative CURRENT TREATMENT Arimidex 1 mg daily started October 29, 2021 TREATMENT HISTORY Patient completed neoadjuvant chemotherapy with Adriamycin, Cytoxan and Taxol cycle four in December 2020. Adjuvant radiation therapy with Xeloda completed April 26, 2021. Adjuvant Xeloda cycle 6/6 completed October 15, 2021 Right skin punch biopsy done on June 12, 2022 showed no evidence of malignancy. SUBJECTIVE Patient came to the office for follow-up visit. She was admitted to the hospital on November 13 with shortness of breath and CTA chest was performed that showed no evidence of pulm embolism but there was a left-sided pneumonia. There was right lower lobe micronodule 7 x 7 mm. She had thoracentesisdone with removal of 1100 cc of fluid on November 14. She is concerned about malignancy. Denies any chest pain and shortness of breath at this time. No other new complaints. Review of system Constitutional: Denies any tiredness and fatigue, 5 pound weight loss HEENT: denies sinus congestion, hearing or vision problems, denies any sore throat. Respiratory: denies cough, dyspnea, wheeze Cardiovascular: denies chest pain, exertional chest pressure/discomfort, syncope, shortness of breath GI: denies constipation, diarrhea, dsyphagia, reflux symptoms, denies any nausea vomiting : denies dysuria, frequency, incontinence, urgency Integumentary system: no lymphadenopathy, sweats, flushing Musculoskeletal: denies: myalgia, stable arthralgia Neurological: Stable-neuropathy Skin: No lumps, denies any chest wall rash 12 point review of system was reviewed Objective: Vital signs in last 24 hours: As per nursing note Exam: General appearance: alert, cooperative, no distress, appears stated age Head: normocephalic, without obvious abnormality, atraumatic Eyes: conjunctivae/corneas clear, EOM's intact Ears: normal external ear canals AU Nose: Nares normal. Septum midline. Mucosa normal. No drainage or sinus tenderness Throat: Lips, mucosa, and tongue normal. Teeth and gums normal, neck: supple, symmetrical, trachea midline. Lungs: clear to auscultation bilaterally Heart: regular rate and rhythm, S1, S2 normal, no murmur, click, rub or gallop Abdomen: soft, non-tender. Bowel sounds normal. No masses, No organomegaly Extremities: extremities normal, atraumatic, no cyanosis or edema Skin: Skin color, texture, turgor normal. No rashes or lesions Lymph nodes: No lymphadenopathy Neuro: No obvious focal deficit Bilateral chest wall examination showed no masses and lymphadenopathy Exam as above PATH LABS Labs from September 13, 2020 showed WBC 4.8 hemoglobin 12.4 platelet 267,000 creatinine 0.9 Labs from September 27 showed WBC 10.2 hemoglobin 13 platelet 216,000 creatinine 0.9 ANC 7600 Labs from October 11 showed WBC 1.6 hemoglobin 11.4 platelet 173,000 ANC 380 creatinine 0.9 labs from November 15 showed WBC 10.8 hemoglobin 9.6 platelet 215,000 creatinine 0.7 Labs from December 27 showed WBC 5.8 hemoglobin 11.7 platelet 212,000 creatinine 0.7 Labs from February 22 show WBC 3.4 hemoglobin 13 platelet 212,000 creatinine 0.8 Labs from March 19 showed WBC 3.4 hemoglobin 13 platelet 228,000 creatinine 0.9 Labs from April 02 showed WBC 4.9 hemoglobin 12.9 platelet 174,000 creatinine 0.9 Labs from April 23 showed WBC 2.9 hemoglobin 12.8 platelet 157,000 creatinine 0.9 ANC 2200 Labs from May 21 showed WBC 3.1 hemoglobin 12.7 platelet 205,000 creatinine 0.9 Labs from June 04 showed WBC 3.5 hemoglobin 12.6 platelet 211,000 ANC 2100 creatinine 1.0 Labs from June 25 showed WBC 3.1 hemoglobin 12.2 platelet 270,000 ANC 1900 creatinine 0.9 Labs from June show WBC 4.9 hemoglobin 12.2 platelet 202,000 creatinine 0.9 Labs from August 06 showed WBC 2.9 hemoglobin 11.6 platelet 177,000 creatinine 0.9 AST 37 CA 15-3 34 Labs from September 17 2 WBC 2.1 hemoglobin 11.5 platelet 192,000 ANC 1500 creatinine 0.9 Labs from October 25, 2021 showed WBC 2.4 hemoglobin 12.3 platelet 130,000 creatinine 0.8 AST 44 ALT 47 CA 15-3 33 Labs from December 10 show WC 3.1 hemoglobin 12.8 platelet 195,000 CEA 15-3 19 Labs from January 22 showed creatinine 0.8 total bilirubin 0.5 WBC 4.4 hemoglobin 13.6 platelet 191,000 CA 15-3 18 Labs from March 24 showed creatinine 0.8 bilirubin 0.7 WBC 4.2 hemoglobin 13.3 platelet 216,000 CEA 15-3 25 Labs from May 21 showed CA 15-3 of 22. Labs from September 19 showed creatinine 0.7 ALT 42 AST 33 WBC 4.5 hemoglobin 12.7 platelet 225,000 CA 15-3 is pending. Labs from showed creatinine 1.0 WBC 4.3 hemoglobin 12.9 platelet 213,000 CA 15-3 18 Labs from April 01 showed CA 15-3 18 hemoglobin 13.4 creatinine 0.9 total bilirubin 0.6 Labs from July 08 showed creatinine 0.9 total bilirubin 0.7 WBC 5.1 hemoglobin 13.8 platelet 254,000CA 15-3 pending Labs from November 01 showed creatinine 0.9 total bilirubin 0.6 hemoglobin 13.7 CA 15-3 20 Labs from March 21 showed creatinine 0.8 total bilirubin 0.7 WBC 3.9 hemoglobin 13.8 platelet 231,000 CEA 15-3 16 ALT 59 Labs from July 22 showed WBC 4.8 hemoglobin 13.5 platelet 254,000 creatinine 0.8 CA 15-3 22 Assessment: Plan: Patient Active Problem List Diagnosis Date Noted S/P bilateral mastectomy 03/07/2021 Hard to intubate 01/30/2021 Inflammatory breast cancer, right 08/23/2020 T4 N3 aM1 stage IV ER GA positive HER2/quentin negative right-sided inflammatory breast cancer multifocal disease with five foci with intermediate grade lymphovascular invasion with dermal lymphatic invasion along with DCIS intermediate grade less than 1 mm posterior margins along with atypical ductal h yperplasia, atypical lobular hyperplasia and metastatic carcinoma 16 of 19 axillary lymph node withlargest at 1.3 cm. Status post right-sided mastectomy with axillary lymph node dissection done on January 30, 2021. Left-sided metastatic carcinoma in one of five lymph node measures 4 mm in size status post left-sided mastectomy and Lymph node dissection done on January 30, 2021. Genetic testing negative. PET scan done on March 12 showed soft tissue/fluid involving the chest wall bilaterally with mildFDG uptake likely post surgical changes. No evidence of metastatic disease. Patient started adjuvant radiation therapy with Xeloda on March 14, 2021. Completed on April 26, 2021. Patient completed patient completed adjuvant chemotherapy patient completed cycle 6/6 of Xeloda on October 15, 2021. Arimidex was started on November 01, 2021. Events noted. Patient had CTA chest done on November 12 that showed left-sided pleural effusion. She had thoracentesis done with 1100 cc fluid removed. Cytology is pending. I will check CA 15-3 today and we will also order the PET scan. She will continue anastrozole. I will discuss the finding with her next week. Elevated liver enzyme. Stable. Anemia. Resolved. Bone health. Bone density done on September 12, 2024 showed osteopenia. Continue vitamin D. Phone visit in 1 week 11/16/2024 Cuco Izquierdo MD documented in this encounter Plan of Treatment Upcoming Encounters Date Type Department Care Team (Late st Contact Info) Description 11/29/2024 4:30 PM CDT Telephone Check Up [facility] Oncology and Hematology [facility] [address] [address] Cuco Izquierdo MD [address] [facility] [address] [place] [address] Scheduled Orders Name Type Priority Associated Diagnoses Orde r Schedule CANCER ANTIGEN 15-3 Lab Routine Inflammatory breast cancer, right (CMS/HCC) Expected: 11/16/2024, Expires: 11/16/2025 PET TUMOR OR INFECTION IMG W CT SKB MDTH Imaging Stat Inflammatory breast cancer, right (CMS/HCC) Expected: 11/17/2024, Expires: 11/16/2025 documented as of this encounter Visit Diagnoses Diagnosis Inflammatory breast cancer, right- Primary documented in this encounter Care Teams Fire Adjuster Relationship Specialty Start Date End Date Brianne Yusuf MD [address] [place] [address] PCP - General Family Practice 08/17/20 documented as of this encounter
--- OUTSIDE RECORDS SUMMARY | 2024-11-16 10:47 | XMS_ITS | Encounter Summary ---
Author Organization [facility] Address [address] [place] [address] Care Team Providers Care Mobile Heavy Equipment Operator Name Role Phone Brianne Yusuf MD Primary Care Provider [phone] Encounter Details Date Type Department Care Team ([facility] Contact Info) Description 02/14/2021 Chart Note [facility] Radiation Oncology [address] [place] [address] Jorge Farmer MD [address] [address] Social History Tobacco Use Types [...] COVID-19? No / Unsure 02/05/2021 12:22 PM STILL CLEANER TUBE documented as of this encounter Plan of Treatment Upcoming Encounters Date Type Department Care Team (Late Contact Info) Description 11/29/2024 4:30 PM CDT Telephone Check Up [facility] Oncology and Hematology - [place] [address] [place] [address] Cuco Izquierdo MD [address] [address] documented as of this encounter Visit Diagnoses Not on filedocumented in this encounter Care Teams Mobile Heavy Equipment Operator Relationship Specialty Start Date End Date Brianne Yusuf MD [address] [place] [address] PCP - General Family Practice 08/17/20 documented as of this encounter
--- OUTSIDE RECORDS SUMMARY | 2024-11-16 10:47 | XMS_ITS | Clinical Summary ---
Author Organization [facility] [place] Address [address] [place] [address] Phone Care Team Providers Care Director Prospect Name Role Phone Brianne Yusuf MD Primary Care Provider [phone] Allergies Active Allergy Reactions Criticality Noted Date [...] Yusuf MD Referring Provider: Brianne Yusuf MD [address] [place] [address] Other: Dr. Kerry Correia MD Problem Noted Date Diagnosed Date S/P bilateral mastectomy 03/07/2021 Hard to intubate 01/30/2021 Inflammatory breast cancer, right 08/23/2020 Cancer Staging:Clinical stage from 08/23/2020:Stage IIIB(cT4b, cN1(f), cM0, G2, ER+, GA+, HER2-) - Signed by Kerry Correia MD on 08/23/2020 Encounters Date Type Department Care Team Description 11/16/2024 9:30 AM CDT Office Visit [facility] Oncology and Hematology [place] [address] [facility] [address] [address] Cuco Izquierdo MD Inflammatory breast cancer, right (Primary Dx) 10/25/2024 External Device Data STL ABSTRACTION Provider, Abstract 10/18/2024 External Device Data STL ABSTRACTION Provider, Abstract 10/04/2024 External Device Data STL ABSTRACTION Provider, Abstract 10/04/2024 External Device Data STL ABSTRACTION Provider, Abstract 09/27/2024 External Device Data STL ABSTRACTION Provider, Abstract 09/21/2024 External Device Data STL ABSTRACTION Provider, Abstract 2024 Orders Only [facility] Oncology and Hematology - [place] [address] [place] [address] Cuco Izquierdo MD 08/31/2024 External Device [...] (153 lb) 11/16/2024 9:40 AM CDT Height 162.6 cm (5' 4) 09/22/2023 10:56 AM CDT Body Mass Index 26.26 09/22/2023 10:56 AM CDT Plan of Treatment Upcoming Encounters Date Type Department Care Team (Late st Contact Info) Description 11/29/2024 4:30 PM CDT Telephone Check Up [facility] Oncology and Hematology - [place] [address] [facility] [address] [place] [address] Cuco Izquierdo MD [address] [facility] [address] [place] [address] Health Maintenance Due Date Last Done Comments DTAP/TDAP/TD VACCINES (1 - Tdap) 09/13/1982 HPV/Cotest (21-29) 09/13/1984 CERVICAL CANCER SCREENING 09/13/1993 HPV/Cotest (30-65) 09/13/1993 PAP SMEAR 09/13/1993 COLORECTAL SCREENING 09/13/2008 Colorectal Cancer Screening 09/13/2008 FIT-DNA Q 3 years 09/13/2008 FIT/FOBT Q 1 year 09/13/2008 Flex Sig/CT Colonography Q 5 years 09/13/2008 ZOSTER VACCINE (1 of 2) 09/13/2013 Preventative Visit- Commercial 02/17/2024 Pre-Diabetes and Diabetes Screening 04/23/202404/23 INFLUENZA VACCINE (#1) 2024 COVID-19 Vaccine (2 - season) 10/17/202410/2020 RSV VACCINE (60+ or ) (1 - 1-dose 75+ series) 09/13/2038 Medical Devices Implanted Type Area Training Assistant Device Identifier Shelf Expiration Date Model / Serial / Lot Business Risk Consultant Clip Surgiclip Ii Cheo 9.75in [id number] - [id number] Implanted:Qty: 1 on 01/30/2021 by Kerry Correia MD at [facility] Right: Breast [employer] - COVIDIEN 05/16/2025 [id number] / / [id number] Business Risk Consultant Clip Surgiclip Ii Cheo 9.75in [id number] - [id number] Implanted:Qty: 1 on 01/30/2021 by Kerry Correia MD at [facility] [place] Clip Right: Breast [employer] - COVIDIEN 07/16/2025 [id number] / / [id number] Hemostatic Surgicel 4x8in 1953 - [id number] Implanted:Qty: 4 on 01/30/20[facility] Hem[facility] N/A: Breast [employer] 02/15/20251951 / / [id number] Description:two on left,two on right Port Powerport Clearvue 8fr Mri [id number] - [id number] Implanted:Qty: 1 on 09/03/2020 by Kerry Correia MD at [facility] Port Left: Chest CR BARD- [employer] 10/16/2021 [id number] / / [id number] Procedures Procedure Name Priority Date/Time Associated Diagnosis [...] Maintenance Insurance RX [employer] Express [employer] O Advance Directives For more information, please contact: [phone] * Full Code (Latest Code Status on File) Date Activated Date Inactivated Comments 01/30/2021 3:28 PM 01/31/2021 12:30 PM Care Teams Director Prospect Relationship Specialty Start Date End Date Brianne Yusuf MD [address] [place] [id number] PCP - General Family Practice 08/17/20
--- OUTSIDE RECORDS SUMMARY | 2024-11-16 10:47 | XMS_ITS ---
Author Organization [facility] [place] Address [address] [place] [address] Phone Care Team Providers Care Cashier General Name Role Phone Brianne Yusuf MD Primary Care Provider [phone] Active Problems Patient Care Coordination No te Formatting of this note migh t be different from the original. Primary Care: Brianne Yusuf MD Referring Provider: Brianne Yusuf MD [address] [place] [address] Other: Dr. Kerry Correia MD Problem Noted Date Diagnosed Date S/P bilateral mastectomy 03/07/2021 Hard to intubate 01/30/2021 Inflammatory breast cancer, right 08/23/2020 Cancer Staging:Clinical stage from 08/23/2020:Stage IIIB(cT4b, cN1(f), cM0, G2, ER+, [place]+, HER2-) - Signed by Kerry Correia MD [...]
== END 2024-11-16 10:07 | disposition home or self-care (01) ==
PROVIDERS: PCP Family Medicine; Visit Provider Internal Medicine Hematology & Oncology
DX: C50.919 Malignant neoplasm of unspecified site of unspecified female breast (principal); C50 Malignant neoplasm of breast
CPT/HCPCS: 86300

== ENCOUNTER 2024-11-22 11:53 | Outpatient (CLI) | payer OTHER, SELFPAY ==
--- NOTE | ~2024-11-22 | PE_ITS ---
EXAMINATION: PET skull to mid thigh DATE: 11/22/2024 14:07 INDICATION: Inflammatory breast cancer TECHNIQUE: Blood glucose level was 101 mg/dL. 11.169 mCi of 18- fluorodeoxyglucose (18-FDG) was administered i.v. Low dose computed tomography (CT) images were acquired from the base of the brain to the proximal thighs for attenuation correction and anatomic localization. Positron emission tomography (PET) images were acquired in the same distribution beginning 64 minutes after injection. Images including fused PET/CT images were reconstructed in axial, coronal, and sagittal planes. Automated exposure control technique was employed. The dose-length product was 866.05mGy-cm. COMPARISON: 06/12/2022 FINDINGS: Head/neck: There is symmetric increased activity in the oral cavity, palatine tonsils, parotid glands, submandibular glands, laryngeal muscles and ocular muscles without CT correlate, likely physiologic. No pathologically enlarged cervical lymphadenopathy or suspicious foci of increased soft tissue FDG uptake in the visualized head or neck. Chest: Postoperative changes of bilateral mastectomies and right axillary lymph node dissection with multiple surgical clips at the right axilla. Large left and [id number] right pleural effusions. Extensive likely pleural-based metastatic disease in the left hemithorax with mild pleural thickening and subpleural reticulonodular pattern throughout the left lung with prominent associated increased FDG uptake. Additional FDG avid nodule along the parietal pleura most prominent at the anterior left lung base. Although difficult to distinguish from the pleural effusion on CT imaging there appears to be a subtle 1.8 x 0.8 cm FDG avid soft tissue density nodule with maximal SUV of 25.3 positioned along the anterolateral left eighth rib. There are few more isolated and less intensely FDG avid foci of increased uptake along the pleura and peripheral lung at the right lung base. For reference there is approximately 11 x 8 mm subpleural nodule on the posterior dome of the liver with maximal SUV of 4.1 also suspicious for metastatic disease. Heart size is normal. No pericardial effusion. Thoracic aorta is normal in caliber. There is FDG avid mediastinal and right hilar lymphadenopathy also consistent with metastatic disease. Abdomen/pelvis/proximal thighs: Physiologic renal accumulation and excretion of FDG activity in the kidneys, bladder and along portions of ureters. Cholecystectomy clips at the gallbladder fossa. Normal degree and heterogenous pattern of increased uptake throughout the liver without radiologic correlate or dominant FDG avid lesion. The pancreas, spleen and bilateral adrenal glands are normal. Mild uptake scattered throughout the bowels without radiologic correlate, also likely physiologic. FDG avid mildly enlarged and normal-sized upper abdominal lymphadenopathy with the largest lymph nodes in the periportal and the caval chains with smaller aortocaval, left periaortic, peripancreatic and gastrohepatic lymph nodes. For reference a 2.0 x 1.1 cm portacaval lymph node demonstrates maximal SUV of 19.8. No other abnormal foci of increased soft tissues FDG uptake or pathologically enlarged lymphadenopathy pelvic or inguinal lymphadenopathy. Musculoskeletal: There are numerous FDG avid bone lesions throughout the axial and appendicular skeleton which are occult on CT imaging consistent with metastatic disease. For reference there FDG avid lesions at both the left and right posterior iliac spines with maximal SUV values of 9.7 on the right and 12.1 on the left. IMPRESSION: 1. Extensive FDG avid metastatic disease including multiple scattered FDG avid bone lesions in the axial and uptake or skeleton, FDG avid normal to mildly enlarged lymphadenopathy at the mediastinum, bilateral gianni and upper abdomen, extensive pleural-based and subpleural metastatic disease at the periphery of the left lung with large left pleural effusion and small amount of pleural and subpleural metastatic disease at the basilar right lung with small to moderate- sized right pleural effusion. Reviewed, dictated and finalized at location A. IMPRESSION: 1. Extensive FDG avid metastatic disease including multiple scattered FDG avid bone lesions in the axial and uptake or skeleton, FDG avid normal to mildly enl arged lymphadenopathy at the mediastinum, bilateral gianni and upper abdomen, ext ensive pleural-based and subpleural metastatic disease at the periphery of the left lung with large left pleural effusion and small amount of pleural and subp leural metastatic disease at the basilar right lung with small to moderate-size d right pleural effusion.
--- OUTSIDE RECORDS SUMMARY | 2024-11-22 13:05 | XMS_ITS | Clinical Summary ---
Author Organization [facility] [place] Address [address] [place] [address] Phone Care Team Providers Care Safety Spec Name Role Phone Brianne Yusuf MD Primary Care Provider [phone] Allergies Active Allergy Reactions Criticality Noted Date Comments Codeine Other (See Comments) 08/14/2020 My chest hurts Medications atorvastatin (LIPITOR) 40 mg tablet Take 40 mg by mouth daily at bedtime. Active ezetimibe-rosu vastatin 10-10 mg Tablet Take by mouth daily. Active citalopram (CeleXA) 40 mg tablet Take 40 mg by mouth daily. Active LORazepam (ATIVAN) 0.5 mg tabletIndicati ons:Inflammato ry breast cancer, right Take 1 Tablet (0.5 mg) by mouth every 8 hours as needed for Anxiety. 30 Tablet 2 03/08/19 22 Active Januvia 25 mg Tablet Take 25 mg by mouth daily. 02/15/20 21 Active ezetimibe (ZETIA) 10 mg tablet Take 10 mg by mouth daily. 03/04/19 22 Active diphenhydrAMIN E12.5 mg/5 mL-viscous lidocaine-Maal ox 1:1:1 (MAGIC MOUTHWASH) oral suspension compound 04/24/19 22 Active capecitabine (XELODA) 150 mg tablet Take 3 Tablets (450 mg) by mouth 2 times daily with meals with 1 other capecitabine prescription for 2,450 mg total. 84 Tablet 6 05/22/19 22 Active capecitabine (Xeloda) 500 mg tablet Take 4 Tablets (2,000 mg) by mouth 2 times daily with meals with 1 other capecitabine prescription for 2,450 mg total. 112 Tablet 6 05/22/19 22 Active BD Joya 2nd Gen Pen Needle 32 gauge x Needle USE TO INJECT INSULIN TWICE A DAY 05/09/19 22 Active busPIRone (BUSPAR) 5 mg tablet Take 5 mg by mouth 3 times daily. 03/27/19 24 Active Ozempic 2 mg/dose (8 mg/3 mL) Pen Injector Inject 2 mg by subcutaneous injection every 7 days. 06/30/19 24 Active levothyroxine 25 mcg tablet Take 50 mcg by mouth daily. 11/02/19 24 Active anastrozole (ARIMIDEX) 1 mg tabletIndicati ons:Inflammato ry breast cancer, right TAKE 1 TABLET BY MOUTH ONCE A DAY 90 Tablet 1 11/17/19 25 Active anastrozole (ARIMIDEX) 1 mg tabletIndicati ons:Inflammato ry breast cancer, right Take 1 Tablet (1 mg) by mouth daily. 90 Tablet 1 06/16/19 25 025 Discontinued Active Problems Patient Care Coordination No te Formatting of this note migh t be different from the original. Primary Care: Brianne Yusuf MD Referring Provider: Brianne Yusuf MD [address] [place] [address] Other: Dr. Kerry Correia MD Problem Noted Date Diagnosed Date S/P bilateral mastectomy 03/07/2021 Hard to intubate 01/30/2021 Inflammatory breast cancer, right 08/23/2020 Cancer Staging:Clinical stage from 08/23/2020:Stage IIIB(cT4b, cN1(f), cM0, G2, ER+, [place]+, HER2-) - Signed by Kerry Correia MD on 08/23/2020 Encounters Date Type Department Care Team Description 11/16/2024 9:30 AM CDT Office Visit [facility] Oncology and Hematology [facility] [address] [place] [address] Cuco Izquierdo MD Inflammatory breast cancer, right (Primary Dx) 11/16/2024 Refill [facility] Oncology and Hematology [facility] [address] [place] [address] Cuco Izquierdo MD Inflammatory breast cancer, right 10/25/2024 External Device Data STL ABSTRACTION Provider, Abstract 10/18/2024 External Device Data ST[place] ABSTRACTION Provider, Abstract 10/04/2024 External Device Data ST[place] ABSTRACTION Provider, Abstract 10/04/2024 External Device Data ST[place] ABSTRACTION Provider, Abstract 09/27/2024 External Device Data STL ABSTRACTION Provider, Abstract 09/21/2024 External Device Data STL ABSTRACTION Provider, Abstract 2024 Orders Only [facility] Oncology and Hematology - [place] [address] [place] [address] Cuco Izquierdo MD 08/31/2024 External Device Data STL ABSTRACTION Provider, Abstract 08/30/2024 External Device Data STL ABSTRACTION Provider, Abstract from Last 3 Months Immunizations Immunization Administration Dates Next Due (Kardium) COVID-19 VACCINE - EMERGENCY USE AUTHORIZATION, AD26,COV2S(PF) [...] 11/29/2024 4:30 PM CDT Telephone Check Up [facility] Oncology and Hematology - [place] [address] [facility] [address] [place] [address] Cuco Izquierdo MD [address] [place] [address] Health Maintenance Due Date Last [...] series) 09/13/2038 Medical Devices Implanted Type Area Systems Eng Device Identifier Shelf Expiration Date Model / Serial / Lot Cashier And Waiter/Waitress Clip Surgiclip Ii Cheo 9.75in [id number] - [id number] Implanted:Qty: 1 on 01/30/[place] [facility] [place] Right: Breast [employer] - COVIDIEN 05/16/2025 [id number] / / [id number] Cashier And Waiter/Waitress Clip Surgiclip Ii Cheo 9.75in [id number] - [id number] Implanted:Qty: 1 on 01/30/2021 by [place] [facility] [place] Right: Breast [employer] - COVIDIEN 07/16/2025 [id number] / / [id number] Hemostatic Surgicel 4x8in 1953 [id number] Implanted:Qty: 4 on 01/30/2021 [place] [facility] [place]ostatic N/A: Breast [employer]- [employer] 02/15/20251951 / / [id number] Description:two on left,two on right Port Powerport Clearvue 8fr Mri [id number] - [id number] Implanted:Qty: 1 on 09/03/2020 by Kerry Correia MD at [facility] [place] Left: Chest CR BARD- REGIN[employer]ASC [employer] 10/16/2021 [id number] / / [id number] Procedures Procedure Name Priority Date/Time Associated Diagnosis [...] Advance Directives For more information, please contact: [phone] * Full Code (Latest Code Status on File) Date Activated Date Inactivated Comments 01/30/2021 3:28 PM 01/31/2021 12:30 PM Care Teams Safety Spec Relationship Specialty Start Date End Date Brianne Yusuf MD [address] [id number] PCP - General Family Practice 08/17/20
--- OUTSIDE RECORDS SUMMARY | 2024-11-22 13:05 | XMS_ITS | Encounter Summary ---
Author Organization [facility] Address [address] [place] [address] Care Team Providers Care Health Actuary Name Role Phone Brianne Yusuf MD Primary Care Provider [phone] Encounter Details Date Type Department Care Team ([facility] Contact Info) Description 02/14/2021 Chart Note [facility] Radiation Oncology [address] [place] [address] Jorge Farmer MD [address] [address] Social History Tobacco Use Types [...] COVID-19? No / Unsure 02/05/2021 12:22 PM POURER OFF documented as of this encounter Plan of Treatment Upcoming Encounters Date Type Department Care Team (Late Contact Info) Description 11/29/2024 4:30 PM CDT Telephone Check Up [facility] Oncology and Hematology - [place] [address] [place] [address] Cuco Izquierdo MD [address] [address] documented as of this encounter Visit Diagnoses Not on filedocumented in this encounter Care Teams Health Actuary Relationship Specialty Start Date End Date Brianne Yusuf MD [address] [place] [address] PCP - General Family Practice 08/17/20 documented as of this encounter
--- OUTSIDE RECORDS SUMMARY | 2024-11-22 13:05 | XMS_ITS ---
Author Organization [facility] [place] Address [address] [place] [address] Phone Care Team Providers Care Cooling Pan Tender Name Role Phone Brianne Yusuf MD Primary Care Provider [phone] Active Problems Patient Care Coordination No te Formatting of this note migh t be different from the original. Primary Care: Brianne Yusuf MD Referring Provider: Brianne Yusuf MD [address] [place] [address] Other: Dr. Kerry Correia MD Problem Noted Date Diagnosed Date S/P bilateral mastectomy 03/07/2021 Hard to intubate 01/30/2021 Inflammatory breast cancer, right 08/23/2020 Cancer Staging:Clinical stage from 08/23/2020:Stage IIIB(cT4b, cN1(f), cM0, G2, ER+, [place]+, HER2-) - Signed by Kerry Correia MD [...]
== END 2024-11-22 11:54 | disposition home or self-care (01) ==
PROVIDERS: PCP Family Medicine; Visit Provider Internal Medicine Hematology & Oncology
DX: C50 Malignant neoplasm of breast (principal)
CPT/HCPCS: 78815; A9552

== ENCOUNTER 2024-11-29 13:37 | Outpatient (CLI) | payer OTHER, SELFPAY ==
--- OUTSIDE RECORDS SUMMARY | 2024-11-29 13:15 | XMS_ITS | Encounter Summary ---
Author Organization [facility] Address [address] [place] [address] Care Team Providers Care Custom Tailor Name Role Phone Brianne Yusuf MD Primary Care Provider [phone] Reason for Visit * Reason Comments Cancer Follow Up Encounter Details Date Type Department Care Team ([facility] st Contact Info) Description 11/29/2024 1:15 PM CDT Office Visit [facility] Oncology and Hematology - [place] [address] [place] [address] [address] [place] [address] Cuco Izquierdo MD [address] [facility] [address] [place] [address] Inflammatory breast cancer, right (Primary [...] Sign Reading Time Taken Comments Blood Pressure 118/90 11/29/2024 1:15 PM CDT Pulse 65 11/29/2024 1:15 PM CDT Temperature 36.1 C (96.9 F) 11/29/2024 1:15 PM CDT Respiratory Rate 16 11/29/2024 1:15 PM CDT Oxygen Saturation 90% 11/29/2024 1:15 PM CDT Inhaled Oxygen Concentration - - Weight 69.1 kg (152 lb 6.4 oz) 11/29/2024 1:15 P M CDT Height - - Body Mass Index 26.16 09/22/2023 10:56 AM CDT documented in this encounter Progress Notes * Cuco Izquierdo MD - 11/29/2024 1:11 PM CDT HEMATOLOGY / ONCOLOGY PROGRESS NOTE Patient Identification: Name: Kassy Maher Age: 59 y.o. Sex: female : 1965 DIAGNOSIS Metastatic breast cancer. Patient was initially diagnosed with T4 N3 aM1 stage IV ER VT positive HER2/quentin negative right-sided inflammatory breast cancer multifocal disease with five foci with intermediate grade lymphovascular invasion with dermal lymphatic invasion along with DCIS intermediate grade less than 1 mm posterior margins along with atypical ductal hyperplasia, atypical lobular hyperplasia and metastatic carcinoma 16 of 19 axillary lymph node with largest at 1.3 cm. Status post right-sided mastectomy [...] on August 17, 2020. Grade 3 tumor ER/VT positive HER-2/quentin negative with DCIS intermediate grade. Metastatic ductal carcinoma in the axillary lymphnode. Genetic testing negative CURRENT TREATMENT Arimidex 1 mg daily started October 29, 2021 TREATMENT HISTORY Patient completed neoadjuvant chemotherapy with Adriamycin, Cytoxan and Taxol cycle four in December 2020. Adjuvant radiation therapy with Xeloda completed April 26, 2021. Adjuvant Xeloda cycle 6/6 completed October 15, 2021 Right skin punch biopsy done on June 12, 2022 showed no evidence of malignancy. Status post left-sided thoracentesis done on November 13, 2024 came back positive for metastatic breast cancer. I will SUBJECTIVE Came into the office for follow-up visit after the PET scan was performed. She is complaining of mild tiredness and fatigue but denies any excessive shortness of breath. No other new complaints. Review of system Constitutional: Complain of tiredness and fatigue, weight and appetite stable HEENT: denies sinus congestion, hearing or vision [...] No lymphadenopathy Neuro: No obvious focal deficit Exam as above PATH LABS Labs from [...] 225,000 CA 15-3 is pending. Labs from N6 showed creatinine 1.0 WBC 4.3 hemoglobin 12.9 [...] platelet 254,000 creatinine 0.8 CA 15-3 22 Labs from November 16, 2024 showed CA 15-3 76.9 Assessment: Plan: Patient Active Problem List Diagnosis Date Noted S/P bilateral mastectomy 03/07/2021 Hard to intubate 01/30/2021 Inflammatory breast cancer, right 08/23/2020 Metastatic breast cancer with malignant pleural effusion status post left-sided thoracentesis done on November 13, 2024 came back positive for metastatic breast cancer. PET scan was performed on November 22, 2024 showed extensive bone metastasis as well as mildly enlarged lymphadenopathy in the mediastinum, bilateral hilum and upper abdomen along with extensive pleural-based metastasis and small to moderate right sided pleural effusion. Patient was previously diagnosed with T4 N3 aM1 stage IV ER VT positive HER2/quentin negative right-sided inflammatory breast cancer multifocal disease with five foci with intermediate grade lymphovascular invasion with dermal lymphatic invasion along with DCIS intermediate grade less than 1 mm posterior margins along with atypical ductal hyperplasia, atypical lobular hyperplasia and metastatic carcinoma 16 of 19 axillary lymph node with largest at 1.3 cm. Status post right-sided mastectomy with axillary lymph node dissection done on January 30, 2021. Left-sided metastatic carcinoma in one of five lymph node measures 4 mm in size status post left-sided mastectomy and Lymph node dissection done on January 30, 2021. Genetic testing negative. I ordered [employer] next-generation sequencing. Tumor marker was elevated. I will start treatment with Ibrance and discontinue anastrozole. Will start Faslodex. Follow-up with repeat labs in 6 weeks. I have discussed the side effects in detail. Bone metastasis. She is asymptomatic and would not require radiation therapy. Will start monthly Xgeva. She will continue vitamin D and calcium. Anemia. Resolved. Follow-up with labs in 6 weeks 11/29/2024 Cuco Izquierdo MD documented in this encounter Miscellaneous Notes * Addendum Note - Perri Arce - 11/29/2024 2:16 PM CDTAddended by: PERRI ARCE on: 11/29/2024 02:16 PM Modules accepted: Orders documented in this encounter Plan of Treatment Upcoming Encounters Date Type Department Care Team (Late st Contact Info) Description 01/10/2025 8:30 AM CULTURAL ANTHROPOLOGY PROFESSOR Office Visit [facility] Oncology and Hematology [facility] [address] [facility] [address] [place] [address] Cuco Izquierdo MD [address] [facility] [address] [place] [address] Pending Results Name Type Priority Associated Diagnoses Date /Time TEMPUS XT DNA AND RNA Lab Routine Inflammatory breast cancer, right 11/29/2024 2:16 PM CDT TEMPUS XT NORMAL BLOOD Lab Routine Inflammatory breast cancer, right 11/29/2024 2:16 PM CDT Scheduled Orders Name Type Priority Associated Diagnoses Orde r Schedule CBC WITH DIFFERENTIAL Lab Stat Inflammatory breast cancer, right Expected: 01/10/2025, Expires: 04/10/2025 COMPREHENSIVE METABOLIC PANEL Lab Stat Inflammatory breast cancer, right Expected: 01/10/2025, Expires: 04/10/2025 CANCER ANTIGEN 15-3 Lab Routine Inflammatory breast cancer, right Expected: 01/10/2025, Expires: 04/10/2025 MISCELLANEOUS LAB TEST Lab Routine Inflammatory breast cancer, right Expected: 11/29/2024, Expires: 11/29/2025 TEMPUS XT DNA AND RNA Lab Routine Inflammatory breast cancer, right Expected: 11/29/2024, Expires: 11/29/2025 TEMPUS XF Lab Routine Inflammatory breast cancer, right Expected: 11/29/2024, Expires: 11/29/2025 TEMPUS XT DNA AND RNA SOLID TUMOR Lab Routine Inflammatory breast cancer, right Ordered: 11/29/2024 documented as of this encounter Visit Diagnoses Diagnosis Inflammatory breast cancer, right- Primary documented in this encounter Care Teams Custom Tailor Relationship Specialty Start Date End Date Brianne Yusuf MD [address] [place] [phone] PCP - General Family Practice 08/17/20 documented as of this encounter
--- OUTSIDE RECORDS SUMMARY | 2024-11-29 15:35 | XMS_ITS ---
Author Organization [facility] [place] Address [address] [place] [address] Phone Care Team Providers Care Threshing Operator Name Role Phone Brianne Yusuf MD Primary Care Provider [phone] Active Problems Patient Care Coordination No te Formatting of this note migh t be different from the original. Primary Care: Brianne Yusuf MD Referring Provider: Brianne Yusuf MD [address] [place] [address] Other: Dr. Kerry Correia MD Problem Noted [...]
--- OUTSIDE RECORDS SUMMARY | 2024-11-29 15:35 | XMS_ITS | Encounter Summary ---
Author Organization [facility] [facility] Address [address] [place] [address] Care Team Providers Care Architectural Design Lecturer Name Role Phone Brianne Yusuf MD Primary Care Provider [phone] Encounter Details Date Type Department Care Team (Late Contact Info) Description 11/28/2024 Orders Only [facility] Oncology and Hematology - [place] [address] [facility] [address] [place] [address] Cuco Izquierdo MD [address] [facility] [address] [place] [address] Social History Tobacco Use Types Packs/Day Years [...] on file documented as of this encounter Plan of Treatment Upcoming Encounters Date Type Department Care Team (Late Contact Info) Description 01/10/2025 8:30 AM EDITOR DEPARTMENT Office Visit [facility] Oncology and Hematology - [place] [address] [facility] [address] [place] [address] Cuco Izquierdo MD [address] [facility] [address] [place] [address] documented as of this encounter Procedures Procedure Name Priority Date/Time Associated Diagnosis Comments PET BONE IMG W CT SKL BSE MID THG Routine 11/22/2024 11:03 AM CDT documented in this encounter Results * PET BONE IMG W CT SKB MDTH (11/22/2024 11:03 AM CDT) Anatomical Region Laterality Modality Positron Emissio n Tomography (PET) Cuco Izquierdo MD PE ORDERABLES Final Result documented in this encounter Visit Diagnoses Not on filedocumented in this encounter Care Teams Architectural Design Lecturer Relationship Specialty Start Date End Date Brianne Yusuf MD [address] [place] [address] PCP - General Family Practice 08/17/20 documented as of this encounter
--- OUTSIDE RECORDS SUMMARY | 2024-11-29 15:35 | XMS_ITS | Encounter Summary ---
Author Organization [facility] Address [address] [place] [address] Care Team Providers Care Steam Shovel Operating Engineer Name Role Phone Brianne Yusuf MD Primary Care Provider Encounter Details Date Type Department Care Team (Late Contact Info) Description 02/14/2021 Chart Note [facility] Radiation Oncology [address] [place] [address] Jorge Farmer MD [address] [address] Social History Tobacco Use Types [...] COVID-19? No / Unsure 02/05/2021 12:22 PM CENTER MEDICAL DIRECTOR documented as of this encounter Plan of Treatment Upcoming Encounters Date Type Department Care Team (Late Contact Info) Description 01/10/2025 8:30 AM CENTER MEDICAL DIRECTOR Office Visit [facility] Oncology and Hematology - Noel [address] [facility] [address] [place] [address] Cuco Izquierdo MD [address] [address] documented as of this encounter Visit Diagnoses Not on filedocumented in this encounter Care Teams Steam Shovel Operating Engineer Relationship Specialty Start Date End Date Brianne Yusuf MD [address] [place] [address] PCP - General Family Practice 08/17/20 documented as of this encounter
--- OUTSIDE RECORDS SUMMARY | 2024-11-29 15:35 | XMS_ITS | Clinical Summary ---
Author Organization [facility] [place] Address [address] [place] [address] Phone Care Team Providers Care Bleach Liquor Maker Name Role Phone Brianne Yusuf MD Primary Care Provider [phone] Allergies Active Allergy Reactions Criticality Noted Date [...] DAY 90 Tablet 1 11/17/19 25 Active palbociclib (Ibrance) 125 mg tablet Take 1 Tablet (125 mg) by mouth daily with breakfast for 21 days. 21 Tablet 11/30/19 25 025 Active anastrozole (ARIMIDEX) 1 mg tabletIndicati ons:Inflammato ry breast cancer, right Take 1 Tablet (1 mg) by mouth daily. 90 Tablet 1 06/16/19 25 025 Discontinued Active Problems Patient Care Coordination No te Formatting of this note migh t be different from the original. Primary Care: Brianne Yusuf MD Referring Provider: Brianne Yusuf MD [address] [place] [address] Other: Dr. Kerry Correia MD Problem Noted Date Diagnosed Date S/P bilateral mastectomy 03/07/2021 Hard to intubate 01/30/2021 Inflammatory breast cancer, right 08/23/2020 Cancer Staging:Clinical stage from 08/23/2020:Stage IIIB(cT4b, cN1(f), cM0, G2, ER+, [place]+, HER2-) - Signed by Kerry Correia MD on 08/23/2020 Encounters Date Type Department Care Team Description 11/29/2024 1:15 PM CDT Office Visit [facility] Oncology and Hematology [address] [address] Cuco Izquierdo MD Inflammatory breast cancer, right (Primary Dx) 11/28/2024 Orders Only [facility] Oncology and Hematology [facility] [address] [place] [address] Cuco Izquierdo MD 11/22/2024 External Device Data STL ABSTRACTION Provider, Abstract 11/16/2024 9:30 AM CDT Office Visit [facility] Oncology [facility] Hematology [facility] [address] [place] [address] Cuco Izquierdo MD Inflammatory breast cancer, right (Primary Dx) 11/16/2024 Refill [facility] Oncology [facility] Hematology [facility] [address] [place] [address] Cuco Izquierdo MD Inflammatory breast cancer, right 10/25/2024 External Device Data STL ABSTRACTION Provider, Abstract 10/18/2024 External Device Data STL ABSTRACTION Provider, Abstract 10/04/2024 External Device Data STL ABSTRACTION Provider, Abstract 10/04/2024 External Device Data STL ABSTRACTION Provider, Abstract 09/27/2024 External Device Data STL ABSTRACTION Provider, Abstract 09/21/2024 External Device Data STL ABSTRACTION Provider, Abstract 2024 Orders Only [facility] Oncology and Hematology [facility] [address] [place] [address] Cuco Izquierdo MD 08/31/2024 External Device Data STL ABSTRACTION Provider, Abstract 08/30/2024 External Device Data STL ABSTRACTION Provider, Abstract from Last 3 Months Immunizations Immunization Administration Dates Next Due ([employer]) COVID-19 VACCINE - EMERGENCY USE AUTHORIZATION, AD26,COV2S(PF) [...] oz) 11/29/2024 1:15 P M CDT Height 162.6 cm (5' 4) 09/22/2023 10:56 AM CDT Body Mass Index 26.16 09/22/2023 10:56 AM CDT Plan of Treatment Upcoming Encounters Date Type Department Care Team (Late st Contact Info) Description 01/10/2025 8:30 AM MANAGED CARE COORDINATOR Office Visit [facility] Oncology and Hematology - Noel [address] [facility] [address] [place] [address] Cuco Izquierdo MD [address] [facility] [employer] [address] [place] [address] Health Maintenance Due Date Last [...] series) 09/13/2038 Medical Devices Implanted Type Area Blast Furnace Blower Device Identifier Shelf Expiration Date Model / Serial / Lot Tool Setter Apprentice Clip Surgiclip Ii Cheo 9.75in [id number] - [id number] Implanted:Qty: 1 on 01/30/2021 [place] [facility] Cl[place] Right: Breast [employer] - COVIDIEN 05/16/2025 [id number] / / [id number] Tool Setter Apprentice Clip Surgiclip Ii Cheo 9.75in [id number] - [id number] Implanted:Qty: 1 on 01/30/2021 by [place] Correia [place] [facility] Clip Right: Breast [employer] - COVIDIEN 07/16/2025 [id number] / / [id number] Hemostatic Surgicel 4x8in 1953 - [id number] Implanted:Qty: 4 on 01/30/2021 by [place] Cor[place]ia [place] [facility] [place] Hemostatic N/A: Breast [employer] 02/15/20251951 / / [id number] Description:two on left,two on right Port Powerport Clearvue 8fr Mri [id number] - [id number] Implanted:Qty: 1 on 09/03/2020 by Kerry Correia MD at [facility] Port Left: Chest CR BARD- REGINO VASC [employer] 10/16/2021 [id number] / / [id number] Procedures Procedure Name Priority Date/Time Associated Diagnosis Comments PET BONE IMG W CT SKL BSE MID THG Routine 11/22/2024 11:03 AM CDT NM BONE DENSITY Routine 09/12/2024 2:43 PM CDT HEMOGLOBIN A1C Routine 04/23/2021 from Last 3 Months or Most Recently Relevant to Health Maintenance Results * PET BONE IMG W CT SKB TH (11/22/2024 11:03 AM CDT) Anatomical Region Laterality Modality Positron Emissio n Tomography (PET) us Cuco Izquierdo MD PE ORDERABLES Final Result * NM BONE DENSITY (09/12/2024 2:43 PM CDT) Anatomical Region Laterality Modality Nuclear Medicine us Cuco Izquierdo MD NM ORDERABLES Final Result * HEMOGLOBIN A1C (04/23/2021) Blood us Abstract Provider CHEMISTRY ORDERABLES Final Res ult from Last 3 Months or Most Recently Relevant to Health Maintenance Insurance RX EXPRESS SCRIP[employer] Express RX MEDIMPACT Member Subscriber Plan / Payer (Ef fective for All Dates) Name:Kassy Maher Relation to Subscriber:Self Name:Juventino Maherrodriguez Shepard Payer ID:Not on file Group ID:[id number] Type:RX Commercial Address: [address] HMO [employer] HMO Advance Directives For more information, please contact: [phone] * Full Code (Latest Code Status on File) Date Activated Date Inactivated Comments 01/30/2021 3:28 PM 01/31/2021 12:30 PM Care Teams Bleach Liquor Maker Relationship Specialty Start Date End Date Brianne Yusuf MD [address] [place] [address] PCP - General Family Practice 08/17/20
== END 2024-11-29 13:38 | disposition home or self-care (01) ==
LOC: ANHLAB 13:39
PROVIDERS: Visit Provider Internal Medicine Hematology & Oncology
DX: C50 Malignant neoplasm of breast (principal)
CPT/HCPCS: 36415

== ENCOUNTER 2024-12-08 05:25 | Observation (INO) | payer OTHER, SELFPAY ==
[2024-12-08] VITALS (23 sets, daily range): BP systolic 98–161; BP diastolic 78–98; PULSE 85–102; RESP 16–29; TEMP 36.6; O2SAT 88–98
--- NOTE | ~2024-12-08 | CT_ITS ---
CTA CHEST CLINICAL HISTORY: DENIA, hx cancer w/ mets . COMPARISON: Chest x-ray today PET/CT 11/22/2024 TECHNIQUE: Helical CTA performed from thoracic inlet to upper abdomen 100 mL Omnipaque 350 Coronal, sagittal reformats. Multiplanar MIPS CT images acquired with automatic exposure control for dose reduction DLP: 295 mGy-cm FINDINGS: Pulmonary arteries: No PE. Thoracic Aorta: No dissection or aneurysm. Heart/pericardium: Small pericardial effusion. RV/LV ratio: Normal. Lungs/Pleura: Massive left and large right pleural effusions. Complete atelectasis of left lung with upper and lower lobe bronchial occlusions. Pleural studding anterior medial left lung. Small foci of probable additional pleural studding. Tracheobronchial tree: Occluded left lung bronchi. Nodes: Right hilar nodes. Bones: No acute bony abnormality. Soft tissues: Diffuse esophagitis. Visualized upper abdomen: Unremarkable. IMPRESSION: 1. Complete left lung atelectasis with bronchial occlusions most likely aspiration. 2. Large bilateral pleural effusions. 3. No PE. Reviewed, dictated and finalized at location R. IMPRESSION: 1. Complete left lung atelectasis with bronchial occlusions most likely aspira tion. 2. Large bilateral pleural effusions. 3. No PE.
--- NOTE | ~2024-12-08 | US_ITS ---
EXAMINATION: US thoracentesis DATE: 12/08/2024 14:59 INDICATION: Left pleural effusion TECHNIQUE: The procedure and its risks and benefits were discussed with the patient. Potential risks discussed included bleeding, infection, and pneumothorax. The patient understood the risks and agreed to proceed. The skin was prepped and draped in sterile fashion. 1% lidocaine was used for local anes thesia. Under ultrasound guidance, a 5 Fr catheter with trochar was advanced into the left pleural effusion. Fluid was aspirated. The catheter was removed, and a dressing was applied. There were no immediate complications. FINDINGS: Ultrasound images demonstrate a large left pleural effusion and the catheter within the fluid. IMPRESSION: 1. Successful ultrasound-guided thoracentesis yielding 1000 mL of reddish-daniel fluid. Reviewed, dictated and finalized at location A. IMPRESSION: 1. Successful ultrasound-guided thoracentesis yielding 1000 mL of reddish-ambe r fluid.
--- NOTE | ~2024-12-08 | XR_ITS ---
EXAMINATION: [id number], 12/08/2024 14:42 CDT HISTORY: recurrent malginant effusion COMPARISON: No comparisons available. Technique: Single view. Findings: Large left infiltrate and effusion, underlying mass cannot excluded. Small right basilar infiltrate. No pneumothorax. Heart is normal size. Mediastinal and hilar contours are within normal limits. Bony thorax no acute abnormality. Impression: Bilateral pneumonia. CT chest with contrast suggested Reviewed, dictated and finalized at location P. Impression: Bilateral pneumonia. CT chest with contrast suggested
--- NOTE | ~2024-12-08 | XR_ITS ---
Examination: XR chest 1V portable Clinical History: sob hx of lung ca Comparison: X-ray 11/14/2024 Technique: Portable AP Findings: Heart size obscured. Complete whiteout left hemithorax. Left basilar airspace disease. No acute bony abnormality. IMPRESSION: 1. White out left hemithorax combination of large effusion and lobar atelectasis. 2. Right basilar airspace disease. Reviewed, dictated and finalized at location R. IMPRESSION: 1. White out left hemithorax combination of large effusion and lobar atelectas is. 2. Right basilar airspace disease.
--- OUTSIDE RECORDS SUMMARY | 2024-12-08 05:27 | XMS_ITS | Encounter Summary ---
Author Organization [facility] Address [address] [place] [address] Care Team Providers Care Dna Sequencing Associate Name Role Phone Brianne Yusuf MD Primary Care Provider [phone] Encounter Details Date Type Department Care Team (Late Contact Info) Description 12/07/2024 External Device Data STL ABSTRACTION Provider, Abstract NO ADDRESS ON FILE Social History Tobacco Use Types Packs/Day Years [...] (Late Contact Info) Description 01/10/2025 8:30 AM REGISTERED NURSING PROFESSOR Office Visit [facility] Oncology and Hematology - Noel [address] [facility] [address] [place] [address] Cuco Izquierdo MD [address] [facility] [address] [place] [address] documented as of this encounter Visit Diagnoses Not on filedocumented in this encounter Care Teams Dna Sequencing Associate Relationship Specialty Start Date End Date Brianne Yusuf MD [address] [place] [address] PCP - General Family Practice 08/17/20 documented as of this encounter
--- OUTSIDE RECORDS SUMMARY | 2024-12-08 05:27 | XMS_ITS ---
Author Organization [facility] [place] Address [address] [place] [address] Phone Care Team Providers Care Plant Electrician Name Role Phone Brianne Yusuf MD Primary Care Provider [phone] Active Problems Patient Care Coordination No te Formatting of this note migh t be different from the original. Primary Care: Brianne Yusuf MD Referring Provider: Brianne Yusuf MD [address] [place] [address] Other: Dr. Kerry Correia MD Problem Noted Date Diagnosed Date S/P bilateral mastectomy 03/07/2021 Hard to intubate 01/30/2021 Inflammatory breast cancer, right 08/23/2020 Cancer Staging:Clinical stage from 08/23/2020:Stage IIIB(cT4b, cN1(f), cM0, G2, ER+, [place]+, HER2-) - Signed by Kerry Correia MD [...]
--- OUTSIDE RECORDS SUMMARY | 2024-12-08 05:27 | XMS_ITS | Clinical Summary ---
Author Organization [facility] [place] Address [address] [place] [address] Phone Care Team Providers Care Licensed Massage Therapist Name Role Phone Brianne Yusuf MD Primary Care Provider [phone] Allergies Active Allergy Reactions Criticality Noted Date Comments Codeine Other (See Comments) 08/14/2020 My chest hurts Medications atorvastatin (LIPITOR) 40 mg tablet Take 40 mg by mouth daily at bedtime. Active ezetimibe-ros uvastatin 10-10 mg Tablet Take by mouth daily. Active citalopram (CeleXA) 40 mg tablet Take 40 mg by mouth daily. Active LORazepam (ATIVAN) 0.5 mg tabletIndicat ions:Inflamma tory breast cancer, right Take 1 Tablet (0.5 mg) by mouth every 8 hours as needed for Anxiety. 30 Tablet 2 03/08/19 22 Active Januvia 25 mg Tablet Take 25 mg by mouth daily. 02/15/20 21 Active ezetimibe (ZETIA) 10 mg tablet Take 10 mg by mouth daily. 03/04/19 22 Active diphenhydrAMI NE12.5 mg/5 mL-viscous lidocaine-Maa lox 1:1:1 (MAGIC MOUTHWASH) oral suspension compound 04/24/19 [...] TO INJECT INSULIN TWICE A DAY 05/09/19 Active busPIRone (BUSPAR) 5 mg tablet Take 5 mg by mouth 3 times daily. 03/27/19 24 Active Ozempic 2 mg/dose (8 mg/3 mL) Pen Injector Inject 2 mg by subcutaneous injection every 7 days. 06/30/19 24 Active levothyroxine 25 mcg tablet Take 50 mcg by mouth daily. 11/02/19 24 Active anastrozole (ARIMIDEX) 1 mg tabletIndicat ions:Inflamma tory breast cancer, right TAKE 1 TABLET BY MOUTH ONCE A DAY 90 Tablet 1 11/17/19 25 Active abemaciclib (Verzenio) 150 mg tablet Take 1 Tablet (150 mg) by mouth 2 times daily. 56 Tablet 4 12/07/19 25 Active anastrozole (ARIMIDEX) 1 mg tabletIndicat ions:Inflamma tory breast cancer, right Take 1 Tablet (1 mg) by mouth daily. 90 Tablet 1 06/16/19 25 025 Discontinued palbociclib (Ibrance) 125 mg tablet Take 1 Tablet (125 mg) by mouth daily with breakfast for 21 days. 21 Tablet 11/30/19 25 025 Discontinued(F ormulary Change) Active Problems Patient Care Coordination No te Formatting of this note migh t be different from the original. Primary Care: Brianne Yusuf MD Referring Provider: Brianne Yusuf MD [address] [place] [address] Other: Dr. Kerry Correia MD Problem Noted Date Diagnosed Date S/P bilateral mastectomy 03/07/2021 Hard to intubate 01/30/2021 Inflammatory breast cancer, right 08/23/2020 Cancer Staging:Clinical stage from 08/23/2020:Stage IIIB(cT4b, cN1(f), cM0, G2, ER+, [place]+, HER2-) - Signed by Kerry Correia MD on 08/23/2020 Encounters Date Type Department Care Team Description 12/07/2024 External Device Data STL ABSTRACTION Provider, Abstract 12/06/2024 Orders Only [facility] Oncology and Hematology - [address] [place] [address] Cuco Izquierdo MD 12/05/2024 2:03 PM CDT - 12/05/2024 11:59 PM CDT Hospital Encounter [facility] [address] [place] [address] [place] [address] Cuco Izquierdo MD Discharge Disposition: Home or Self Care 11/29/2024 1:15 PM CDT Office Visit [facility] Oncology [facility] Hematology [facility] [address] [place] [address] Cuco Izquierdo MD Inflammatory breast cancer, right (Primary Dx); Metastasis to bone 11/28/2024 Orders Only [facility] Oncology and Hematology - No[address] [place] [address] Cuco Izquierdo MD 11/22/2024 External Device Data STL ABSTRACTION Provider, Abstract 11/16/2024 9:30 AM CDT Office Visit [facility] Oncology [facility] Hematology [facility] [address] [place] [address] Cuco Izquierdo MD Inflammatory breast cancer, right (Primary Dx) 11/16/2024 Refill [facility] Oncology and Hematology [facility] [address] [place] [address] Cuco Izquierdo MD Inflammatory breast cancer, right 10/25/2024 External Device Data STL ABSTRACTION Provider, Abstract 10/18/2024 External Device Data STL ABSTRACTION Provider, Abstract 10/04/2024 External Device Data STL ABSTRACTION Provider, Abstract 10/04/2024 External Device Data STL ABSTRACTION Provider, Abstract 09/27/2024 External Device Data STL ABSTRACTION Provider, Abstract 09/21/2024 External Device Data STL ABSTRACTION Provider, Abstract 2024 Orders Only [facility] Oncology and Hematology [address] [place] [address] Cuco Izquierdo MD from Last 3 Months Immunizations Immunization Administration [...] st Contact Info) Description 01/10/2025 8:30 AM GATE PERSON Office Visit [facility] Oncology and Hematology - Noel [address] [place] [address] Cuco Izquierdo MD [address] [facility] [address] [place] [address] Health Maintenance Due Date Last [...] series) 09/13/2038 Medical Devices Implanted Type Area Backend Developer Device Identifier Shelf Expiration Date Model / Serial / Lot Art Manager Clip Surgiclip Ii Cheo 9.75in [id number] - [id number] Implanted:Qty: 1 on 01/30/2021 by Kerry Correia MD at [facility] [place] Clip Right: Breast [employer] - COVIDIEN 05/16/2025 [id number] / / [id number] Art Manager Clip Surgiclip Ii Cheo 9.75in [id number] - [id number] Implanted:Qty: 1 on 01/30/2021 by Kerry Correia MD at [facility] Clip Right: Breast [employer] - COVIDIEN 07/16/2025 [id number] / / [id number] Hemostatic Surgicel 4x8in 1953 - [id number] Implanted:Qty: 4 on 01/30/2021 by Kerry Correia MD at [facility] N/A: Breast J[employer]J- [employer] 02/15/20251951 / / [id number] Description:two on left,two on right Port [employer] Clearvue 8fr Mri [id number] - [id number] Implanted:Qty: 1 on 09/03/2020 by Kerry Correia MD at [facility] Port Left: Chest CR BARD- REGINO VASC INC 10/16/2021 [id number] / / [id number] Procedures Procedure Name Priority Date/Time Associated Diagnosis Comments PATHOLOGY Pathology 12/05/2024 2:09 PM CDT Encounter for laboratory test [facility] XT NORMAL BLOOD Routine 11/29/2024 2:16 PM CDT Inflammatory breast cancer, right PET BONE IMG W CT SKL BSE MID THG Routine 11/22/2024 11:03 AM CDT NM BONE DENSITY Routine 09/12/2024 2:43 PM CDT HEMOGLOBIN A1C Routine 04/23/2021 from Last 3 Months or Most Recently Relevant to Health Maintenance Results * PATHOLOGY (12/05/2024 2:09 PM CDT) CASE REPORT Surgical Pathology Report Case: [id number] Authorizing Provider: Cuco Izquierdo MD Collected: 12/05/2024 02:09 PM Ordering Location: [facility] Received: 12/05/2024 02:10 PM Services [facility] Pathologist: Amy King MD Specimen: Other, specify 4:26 PM CDT [facility] FINAL DIAGNOSIS A request for [facility] was received on 11/30/[address] Cuco Izquierdo. This test was performed on tissue from case [id number]. The case report, slides, and blocks for this case were retrieved from archives. The pathologist reviewed the original pathology report, examined candidate slides, and selected the most appropriate block B7. This selected material was forwarded to [facility] where the test was performed. The final report will be issued directly to the requesting physician. 5 4:26 PM CDT [facility] at 1626 CDT CLINICAL INFORMATION Z01.89 - Encounter for laboratory test [ICD-10-CM] 4:26 PM CDT [facility] COMMENT Special stain, immunohistochemical, and/or in situ hybridization results are interpreted with controls that demonstrate appropriate staining reactions. Note on use of immunohistochemistry reagents and in situ hybridization probes: These tests were developed and their performance characteristics determined by [facility], Department of Laboratory Medicine. It has not been cleared or approved by the U.S. Food and Drug Administration. The FDA has determined that such clearance or approval is not necessary. The test is used for clinical purposes. It should not be regarded as investigational or for research. This laboratory is certified to perform high complexity testing. Frozen section/operating room consultation, gross examination and dissection, and case sign out may have been performed in part or completely in the following laboratories: [facility], CLIA #[id number] [address] [place] [address] [facility], [place] #[id number] [address] [place] [id number] [place] [address], CLIA #[id number] [address] [place] [address] This report was created with the silkfred voice-activated dictation system. Inherent to this system is the possibility of syntax, grammar, punctuation and other errors that could impact the interpretation of the report. If there are interpretative questions about aspects of this report, please contact the performing pathologist. 4:26 PM CDT [facility] Tissue (Other, specify) 12/05/2024 2:09 PM CDT 12/05/2024 2:10 PM CDT Cuco Izquierdo MD PATHOLOGY/CYTOLOGY ORDERABLES F inal Result [facility] CLIA# [id number] [address] [place] [id number] * [facility] XT NORMAL BLOOD (11/29/2024 2:16 PM CDT) [facility] 11/29/2024 11:01 PM CDT [facility] Comment:See NGS Report for R esults. Blood specimen (specimen) 11/29/2024 2:16 PM CDT 11/29/2024 2:17 PM CDT Cuco Izquierdo MD MOLECULAR ORDERABLES Final Resu lt [facility] [address] [facility], [address] [place] [address], [facility] [address] [facility], [address] [place] [address] * PET BONE IMG W CT SKB MD (11/22/2024 11:03 AM CDT) Anatomical Region Laterality Modality Positron Emissio n Tomography (PET) Cuco Izquierdo MD PE ORDERABLES Final Result * NM BONE DENSITY (09/12/2024 2:43 PM CDT) Anatomical Region Laterality Modality Nuclear Medicine Cuco Izquierdo MD NM ORDERABLES Final Result * HEMOGLOBIN A1C (04/23/2021) Blood Abstract Provider CHEMISTRY ORDERABLES Final Res ult from Last 3 Months or Most Recently Relevant to Health Maintenance Insurance RX [employer] S[employer] Express RX MEDIMPACT Member Subscriber Plan / Payer (Ef fective for All Dates) Name:Kassy Maher Relation to Subscriber:Self Name:Kassy Maher Payer ID:Not on file Group ID:[id number] Type:RX Commercial Address: [address] [facility] [place] H[place] Advance Directives For more information, please contact: [phone] * Full Code (Latest Code Status on File) Date Activated Date Inactivated Comments 01/30/2021 3:28 PM 01/31/2021 12:30 PM Care Teams Licensed Massage Therapist Relationship Specialty Start Date End Date Brianne Yusuf MD [address] [place] [id number] PCP - General Family Practice 08/17/20
--- NOTE | 2024-12-08 05:29 | ECG_ITS ---
Test Date: 2024-12-08 05:37:16 Measurements Intervals [place] Rate: 94 P: 54 MA: 159 QRS: 27 QRSD: 85 T: 45 QT: 358 QTc: 449 Interpretive Statements SINUS RHYTHM DELAYED PRECORDIAL R/S TRANSITION LOW QRS VOLTAGE IN LIMB LEADS BORDERLINE ST ABNORMALITY- INF/HIGH LAT LEADS BASELINE ARTIFACT- I, II, III, AVR, AVL, AVF, V4-V6 BORDERLINE ECG Compared to ECG 11/12/2024 15:12:18 Low QRS voltage now present Electronically Signed On 12-08-2024 05:54:15 CDT by John Jenkins D.O.
[2024-12-08 05:47] LABS: Hematocrit 45.6 % (37.0-47.0); Hemoglobin 14.8 g/dL (12.0-15.0); Immature Granulocyte Percent A 0.3 % (0-0.5); Lymphocytes Absolute Auto 1.09 K/mm3 (0.9-3.2); Mean Corpuscular HGB Conc 32.5 g/dl (32-36); Mean Corpuscular Hemoglobin 29.1 pg (26-34); Mean Corpuscular Volume 89.6 fl (80-100); Nucleated Red Blood Cells Absolute Auto 0.000 K/mm3 (0.0-0.012); Nucleated Red Blood Cells Perc 0.0 % (0.0-0.2); Platelet Count Result 309 k/mm3 (150-375); Red Blood Count 5.09 M/mm3 (4.2-5.4); White Blood Count 6.5 K/mm3 (4.5-10.0)
--- NOTE | 2024-12-08 05:59 | ED.SOB ---
HPI - SOB/Dyspnea General Chief Complaint: Shortness of Breath/Dyspnea Stated Complaint: sob Time Seen by Provider: 12/08/24 05:38 History of Present Illness HPI Narrative: 59-year-old female with a history of metastatic breast cancer previously in remission now having a recurrence. She presents with difficulty breathing for last 2 days. Recently admitted to the hospital with large left-sided pleural effusion requiring drainage. She had a diagnostic and therapeutic thoracentesis done by Radiology here last month. She has been doing well since then and trying to work with her oncologist to start chemotherapy but insurance issues have been precluding her current treatments. No further surgeries or radiation surgeries. She has a history of mastectomy. No fever, chills. Dry cough noted. No chest pain. No nausea, vomiting, leg swelling, diarrhea. No history of thrombosis or blood clots but does take a baby aspirin daily. 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 Hair changes Type 2 diabetes mellitus treated with insulin [facility] (current) use of insulin Obesity (BMI 30.0-34.9) Suspected sleep apnea Generalized anxiety disorder Anxiety Hypercholesteremia Depression Surgical History Surgical History Hx of section Hx of cholecystectomy History of removal of Port-a-Cath H/O bilateral mastectomy History of hysterectomy Family History Family History Grandparent Family history of Alzheimer's disease Sibling Family history of malignant neoplasm of esophagus Social History Social History Smoking status: Never smoker Second hand tobacco smoke exposure: No Alcohol intake: never Substance use: never Substance use type: does not use Do You Feel Safe in your Home?: Yes Lack of Transportation: No Lack of Food: Never True Current Housing: I Have Housing Concerned About Future Housing: No Difficulty Paying Gas/Electric Bills: No Difficulty Paying for Meds: No Currently Unemployed: No Education: Bachelor's Degree Difficulty w/ Childcare or Family Care: No Living arrangements: with family Gender identity (if verbalized by the patient): Female Spiritual care concerns: No Exam Narrative: GENERAL: Ill-appearing and dyspneic but conversing. Awake alert oriented. HEAD: [Normocephalic, atraumatic.] EYES: [PERRLA and EOMI.] ENT: Nares clear, no rhinorrhea or epistaxis. Mucous membranes moist. NECK: Supple. CHEST: Asymmetric breath sounds with near silent left-sided chest, no retractions. No wheezing or rales in the right chest. HEART: [Regular rate and rhythm]. No murmur heard. [Normal peripheral pulses.] ABDOMEN: [Soft, nondistended], [nontender], [No rigidity or guarding] EXTREMITIES: Normal range of motion. [No edema.] SKIN: Warm, dry, no rash. NEURO: [No focal deficits]. Alert and oriented [x3.] PSYCH: [Normal mood and affect.] Course Vital Signs Vital signs: Vital Signs Temperature 36.6 C 12/08/24 05:30 Pulse Rate 102 H 12/08/24 05:30 Respiratory Rate 17 12/08/24 05:30 Blood Pressure 161/98 H 12/08/24 05:30 Pulse Oximetry 93 12/08/24 05:30 Oxygen Delivery Room Air 12/08/24 05:30 Temperature 36.6 C 12/08/24 05:30 Pulse Rate 94 12/08/24 20:21 Respiratory Rate 16 12/08/24 20:21 Blood Pressure 119/78 12/08/24 20:21 Pulse Oximetry 92 12/08/24 20:21 Oxygen Delivery Room Air 12/08/24 12:43 Oxygen Flow Rate 2 12/08/24 07:32 MDM - SOB/Dyspnea MDM Narrative Medical decision making narrative: 59-year-old female with a history of metastatic breast cancer previously in remission now having a recurrence. She presents with difficulty breathing for last 2 days. Recently admitted to the hospital with large left-sided pleural effusion requiring drainage. She had a diagnostic and therapeutic thoracentesis done by Radiology here last month. She has been doing well since then and trying to work with her oncologist to start chemotherapy but insurance issues have been precluding her current treatments. No further surgeries or radiation surgeries. She has a history of mastectomy. No fever, chills. Dry cough noted. No chest pain. No nausea, vomiting, leg swelling, diarrhea. No history of thrombosis or blood clots but does take a baby aspirin daily. Asymmetric breath sounds with near silent left-sided chest, no retractions. No wheezing or rales in the right chest. Hemodynamically mildly tachycardic but but stable blood pressure. No tachypnea or fever. Saturating 92% on room air improved to 95 on 2 L nasal cannula. X-ray called to bedside to rule out pneumothorax and there is a large whiteout of left lung similar to her prior 1100 cc pleural effusion on the left side likely recurrence and malignant versus parapneumonic in nature. Further workup ordered this time including CBC, CMP, EKG and a CT angio of the chest to rule out thromboembolic event and better characterize the pleural effusion. She will require admission for thoracentesis. Currently stable on oxygen and improved vital signs afterwards. No need for emergent thoracentesis at bedside at this juncture but will admit for IR guided thoracentesis. Lab Data 12/08/24 05:41 12/08/24 05:41 Labs: Lab Results 12/08/24 Range/Units 05:41 WBC 6.5 (4.5-10.0) K/mm3 RBC 5.09 (4.2-5.4) M/mm3 Hgb 14.8 (12.0-15.0) g/dL Hct 45.6 (37.0-47.0) % MCV 89.6 (80-100) fl MCH 29.1 (26-34) pg MCHC 32.5 (32-36) g/dl RDW 12.8 (11.5-14.5) % Plt Count 309 (150-375) k/mm3 MPV 9.6 (7.4-10.4) fl Immature Gran % (Auto) 0.3 (0-0.5) % Neut % (Auto) 68.8 (45.5-73.1) % Lymph % (Auto) 16.9 L (18.3-44.2) % [place] % (Auto) 10.2 H (2.6-8.5) % Eos % (Auto) 3.3 (0-4.4) % Baso % (Auto) 0.5 (0.2-1.2) % Lymph # (Auto) 1.09 (0.9-3.2) K/mm3 [place] # (Auto) 0.7 H (0.1-0.6) K/mm3 Eos # (Auto) 0.2 (0-0.3) K/mm3 Baso # (Auto) 0.0 (0.0-0.1) K/mm3 Abs Immat Gran (auto) 0.02 (0.00-0.031) K/mm3 Absolute Neuts (auto) 4.4 (1.3-6.7) K/mm3 Absolute Nucleated RBC 0.000 (0.0-0.012) K/mm3 Nucleated RBC % 0.0 (0.0-0.2) % Sodium 139 (137-145) mmol/L Potassium 3.9 (3.4-5.0) mmol/L Chloride 106 (98-107) mmol/L Carbon Dioxide 23 (22-30) mmol/L Anion Gap 10 (4-12) mmol/L BUN 24 H (7-17) mg/dL Creatinine 0.88 (0.7-1.0) mg/dL Estim Creat Clear Calc 51 ml/min Estimated GFR > 60 (59 - ) Glucose 132 H (65-110) mg/dL Calcium 9.4 (8.4-10.2) mg/dL Total Bilirubin 0.6 (0.2-1.3) mg/dL AST 32 (14-36) U/L ALT 23 (6-35) U/L Alkaline Phosphatase 83 (38-126) U/L Total Protein 7.4 (6.3-8.2) g/dL Albumin 4.4 (3.5-5.1) g/dL Critical Care Time Critical Care Time Critical Care Time: Yes Total Critical Care Time: 35 Discharge Plan Discharge Clinical Impression: Hypoxemia requiring supplemental oxygen, Bilateral pleural effusion, Difficulty breathing, History of bilateral breast cancer Patient Disposition: Still a Patient Condition: Stable
[2024-12-08 06:07] LABS: Alanine Aminotransferase 23 U/L (6-35); Albumin Level 4.4 g/dL (3.5-5.1); Alkaline Phosphatase 83 U/L (38-126); Anion Gap 10 mmol/L (4-12); Aspartate Amino Transferase 32 U/L (14-36); Bilirubin,Total 0.6 mg/dL (0.2-1.3); Blood Urea Nitrogen 24 mg/dL (7-17); Calcium 9.4 mg/dL (8.4-10.2); Carbon Dioxide 23 mmol/L (22-30); Chloride 106 mmol/L (98-107); Estimated CRCL calculation 51 ml/min; Estimated Glomerular Filt Rate > 60; Glucose 132 mg/dL (65-110); Potassium 3.9 mmol/L (3.4-5.0); Sodium 139 mmol/L (137-145); Total Protein 7.4 g/dL (6.3-8.2)
[2024-12-08] MEDS: FUROSEMIDE INJ 40 MG/4 ML VIAL IV PUSH (07:00)
--- NOTE | 2024-12-08 07:32 | PC.NURSE ---
patient ambulated to the wheelchair to go to the bathroom- upon returning to louie patient was tachypnic and hypoxic. patient placed back on 2L NC and bedside commode placed at bedside to minimize ambulation distance.
--- NOTE | 2024-12-08 09:23 | PM.IMHP ---
H&P: HPI History of Present Illness Date/Time: 12/08/24 09:23 Chief Complaint: Shorntess of breath Narrative: Kassy Maher hx DMII, [place], breast cancer s/p double mastectomy with chemo and radiation, recently diagnosed metastatic breast cancer, who presented for worsening shortness of breath, found to have large bilateral pleural effusions. In the ER she was afebrile, RR 19-22, O2 88% On 2L O2, BP 139/88. 97% on 2L O2. 12/08 CTA showed 1. Complete left lung atelectasis with bronchial occlusions most likely aspiration. 2. Large bilateral pleural effusions. 3. No PE. Planning a thoracentesis today. She was recently admitted for evaluation of back pain and was found to have a pleural effusion, concern for malignancy. She has been seeing Dr. Izquierdo in the clinic. A left sided thoracentesis done 11/13/24 was positive for metastatic breast cancer. A PET CT scan November 22 showed extensive bone metastasis and mildly enlarged lymphadenopathy in the mediastinum, bilateral hilum, and upper abdomen, as well as extensive pleural based metastasis. Tumor markers were elevated. Ibrance was started and anastrozole was discontinued. Starting monthly Xgeva She has a history of [id number] stage IV ER [place] positive HER2/quentin negative right sided inflammatory breast cancer. She completed treatment with neoadjuvant chemotherapy with Adriamycin, Cytoxan, and Taxol cycle 4 in December 2020. Adjuvant radiation with Xeloda in April 2021. Xeloda cycle 6/6 completed in October 15, 2021. Has been tolerating anastrozole. PET scan 08/2022 showed no evidence of recurrent or metastatic disease. 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 Hair changes Type 2 diabetes mellitus treated with insulin assisted (current) use of insulin Obesity (BMI 30.0-34.9) Suspected sleep apnea Generalized anxiety disorder Anxiety Hypercholesteremia Depression Surgical History Surgical History Hx of section Hx of cholecystectomy History of removal of Port-a-Cath H/O bilateral mastectomy History of hysterectomy Family History Family History Grandparent Family history of Alzheimer's disease Sibling Family history of malignant neoplasm of esophagus Social History Social History Smoking status: Never smoker Second hand tobacco smoke exposure: No Alcohol intake: never Substance use: never Substance use type: does not use Do You Feel Safe in your Home?: Yes Lack of Transportation: No Lack of Food: Never True Current Housing: I Have Housing Concerned About Future Housing: No Difficulty Paying Gas/Electric Bills: No Difficulty Paying for Meds: No Currently Unemployed: No Education: Bachelor's Degree Difficulty w/ Childcare or Family Care: No Living arrangements: with family Gender identity (if verbalized by the patient): Female Spiritual care concerns: No Meds Home Medications and Allergies Home Medications ?Medication ?Instructions ?Recorded ?Confirmed ?Type anastrozole 1 mg tablet 1 mg PO DAILY 12/20/21 12/08/24 History pen needle, diabetic 32 gauge x #200 ea 05/07/22 12/08/24 Rx (BD Joya 2nd Gen Pen Needle) citalopram 40 mg tablet See Rx Instructions .Route 01/26/24 12/08/24 Rx .COMPLEX #90 tabs atorvastatin 40 mg tablet 40 mg PO DAILY #90 tabs 02/12/24 12/08/24 Rx FreeStyle Ania 3 Plus Sensor #6 ea 03/03/24 12/08/24 Rx (blood-glucose sensor) semaglutide 2 mg/dose (8 mg/3 mL) See Rx Instructions .Route 07/12/24 12/08/24 Rx subcutaneous pen injector (Ozempic) .COMPLEX #9 mL levothyroxine 50 mcg tablet See Rx Instructions .Route 08/26/24 12/08/24 Rx .COMPLEX #90 tabs empagliflozin 25 mg tablet See Rx Instructions .Route 08/29/24 12/08/24 Rx (Jardiance) .COMPLEX #90 tabs ezetimibe 10 mg tablet See Rx Instructions .Route 10/24/24 12/08/24 Rx .COMPLEX #90 tabs buspirone 5 mg tablet 10 mg PO TID PRN anxiety 12/08/24 12/08/24 History Allergies Allergy/AdvReac Type Severity Reaction Status Date / Time metformin AdvReac Intermediate Gastrointestinal Verified 12/08/24 11:43 Upset Vital Signs Vital Signs - 24 hr 12/08/24 05:30 12/08/24 05:36 12/08/24 05:37 Temperature 97.9 F Pulse Rate 102 H 97 95 Respiratory Rate 17 23 H Blood Pressure 161/98 H Pulse Oximetry 93 Oxygen Delivery Room Air Oxygen Flow Rate 12/08/24 05:37 12/08/24 05:37 12/08/24 05:45 Temperature Pulse Rate 95 96 Respiratory Rate 20 24 H Blood Pressure 161/98 H Pulse Oximetry 94 93 94 Oxygen Delivery Room Air Oxygen Flow Rate 12/08/24 05:47 12/08/24 05:56 12/08/24 05:57 Temperature Pulse Rate 95 Respiratory Rate 26 H Blood Pressure 98/85 L Pulse Oximetry 94 91 94 Oxygen Delivery Room Air Nasal Cannula Oxygen Flow Rate 2 12/08/24 06:00 12/08/24 06:02 12/08/24 06:15 Temperature Pulse Rate 89 88 87 Respiratory Rate 29 H 19 23 H Blood Pressure 139/91 H Pulse Oximetry 93 97 97 Oxygen Delivery Oxygen Flow Rate 12/08/24 06:30 12/08/24 06:44 12/08/24 06:45 Temperature Pulse Rate 86 88 87 Respiratory Rate 20 23 H 20 Blood Pressure 141/84 H Pulse Oximetry 96 94 96 Oxygen Delivery Oxygen Flow Rate 12/08/24 06:46 12/08/24 07:00 12/08/24 07:15 Temperature Pulse Rate 87 94 85 Respiratory Rate 19 28 H 22 H Blood Pressure 146/85 H Pulse Oximetry 98 89 L 98 Oxygen Delivery Oxygen Flow Rate 12/08/24 07:16 12/08/24 07:31 12/08/24 07:32 Temperature Pulse Rate 86 Respiratory Rate 19 Blood Pressure 139/88 Pulse Oximetry 98 88 L 97 Oxygen Delivery Room Air Nasal Cannula Oxygen Flow Rate 2 Exam Narrative: General - Awake and alert. No acute distress Eyes - PERRLA, EOM intact ENT - No thrush, No erythema Neck - No noticeable or palpable swelling Lymph Nodes - No lymphadenopathy Cardiovascular - RRR no m/r/g, no JVD Lungs: Decreased breath sounds left lung, N wheezing, no use of accessory muscles, no crackles Skin - Skin warm and dry, no wounds or rashes Abdomen - Normal bowel sounds, abdomen soft and nontender Extremities - No edema, cyanosis or clubbing Musculoskeletal - 5/5 strength, normal range of motion, no swollen or erythematous joints. Neurological ? Alert and oriented x 3, CN 2-12 grossly intact. Psych: Normal mood and affect H&P: Results Labs Labs: Short CBC 12/08/24 Range/Units 05:41 WBC 6.5 (4.5-10.0) K/mm3 Hgb 14.8 (12.0-15.0) g/dL Hct 45.6 (37.0-47.0) % Plt Count 309 (150-375) k/mm3 BMP 12/08/24 05:41 Sodium 139 Potassium 3.9 Chloride 106 Carbon Dioxide 23 BUN 24 H Creatinine 0.88 Glucose 132 H Calcium 9.4 Liver Function 12/08/24 Range/Units 05:41 Total Bilirubin 0.6 (0.2-1.3) mg/dL AST 32 (14-36) U/L ALT 23 (6-35) U/L Alkaline Phosphatase 83 (38-126) U/L Albumin 4.4 (3.5-5.1) g/dL Assessment and Plan Assessment and plan (1) Pleural effusion: Code(s): J90 - Pleural effusion, not elsewhere classified Status: Acute Assessment and Plan: CT showed large pleural effusion --Thoracentesis today --PT/PTT, LDH --pH, cultures --Follow CBC, BMP (2) Hypothyroidism: Code(s): E03.9 - Hypothyroidism, unspecified Status: Acute Assessment and Plan: Continue synthroid (3) Type 2 diabetes mellitus with hyperglycemia: Qualifiers: Diabetes mellitus half-way insulin use: with half-way use Qualified Code(s): E11.65 - Type 2 diabetes mellitus with hyperglycemia; Z79.4 - assisted (current) use of insulin Code(s): E11.65 - Type 2 diabetes mellitus with hyperglycemia Status: Acute Assessment and Plan: SSI Consistent carb diet Quality VTE Prophylaxis VTE prophylaxis: mechanical ordered Hospitalist [facility] Advance Care Plan I have confirmed that the patient's Advanced Care Plan is present, code status is documented, or surrogate decision maker is listed in patient medical record.: Yes Medication Reconciliation I have utilized all available resources to obtain, update and review the patients current medications (includes all prescriptions, OTC, herbals, cannabis, and nutritional supplements).: Yes
--- NOTE | 2024-12-08 10:31 | ADMGEN ---
This patient, Kassy Maher, was admitted to Medical Room 342-01. Patient/family oriented to hospital policies and general routines including ID bracelet, bed and alarms, visiting hours, pain management, procedures, bathroom and other care routines, personal items, smoking policy, room service/diet, and visiting hours. Information on how to activate the Rapid Response Team has been discussed. Patient/Family are encouraged to report perceived risks to care and to ask questions if they do not understand what they are told or what they should do.
[2024-12-08 12:05] LABS: INR 1.0; Partial Thromboplastin Time 23.2 Seconds (22.3-36.8); Prothrombin Time 13.8 Seconds (11.1-14.7)
--- NOTE | 2024-12-08 14:21 | CONSULT_PTH ---
PATIENT: Kassy Maher LOC: [id number] U#:[id number] AGE/SX: 59/F ROOM: 342 RE12/08/[address]: Mi Erickson MD : [id number] BED: 01 DIS: 12/09/2024 SPEC #: [id number] RECD: 12/08/24 16:09 STATUS: JONG REQ #: [id number] OLI: 12/08/24 14:[address]: Mi Erickson DEPT: [facility] Consult RECD BY: Bronson Howard MLT, [facility] ENTERED: 12/08/24 16:10 SP TYPE: Consult OTHR DR: Jose Saleem MD UNKNOWN,DOCTOR Tissues: A - Pleural Fluid Procedures: Cell Block Cytopathology Cytospin
[2024-12-08 16:07] LABS: Appearance Pleural Fluid Cloudy (Clear); Color Pleural Fluid Red (Colorless)
[2024-12-08 16:08] LABS: Lymphocytes Pleural Fluid 11 %; Macrophages Pleural Fluid 89 %; Nucleated Cell Pleural Fluid 803 /uL (0-1000)
[2024-12-08] MEDS: ONDANSETRON INJ 4 MG/2 ML VIAL IV PUSH (20:02)
[2024-12-09] VITALS: PULSE 89
[2024-12-09 04:00] VITALS: PULSE 89
[2024-12-09] MEDS: LEVOTHYROXINE SODIUM 50 MCG TABLET PO (05:46)
[2024-12-09 05:49] VITALS: BP 122/77; PULSE 87; RESP 16; TEMP 36.8; O2SAT 94
--- NOTE | 2024-12-09 07:31 | PM.IMPN ---
Progress Note: A&P Assessment and Plan (1) Pleural effusion: Code(s): J90 - Pleural effusion, not elsewhere classified Status: Acute Assessment and Plan: CT showed large pleural effusion --Thoracentesis today --PT/PTT, LDH --pH, cultures --Follow CBC, BMP (2) Hypothyroidism: Code(s): E03.9 - Hypothyroidism, unspecified Status: Acute Assessment and Plan: Continue synthroid (3) Type 2 diabetes mellitus with hyperglycemia: Qualifiers: Diabetes mellitus buttermaker insulin use: with residential use Qualified Code(s): E11.65 - Type 2 diabetes mellitus with hyperglycemia; Z79.4 - long term acute care registered nurse (current) use of insulin Code(s): E11.65 - Type 2 diabetes mellitus with hyperglycemia Status: Acute Assessment and Plan: SSI Consistent carb diet Subjective Date/time seen: 12/09/24 07:31 Exam Narrative: General - Awake and alert. No acute distress Eyes - PERRLA, EOM intact ENT - No thrush, No erythema Neck - No noticeable or palpable swelling Lymph Nodes - No lymphadenopathy Cardiovascular - RRR no m/r/g, no JVD Lungs: Decreased breath sounds left lung, N wheezing, no use of accessory muscles, no crackles Skin - Skin warm and dry, no wounds or rashes Abdomen - Normal bowel sounds, abdomen soft and nontender Extremities - No edema, cyanosis or clubbing Musculoskeletal - 5/5 strength, normal range of motion, no swollen or erythematous joints. Neurological ? Alert and oriented x 3, CN 2-12 grossly intact. Psych: Normal mood and affect Objective Data Vital Signs Vital Signs: Vital Signs - 24 hr 12/08/24 07:32 12/08/24 12:43 12/08/24 16:00 Temperature Pulse Rate 86 95 Respiratory Rate 19 Blood Pressure Pulse Oximetry 97 93 Oxygen Delivery Nasal Cannula Room Air Oxygen Flow Rate 2 12/08/24 20:00 12/08/24 20:21 12/09/24 00:00 Temperature Pulse Rate 96 94 89 Respiratory Rate 16 Blood Pressure 119/78 Pulse Oximetry 92 Oxygen Delivery Oxygen Flow Rate 12/09/24 04:00 12/09/24 05:49 Temperature 98.2 F Pulse Rate 89 87 Respiratory Rate 16 Blood Pressure 122/77 Pulse Oximetry 94 Oxygen Delivery Oxygen Flow Rate Intake/Output Intake/Output: Intake & Output 10/21/25 12/07/24 12/08/24 12/09/24 23:59 23:59 23:59 23:59 Intake Total 100 200 Output Total 1000 Balance -900 200 Meds/Results Medications: Active Medications Generic Name Dose Route Start Last Admin Trade Name Freq PRN Reason Stop Dose Admin Acetaminophen 650 mg 12/08/24 06:51 Acetaminophen 325 Mg Tablet PO Q4H PRN Mild Pain (1-3) or Fever Atorvastatin Calcium 40 mg 12/09/24 09:00 Atorvastatin 40 Mg Tablet PO DAILY PATT Buspirone HCl 10 mg 12/08/24 18:59 Buspirone Hcl 10 Mg Tablet PO TID PRN Anxiety Citalopram Hydrobromide 40 mg 12/09/24 09:00 Citalopram Hydrobromide 20 Mg Tablet PO DAILY [facility] Dextrose 12.5 gm 12/08/24 10:35 Dextrose 50% 25 Gm/50 Ml Syringe IV PUSH PRN PRN Hypoglycemia Protocol Glucagon 1 mg 12/08/24 10:35 Glucagon For Inj 1 Mg Vial IM PRN PRN Hypoglycemia Protocol Glucose 15 gm 12/08/24 10:35 Glucose Oral Gel 15 Gm Of Glucse In 37.5 Gm Tube PO PRN PRN Hypoglycemia Protocol Dextrose 1,000 mls @ 100 mls/hr 12/08/24 10:35 Dextrose 5% 1,000 Ml IVPB PRN PRN Hypoglycemia Protocol Insulin Aspart 2 - 5 units 12/08/24 12:00 12/08/24 16:40 Insulin Aspart (*Bkc) 100 Units/Ml SUB-Q Not Given TIDWM [facility] Protocol Insulin Aspart 1 - 2 units 12/08/24 21:00 12/08/24 20:08 Insulin Aspart (*Bkc) 100 Units/Ml SUB-Q Not Given HS [facility] Protocol Levothyroxine Sodium 50 mcg 12/09/24 06:30 12/09/24 05:46 Levothyroxine Sodium 50 Mcg Tablet PO 50 mcg DAILY@0630 [facility] Administration Ondansetron HCl 4 mg 12/08/24 06:51 12/08/24 20:02 Ondansetron Inj 4 Mg/2 Ml Vial IV PUSH 4 mg Q4H PRN Administration Nausea Radiology Results: ITS Impressions Chest CTA 12/08/24 06:53 IMPRESSION: 1. Complete left lung atelectasis with bronchial occlusions most likely aspiration. 2. Large bilateral pleural effusions. 3. No PE. Chest X-Ray 12/08/24 14:51 Impression: Bilateral pneumonia. CT chest with contrast suggested Thoracentesis Ultrasound 12/08/24 15:05 IMPRESSION: 1. Successful ultrasound-guided thoracentesis yielding 1000 mL of reddish-daniel fluid. Labs Labs: Laboratory Results - last 24 hr 12/08/24 12/08/24 12/08/24 10:16 11:05 11:53 PT 13.8 INR 1.0 APTT 23.2 POC Capillary Glucose 129 H Lactate Dehydrogenase 369 H Pleural Fluid Source Pleural Color Pleural Appearance Pleural pH Pleural RBC Pleural Nuc Cells Pleural Lymphocytes Pleural Macrophages 12/08/24 12/08/24 12/08/24 14:21 16:34 20:08 PT INR APTT POC Capillary Glucose 127 H 145 H Lactate Dehydrogenase Pleural Fluid Source Pleural fluid Pleural Color Red Pleural Appearance Cloudy Pleural pH 7.359 Pleural RBC 28469 H Pleural Nuc Cells 803 Pleural Lymphocytes 11 Pleural Macrophages 89 Quality VTE Prophylaxis VTE prophylaxis: mechanical ordered
[2024-12-09 08:00] VITALS: PULSE 93
[2024-12-09] MEDS: CITALOPRAM HYDROBROMIDE 20 MG TABLET 40 MG PO (08:35)
[2024-12-09] MEDS: ATORVASTATIN 40 MG TABLET PO (08:35)
[2024-12-09 12:00] VITALS: PULSE 91
--- NOTE | 2024-12-09 13:41 | PM.DS ---
DS: Admitting Diagnosis Discharge Date 12/09/2024 Admitting Diagnosis Pleural effusion DS: Discharge Diagnosis Discharge Diagnosis (1) Malignant pleural effusion: Code(s): J91.0 - Malignant pleural effusion Status: Acute DS: Summary Hospital Course Reason for hospitalization: Copied from [facility] 12/08: Kassy Maher hx DMII, [place], breast cancer s/p double mastectomy with chemo and radiation, recently diagnosed metastatic breast cancer, who presented for worsening shortness of breath, found to have large bilateral pleural effusions. In the ER she was afebrile, RR 19-22, O2 88% On 2L O2, BP 139/88. 97% on 2L O2. 12/08 CTA showed 1. Complete left lung atelectasis with bronchial occlusions most likely aspiration. 2. Large bilateral pleural effusions. 3. No PE. Planning a thoracentesis today. She was recently admitted for evaluation of back pain and was found to have a pleural effusion, concern for malignancy. She has been seeing Dr. Izquierdo in the clinic. A left sided thoracentesis done 11/13/24 was positive for metastatic breast cancer. A PET CT scan November 22 showed extensive bone metastasis and mildly enlarged lymphadenopathy in the mediastinum, bilateral hilum, and upper abdomen, as well as extensive pleural based metastasis. Tumor markers were elevated. Ibrance was started and anastrozole was discontinued. 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 She completed treatment with neoadjuvant chemotherapy with Adriamycin, Cytoxan, and Taxol cycle 4 in December 2020. Adjuvant radiation with Xeloda in April 2021. Xeloda cycle 6/6 completed in October 15, 2021. Has been tolerating anastrozole. PET scan 08/2022 showed no evidence of recurrent or metastatic disease. Hospital Course: Pleural effusion CT showed large pleural effusion, malignant. During admission she had a right thoracentesis. Final cultures no growth. Treatment for primary malignancy by oncology planned. Spoke with oncology office and they can arrange a thoracentesis outpatient when needed. Hypothyroidism: Continue synthroid Type 2 diabetes mellitus with hyperglycemia: SSI during admission. Resumed Jardiance and Ozempic at discharge. Continued Consistent carb diet Status at Discharge Cognitive/behavioral status at discharge: A&Ox4 Time Spent with Patient Time attestation: Total time spent providing and/or coordinating discharge services:48 minutes Specific discharge activities: Patient discharge education, spoke with oncology office, discharge exam, chart review and notes Exam Narrative: General - Awake and alert. No acute distress Eyes - PERRLA, EOM intact ENT - No thrush, No erythema Neck - No noticeable or palpable swelling Lymph Nodes - No lymphadenopathy Cardiovascular - RRR no m/r/g, no JVD Lungs: No wheezing, or use of accessory muscles, decreased bases Skin - Skin warm and dry, no wounds or rashes Abdomen - Normal bowel sounds, abdomen soft and nontender Extremities - No edema, cyanosis or clubbing Musculoskeletal - 5/5 strength, normal range of motion, no swollen or erythematous joints. Neurological ? Alert and oriented x 3, CN 2-12 grossly intact. Psych: Normal mood and affect DS: Data Data Completed and Pending Labs on day of discharge: Labs from last 24 hours 12/09/24 12/09/24 12/08/24 11:39 07:50 20:08 POC Capillary Glucose 140 H 107 H 145 H Fluid Glucose Fluid Total Protein Fluid LDH Pleural Fluid Source Pleural Color Pleural Appearance Pleural pH Pleural RBC Pleural Nuc Cells Pleural Lymphocytes Pleural Macrophages 12/08/24 12/08/24 16:34 14:21 POC Capillary Glucose 127 H Fluid Glucose Pending Fluid Total Protein Pending Fluid LDH Pending Pleural Fluid Source Pleural fluid Pleural Color Red Pleural Appearance Cloudy Pleural pH 7.359 Pleural RBC 42719 H Pleural Nuc Cells 803 Pleural Lymphocytes 11 Pleural Macrophages 89 Preliminary micro results at discharge 12/08/24 14:21 Gram Stain - Preliminary Peritoneal Fluid Discharge Plan Discharge Attending physician on discharge: Nova Esteban Consulting providers: Jose Saleem; Nova Esteban; John Jenkins; Ervin Javier; Cuco Mcnally; Miguel Angel Girard Discharging Clinician: Nova Esteban Anticipated Discharge Date/Time: 12/09/24 12:54 Patient Disposition: Home Activity: may shower Diet: regular Discharge Instructions: Follow up with your PCP in 1-2 weeks. Follow up with Dr. Izquierdo in the clinic. Follow up X-ray in about a week. If you have increasing shortness of breath, recommend coming back to the ER for evaluation. Incentive spirometer every 2 hours over the weekend while awake, then twice a day for a week No medication changes except antibiotics. Will follow up cultures Patient Instructions: Antibiotic Form Patient Language: Namibian Stand Alone Forms: General Discharge Information Follow-up/Referrals: Cuco Izquierdo MD [Physician, Hematology] - 1 Week Bird,MD Brianne [Primary Care Provider, Family Practice] - 2 Weeks Discharge Medications: Continued atorvastatin 40 mg tablet 40 mg PO DAILY Qty: 90 5RF buspirone 5 mg tablet 10 mg PO TID PRN (Reason: anxiety) (DME) pen needle, diabetic [BD Joya 2nd Gen Pen Needle] 32 gauge x 5/32 needle See Rx Instructions .ROUTE .COMPLEX Qty: 200 11RF Dose Instruction: USE TO INJECT INSULIN TWICE A DAY Rx Instructions: USE TO INJECT INSULIN FIVE TIMES A DAY (DME) FreeStyle Ania 3 Plus Sensor Device See Rx Instructions .Route Qty: 6 1RF Rx Instructions: change sensor every 15 days Ozempic 2 mg/dose (8 mg/3 mL) pen injector See Rx Instructions .ROUTE .COMPLEX Qty: 9 2RF Dose Instruction: INJECT 2 MG ONCE A WEEK Rx Instructions: INJECT 2 MG ONCE A WEEK levothyroxine 50 mcg tablet See Rx Instructions .ROUTE .COMPLEX Qty: 90 2RF Dose Instruction: Take 1 tablet by mouth once daily Rx Instructions: Take 1 tablet by mouth once daily Jardiance 25 mg tablet See Rx Instructions .ROUTE .COMPLEX Qty: 90 1RF Dose Instruction: Take 1 tablet by mouth once daily Rx Instructions: Take 1 tablet by mouth once daily ezetimibe 10 mg tablet See Rx Instructions .ROUTE .COMPLEX Qty: 90 3RF Dose Instruction: Take 1 tablet by mouth once daily Rx Instructions: Take 1 tablet by mouth once daily No Action Verzenio 150 mg tablet 150 mg PO BID aspirin [Don Chewable Aspirin] 81 mg tablet,chewable 81 mg PO DAILY ondansetron 8 mg tablet,disintegrating 8 mg PO Q8H PRN (Reason: nausea and vomiting) promethazine 25 mg tablet 25 mg PO TID PRN (Reason: nausea and vomiting) 30 Days Qty: 90 0RF citalopram 40 mg tablet See Rx Instructions .ROUTE .COMPLEX Qty: 90 1RF Dose Instruction: TAKE 1 TABLET BY MOUTH EVERY DAY Rx Instructions: TAKE 1 TABLET BY MOUTH EVERY DAY Other Ambulatory Orders: XR chest 2V (Routine) Timeframe: 1 Week Location: Determined by Patient Ordered By: Nova Esteban Date of admission: 12/08/24 06:51 Primary Care Provider: ParamjitBrianne Admitting Provider: Mi Erickson Attending physician on admission: Mi Erickson Condition: Stable
[2024-12-09 13:58] VITALS: BP 120/74; PULSE 88; RESP 16; TEMP 36.8; O2SAT 95
[2024-12-09 15:09] LABS: Glucose, Body Fluid 80 mg/dL (.); LD, Body Fluid 1361 IU/L (.)
--- OUTSIDE RECORDS SUMMARY | 2024-12-12 09:39 | XMS_ITS | Encounter Summary ---
Author Organization [facility] Address [address] [place] [address] Care Team Providers Care Pellet Post Inspector Name Role Phone Brianne Yusuf MD Primary Care Provider Encounter Details Date Type Department Care Team (Late Contact Info) Description 02/14/2021 Chart Note [facility] Radiation Oncology [address] [place] [address] Jorge Farmer MD [address] [address] Social History Tobacco Use Types [...] COVID-19? No / Unsure 02/05/2021 12:22 PM DISTRIBUTION WAREHOUSE MANAGER documented as of this encounter Plan of Treatment Upcoming Encounters Date Type Department Care Team (Late Contact Info) Description 01/10/2025 8:30 AM DISTRIBUTION WAREHOUSE MANAGER Office Visit [facility] Oncology and Hematology - [address] [facility] [address] [place] [address] [place]uco Izquierdo MD [address] [address] documented as of this encounter Visit Diagnoses Not on filedocumented in this encounter Care Teams Pellet Post Inspector Relationship Specialty Start Date End Date Brianne Yusuf MD [address] [place] [address] PCP - General Family Practice 08/17/20 documented as of this encounter
--- OUTSIDE RECORDS SUMMARY | 2024-12-12 09:39 | XMS_ITS ---
Author Organization [facility] Address [address] [place] [address] Phone Care Team Providers Care Unit Reactor Operator Name Role Phone Brianne Yusuf MD Primary Care Provider Active Problems Patient Care Coordination No te Formatting of this note migh t be different from the original. Primary Care: Brianne Yusuf MD Referring Provider: Brianne Yusuf MD [address] [place] [address] Other: Dr. Kerry Correia MD Problem Noted Date Diagnosed Date S/P bilateral mastectomy 03/07/2021 Hard to intubate 01/30/2021 Inflammatory breast cancer, right 08/23/2020 Cancer Staging:Clinical stage from 08/23/2020:Stage IIIB(cT4b, cN1(f), cM0, G2, ER+, NE+, HER2-) - Signed by Kerry Correia MD [...]
--- OUTSIDE RECORDS SUMMARY | 2024-12-12 09:39 | XMS_ITS | Encounter Summary ---
Author Organization [facility] [employer] [facility] Address [address] [place] [address] Care Team Providers Care Animal Geneticist Name Role Phone Brianne Yusuf MD Primary Care Provider [phone] Encounter Details Date Type Department Care Team ([facility] Contact Info) Description 12/12/2024 Orders Only [facility] Oncology and Hematology - [place] [address] [facility] [address] [place] [address] Cuco Izquierdo MD [address] [facility] [address] [place] [address] Inflammatory breast cancer, right (Primary [...] (Late Contact Info) Description 01/10/2025 8:30 AM PROFESSIONAL PROGRAMMER ANALYST Office Visit [facility] Oncology and Hematology [facility] [address] [facility] [address] [place] [address] Cuco Izquierdo MD [address] [facility] [address] [place] [address] Scheduled Orders Name Type Priority Associated Diagnoses Orde r Schedule CBC WITH DIFFERENTIAL Lab Routine Inflammatory breast cancer, right Every Two Weeks for 99 Occurrences starting 12/12/2024 until 12/12/2025 COMPREHENSIVE METABOLIC PANEL Lab Routine Inflammatory breast cancer, right Every Two Weeks for 99 Occurrences starting 12/12/2024 until 12/12/2025 BASIC METABOLIC PANEL Lab Routine Inflammatory breast cancer, right Every Two Weeks for 99 Occurrences starting 12/12/2024 until 12/12/2025 documented as of this encounter Visit Diagnoses Diagnosis Inflammatory breast cancer, right- Primary documented in this encounter Care Teams Animal Geneticist Relationship Specialty Start Date End Date Brianne Yusuf MD [address] [place] [address] PCP - General Family Practice 08/17/20 documented as of this encounter
--- OUTSIDE RECORDS SUMMARY | 2024-12-12 09:39 | XMS_ITS | Clinical Summary ---
Author Organization [facility] [place] Address [address] [place] [address] Phone Care Team Providers Care Director Of Claims Name Role Phone Brianne Yusuf MD Primary Care Provider [phone] Allergies Active Allergy Reactions Criticality Noted Date [...] Yusuf MD Referring Provider: Brianne Yusuf MD [address] [place] [address] Other: Dr. Kerry Correia MD Problem Noted Date Diagnosed Date S/P bilateral mastectomy 03/07/2021 Hard to intubate 01/30/2021 Inflammatory breast cancer, right 08/23/2020 Cancer Staging:Clinical stage from 08/23/2020:Stage IIIB(cT4b, cN1(f), cM0, G2, ER+, SD+, HER2-) - Signed by Kerry Correia MD on 08/23/2020 Encounters Date Type Department Care Team Description 12/12/2024 Orders Only [facility] Oncology and Hematology - [place] [address] [place] [address] Cuco Izquierdo MD Inflammatory breast cancer, right (Primary Dx) 12/07/2024 External Device Data STL ABSTRACTION Provider, Abstract 12/06/2024 Orders Only [facility] Oncology and Hematology [facility] [address] [place] [address] Cuco Izquierdo MD 12/05/2024 2:03 PM CDT - 12/05/2024 11:59 PM CDT Hospital Encounter [facility] Laboratory Services [facility] [address] [place] [id number] Cuco Izquierdo MD Discharge Disposition: Home or Self Care 11/29/2024 1:15 PM CDT Office Visit [facility] Oncology and Hematology [facility] [address] [place] [address] Cuco Izquierdo MD Inflammatory breast cancer, right (Primary Dx); Metastasis to bone 11/28/2024 Orders Only [facility] Oncology and Hematology [facility] [address] [place] [address] Cuco Izquierdo MD 11/22/2024 External Device Data STL ABSTRACTION Provider, Abstract 11/16/2024 9:30 AM CDT Office Visit [facility] Oncology and Hematology [facility] [address] [place] [address] Cuco Izquierdo MD Inflammatory breast cancer, right (Primary Dx) 11/16/2024 Refill [facility] Oncology and Hematology [facility] [address] [place] [address] Cuco Izquierdo MD Inflammatory breast cancer, right 10/25/2024 External Device Data STL ABSTRACTION Provider, Abstract 10/18/2024 External Device Data STL ABSTRACTION Provider, Abstract 10/04/2024 External Device Data STL ABSTRACTION Provider, Abstract 10/04/2024 External Device Data STL ABSTRACTION Provider, Abstract 09/27/2024 External Device Data STL ABSTRACTION Provider, Abstract 09/21/2024 External Device Data STL ABSTRACTION Provider, Abstract 2024 Orders Only [facility] Oncology and Hematology [facility] [address] [place] [address] Cuco Izquierdo MD from Last 3 [...] st Contact Info) Description 01/10/2025 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 Office Visit [facility] Oncology and Hematology - [place] [address] [place] [address] Cuco Izquierdo MD [address] [facility] [address] [place] [address] Health Maintenance Due Date Last [...] series) 09/13/2038 Medical Devices Implanted Type Area Road Freight Brake Coupler Device Identifier Shelf Expiration Date Model / Serial / Lot Returned Goods Receiving Clerk Clip Surgiclip Ii Cheo 9.75in [id number] - [id number] Implanted:Qty: 1 on 01/30/2021 by Kerry Correia MD at [facility] Right: Breast [employer] - COVIDIEN 05/16/2025 [id number] / / [id number] Returned Goods Receiving Clerk Clip Surgiclip Ii Cheo 9.75in [id number] - [id number] Implanted:Qty: 1 on 01/30/2021 by Kerry Correia MD [place] [facility] [place] Right: Breast [employer] - COVID[employer] 07/16/2025 [id number] / / [id number] Hemostatic Surgicel 4x8in 1953 - [id number] Implanted:Qty: 4 on 01/30/2021 by Kerry Correia MD at [facility] Sg Day Hemostatic N/A: Breast [employer] 02/15/20251951 / / [id number] Description:two on left,two on right Port Powerport Clearvue 8fr Mri [id number] - [id number] Implanted:Qty: 1 on 09/03/2020 by Kerry Correia MD at [facility] Port Left: Chest CR BARD- [employer] 10/16/2021 [id number] / / [id number] Procedures Procedure Name Priority Date/Time Associated Diagnosis Comments [facility] Routine 12/09/2024 11:55 AM CDT Inflammatory breast cancer, right PATHOLOGY Pathology 12/05/2024 2:09 PM CDT Encounter for laboratory test [facility] NORMAL BLOOD Routine 11/29/2024 2:16 PM CDT Inflammatory breast cancer, right [facility] DNA AND RNA SOLID TUMOR Routine 11/29/2024 2:16 PM CDT Inflammatory breast cancer, right PET BONE IMG W CT SKL BSE MID THG Routine 11/22/2024 11:03 AM CDT NM BONE DENSITY Routine 09/12/2024 2:43 PM CDT HEMOGLOBIN A1C Routine 04/23/2021 from Last 3 Months or Most Recently Relevant to Health Maintenance Results * [facility] (12/09/2024 11:55 AM CDT) Reason for Study To identify mutations relevant to patient's cancer. 12/09/2024 11:55 AM CDT [facility] Genetic Diseases Assessed Cancer 12/09/2024 11:55 AM CDT [facility] Description of Ranges of DNA Sequences Examined 105 gene liquid biopsy 12/09/2024 11:55 AM CDT [facility] Overall Interpretation positive 12/09/2024 11:55 AM CDT [facility] [email or web address] 12/09/2024 11:55 AM CDT [facility] Comment:[facility] link Low Coverage Regions SPOP 12/09/2024 11:55 AM CDT [facility] Therapy Count 6 12/09/2024 11:55 AM CDT [facility]: Potential Therapy 1 Gene: 3467^ESR1^HGNC Variant: p.D538G Match Type: snvIndel Match Type Description: ESR1 p.D538G Agent: Elacestrant Drug Class: Estrogen Receptor Antagonist Tissue: Breast Cancer Association: Response Evidence Status: Consensus Evidence ID: NCCN KDB Variant: Hiih-tr-lgjeupq n NCCN Associated Evidence: Consensus, Breast Cancer MSK Associated Evidence: MSK OncoKB, Level 1 Label: FDA On Label FDA Approved?: Yes On label?: Yes 12/09/2024 11:55 AM CDT [facility] Tempus: Potential Therapy 2 Gene: 3467^ESR1^HGNC Variant: p.Y537S Match Type: snvIndel Match Type Description: ESR1 p.Y537S Agent: Elacestrant Drug Class: Estrogen Receptor Antagonist Tissue: Breast Cancer Association: Response Evidence Status: Consensus Evidence ID: NCCN KDB Variant: Zcwy-eu-qsrcwjy n NCCN Associated Evidence: Consensus, Breast Cancer MSK Associated Evidence: MSK OncoKB, Level 1 Label: FDA On Label FDA Approved?: Yes On label?: Yes 12/09/2024 11:55 AM CDT [facility] Tempus: Potential Therapy 3 Gene: 3467^ESR1^HGNC Variant: p.D538G Match Type: snvIndel Match Type Description: ESR1 p.D538G Agent: Imlunestrant Drug Class: Estrogen Receptor Antagonist Tissue: Breast Cancer Association: Response Evidence Status: Consensus Evidence ID: [facility] KDB Variant: Rrrb-ok-ocseacc n Label: FDA On Label FDA Approved?: Yes On label?: Yes 12/09/2024 11:55 AM CDT [facility] Tempus: Potential Therapy 4 Gene: 3467^ESR1^HGNC Variant: p.Y537S Match Type: snvIndel Match Type Description: ESR1 p.Y537S Agent: Imlunestrant Drug Class: Estrogen Receptor Antagonist Tissue: Breast Cancer Association: Response Evidence Status: Consensus Evidence ID: FDA KDB Variant: Vihy-dl-xycorjn n Label: FDA On Label FDA Approved?: Yes On label?: Yes 12/09/2024 11:55 AM CDT [facility]: Potential Therapy 5 Gene: 3467^ESR1^HGNC Variant: p.D538G Match Type: snvIndel Match Type Description: ESR1 p.D538G Agent: Class Effect Drug Class: Endocrine Therapy Tissue: Breast Cancer Association: Non-response Evidence Status: Clinical research Evidence ID: [id number] Evidence URL: https://www.ncb i.nlm.nih.gov/p ubmed/[email or web address] Evidence Title: ESR1 mutations are frequent in newly diagnosed metastatic and loco-regional recurrence of endocrine-treat ed breast cancer and carry worse prognosis - PubMed KDB Variant: D538G - GOF Label: FDA On Label FDA Approved?: Yes On label?: Yes 12/09/2024 11:55 AM CDT [facility]: Potential Therapy 6 Gene: 3467^ESR1^HGNC Variant: p.Y537S Match Type: snvIndel Match Type Description: ESR1 p.Y537S Agent: Class Effect Drug Class: Endocrine Therapy Tissue: Breast Cancer Association: Non-response Evidence Status: Clinical research Evidence ID: [id number] Evidence URL: https://www.ncb i.nlm.nih.gov/p ubmed/15686193 Evidence Title: ESR1 mutations are frequent in newly diagnosed metastatic and loco-regional recurrence of endocrine-treat ed breast cancer and carry worse prognosis - PubMed KDB Variant: Y537 - GOF Label: FDA On Label FDA Approved?: Yes On label?: Yes 12/09/2024 11:55 AM CDT [facility] Trial Count 3 12/09/2024 11:55 AM CDT [facility]: Clinical Trial Match 1 Clinical Trial NCT ID: [id number] Clinical Trial Title: Evaluation of Lasofoxifene Combined With Abemaciclib Compared With Fulvestrant Combined With Abemaciclib in Locally Advanced or Metastatic ER+/HER2- Breast Cancer With an ESR1 Mutation Clinical Trial URL: https://[employer] Touchbase.gov/ct2 /show/[email or web address] 26 Clinical Phase: Phase 3 Clinical Trial Matches: ESR1 p.Y537S mutation, ESR1 p.D538G mutation Clinical Trial Distance and Location: [address] [place], [place] 12/09/2024 11:55 AM CDT [facility]: Clinical Trial Match 2 Clinical Trial NCT ID: [id number] Clinical Trial Title: A Study to Evaluate Efficacy and Safety of Giredestrant Compared With Fulvestrant (Plus a CDK4/6 Inhibitor), in Participants With ER-Positive, HER2-Negative Advanced Breast Cancer Resistant to Adjuvant Endocrine Therapy (pionERA Breast Cancer) Clinical Trial URL: https://[employer] Touchbase.gov/ct2 /show/[email or web address] 48 Clinical Phase: Phase 3 Clinical Trial Matches: ESR1 p.Y537S mutation, ESR1 p.D538G mutation Clinical Trial Distance and Location: [address] [place], [place] 12/09/2024 11:55 AM CDT [facility]: Clinical Trial Match 3 Clinical Trial NCT ID: [id number] Clinical Trial Title: A Icaaw-Za-Nbgzg, Phase 1 Study Evaluating Oral TACC3 PPI Inhibitor, AO-252, in Advanced Solid Tumors With or Without Brain Metastases Clinical Trial URL: https://[employer] Touchbase.gov/ct2 /show/[email or web address] 84 Clinical Phase: Phase 1 Clinical Trial Matches: TP53 p.I195T mutation, TP53 p.C176Y mutation, TP53 p.G244S mutation Clinical Trial Distance and Location: [address] [place], [place] 12/09/2024 11:55 AM CDT [facility] Tumor Mutational Garfield 8.6 m/MB 12/09/2024 11:55 AM CDT [facility] Microsatellite Instability Note MSI-High not detected 12/09/2024 11:55 AM CDT [facility] Blood specimen (specimen) 12/01/2024 10:43 PM CDT Narrative This result has genomic variants that were not included in this document. us Cuco Izquierdo MD MOLECULAR ORDERABLES Final Resu lt [facility] [address], [address] [place] [address], [facility] [address] [facility] [address] [facility], [address] [place] [address] * PATHOLOGY (12/05/2024 2:09 PM CDT) CASE REPORT Surgical Pathology Report Case: [id number] Authorizing Provider: Cuco Izquierdo MD Collected: 12/05/2024 02:09 PM Ordering Location: [facility] Received: 12/05/2024 02:10 PM Services [facility] Pathologist: Amy King MD Specimen: Other, specify 4:26 PM CDT [facility] FINAL DIAGNOSIS A request for [facility] was received on 11/30/[address] Cuco Izquierdo. This test was performed on tissue from case [id number]. The case report, slides, and blocks for this case were retrieved from archives. The pathologist reviewed the original pathology report, examined candidate slides, and selected the most appropriate block B7. This selected material was forwarded to [facility] where the test was performed. The final report will be issued directly to the requesting physician. 4:26 PM CDT [facility] at 1626 CDT CLINICAL INFORMATION Z01.89 - Encounter for laboratory test [ICD-10-CM] 4:26 PM CDT [facility] COMMENT Special stain, immunohistochemical, and/or in situ hybridization results are interpreted with controls that demonstrate appropriate staining reactions. Note on use of immunohistochemistry reagents and in situ hybridization probes: These tests were developed and their performance characteristics determined by [facility], Department of Laboratory Medicine. It has not [...] part or completely in the following laboratories: [facility], [place] #[id number] [address] [place] [address] [facility], [place] #[id number] [address] [place] [address] [facility]/[place], [place] #[id number] [address] [place] [address] This report was created with the [employer] voice-activated dictation system. Inherent to this system is the possibility of syntax, grammar, punctuation and other errors that could impact the interpretation of the report. If there are interpretative questions about aspects of this report, please contact the performing pathologist. 4:26 PM CDT [facility] Tissue (Other, specify) 12/05/2024 2:09 PM CDT 12/05/2024 2:10 PM CDT Cuco Izquierdo MD PATHOLOGY/CYTOLOGY ORDERABLES F inal Result Performing Organization Address [facility]/State/ZIP Co de Phone Number [facility]# [id number] [address] [place] [address] * [facility] NORMAL BLOOD (11/29/2024 2:16 PM CDT) [facility] 11/29/2024 11:01 PM CDT [facility] Comment:See NGS Report for R esults. Blood specimen (specimen) 11/29/2024 2:16 PM CDT 11/29/2024 2:17 PM CDT Cuco Izquierdo MD MOLECULAR ORDERABLES Final Resu lt [facility] [address] [facility] [address], [address] [place] [address], [facility] [address] [facility], [address] [place] [address] * PET BONE IMG W CT HETAL DRAPER (11/22/2024 11:03 AM CDT) Anatomical Region Laterality [...] ID:[id number] Type:RX Commercial Address: [address]ILL[address] HMO O Advance Directives For more information, please contact: [phone] * Full Code (Latest Code Status on File) Date Activated Date Inactivated Comments 01/30/2021 3:28 PM 01/31/2021 12:30 PM Care Teams Director Of Claims Relationship Specialty Start Date End Date Brianne Yusuf MD [address] [place] [address] PCP - General Family Practice 08/17/20
== END 2024-12-09 14:35 | disposition home or self-care (01) ==
LOC: ANHED 05:43 → ANH3MED 17:45 → ANH3MEDSUR 12-12 09:00
PROVIDERS: Nurse Practitioner Acute Care; Admitting Provider General Practice; Emergency Provider Student in an Organized Health Care Education/Training Program; PCP Family Medicine; Visit Provider General Practice
DX: C50 Malignant neoplasm of breast (principal); C79.51 Secondary malignant neoplasm of bone; C78.2 Secondary malignant neoplasm of pleura; J91.0 Malignant pleural effusion; J18.9 Pneumonia, unspecified organism; Z17.32 Human epidermal growth factor receptor 2 negative status; R59.1 Generalized enlarged lymph nodes; E11.65 Type 2 diabetes mellitus with hyperglycemia; E03.9 Hypothyroidism, unspecified; R00.0 Tachycardia, unspecified; R09.02 Hypoxemia; J98.11 Atelectasis; E78.00 Pure hypercholesterolemia, unspecified; Z79.4 Long term (current) use of insulin; F41.1 Generalized anxiety disorder; Z90.710 Acquired absence of both cervix and uterus; Z90.49 Acquired absence of other specified parts of digestive tract; Z90.13 Acquired absence of bilateral breasts and nipples; Z79.811 Long term (current) use of aromatase inhibitors; Z79.85 Long-term (current) use of injectable non-insulin antidiabetic drugs; Z79.84 Long term (current) use of oral hypoglycemic drugs; Z79.82 Long term (current) use of aspirin; Z80.0 Family history of malignant neoplasm of digestive organs
CPT/HCPCS: 32555; 36415; 71045; 71275; 80053; 82945; 82948; 83615; 83986; 84157; 85025; 85610; 85730; 87075; 87205; 87206; 88108; 88305; 89051; 93005; 96374; 96375; 99285; A9270; G0378; J1938; J2405; Q9967

== ENCOUNTER 2025-01-01 09:15 | Observation (INO) | payer OTHER, SELFPAY ==
[2025-01-01] VITALS (8 sets, daily range): BP systolic 101–125; BP diastolic 57–101; PULSE 80–92; RESP 12–20; TEMP 35.6–36.7; O2SAT 93–97; BMI 24.2
--- NOTE | ~2025-01-01 | US_ITS ---
EXAMINATION: US thoracentesis DATE: 01/02/2025 11:45 INDICATION: Left pleural effusion TECHNIQUE: The procedure and its risks and benefits were discussed with the patient. Potential risks discussed included bleeding, infection, and pneumothorax. The patient understood the risks and agreed to proceed. The skin was prepped and draped in sterile fashion. 1% lidocaine was used for local anes thesia. Under ultrasound guidance, a 5 Fr catheter with trochar was advanced into the left pleural effusion. Fluid was aspirated. The catheter was removed, and a dressing was applied. There were no immediate complications. FINDINGS: Ultrasound images demonstrate a moderate-sized left pleural effusion and the catheter within the fluid. IMPRESSION: 1. Successful ultrasound-guided thoracentesis yielding 1000 mL of reddish daniel-colored fluid. Reviewed, dictated and finalized at location A. ESS TIER IMPRESSION: 1. Successful ultrasound-guided thoracentesis yielding 1000 mL of reddish ambe r-colored fluid.
--- NOTE | ~2025-01-01 | XR_ITS ---
EXAM/PROCEDURE: [id number] HISTORY: Post thoracentesis COMPARISON: January 01, 2025 TECHNIQUE: Portable technique FINDINGS: Reduction in size of left-sided pleural effusion which remains moderate in size on today's study. Left lung is improved inflation and aeration. No pneumothorax or subphrenic free air. Mild alveolar changes appear to be developing in the right lung base. Surgical clips right axillary region and right upper quadrant. IMPRESSION: Improved inflation and aeration of the left lung post thoracentesis; moderate- sized effusion persists. Alveolar changes in the right lung base may represent developing pneumonia or pulmonary edema. Reviewed, dictated and finalized at location A. NSTITCH ZIPPER SETTER IMPRESSION: Improved inflation and aeration of the left lung post thoracentesis; moderate-s ized effusion persists. Alveolar changes in the right lung base may represent d eveloping pneumonia or pulmonary edema.
--- NOTE | ~2025-01-01 | XR_ITS ---
Examination: XR chest 2V Clinical History: weakness Comparison: 12/08/2024 Technique: PA and Lateral Findings: Cardiomediastinal silhouette normal size and configuration. Large left pleural effusion. Significant associated lobar atelectasis. Moderate right pleural effusion with basilar atelectasis and scarring. No acute bony abnormality. Surgical clips bilateral axilla. IMPRESSION: 1. Large left and moderate right pleural effusions. Reviewed, dictated and finalized at location R. INE SHOP HELPER
--- NOTE | 2025-01-01 09:18 | ECG_ITS ---
Test Date: 2025-01-01 09:35:41 Measurements Intervals [place] Rate: 84 P: 36 [place]: 144 QRS: 32 QRSD: 93 T: 38 QT: 391 QTc: 462 Interpretive Statements SINUS RHYTHM LOW QRS VOLTAGE IN EXTREMITY LEADS Electronically Signed On 01-01-2025 10:00:30 [employer] by Paul Veronica D.O
[2025-01-01 09:42] LABS: Hematocrit 43.8 % (37.0-47.0); Hemoglobin 13.8 g/dL (12.0-15.0); Immature Granulocyte Percent A 4.2 % (0-0.5); Lymphocytes Absolute Auto 0.98 K/mm3 (0.9-3.2); Mean Corpuscular HGB Conc 31.5 g/dl (32-36); Mean Corpuscular Hemoglobin 29.1 pg (26-34); Mean Corpuscular Volume 92.4 fl (80-100); Nucleated Red Blood Cells Absolute Auto 0.000 K/mm3 (0.0-0.012); Nucleated Red Blood Cells Perc 0.0 % (0.0-0.2); Platelet Count Result 175 k/mm3 (150-375); Red Blood Count 4.74 M/mm3 (4.2-5.4); White Blood Count 2.9 K/mm3 (4.5-10.0)
[2025-01-01 09:44] LABS: Alanine Aminotransferase 87 U/L (6-35); Albumin Level 4.5 g/dL (3.5-5.1); Alkaline Phosphatase 159 U/L (38-126); Anion Gap 11 mmol/L (4-12); Aspartate Amino Transferase 48 U/L (14-36); Bilirubin,Total 0.8 mg/dL (0.2-1.3); Blood Urea Nitrogen 21 mg/dL (7-17); Calcium 9.2 mg/dL (8.4-10.2); Carbon Dioxide 24 mmol/L (22-30); Chloride 106 mmol/L (98-107); Estimated CRCL calculation 41 ml/min; Estimated Glomerular Filt Rate 50; Glucose 109 mg/dL (65-110); Potassium 3.2 mmol/L (3.4-5.0); Sodium 141 mmol/L (137-145); Total Protein 7.8 g/dL (6.3-8.2)
[2025-01-01] MEDS: SODIUM CHLORIDE 0.9% IV 1,000 ML 125 ML IV CONT (11:00)
[2025-01-01] MEDS: ONDANSETRON INJ 4 MG/2 ML VIAL IV PUSH ×2 (11:00→18:28)
--- NOTE | 2025-01-01 11:04 | ED.GENADULT ---
HPI - General Adult General Chief complaint: Weakness Stated complaint: DECREASED APPETITE, METASTATIC BREAST CANCER Time Seen by Provider: 01/01/25 10:10 Source: patient Mode of arrival: ambulatory Limitations: no limitations History of Present Illness HPI narrative: 59-year-old with a history of breast cancer, pleural effusion here with the complaints of marked weakness, unable to eat or drink for past few days. Patient states that she has not eaten solid foot for last few days. Complains of intense nausea. She is on oral chemo at this time. Denies any fever or chills. Has no soft they down. Onset (ago): day(s) (3) Pain Consistency: constant Relieving factors: none Exacerbating factors: none Associated symptoms: denies other symptoms Related Data Home Medications ?Medication ?Instructions ?Recorded ?Confirmed ?Last Taken ?Type anastrozole 1 mg tablet 1 mg PO DAILY 12/20/21 12/12/24 12/07/24 History buspirone 5 mg tablet 10 mg PO TID PRN anxiety 12/08/24 12/12/24 12/08/24 History abemaciclib 150 mg tablet 150 mg PO BID 12/26/24 12/26/24 Unknown History ([place]) Allergies Allergy/AdvReac Type Severity Reaction Status Date / Time metformin AdvReac Intermediate Gastrointestinal Verified 12/26/24 11:06 Upset Review of Systems Review of Systems: All systems reviewed & are unremarkable except as noted in HPI and below Constitutional: Constitutional: Reports no additional constitutional complaints Eyes: Eyes: Reports no additional eye complaints ENT: Reports system reviewed and no additional complaints, except as documented Cardiovascular: Cardiovascular: Reports no additional cardiovascular complaints Respiratory: Respiratory: Reports no additional respiratory complaints Gastrointestinal: Gastrointestinal: Reports as per HPI Musculoskeletal: Musculoskeletal: Reports no additional musculoskeletal complaints Integumentary/Breasts: Skin/Breast: Reports system reviewed and no additional complaints, except as docu Neurologic: Reports system reviewed and no additional complaints, except as documented PMFSH Past Medical History Medical History 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 lower extremity Malignant inflammatory neoplasm of right breast Hair changes Type 2 diabetes mellitus treated with insulin FDC (current) use of insulin Obesity (BMI 30.0-34.9) Suspected sleep apnea Generalized anxiety disorder Anxiety Hypercholesteremia Depression Surgical History Surgical History Hx of section Hx of cholecystectomy History of removal of Port-a-Cath H/O bilateral mastectomy History of hysterectomy Family History Family History Grandparent Family history of Alzheimer's disease Sibling Family history of malignant neoplasm of esophagus Social History Social History Smoking status: Never smoker Second hand tobacco smoke exposure: No Alcohol intake: never Substance use: never Substance use type: does not use Do You Feel Safe in your Home?: Yes Lack of Transportation: No Lack of Food: Never True Current Housing: I Have Housing Concerned About Future Housing: No Difficulty Paying Gas/Electric Bills: No Difficulty Paying for Meds: No Currently Unemployed: No Education: Bachelor's Degree Difficulty w/ Childcare or Family Care: No Living arrangements: with family Gender identity (if verbalized by the patient): Female Spiritual care concerns: No Exam Narrative: GENERAL: Well-appearing, well-nourished, and in no acute distress. HEAD: Normocephalic, atraumatic. EYES: PERRLA and EOMI. ENT: Nares clear, no rhinorrhea or epistaxis. Mucous membranes moist. NECK: Supple. CHEST: Decrease air entry on the left. No respiratory distress. HEART: Regular rate and rhythm. No murmur heard. Normal peripheral pulses. ABDOMEN: Soft, nontender, nondistended, normal active bowel sounds. EXTREMITIES: Normal range of motion. No edema. SKIN: Warm, dry, no rash. NEURO: No focal deficits. Alert and oriented x3. PSYCH: Normal mood and affect. Course Course Emergency Course: Informed patient about the lab work. Agreeable with admission. Discussed with the hospitalist. Vital Signs Vital signs: Vital Signs Temperature 36.4 C 01/01/25 09:23 Pulse Rate 90 01/01/25 09:23 Respiratory Rate 16 01/01/25 09:23 Blood Pressure 125/73 01/01/25 09:23 Pulse Oximetry 97 01/01/25 09:23 Oxygen Delivery Room Air 01/01/25 09:23 Temperature 36.4 C 01/01/25 09:23 Pulse Rate 90 01/01/25 09:23 Respiratory Rate 16 11/16/25 09:23 Blood Pressure 125/73 01/01/25 09:23 Pulse Oximetry 97 01/01/25 09:23 Oxygen Delivery Room Air 01/01/25 09:23 Medical Decision Making Vital Signs Vital Signs: Vital Signs Temperature 36.4 C 01/01/25 09:23 Pulse Rate 90 01/01/25 09:23 Respiratory Rate 16 01/01/25 09:23 Blood Pressure 125/73 01/01/25 09:23 Pulse Oximetry 97 01/01/25 09:23 Oxygen Delivery Room Air 01/01/25 09:23 Temperature 36.4 C 01/01/25 09:23 Pulse Rate 90 01/01/25 09:23 Respiratory Rate 16 01/01/25 09:23 Blood Pressure 125/73 01/01/25 09:23 Pulse Oximetry 97 01/01/25 09:23 Oxygen Delivery Room Air 01/01/25 09:23 Lab Data 01/01/25 09:28 01/01/25 09:28 Labs: Lab Results 01/01/25 01/01/25 Range/Units 09:28 10:55 WBC 2.9 L (4.5-10.0) K/mm3 RBC 4.74 (4.2-5.4) M/mm3 Hgb 13.8 (12.0-15.0) g/dL Hct 43.8 (37.0-47.0) % MCV 92.4 (80-100) fl MCH 29.1 (26-34) pg MCHC 31.5 L (32-36) g/dl RDW 13.2 (11.5-14.5) % Plt Count 175 (150-375) k/mm3 MPV 9.9 (7.4-10.4) fl Immature Gran % (Auto) 4.2 H (0-0.5) % Neut % (Auto) 48.0 (45.5-73.1) % Lymph % (Auto) 34.4 (18.3-44.2) % Miner % (Auto) 7.7 (2.6-8.5) % Eos % (Auto) 3.9 (0-4.4) % Baso % (Auto) 1.8 H (0.2-1.2) % Lymph # (Auto) 0.98 (0.9-3.2) K/mm3 Miner # (Auto) 0.2 (0.1-0.6) K/mm3 Eos # (Auto) 0.1 (0-0.3) K/mm3 Baso # (Auto) 0.1 (0.0-0.1) K/mm3 Abs Immat Gran (auto) 0.12 H (0.00-0.031) K/mm3 Absolute Neuts (auto) 1.4 (1.3-6.7) K/mm3 Absolute Nucleated RBC 0.000 (0.0-0.012) K/mm3 Nucleated RBC % 0.0 (0.0-0.2) % Sodium 141 (137-145) mmol/L Potassium 3.2 L (3.4-5.0) mmol/L Chloride 106 (98-107) mmol/L Carbon Dioxide 24 (22-30) mmol/L Anion Gap 11 (4-12) mmol/L BUN 21 H (7-17) mg/dL Creatinine 1.10 H (0.7-1.0) mg/dL Estim Creat Clear Calc 41 ml/min Estimated GFR 50 L (59 - ) Glucose 109 (65-110) mg/dL Calcium 9.2 (8.4-10.2) mg/dL Total Bilirubin 0.8 (0.2-1.3) mg/dL AST 48 H (14-36) U/L ALT 87 H (6-35) U/L Alkaline Phosphatase 159 H (38-126) U/L Total Protein 7.8 (6.3-8.2) g/dL Albumin 4.5 (3.5-5.1) g/dL Urine Color Pending Urine Appearance Pending Urine pH Pending Ur Specific [place] Pending Urine Protein Pending Urine Glucose (UA) Pending Urine Ketones Pending Ur Blood (Man) Pending Urine Nitrate Pending Urine Bilirubin Pending Urine Urobilinogen Pending Leukocyte Esterase Rfl Pending Imaging Data Radiologist's impression: ITS Impressions Chest X-Ray 01/01/25 10:08 IMPRESSION: 1. Large left and moderate right pleural effusions. ECG Data EKG #1: ECG completion date: 01/01/25 ECG completion time: 09:35 EKG Interpretation: normal rate (84), sinus rhythm, no ST changes, normal QT and NL axis Discharge Plan Discharge Clinical Impression: Nausea alone, Pleural effusion Patient Disposition: Still a Patient Condition: Stable Time of Disposition: 11:22
[2025-01-01 11:10] LABS: Add Urine Microscopic? YES; Appearance Urine Cloudy (Clear); Glucose Urine UA Trace mg/dL (Negative); Leukocyte Esterase Ur 2+ LEU/UL (Negative); Need Manual Microscopic Reviewed; Nitrate Urine Negative (Negative); Non Pathogenic Casts >20; Specific Grav Ur 1.025 (1.001-1.035)
--- NOTE | 2025-01-01 12:29 | WPCEDHO ---
ED Hand Off Checklist All vitals saved:Y IV Site documented:Y All med administrations documented:Y Triage Note Triage Note Pt ambulates to the ED for 01/01/25 09:23 evaluation of nausea, vomiting and weakness since Thursday. Pt currently chemo and radiation treatments for metastatic breast cancer. Allergies metformin Adverse Reaction (Intermediate, Verified 12/26/24 11:06) Gastrointestinal Upset diarrhea, gas, nausuea Family History (Last Reviewed 01/01/25 @ 11:13 by Robbie Mancia MD) Grandparent Family history of Alzheimer's disease Sibling Family history of malignant neoplasm of esophagus Active Medications including assessments/comments Sodium Chloride (Normal Saline Iv) 1,000 mls @ 125 mls/hr IV CONT .Q8H STA Stop: 01/01/25 18:32 Last Admin: 01/01/25 11:00 Dose: 125 mls/hr Documented By: MICHAEL Infusion/Titration Document 01/01/25 11:00 MICHAEL (Rec: 01/01/25 11:05 MICHAEL [id number]) Intake IV Site Peripheral Access Left Antecubital Container Volume 1,000 Waste Amount 0 Dosing Infusion Rate 125 Cumulative Dose Not Applicable Increase/Decrease Started Elapsed Time Elapsed Time ( 0m minutes) Administered/Completed Medications Discontinued Medications Ondansetron HCl (Ondansetron Inj 4 Mg/2 Ml Vial) 4 mg IV PUSH ONCE STA Stop: 01/01/25 10:34 Last Admin: 01/01/25 11:00 Dose: 4 mg Documented By: MICHAEL Interventions/Assessments IV / Saline Lock, Insert Start: 01/01/25 09:17 Freq: Status: Active Protocol: Document 01/01/25 09:26 MICHAEL (Rec: 01/01/25 09:26 MICHAEL [id number]) IV Assessment Peripheral Access Left Antecubital IV Catheter Access Initiated IV Insertion Date 01/01/25 IV Insertion Time 09:26 Catheter Gauge 20 IV Insertion 1 Attempts Ultrasound Used for No Placement IV Site Assessment WNL IV Care and WNL Maintenance PA: Cardiovascular Assessment Start: 01/01/25 09:17 Freq: Status: Active Protocol: Document 01/01/25 09:18 MICHAEL (Rec: 01/01/25 09:40 MICHAEL [id number]) Cardiovascular Assessment Cardiovascular Nausea,Vomiting Symptoms Skin Description Normal Color Heart Sounds Normal Jugular Vein None Distention Rhythm/Strength Monitor EKG Rythm Sinus Rhythm PA: Neurological Assessment Start: 01/01/25 09:17 Freq: Status: Active Protocol: Document 01/01/25 09:18 ELB (Rec: 01/01/25 09:40 ELB [id number]) Neurological Assessment Level of Alert,Awake Consciousness Arousable to Verbal Orientation Oriented to Person,Oriented to Place,Oriented to Time Neurological Nausea/Vomiting,Weakness, General Symptoms Hallucination Type None Unable to Redirect No Behavior Behavior Appropriate,Cooperative Patient Able to Comprehend Comprehension Memory Description Intact Ability to Maintain Normal Balance Facial Symmetry Symmetrical Speech Pattern Clear Ability to Swallow Normal Tongue Position Midline Finger to Nose Test Normal Performance Heel to Jose Test Normal Performance [place] Coma Scale Eyes Open Verbal Oriented and Alert Motor Follows Commands [place] Coma Total 15 Score Last Vital Signs Temperature 98.0 F 01/01/25 12:29 Pulse Rate 80 01/01/25 12:23 Respiratory Rate 12 01/01/25 12:23 Pulse Oximetry 95 01/01/25 12:23 Blood Pressure 108/64 01/01/25 12:23 Blood Pressure Mean 78 01/01/25 12:23 Blood Pressure Position Sitting 01/01/25 09:23 Oxygen Delivery Room Air 01/01/25 09:23 Weight 64 kg 01/01/25 09:23 Last Result - Abnormals Only WBC 2.9 K/mm3 (4.5-10.0) L 01/01/25 09:28 MCHC 31.5 g/dl (32-36) L 01/01/25 09:28 Immature Gran % (Auto) 4.2 % (0-0.5) H 01/01/25 09:28 Baso % (Auto) 1.8 % (0.2-1.2) H 01/01/25 09:28 Abs Immat Gran (auto) 0.12 K/mm3 (0.00-0.031) H 01/01/25 09:28 Potassium 3.2 mmol/L (3.4-5.0) L 01/01/25 09:28 BUN 21 mg/dL (7-17) H 01/01/25 09:28 Creatinine 1.10 mg/dL (0.7-1.0) H 01/01/25 09:28 Estimated GFR 50 (59-) L 01/01/25 09:28 AST 48 U/L (14-36) H 01/01/25 09:28 ALT 87 U/L (6-35) H 01/01/25 09:28 Alkaline Phosphatase 159 U/L (38-126) H 01/01/25 09:28 Urine Appearance Cloudy (Clear) H 01/01/25 10:55 Urine Protein 2+ mg/dL (Negative) H 01/01/25 10:55 Urine Glucose (UA) Trace mg/dL (Negative) H 01/01/25 10:55 Urine Ketones 2+ mg/dL (Negative) H 01/01/25 10:55 Leukocyte Esterase Rfl 2+ SHANICE/UL (Negative) H 01/01/25 10:55 Urine WBC 21-50 /hpf (0-3) H 01/01/25 10:55 Most Recent Suicide Severity Rating Suicide Severity Rating NO RISK INDICATED 01/01/25 09:23
[2025-01-01] MEDS: SODIUM CHLORIDE 0.9% IV 1,000 ML 100 ML IV CONT ×2 (13:00→21:02)
--- NOTE | 2025-01-01 14:57 | PHAR ---
Home medication identified in pharmacy and returned to RN at window. Verzenio 150mg tablets
[2025-01-01] MEDS: EZETIMIBE 10 MG TABLET BY MOUTH (16:55)
--- NOTE | 2025-01-01 16:57 | PM.IMHP ---
H&P: HPI History of Present Illness Date/Time: 01/01/25 16:57 Chief Complaint: Nausea, vomiting, weakness Narrative: 59-year-old female with past medical history of DM 2, hyperlipidemia, anxiety, metastatic breast cancer s/p bilateral mastectomy presents to the ED on 01/01/2025 with complaints of nausea, vomiting, weakness for the past 3 days. Patient states she recently started taking Xgeva, prescribed by her oncologist Dr. Izquierdo. She has never experienced nausea and vomiting before in wonders if the new medication is causing it. She has Zofran ODT 8 mg at home which provided no relief for her. She did reach out to her oncologist office on Thursday and to update him. She has a follow-up appointment on January 10. Patient further endorses increased fatigue, describing how she has to rest after taking a shower. Patient denies cough, shortness of breath, fever. Reports diarrhea as a side effect of Verzenio. 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 She completed treatment with neoadjuvant chemotherapy with Adriamycin, Cytoxan, and Taxol cycle 4 in December 2020. Adjuvant radiation with Xeloda in April 2021. Xeloda cycle 6/6 completed in October 15, 2021. The PET scan on November 22 2024 showed extensive bone metastasis as well as mildly enlarged lymphadenopathy in the mediastinum, bilateral hilum and upper abdomen along with extensive pleural-based metastasis in small to moderate right-sided pleural effusion. Patient had left thoracentesis on 11/14 and again on 12/08, both of which were positive for malignancy. Initial vital signs 125/73, HR 90, respirations 16, afebrile and 97% on room air Labs revealed WBC 2.9, potassium 3.2, BUN 21, creatinine 1.1, AST 48, ALT 87, alk-phos 159. UA without infection Chest x-ray reveals large left and moderate right pleural effusions. ECG shows sinus rhythm Review of Systems Review of Systems: All systems reviewed & are unremarkable except as noted in HPI and below PMFSH Past Medical History Medical History 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 lower extremity Malignant inflammatory neoplasm of right breast Hair changes Type 2 diabetes mellitus treated with insulin group home (current) use of insulin Obesity (BMI 30.0-34.9) Suspected sleep apnea Generalized anxiety disorder Anxiety Hypercholesteremia Depression Surgical History Surgical History Hx of section Hx of cholecystectomy History of removal of Port-a-Cath H/O bilateral mastectomy History of hysterectomy Family History Family History Grandparent Family history of Alzheimer's disease Sibling Family history of malignant neoplasm of esophagus Social History Social History Smoking status: Never smoker Second hand tobacco smoke exposure: No Alcohol intake: never Substance use: never Substance use type: does not use Do You Feel Safe in your Home?: Yes Lack of Transportation: No Lack of Food: Never True Current Housing: I Have Housing Concerned About Future Housing: No Difficulty Paying Gas/Electric Bills: No Difficulty Paying for Meds: No Currently Unemployed: No Education: Bachelor's Degree Difficulty w/ Childcare or Family Care: No Living arrangements: with family Gender identity (if verbalized by the patient): Female Spiritual care concerns: No Meds Home Medications and Allergies Home Medications ?Medication ?Instructions ?Recorded ?Confirmed ?Type pen needle, diabetic 32 gauge x #200 ea 05/07/22 01/01/25 Rx (BD Joya 2nd Gen Pen Needle) atorvastatin 40 mg tablet 40 mg PO DAILY #90 tabs 02/12/24 01/01/25 Rx FreeStyle Ania 3 Plus Sensor #6 ea 03/03/24 01/01/25 Rx (blood-glucose sensor) semaglutide 2 mg/dose (8 mg/3 mL) See Rx Instructions .Route 07/12/24 01/01/25 Rx subcutaneous pen injector (Ozempic) .COMPLEX #9 mL levothyroxine 50 mcg tablet See Rx Instructions .Route 08/26/24 01/01/25 Rx .COMPLEX #90 tabs empagliflozin 25 mg tablet See Rx Instructions .Route 08/29/24 01/01/25 Rx (Jardiance) .COMPLEX #90 tabs ezetimibe 10 mg tablet See Rx Instructions .Route 10/24/24 01/01/25 Rx .COMPLEX #90 tabs buspirone 5 mg tablet 10 mg PO TID PRN anxiety 12/08/24 01/01/25 History abemaciclib 150 mg tablet 150 mg PO BID 12/26/24 01/01/25 History (Verzenio) citalopram 40 mg tablet See Rx Instructions .Route 12/26/24 01/01/25 Rx .COMPLEX #90 tabs aspirin 81 mg chewable tablet 81 mg PO DAILY 01/01/25 01/01/25 History (Don Chewable Low Dose Aspirin) ondansetron 8 mg disintegrating 8 mg PO Q8H PRN nausea and vomiting 01/01/25 01/01/25 History tablet Allergies Allergy/AdvReac Type Severity Reaction Status Date / Time metformin AdvReac Intermediate Gastrointestinal Verified 01/01/25 13:37 Upset Vital Signs Vital Signs - 24 hr 01/01/25 09:23 01/01/25 11:01 01/01/25 12:23 Temperature 97.6 F Pulse Rate 90 84 80 Respiratory Rate 16 20 12 Blood Pressure 125/73 106/57 L 108/64 Pulse Oximetry 97 94 95 Oxygen Delivery Room Air 01/01/25 12:29 01/01/25 13:54 Temperature 98.0 F Pulse Rate Respiratory Rate Blood Pressure Pulse Oximetry Oxygen Delivery Room Air Exam Narrative: GENERAL: non-toxic appearing, in no acute distress. HEAD: Normocephalic, atraumatic. EYES: PERRLA. Conjunctivae clear. NOSE: Normal no drainage. THROAT: Pharynx clear, no exudate. NECK: Trachea midline. No adenopathy, no masses. RESPIRATORY: Airway patent, respirations nonlabored. Right side clear to auscultation. Left side with decreased air movement. CARDIOVASCULAR: Regular rate and rhythm BREASTS: Bilateral mastectomy GASTROINTESTINAL: Abdomen is soft and nontender. Bowel sounds normal in all quadrants. GENITOURINARY: Defer MUSCULOSKELETAL: Moves all extremities. No gross deformities. No calf tenderness. SKIN: Warm, dry, normal color. NEURO: A&O X4. Speech clear PSYCHIATRIC: Normal interaction H&P: Results Labs Labs: Short CBC 01/01/25 Range/Units 09:28 WBC 2.9 L (4.5-10.0) K/mm3 Hgb 13.8 (12.0-15.0) g/dL Hct 43.8 (37.0-47.0) % Plt Count 175 (150-375) k/mm3 BMP 01/01/25 09:28 Sodium 141 Potassium 3.2 L Chloride 106 Carbon Dioxide 24 BUN 21 H Creatinine 1.10 H Glucose 109 Calcium 9.2 Liver Function 01/01/25 Range/Units 09:28 Total Bilirubin 0.8 (0.2-1.3) mg/dL AST 48 H (14-36) U/L ALT 87 H (6-35) U/L Alkaline Phosphatase 159 H (38-126) U/L Albumin 4.5 (3.5-5.1) g/dL Urine 01/01/25 Range/Units 10:55 Urine Color Yellow (Yellow) Urine Appearance Cloudy H (Clear) Urine pH 6.0 (5.0-9.0) Ur Specific [place] 1.025 (1.001-1.035) Urine Protein 2+ H (Negative) mg/dL Urine Glucose (UA) Trace H (Negative) mg/dL Assessment and Plan Assessment and plan (1) Nausea and vomiting: Qualifiers: Vomiting type: unspecified Qualified Code(s): R11.2 - Nausea with vomiting, unspecified Code(s): R11.2 - Nausea with vomiting, unspecified Status: Acute Assessment and Plan: Acute onset 3 days ago. Patient would at times feel nauseous and vomit or suddenly vomit without much warning. Patient attributes it to Xgeva, as it is a new medication for her. -symptom management with Zofran and Compazine p.r.n. (2) RUFUS (acute kidney injury): Code(s): N17.9 - Acute kidney failure, unspecified Status: Acute Assessment and Plan: Likely related to nausea and vomiting, decreased p.o. intake. Creatinine 1.1 a GFR of 50 on admit. Creatinine baseline 0.8 to 0.9. -NS at 100 -trend renal function (3) Pleural effusion: Code(s): J90 - Pleural effusion, not elsewhere classified Status: Acute Assessment and Plan: Patient had left thoracentesis on 11/14 and again on 12/08, both of which were positive for malignancy. Chest x-ray reveals large left and moderate right pleural effusions. -plan for left thoracentesis on 01/02 -cultures and cell count orders placed -patient has follow-up appointment with her oncologist on 01/10. PleurX catheter previously discussed with patient. (4) Type 2 diabetes mellitus with hyperglycemia: Qualifiers: Diabetes mellitus fdc insulin use: with terminal gauger supervisor use Qualified Code(s): E11.65 - Type 2 diabetes mellitus with hyperglycemia; Z79.4 - terminal gauger supervisor (current) use of insulin Code(s): E11.65 - Type 2 diabetes mellitus with hyperglycemia Status: Chronic Assessment and Plan: - hypoglycemia protocol - POC blood glucose ACHS - home medication: Jardiance and semaglutide - correct regimen ordered: Low-dose correctional sliding scale - follows with Endocrinology outpatient (5) Chronic anxiety: Code(s): F41.9 - Anxiety disorder, unspecified Status: Chronic Assessment and Plan: Continue buspirone 10 mg t.i.d. p.r.n. and citalopram Plan Diet: Consistent carb GI prophylaxis: NA DVT prophylaxis: SCDs lines/drains: PIV Fluids: NS at 100 started on 01/01 Code status: Full Quality VTE Prophylaxis VTE prophylaxis: mechanical ordered Hospitalist [facility] Advance Care Plan I have confirmed that the patient's Advanced Care Plan is present, code status is documented, or surrogate decision maker is listed in patient medical record.: Yes Medication Reconciliation I have utilized all available resources to obtain, update and review the patients current medications (includes all prescriptions, OTC, herbals, cannabis, and nutritional supplements).: Yes
[2025-01-02 05:46] LABS: Hematocrit 36.4 % (37.0-47.0); Hemoglobin 11.7 g/dL (12.0-15.0); Immature Granulocyte Percent A 0.4 % (0-0.5); Lymphocytes Absolute Auto 0.86 K/mm3 (0.9-3.2); Mean Corpuscular HGB Conc 32.1 g/dl (32-36); Mean Corpuscular Hemoglobin 29.4 pg (26-34); Mean Corpuscular Volume 91.5 fl (80-100); Nucleated Red Blood Cells Absolute Auto 0.000 K/mm3 (0.0-0.012); Nucleated Red Blood Cells Perc 0.0 % (0.0-0.2); Platelet Count Result 129 k/mm3 (150-375); Red Blood Count 3.98 M/mm3 (4.2-5.4); White Blood Count 2.2 K/mm3 (4.5-10.0)
[2025-01-02 06:00] VITALS: BP 129/71; PULSE 80; RESP 17; TEMP 36.2; O2SAT 95
[2025-01-02 06:11] LABS: Anion Gap 9 mmol/L (4-12); Blood Urea Nitrogen 17 mg/dL (7-17); Calcium 8.3 mg/dL (8.4-10.2); Carbon Dioxide 17 mmol/L (22-30); Chloride 112 mmol/L (98-107); Estimated CRCL calculation 53 ml/min; Estimated Glomerular Filt Rate > 60; Glucose 72 mg/dL (65-110); Potassium 3.2 mmol/L (3.4-5.0); Sodium 138 mmol/L (137-145)
[2025-01-02] MEDS: LEVOTHYROXINE SODIUM 50 MCG TABLET BY MOUTH (06:41)
[2025-01-02] MEDS: ONDANSETRON INJ 4 MG/2 ML VIAL IV PUSH (06:53)
[2025-01-02] MEDS: EZETIMIBE 10 MG TABLET BY MOUTH (08:31)
[2025-01-02] MEDS: ATORVASTATIN 40 MG TABLET PO (08:31)
[2025-01-02] MEDS: PROMETHAZINE HCL 25 MG/ML AMPUL 12.5 MG IV PUSH (08:31)
[2025-01-02] MEDS: ASPIRIN 81 MG CHEWABLE TABLET PO (08:31)
[2025-01-02] MEDS: CITALOPRAM HYDROBROMIDE 20 MG TABLET 40 MG BY MOUTH (08:31)
[2025-01-02 08:59] LABS: INR 1.1; Partial Thromboplastin Time 23.5 Seconds (22.3-36.8); Prothrombin Time 14.5 Seconds (11.1-14.7)
--- NOTE | 2025-01-02 10:16 | P.PNIM_ITS ---
Progress Note: A&P Assessment and Plan (1) Nausea and vomiting: Qualifiers: Vomiting type: unspecified Qualified Code(s): R11.2 - Nausea with vomiting, unspecified Code(s): R11.2 - Nausea with vomiting, unspecified Status: Acute (2) Pleural effusion, left: Code(s): J90 - Pleural effusion, not elsewhere classified Status: Acute Plan Malignant pleural effusion Stage IV breast cancer -patient has large left pleural malignant pleural effusion, has had thoracentesis twice before -patient planned to have thoracentesis today -called and discussed with Radiology, we are unable to perform PleurX catheter in this hospital. She will need outpatient follow-up with PCP and Oncology to help arrange for PleurX catheter placement -patient to follow-up with oncology for further management of stage IV breast cancer, on Verzenio -antibiotics: Continue promethazine and ondansetron Chronic conditions -hypothyroidism: Levothyroxine -hyperlipidemia: Zetia, aspirin, statin -type 2 diabetes: Sliding scale insulin, Accu-Cheks a.c. HS, hypoglycemia protocol -depression: Citalopram, BuSpar Diet: Diabetic diet DVT prophylaxis: SCDs Code status: Full code Disposition: Home after thoracentesis if she can tolerate PO intake Time Spent With Patient Time: 35 minutes Subjective Date/time seen: 01/02/25 10:16 Interval history: Patient seen examined. Patient is undergoing chemotherapy for breast cancer stage IV. She is having recurrent malignant effusions needing frequent thoracentesis. She now presents with a large recurrent left effusion which we will plan for thoracentesis today. I discussed with Radiology we do not have an interventional radiologist to place a PleurX catheter in this hospital. She will need outpatient follow-up at different facility that can perform the procedure. Patient is otherwise asymptomatic. Her nausea is improved with promethazine. She states that helps better than the Zofran. Will perform thoracentesis and discharged with different antiemetics. She is to follow-up with PCP and her oncologist to help arrange PleurX catheter placement and ongoi ng management of cancer. Review of Systems Review of Systems: 10 point ROS complete, negative other th an what is specified in HPI. Exam Narrative: - GENERAL: Pleasant woman in No acute d istress. Well-nourished. - EYES: EOMI. Anicteric. - HENT: Moist mucous membranes. - LUNGS: Clear to auscultation bilateral ly, no wheezing, rhonchi, or rales. - CARDIOVASCULAR: Regular rate and rhyth m. - ABDOMEN: Soft, non-tender and non-dist ended. - EXTREMITIES: No edema. Peripheral puls es 2+ - NEUROLOGIC: No focal neurological defi cits. CN II-XII grossly intact. - PSYCHIATRIC: Awake, Alert and oriented x 3. Appropriate mood and affect. Objective Data Vital Signs Vital Signs: Vital Signs - 24 hr 01/01/25 11:01 01/01/25 12:23 01/01/25 12:29 Temperature 36.7 C Pulse Rate 84 80 Respiratory Rate 20 12 Blood Pressure 106/57 L 108/64 Pulse Oximetry 94 95 Oxygen Delivery 01/01/25 13:54 01/01/25 14:00 01/01/25 20:00 Temperature 36.1 C L 35.6 C L Pulse Rate 85 87 Respiratory Rate 12 17 Blood Pressure 101/66 121/73 Pulse Oximetry 93 94 Oxygen Delivery Room Air 01/01/25 20:00 01/01/25 21:25 01/01/25 23:37 Temperature 35.6 C L 35.8 C L Pulse Rate 87 92 Respiratory Rate 17 18 Blood Pressure 121/73 116/101 H Pulse Oximetry 94 97 Oxygen Delivery Room Air 01/02/25 06:00 01/02/25 08:45 Temperature 36.2 C L Pulse Rate 80 Respiratory Rate 17 Blood Pressure 129/71 Pulse Oximetry 95 Oxygen Delivery Room Air Intake/Output Intake/Output: Intake & Output 12/30/24 12/31/24 01/01/25 01/02/25 23:59 23:59 23:59 23:59 Intake Total 1003.3 Balance 1003.3 Meds/Results Medications: Active Medications Generic Name Dose Route Start Last Admin Trade Name Freq PRN Reason Stop Dose Admin Acetaminophen 650 mg 01/01/25 11:23 Acetaminophen 325 Mg Tablet PO Q4H PRN Mild Pain (1-3) or Fever Aspirin 81 mg 01/02/25 09:00 01/02/25 08:31 Aspirin 81 Mg Chewable Tablet PO 81 mg DAILY PATT Administration Atorvastatin Calcium 40 mg 01/02/25 09:00 01/02/25 08:31 Atorvastatin 40 Mg Tablet PO 40 mg DAILY PATT Administration Buspirone HCl 10 mg 01/01/25 13:52 Buspirone Hcl 5 Mg Tablet PO TID PRN Anxiety Citalopram Hydrobromide 40 mg 01/01/25 13:55 01/02/25 08:31 Citalopram Hydrobromide 20 Mg Tablet BY MOUTH 40 mg DAILY PATT Administration Dextrose 12.5 gm 01/01/25 13:18 Dextrose 50% 25 Gm/50 Ml Syringe IV PUSH PRN PRN Hypoglycemia Protocol Ezetimibe 10 mg 01/01/25 13:55 01/02/25 08:31 Ezetimibe 10 Mg Tablet BY MOUTH 10 mg DAILY PATT Administration Glucagon 1 mg 01/01/25 13:18 Glucagon For Inj 1 Mg Vial IM PRN PRN Hypoglycemia Protocol Glucose 15 gm 01/01/25 13:18 Glucose Oral Gel 15 Gm Of Glucse In 37.5 Gm Tube PO PRN PRN Hypoglycemia Protocol Dextrose 1,000 mls @ 100 mls/hr 01/01/25 13:18 Dextrose 5% 1,000 Ml IVPB PRN PRN Hypoglycemia Protocol Insulin Aspart 2 - 5 units 01/01/25 17:00 01/02/25 08:30 Insulin Aspart (*Bkc) 100 Units/Ml SUB-Q Not Given TIDWM [facility] Protocol Levothyroxine Sodium 50 mcg 01/02/25 06:30 01/02/25 06:41 Levothyroxine Sodium 50 Mcg Tablet BY MOUTH 50 mcg DAILY@0630 PATT Administration Abemaciclib [ 150 mg 01/01/25 17:00 01/02/25 08:32 Verzenio] 150 Mg PO 01/31/25 16:59 150 mg Tablet *Use Home BID PATT Administration Supply* Ondansetron HCl 4 mg 01/01/25 11:23 01/02/25 06:53 Ondansetron Inj 4 Mg/2 Ml Vial IV PUSH 4 mg Q4H PRN Administration Nausea Promethazine HCl 12.5 mg 01/01/25 11:23 01/02/25 08:31 Promethazine Hcl 25 Mg/Ml Ampul IV PUSH 12.5 mg Q6H PRN Administration Nausea Radiology Results: ITS Impressions Chest X-Ray 01/01/25 10:08 IMPRESSION: 1. Large left and moderate right pleural effusions. Labs Labs: Laboratory Results - last 24 hr 01/01/25 01/01/25 01/01/25 10:55 16:43 20:17 WBC RBC Hgb Hct MCV MCH MCHC RDW Plt Count MPV Immature Gran % (Auto) Neut % (Auto) Lymph % (Auto) [place] % (Auto) Eos % (Auto) Baso % (Auto) Lymph # (Auto) [place] # (Auto) Eos # (Auto) Baso # (Auto) Abs Immat Gran (auto) Absolute Neuts (auto) Absolute Nucleated RBC Nucleated RBC % PT INR APTT Sodium Potassium Chloride Carbon Dioxide Anion Gap BUN Creatinine Estim Creat Clear Calc Estimated GFR Glucose POC Capillary Glucose 90 101 Calcium Urine Color Yellow Urine Appearance Cloudy H Urine pH 6.0 Ur Specific [place] 1.025 Urine Protein 2+ H Urine Glucose (UA) Trace H Urine Ketones 2+ H Ur Blood (Man) Negative Urine Nitrate Negative Urine Bilirubin Negative Urine Urobilinogen 1.0 Add Ur Microanalysis Reviewed Leukocyte Esterase Rfl 2+ H Urine RBC 0-2 Urine WBC 21-50 H Ur Squamous Epith Cells Moderate Urine Bacteria None seen Urine Casts >20 Hyaline Casts Present 01/02/25 01/02/25 01/02/25 05:21 07:28 08:33 WBC 2.2 L RBC 3.98 L Hgb 11.7 L Hct 36.4 L MCV 91.5 MCH 29.4 MCHC 32.1 RDW 13.5 Plt Count 129 L MPV 9.7 Immature Gran % (Auto) 0.4 Neut % (Auto) 46.9 Lymph % (Auto) 38.4 [place] % (Auto) 8.9 H Eos % (Auto) 4.5 H Baso % (Auto) 0.9 Lymph # (Auto) 0.86 L [place] # (Auto) 0.2 Eos # (Auto) 0.1 Baso # (Auto) 0.0 Abs Immat Gran (auto) 0.01 Absolute Neuts (auto) 1.1 L Absolute Nucleated RBC 0.000 Nucleated RBC % 0.0 PT 14.5 INR 1.1 APTT 23.5 Sodium 138 Potassium 3.2 L Chloride 112 H Carbon Dioxide 17 L Anion Gap 9 BUN 17 Creatinine 0.84 Estim Creat Clear Calc 53 Estimated GFR > 60 Glucose 72 POC Capillary Glucose 88 Calcium 8.3 L Urine Color Urine Appearance Urine pH Ur Specific [place] Urine Protein Urine Glucose (UA) Urine Ketones Ur Blood (Man) Urine Nitrate Urine Bilirubin Urine Urobilinogen Add Ur Microanalysis Leukocyte Esterase Rfl Urine RBC Urine WBC Ur Squamous Epith Cells Urine Bacteria Urine Casts Hyaline Casts
[2025-01-02 12:20] VITALS: BMI 24.2
[2025-01-02 12:27] LABS: Appearance Pleural Fluid Cloudy (Clear); Color Pleural Fluid Red (Colorless); Nucleated Cell Pleural Fluid 205 /uL (0-1000)
[2025-01-02 14:00] VITALS: BP 116/81; PULSE 92; RESP 16; TEMP 36.7; O2SAT 93
--- NOTE | 2025-01-02 16:57 | WPDONCCN ---
Assessment and Plan Assessment and plan (1) Nausea and vomiting: Qualifiers: Vomiting type: unspecified Qualified Code(s): R11.2 - Nausea with vomiting, unspecified Code(s): R11.2 - Nausea with vomiting, unspecified Status: Acute Assessment and Plan: Acute onset 3 days ago thought to be secondary to the addition of Xgeva. Phenergan resolved the issue (2) RUFUS (acute kidney injury): Code(s): N17.9 - Acute kidney failure, unspecified Status: Acute Assessment and Plan: Likely secondary to N/V. iv fluids. (3) Pleural effusion: Code(s): J90 - Pleural effusion, not elsewhere classified Status: Acute Assessment and Plan: S/P left thoracentesis on 11/14 and again on 12/08, both of which were positive for malignancy. Chest x-ray reveals large left and moderate right pleural effusions. -S/P left thoracentesis on 01/02 -cultures and cell count ordered. 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 p.r.n. and citalopram Plan Keep previously scheduled f/u appt with Dr. Izquierdo. Discharge with prescription for phenergan. HPI Data of Consult Date/Time: 01/02/25 16:57 Requesting Physician: Demarcus Locke DO Primary Care Provider: Brianne YusufMD Consult Narrative Narrative: Kassy Maher is a 59 year old female with metastatic breast cancer, [id number] stage IV ER [place] positive HER2/quentin negative right sided inflammatory breast cancer, currently undergoing therapy with Verzenio and Arimidex and admitted to the hospital with nausea, vomiting and generalized weakness. She reports that she recently started to take Xgeva. She has Zofran ODT 8 mg q 8 hours prn at home which was providing no relief. She has no fever, chills, SOB or CP. N/V. Abdominal discomfort due to the vomiting. Diarrhea that she thinks is from the Verzenio. Treatment history: Inflammatory (R) breast cancer. [id number] stage IV ER [place] positive HER2/quentin negative. S/P neoadjuvant chemotherapy with Adriamycin, Cytoxan, and Taxol cycle 4 in December 2020. Adjuvant radiation with Xeloda in April 2021. Xeloda cycle 6/6 completed in October 15, 2021. The PET scan on November 22 2024 showed extensive bone metastasis as well as mildly enlarged lymphadenopathy in the mediastinum, bilateral hilum and upper abdomen along with extensive pleural-based metastasis in small to moderate right-sided pleural effusion. S/P left thoracentesis on 11/14/24 and again on 12/08/24, both of which were positive for malignancy. The patient and I had spoken on the phone about her N/V. She only had Zofran at home. She was told to come to the ER should a second dose of Zofran not work due to the late hour. CXR (01/01/25): 1. Large left and moderate right pleural effusions. Labs: (01/01/25): WBC 2.9, Hgb 13.8, Hct 43.8, Plt 309, BUN 21, crea 1.10, AST 48, ALT 87, AP 159 (01/02/25); WBC 2.2, ANC 1.1, Hgb 11.7, Hct 36.4, Plt 129, BUN 17, crea 0.84. Today, 01/02/25, the patient is doing much better. She had a thoracocentesis done. She was surprised that she had so much fluid as she did not feel SOB. Her nausea/vomiting has resolved with phenergan. Impression: Metastatic breast cancer - Continue currently therapy N/V - Continue Zofran prn - Phenergan prn helped. - No need for the addition of decadron at this time given her marked improvement with phenergan. Bilateral pleural effusion - S/P thoracocentesis earlier today. Okay to discharge from Oncology standpoint. Thank you. Review of Systems Eyes: Comments: Aniceric sclerae ENT: Comments: No oral lesions Cardiovascular: Comments: RRR Respiratory: Comments: No SOB on admssion. S/P thoracocentesis earlier today. Gastrointestinal: Comments: N/V on admission; now resolved. Musculoskeletal: Comments: No swelling of LE Neurologic: Comments: No headaches PMFSH Past Medical History Medical History 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 lower extremity Malignant inflammatory neoplasm of right breast Hair changes Type 2 diabetes mellitus treated with insulin senior living (current) use of insulin Obesity (BMI 30.0-34.9) Suspected sleep apnea Generalized anxiety disorder Anxiety Hypercholesteremia Depression Surgical History Surgical History Hx of section Hx of cholecystectomy History of removal of Port-a-Cath H/O bilateral mastectomy History of hysterectomy Family History Family History Grandparent Family history of Alzheimer's disease Sibling Family history of malignant neoplasm of esophagus Social History Social History Smoking status: Never smoker Second hand tobacco smoke exposure: No Alcohol intake: never Substance use: never Substance use type: does not use Do You Feel Safe in your Home?: Yes Lack of Transportation: No Lack of Food: Never True Current Housing: I Have Housing Concerned About Future Housing: No Difficulty Paying Gas/Electric Bills: No Difficulty Paying for Meds: No Currently Unemployed: No Education: Bachelor's Degree Difficulty w/ Childcare or Family Care: No Living arrangements: with family Gender identity (if verbalized by the patient): Female Spiritual care concerns: No Meds Home Medications and Allergies Home Medications ?Medication ?Instructions ?Recorded ?Confirmed ?Type pen needle, diabetic 32 gauge x #200 ea 05/07/22 01/01/25 Rx (BD Joya 2nd Gen Pen Needle) atorvastatin 40 mg tablet 40 mg PO DAILY #90 tabs 02/12/24 01/01/25 Rx FreeStyle Ania 3 Plus Sensor #6 ea 03/03/24 01/01/25 Rx (blood-glucose sensor) semaglutide 2 mg/dose (8 mg/3 mL) See Rx Instructions .Route 07/12/24 01/01/25 Rx subcutaneous pen injector (Ozempic) .COMPLEX #9 mL levothyroxine 50 mcg tablet See Rx Instructions .Route 08/26/24 01/01/25 Rx .COMPLEX #90 tabs empagliflozin 25 mg tablet See Rx Instructions .Route 08/29/24 01/01/25 Rx (Jardiance) .COMPLEX #90 tabs ezetimibe 10 mg tablet See Rx Instructions .Route 10/24/24 01/01/25 Rx .COMPLEX #90 tabs buspirone 5 mg tablet 10 mg PO TID PRN anxiety 12/08/24 01/01/25 History abemaciclib 150 mg tablet 150 mg PO BID 12/26/24 01/01/25 History (Verzenio) citalopram 40 mg tablet See Rx Instructions .Route 12/26/24 01/01/25 Rx .COMPLEX #90 tabs aspirin 81 mg chewable tablet 81 mg PO DAILY 01/01/25 01/01/25 History (Don Chewable Low Dose Aspirin) ondansetron 8 mg disintegrating 8 mg PO Q8H PRN nausea and vomiting 01/01/25 01/01/25 History tablet Allergies Allergy/AdvReac Type Severity Reaction Status Date / Time metformin AdvReac Intermediate Gastrointestinal Verified 01/01/25 13:37 Upset Vital Signs Vital Signs - 24 hr 01/01/25 20:00 01/01/25 20:00 01/01/25 21:25 Temperature 35.6 C L 35.6 C L Pulse Rate 87 87 Respiratory Rate 17 17 Blood Pressure 121/73 121/73 Pulse Oximetry 94 94 Oxygen Delivery Room Air 01/01/25 23:37 01/02/25 06:00 01/02/25 08:45 Temperature 35.8 C L 36.2 C L Pulse Rate 92 80 Respiratory Rate 18 17 Blood Pressure 116/101 H 129/71 Pulse Oximetry 97 95 Oxygen Delivery Room Air 01/02/25 14:00 Temperature 36.7 C Pulse Rate 92 Respiratory Rate 16 Blood Pressure 116/81 Pulse Oximetry 93 Oxygen Delivery Exam Const: Other: Well groomed female HENMT: Other: No oral lesions Eyes: Other: Anicteric sclerae Resp: Other: Bilateral air entry Cardio: Other: RRR GI: Other: Abd benign Skin: Other: No rashes Neuro: Other: Alert and awake. Grossly nonfocal. Results Labs 01/02/25 05:21 01/02/25 05:21 Labs: Short CBC 01/02/25 Range/Units 05:21 WBC 2.2 L (4.5-10.0) K/mm3 Hgb 11.7 L (12.0-15.0) g/dL Hct 36.4 L (37.0-47.0) % Plt Count 129 L (150-375) k/mm3 BMP 01/02/25 05:21 Sodium 138 Potassium 3.2 L Chloride 112 H Carbon Dioxide 17 L BUN 17 Creatinine 0.84 Glucose 72 Calcium 8.3 L
--- NOTE | 2025-01-02 17:47 | PM.DS ---
DS: Admitting Diagnosis Discharge Date 01/02/25 Admitting Diagnosis Recurrent malignant left pleural effusion DS: Discharge Diagnosis Discharge Diagnosis (1) Malignant pleural effusion: Code(s): J91.0 - Malignant pleural effusion Status: Acute (2) Pleural effusion, left: Code(s): J90 - Pleural effusion, not elsewhere classified Status: Acute Plan Malignant pleural effusion Stage IV breast cancer -patient has large left pleural malignant pleural effusion, has had thoracentesis twice before -thoracentesis 01/02/25 removed 1000 mL -called and discussed with Radiology, we are unable to perform PleurX catheter in this hospital. She will need outpatient follow-up with PCP and Oncology to help arrange for PleurX catheter placement -patient to follow-up with oncology for further management of stage IV breast cancer, on Verzenio -antiemetic: Continue promethazine and ondansetron. She appears to be doing well with the promethazine, will give prescription Chronic conditions -hypothyroidism: Levothyroxine -hyperlipidemia: Zetia, aspirin, statin -type 2 diabetes: Sliding scale insulin, Accu-Cheks a.c. HS, hypoglycemia protocol -depression: Citalopram, BuSpar Diet: Diabetic diet Code status: Full code Disposition: Home DS: Summary Hospital Course Reason for hospitalization: Weakness, nausea vomiting, pleural effusion Hospital Course: Patient is a 59-year-old female with medical history of type 2 diabetes, hyperlipidemia, anxiety, metastatic breast cancer status post bilateral mastectomy [id number] stage IV ER [place] positive HER2/quentin negative right sided inflammatory breast cancer, currently undergoing therapy with Verzenio/Arimidex/Xgeva with recurrent left malignant pleural effusions who presents with nausea vomiting and weakness. She follows with Dr. Izquierdo. Over last 6 weeks, her effusions are worsening, requiring thoracentesis twice now (11/14 and 12/08 both positive for malignancy). She now presents with recurrence of effusion. I discussed with her that she may benefit from a PleurX catheter. We are unable to place PleurX catheter is in this hospital. She will need to follow-up with her PCP or oncology to arrange a PleurX catheter to prevent frequent hospitalizations. Patient had a thoracentesis 01/02 removing 1 L of reddish daniel color fluid. Patient complained about nausea and unable to tolerate p.o. intake. Outpatient she is on ondansetron. We trialed promethazine which is helping significantly, will give Rx for promethazine. Patient was hospitalized 01/01-01/02. At time of discharge, her labs are stable, vitals are stable, patient is stable for discharge home. Patient to follow-up with PCP and Oncology for ongoing management of her breast cancer with malignant effusion. Patient understands and agrees with plan. Status at Discharge Cognitive/behavioral status at discharge: Baseline Time Spent with Patient Time attestation: Total time spent providing and/or coordinating discharge services: 35 minutes Exam Narrative: - GENERAL: Pleasant woman in No acute distress. Well-nourished. - EYES: EOMI. Anicteric. - HENT: Moist mucous membranes. - LUNGS: Clear to auscultation bilaterally, no wheezing, rhonchi, or rales. - CARDIOVASCULAR: Regular rate and rhythm. - ABDOMEN: Soft, non-tender and non-distended. - EXTREMITIES: No edema. Peripheral pulses 2+ - NEUROLOGIC: No focal neurological deficits. CN II-XII grossly intact. - PSYCHIATRIC: Awake, Alert and oriented x 3. Appropriate mood and affect. DS: Data Data Completed and Pending Labs on day of discharge: Labs from last 24 hours 01/02/25 01/02/25 01/02/25 16:44 11:23 10:48 WBC RBC Hgb Hct MCV MCH MCHC RDW Plt Count MPV Immature Gran % (Auto) Neut % (Auto) Lymph % (Auto) [facility] % (Auto) Eos % (Auto) Baso % (Auto) Lymph # (Auto) [facility] [facility] # (Auto) Eos # (Auto) Baso # (Auto) Abs Immat Gran (auto) Absolute Neuts (auto) Absolute Nucleated RBC Nucleated RBC % PT INR APTT Sodium Potassium Chloride Carbon Dioxide Anion Gap BUN Creatinine Estim Creat Clear Calc Estimated GFR Glucose POC Capillary Glucose 79 84 Calcium Pleural Fluid Source Pleural fluid Pleural Color Red Pleural Appearance Cloudy Pleural RBC 7000 Pleural Nuc Cells 205 Pleural Lymphocytes 10 Pleural Macrophages 90 01/02/25 01/02/25 01/02/25 08:33 07:28 05:21 WBC 2.2 L RBC 3.98 L Hgb 11.7 L Hct 36.4 L MCV 91.5 MCH 29.4 MCHC 32.1 RDW 13.5 Plt Count 129 L MPV 9.7 Immature Gran % (Auto) 0.4 Neut % (Auto) 46.9 Lymph % (Auto) 38.4 [facility] % (Auto) 8.9 H Eos % (Auto) 4.5 H Baso % (Auto) 0.9 Lymph # (Auto) 0.[address] [place] # (Auto) 0.2 Eos # (Auto) 0.1 Baso # (Auto) 0.0 Abs Immat Gran (auto) 0.01 Absolute Neuts (auto) 1.1 L Absolute Nucleated RBC 0.000 Nucleated RBC % 0.0 PT 14.5 INR 1.1 APTT 23.5 Sodium 138 Potassium 3.2 L Chloride 112 H Carbon Dioxide 17 L Anion Gap 9 BUN 17 Creatinine 0.84 Estim Creat Clear Calc 53 Estimated GFR > 60 Glucose 72 POC Capillary Glucose 88 Calcium 8.3 L Pleural Fluid Source Pleural Color Pleural Appearance Pleural RBC Pleural Nuc Cells Pleural Lymphocytes Pleural Macrophages 01/01/25 20:17 WBC RBC Hgb Hct MCV MCH MCHC RDW Plt Count MPV Immature Gran % (Auto) Neut % (Auto) Lymph % (Auto) [facility] % (Auto) Eos % (Auto) Baso % (Auto) Lymph # (Auto) [facility] # (Auto) Eos # (Auto) Baso # (Auto) Abs Immat Gran (auto) Absolute Neuts (auto) Absolute Nucleated RBC Nucleated RBC % PT INR APTT Sodium Potassium Chloride Carbon Dioxide Anion Gap BUN Creatinine Estim Creat Clear Calc Estimated GFR Glucose POC Capillary Glucose 101 Calcium Pleural Fluid Source Pleural Color Pleural Appearance Pleural RBC Pleural Nuc Cells Pleural Lymphocytes Pleural Macrophages Imaging Radiologist's impression: CXR 01/02 IMPRESSION: Improved inflation and aeration of the left lung post thoracentesis; moderate-sized effusion persists. Alveolar changes in the right lung base may represent developing pneumonia or pulmonary edema. Thoracentesis 01/02 IMPRESSION: 1. Successful ultrasound-guided thoracentesis yielding 1000 mL of reddish daniel-colored fluid. Discharge Plan Discharge Attending physician on discharge: Debra Locke Consulting providers: Cuco Izquierdo Discharging Clinician: Debra Locke Anticipated Discharge Date/Time: 01/02/25 17:43 Patient Disposition: Home Activity: as tolerated Diet: regular Discharge Instructions: Please follow-up with your oncologist for possibly placing a PleurX catheter outpatient. I will give promethazine which you can alternate with ondansetron to help with nausea. Follow-up with PCP/oncology for further management of nausea. Patient Instructions: Antibiotic Form, Promethazine (By mouth) Patient Language: Azeri Stand Alone Forms: General Discharge Information Follow-up/Referrals: Cuco Izquierdo MD [Physician, Hematology] - Call for Appointment Bird,MD Brianne [Primary Care Provider, Family Practice] - 1 Week Discharge Medications: New promethazine 25 mg tablet 25 mg PO TID PRN (Reason: nausea and vomiting) 30 Days Qty: 90 0RF Continued Verzenio 150 mg tablet 150 mg PO BID atorvastatin 40 mg tablet 40 mg PO DAILY Qty: 90 5RF buspirone 5 mg tablet 10 mg PO TID PRN (Reason: anxiety) aspirin [Don Chewable Aspirin] 81 mg tablet,chewable 81 mg PO DAILY ondansetron 8 mg tablet,disintegrating 8 mg PO Q8H PRN (Reason: nausea and vomiting) (DME) pen needle, diabetic [BD Joya 2nd Gen Pen Needle] 32 gauge x 5/32 needle See Rx Instructions .ROUTE .COMPLEX Qty: 200 11RF Dose Instruction: USE TO INJECT INSULIN TWICE A DAY Rx Instructions: USE TO INJECT INSULIN FIVE TIMES A DAY (DME) FreeStyle Ania 3 Plus Sensor Device See Rx Instructions .Route Qty: 6 1RF Rx Instructions: change sensor every 15 days Ozempic 2 mg/dose (8 mg/3 mL) pen injector See Rx Instructions .ROUTE .COMPLEX Qty: 9 2RF Dose Instruction: INJECT 2 MG ONCE A WEEK Rx Instructions: INJECT 2 MG ONCE A WEEK levothyroxine 50 mcg tablet See Rx Instructions .ROUTE .COMPLEX Qty: 90 2RF Dose Instruction: Take 1 tablet by mouth once daily Rx Instructions: Take 1 tablet by mouth once daily Jardiance 25 mg tablet See Rx Instructions .ROUTE .COMPLEX Qty: 90 1RF Dose Instruction: Take 1 tablet by mouth once daily Rx Instructions: Take 1 tablet by mouth once daily ezetimibe 10 mg tablet See Rx Instructions .ROUTE .COMPLEX Qty: 90 3RF Dose Instruction: Take 1 tablet by mouth once daily Rx Instructions: Take 1 tablet by mouth once daily citalopram 40 mg tablet See Rx Instructions .ROUTE .COMPLEX Qty: 90 1RF Dose Instruction: TAKE 1 TABLET BY MOUTH EVERY DAY Rx Instructions: TAKE 1 TABLET BY MOUTH EVERY DAY Date of admission: 01/01/25 11:23 Primary Care Provider: ParamjitBrianne Admitting Provider: Debra Locke Attending physician on admission: Debra Locke Condition: Stable
[2025-01-03 09:45] LABS: Lymphocytes Pleural Fluid 63 %; Macrophages Pleural Fluid 8 %; Mesothelial Cells Pleural Flui 29 %
== END 2025-01-02 18:25 | disposition home or self-care (01) ==
LOC: ANHED 11:22 → ANH3MEDSUR 12:30
PROVIDERS: Nurse Practitioner Adult Health; Student in an Organized Health Care Education/Training Program; Admitting Provider Student in an Organized Health Care Education/Training Program; Emergency Provider Family Medicine; PCP Family Medicine; Visit Provider Student in an Organized Health Care Education/Training Program
DX: R11.2 Nausea with vomiting, unspecified (principal); N17.9 Acute kidney failure, unspecified; C50 Malignant neoplasm of breast; C79.51 Secondary malignant neoplasm of bone; C78.2 Secondary malignant neoplasm of pleura; J91.0 Malignant pleural effusion; Z17.32 Human epidermal growth factor receptor 2 negative status; J98.11 Atelectasis; R94.31 Abnormal electrocardiogram [ECG] [EKG]; E78.00 Pure hypercholesterolemia, unspecified; E03.9 Hypothyroidism, unspecified; E11.65 Type 2 diabetes mellitus with hyperglycemia; Z79.4 Long term (current) use of insulin; F41.9 Anxiety disorder, unspecified; F32.A Depression, unspecified; Z79.82 Long term (current) use of aspirin; Z79.811 Long term (current) use of aromatase inhibitors; Z79.85 Long-term (current) use of injectable non-insulin antidiabetic drugs; Z79.84 Long term (current) use of oral hypoglycemic drugs; Z90.13 Acquired absence of bilateral breasts and nipples; Z90.49 Acquired absence of other specified parts of digestive tract; Z90.710 Acquired absence of both cervix and uterus; Z80.0 Family history of malignant neoplasm of digestive organs; Z81.8 Family history of other mental and behavioral disorders
CPT/HCPCS: 32555; 36415; 71046; 80048; 80053; 81001; 82948; 85025; 85610; 85730; 89051; 93005; 96361; 96374; 96375; 99285; A9270; G0378; J2405; J2550; J7030

== ENCOUNTER 2025-02-07 08:22 | Outpatient (CLI) | payer OTHER, SELFPAY ==
--- OUTSIDE RECORDS SUMMARY | 2025-02-07 08:27 | XMS_ITS | Encounter Summary ---
Author Organization [facility] Address 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 No / Unsure 02/05/2021 12:22 PM WEEDER THINNER documented as of this encounter Plan of Treatment Upcoming Encounters Date Type Department Care Team (Late Contact Info) Description 02/07/2025 8:30 AM WEEDER THINNER Office Visit [facility] Oncology and Hematology - [place] [address] [facility] [address] [place] [address] Mino Martinez MD [address] [address] documented as of this encounter Visit Diagnoses Not on filedocumented in this encounter Care Teams [employer] Relationship Specialty Start Date End Date Brianne Yusuf MD [address] [place] [address] PCP - General Family Practice 08/17/20 documented as of this encounter
--- OUTSIDE RECORDS SUMMARY | 2025-02-07 08:28 | XMS_ITS ---
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 Primary Care: Brianne Yusuf MD Referring Provider: Brianne Yusuf MD [facility] [place] [address] Other: Dr. Kerry Correia MD Problem Noted Date Diagnosed Date S/P bilateral mastectomy 03/07/2021 Hard to intubate 01/30/2021 Inflammatory breast cancer, right 08/23/2020 Cancer Staging:Clinical stage from 08/23/2020:Stage IIIB(cT4b, cN1(f), cM0, G2, ER+, DC+, HER2-) - Signed by Kerry Correia MD [...]
--- OUTSIDE RECORDS SUMMARY | 2025-02-07 08:28 | XMS_ITS | Clinical Summary ---
Author Organization [employer] S[place] Address [address] [place] [address] Phone Care Team Providers Care Reproduction Order Processor Name Role Phone Brianne Yusuf MD Primary Care Provider Allergies Active Allergy Reactions Criticality Noted Date [...] (MAGIC MOUTHWASH) oral suspension compound 2 Active BD Joya 2nd Gen Pen [...] 50 mcg by mouth daily. 4 Active abemaciclib (Verzenio) 150 mg tablet Take 1 tablet (150 mg) by mouth 2 times daily. 56 Tablet 4 12/15/2024 11:49 AM CDT 5 Active abemaciclib (Verzenio) 150 mg tablet Take 1 Tablet (150 mg) by mouth 2 times daily. 60 Tablet 2 5 Active ondansetron (ZOFRAN ODT) 8 mg Tablet, Rapid Dissolve Dissolve 1 tablet on top of tongue then swallow with saliva every 8 hours as needed for nausea or vomiting 30 Tablet 1 5 Active promethazine (PHENERGAN) 25 mg tablet Take 25 mg by mouth every 6 hours as needed. 5 Active potassium CHLORIDE (K-DUR,KLOR-CON M20) 20 mEq Extended Release tablet Take 1 Tablet (20 mEq) by mouth daily. 30 Tablet 2 5 Active Active Problems Patient Care Coordination No te Formatting of this note migh t be different from the original. Primary Care: Brianne Yusuf MD Referring Provider: Brianne Yusuf MD [facility] [place] [address] Other: Dr. Kerry Correia MD Problem Noted Date Diagnosed Date S/P bilateral mastectomy 03/07/2021 Hard to intubate 01/30/2021 Inflammatory breast cancer, right 08/23/2020 Cancer Staging:Clinical stage from 08/23/2020:Stage IIIB(cT4b, cN1(f), cM0, G2, ER+, TN+, HER2-) - Signed by Kerry Correia MD on 08/23/2020 Encounters Date Type Department Care Team Description 01/30/2025 Orders Only [facility] Oncology and Hematology [address] [place] [phone] Cuco Izquierdo MD Inflammatory breast cancer, right 01/18/2025 Orders Only [facility] Oncology and Hematology [facility] [address] [place] [phone] Cuco Izquierdo MD 01/16/2025 Orders Only [facility] Oncology and Hematology [facility] [address] [place] [phone] Cuco Izquierdo MD Inflammatory breast cancer, right (Primary Dx) 01/16/2025 Orders Only [facility] Oncology and Hematology [facility] [address] [place] [address] Cuco Izquierdo MD Inflammatory breast cancer, right 01/10/2025 8:30 AM FUSE CUTTER Office Visit [facility] Oncology and Hematology [facility] [address] [place] [phone] Cuco Izquierdo MD Inflammatory breast cancer, right (Primary Dx) 01/10/2025 Orders Only [facility] Oncology and Hematology [facility] [address] [place] [phone] Cuco Izquierdo MD 01/10/2025 Specialty Pharmacy [facility] [address] [place] [phone] Akila Calderon, PHARMACIST 01/09/2025 Orders Only [facility] Oncology and Hematology [facility] [address] [place] [phone] Cuco Izquierdo MD Inflammatory breast cancer, right 01/06/2025 Orders Only [facility] Oncology and Hematology - [address] [place] [address] Cuco Izquierdo MD Inflammatory breast cancer, right (Primary Dx) 01/03/2025 External Device Data STL ABSTRACTION Provider, Abstract 12/29/2024 Telephone [facility] Oncology [facility] Hematology [facility] [address] [place] [phone] Cuco Izquierdo MD Lab Result Concerns 12/28/2024 Abstract [facility] Oncology and Hematology - [address] [place] [phone] Cuco Izquierdo MD 12/28/2024 Abstract [facility] Oncology and Hematology - [address] [place] [phone] Cuco Izquierdo MD 12/27/2024 Orders Only [facility] Oncology and Hematology - [address] [place] [address] Cuco Izquierdo MD 12/26/2024 Orders Only [facility] Oncology and Hematology - [address] [place] [phone] Cuco Izquierdo MD Inflammatory breast cancer, right 12/16/2024 Refill [facility] Oncology and Hematology - [address] [place] [phone] Cuco Izquierdo MD 12/15/2024 Telephone [facility] Oncology and Hematology - [address] [place] [phone] Cuco Izquierdo MD Letter to return to work 12/15/2024 Abstract [facility] Oncology and Hematology - [address] [place] [address] Cuco Izquierdo MD 12/13/2024 Specialty Pharmacy [facility] [address] [place] [phone] Akila Calderon, PHARMACIST 12/13/2024 Refill [facility] Oncology and Hematology - [address] [place] [phone] Cuco Izquierdo MD 12/12/2024 Orders Only [facility] Oncology and Hematology - [address] [place] [phone] Cuco Izquierdo MD Inflammatory breast cancer, right (Primary Dx) 12/07/2024 External Device Data STL ABSTRACTION Provider, Abstract 12/06/2024 Orders Only [facility] Oncology and Hematology [facility] [address] [place] [address] Cuco Izquierdo MD 12/05/2024 2:03 PM CDT - 12/05/2024 11:59 PM CDT Hospital Encounter [facility] Laboratory Services [facility] [address] [place] [phone] Cuco Izquierdo MD Discharge Disposition: Home or Self Care 11/29/2024 1:15 PM CDT Office Visit [facility] Oncology [facility] Hematology [facility] [address] [place] [address] Cuco Izquierdo MD Inflammatory breast cancer, right (Primary Dx); Metastasis to bone (CMS/HCC) 11/28/2024 Orders Only [facility] Oncology and Hematology [facility] [address] [place] [address] Cuco Izquierdo MD 11/22/2024 External Device Data STL ABSTRACTION Provider, Abstract 11/16/2024 9:30 AM CDT Office Visit [facility] Oncology [facility] Hematology [facility] [address] [place] [address] Cuco Izquierdo MD Inflammatory breast cancer, right (Primary Dx) 11/16/2024 Refill [facility] Oncology [facility] Hematology [facility] [address] [place] [address] Cuco Izquierdo MD Inflammatory breast cancer, right from Last 3 Months Immunizations Immunization Administration Dates Next Due ([employer]) COVID-19 VACCINE - EMERGENCY USE AUTHORIZATION, AD26,COV2S(PF) [...] Sign Reading Time Taken Comments Blood Pressure 100/71 01/10/2025 8:34 AM FUSE CUTTER Pulse 91 01/10/2025 8:34 AM FUSE CUTTER Temperature 36.1 C (96.9 F) 01/10/2025 8:34 AM FUSE CUTTER Respiratory Rate 16 01/10/2025 8:34 AM FUSE CUTTER Oxygen Saturation 92% 01/10/2025 8:34 AM FUSE CUTTER Inhaled Oxygen Concentration - - Weight 64 kg (141 lb) 01/10/2025 8:34 AM FUSE CUTTER Height 162.6 cm (5' 4) 09/22/2023 10:56 AM CDT Body Mass Index 24.2 09/22/2023 10:56 AM CDT Plan of Treatment Upcoming Encounters Date Type Department Care Team (Late st Contact Info) Description 02/07/2025 8:30 AM FUSE CUTTER Office Visit [facility] Oncology and Hematology - [address] [place] [address] Mino Martinez MD [address] [place] [address] Health Maintenance Due Date Last Done Comments DTAP/TDAP/TD VACCINES (1 - Tdap) 09/13/1982 HPV/Cotest (21-29) 09/13/1984 CERVICAL CANCER SCREENING 09/13/1993 HPV/Cotest (30-65) 09/13/1993 PAP SMEAR 09/13/1993 COLORECTAL SCREENING 09/13/2008 Colorectal Cancer Screening 09/13/2008 FIT-DNA Q 3 years 09/13/2008 FIT/FOBT Q 1 year 09/13/2008 Flex Sig/CT Colonography Q 5 years 09/13/2008 ZOSTER VACCINE (1 of 2) 09/13/2013 Preventative Visit- Commercial 02/17/2024 INFLUENZA VACCINE (#1) 2024 COVID-19 Vaccine (2 - season) 10/17/202410/2020 RSV VACCINE (60+ or ) (1 - 1-dose 75+ series) 09/13/2038 Medical Devices Implanted Type Area Paymaster Of Purses Device Identifier Shelf Expiration Date Model / Serial / Lot Multi Punch Operator Clip Surgiclip Ii Cheo 9.75in [id number] - [id number] Implanted:Qty: 1 on 01/30/2021 by Kerry Correia MD at [facility] [place] Clip Right: Breast [employer] - COVIDIEN 05/16/2025 [id number] / / [id number] Multi Punch Operator Clip Surgiclip Ii Cheo 9.75in [id number] - [id number] Implanted:Qty: 1 on 01/30/2021 by Kerry Correia MD at [facility] [place] Clip Right: Breast [employer] - COVIDIEN 07/16/2025 [id number] / / [id number] Hemostatic Surgicel 4x8in 1953 - [id number] Implanted:Qty: 4 on 01/30/2021 by Kerry Correia MD at [facility] [place] Hemostatic N/A: Breast [employer] 02/15/20251951 / / [id number] Description:two on left,two on right Port Powerport Clearvue 8fr Mri [id number] - [id number] Implanted:Qty: 1 on 09/03/2020 by Kerry Correia MD at [facility] Port Left: Chest CR BARD- [employer] 10/16/2021 [id number] / / [id number] Procedures Procedure Name Priority Date/Time Associated Diagnosis Comments COMPREHENSIVE METABOLIC PANEL Routine 01/10/2025 2:09 PM FUSE CUTTER CBC WITH AUTODIFFERENTIAL Routine 01/10/2025 12:55 PM FUSE CUTTER CHG CA 15 3 Routine 01/10/2025 10:18 AM FUSE CUTTER CHG CA 15 3 Routine 12/26/2024 3:21 PM FUSE CUTTER [facility] XF Routine 12/09/2024 11:55 AM CDT Inflammatory breast cancer, right PATHOLOGY Pathology 12/05/2024 2:09 PM CDT Encounter for laboratory test [facility] DNA AND RNA Routine 11/29/2024 2:16 PM CDT Inflammatory breast cancer, right [facility] NORMAL BLOOD Routine 2:16 PM CDT Inflammatory breast cancer, right [facility] DNA AND RNA SOLID TUMOR Routine 11/29/2024 2:16 PM CDT Inflammatory breast cancer, right PET BONE IMG W CT SKL BSE MID THG Routine 11/22/2024 11:03 AM CDT from Last 3 Months Results * COMPREHENSIVE METABOLIC PANEL (01/10/2025 2:09 PM FUSE CUTTER) Blood us Cuco Izquierdo MD CHEMISTRY ORDERABLES Final Resu lt * CBC WITH AUTODIFFERENTIAL (01/10/2025 12:55 PM FUSE CUTTER) Blood us Cuco Izquierdo MD HEMATOLOGY ORDERABLES Final Res ult * CHG CA 15 3 (01/10/2025 10:18 AM FUSE CUTTER) Only the most recent of2 resultswithin the time period is included. us Cuco Izquierdo MD CHG - LABORATORY Final Result * [facility]F (12/09/2024 11:55 AM CDT) Reason for Study To identify mutations relevant to patient's cancer. 12/09/2024 11:55 AM CDT [facility] Genetic Diseases Assessed Cancer 12/09/2024 11:55 AM CDT [facility] Description of Ranges of DNA Sequences Examined 105 gene liquid biopsy 12/09/2024 11:55 AM CDT [facility] Overall Interpretation positive 12/09/2024 11:55 AM CDT [facility] Portal [email or web address] 12/09/2024 11:55 AM CDT [facility] Comment:Tempus [...] Status: Consensus Evidence ID: NCCN KDB Variant: [id number]-[id number] n NCCN Associated Evidence: Consensus, Breast Cancer [...] Status: Consensus Evidence ID: NCCN KDB Variant: [id number] n NCCN Associated Evidence: Consensus, Breast Cancer [...] Status: Consensus Evidence ID: FDA KDB Variant: Qjik-yh-gnubdse n Label: FDA On Label FDA Approved?: Yes On label?: Yes 12/09/2024 11:55 AM CDT [facility] Tempus: Potential Therapy 4 Gene: 3467^ESR1^HGNC Variant: p.Y537S Match Type: snvIndel Match Type Description: ESR1 p.Y537S Agent: Imlunestrant Drug Class: Estrogen Receptor Antagonist Tissue: Breast Cancer Association: Response Evidence Status: Consensus Evidence ID: FDA KDB Variant: Hosz-fq-ezsyhaz n Label: FDA On Label FDA Approved?: Yes On label?: Yes 12/09/2024 11:55 AM CDT [facility] Tempus: Potential Therapy 5 Gene: 3467^ESR1^HGNC Variant: p.D538G Match Type: snvIndel Match Type Description: ESR1 p.D538G Agent: Class Effect Drug Class: Endocrine Therapy Tissue: Breast Cancer Association: Non-response Evidence Status: Clinical research Evidence ID: [id number] Evidence URL: https://www.ncb i.nlm.nih.gov/p ubmed/[email or web address] Evidence Title: ESR1 mutations are frequent in [...] Non-response Evidence Status: Clinical research Evidence ID: [id number] Evidence URL: https://www.ncb i.nlm.nih.gov/p ubmed/[email or web address] Evidence Title: ESR1 mutations are frequent in newly diagnosed metastatic and loco-regional recurrence of endocrine-treat ed breast cancer and carry worse prognosis - PubMed KDB Variant: Y537 - GOF Label: FDA On Label FDA Approved?: Yes On label?: Yes 12/09/2024 11:55 AM CDT [facility] Trial Count 3 12/09/2024 11:55 AM CDT [facility] Tempus: Clinical Trial Match 1 Clinical Trial NCT ID: [id number] Clinical Trial Title: Evaluation of Lasofoxifene Combined With Abemaciclib Compared With Fulvestrant Combined With Abemaciclib in Locally Advanced or Metastatic ER+/HER2- Breast Cancer With an ESR1 Mutation Clinical Trial URL: https://clinica SkyTech.gov/ct2 /show/[email or web address] 26 Clinical Phase: Phase 3 Clinical Trial Matches: ESR1 p.Y537S mutation, ESR1 p.D538G mutation Clinical Trial Distance and Location: [address] [place], [place] 12/09/2024 11:55 AM CDT [facility] Tempus: Clinical Trial Match 2 Clinical Trial NCT ID: [id number] Clinical Trial Title: A Study to Evaluate Efficacy and Safety of Giredestrant Compared With Fulvestrant (Plus a CDK4/6 Inhibitor), in Participants With ER-Positive, HER2-Negative Advanced Breast Cancer Resistant to Adjuvant Endocrine Therapy (pionERA Breast Cancer) Clinical Trial URL: https://APIM Therapeuticsa SkyTech.gov/ct2 /show/[email or web address] 48 Clinical Phase: Phase 3 Clinical Trial Matches: ESR1 p.Y537S mutation, ESR1 p.D538G mutation Clinical Trial Distance and Location: [address] [place], [place] 12/09/2024 11:55 AM CDT [facility] Tempus: Clinical Trial Match 3 Clinical Trial NCT ID: [id number] Clinical Trial Title: A Lbcwl-Iw-Piegh, Phase 1 Study Evaluating Oral TACC3 PPI Inhibitor, AO-252, in Advanced Solid Tumors With or Without Brain Metastases Clinical Trial URL: https://clinica SkyTech.gov/ct2 /show/[email or web address] 84 Clinical Phase: Phase 1 Clinical Trial Matches: TP53 p.I195T mutation, TP53 p.C176Y mutation, TP53 p.G244S mutation Clinical Trial Distance and Location: [address] [place], [place] 12/09/2024 11:55 AM CDT [facility] Tumor Mutational [place] 8.6 m/MB 12/09/2024 11:55 AM CDT [facility] Microsatellite Instability Note MSI-High not detected 12/09/2024 11:55 AM CDT [facility] Blood specimen (specimen) 12/01/2024 10:43 PM CDT Narrative This result has genomic variants that were not included in this document. Cuco Izquierdo MD MOLECULAR ORDERABLES Final Resu lt [facility] [address], [address] [place] [address], [facility] [address] [place] [address] * PATHOLOGY (12/05/2024 2:09 PM CDT) CASE REPORT Surgical Pathology Report Case: [id number] Authorizing Provider: Cuco Izquierdo MD Collected: 12/05/2024 02:09 PM Ordering Location: [facility] Received: 12/05/2024 02:10 PM Services [facility] Pathologist: Amy King MD Specimen: Other, specify 4:26 PM CDT [facility] FINAL DIAGNOSIS A request for [facility] was received on 11/30/[address] Cuco Izquierdo. This test was performed on tissue from case [id number]. The case report, slides, and blocks for this case were retrieved from archives. The pathologist reviewed the original pathology report, examined candidate slides, and selected the most appropriate block B7. This selected material was forwarded to [facility] where the test was performed. The final report will be issued directly to the requesting physician. 4:26 PM CDT [facility] at 1626 CDT CLINICAL INFORMATION Z01.89 - Encounter for laboratory test [ICD-10-CM] 4:26 PM CDT [facility] COMMENT Special stain, immunohistochemical, and/or in situ hybridization results are interpreted with controls that demonstrate appropriate staining reactions. Note on use of immunohistochemistry reagents and in situ hybridization probes: These tests were developed and their performance characteristics determined by [facility], Department of Laboratory Medicine. It has not [...] part or completely in the following laboratories: [facility], CLIA #[id number] [address] [place] [address] [facility], CLIA #[id number] [address] [place] [address] [facility], CLIA #[id number] [address] [place] [address] This report was created with the Drimmi voice-activated dictation system. Inherent to this system is the possibility of syntax, grammar, punctuation and other errors that could impact the interpretation of the report. If there are interpretative questions about aspects of this report, please contact the performing pathologist. 4:26 PM CDT [facility] Tissue (Other, specify) 12/05/2024 2:09 PM CDT 12/05/2024 2:10 PM CDT Cuco Izquierdo MD PATHOLOGY/CYTOLOGY ORDERABLES F inal Result [facility] CLIA# [id number] [address] [facility] [place] [address] * [facility] NORMAL BLOOD (11/29/2024 2:16 PM CDT) [facility] 11/29/2024 11:01 PM CDT [facility] Comment:See NGS Report for R esults. Blood specimen (specimen) 11/29/2024 2:16 PM CDT 11/29/2024 2:17 PM CDT Cuco Izquierdo MD MOLECULAR ORDERABLES Final Resu lt [facility] [address], [address] [place] [address], [facility] [address] [place] [address] * [facility] DNA AND RNA SOLID TUMOR (11/29/2024 2:16 PM CDT) Reason for Study To identify somatic and germline mutations relevant to patient's cancer. 12/24/2024 7:15 PM FUSE CUTTER [facility] Genetic Diseases Assessed Cancer 12/24/2024 7:15 PM FUSE CUTTER [facility] Description of Ranges of DNA Sequences Examined 648 gene panel 12/24/2024 7:15 PM FUSE CUTTER [facility] Overall Interpretation positive 12/24/2024 7:15 PM FUSE CUTTER [facility] MSI Stable 12/24/2024 7:15 PM FUSE CUTTER [facility] TMB 0.5 m/MB 12/24/2024 7:15 PM FUSE CUTTER [facility] [email or web address] [id number] 12/24/2024 7:15 PM FUSE CUTTER [facility] Comment:[facility] Portal link PD-L1 Interpretation by 22C3 negative 12/24/2024 7:15 PM FUSE CUTTER [facility] PD-L1 (22C3) Combined Positive Score <1 12/24/2024 7:15 PM FUSE CUTTER [facility] PD-L1 (22C3) Tumor Proportion Score <1 % 12/24/2024 7:15 PM FUSE CUTTER [facility] Pertinent Negatives ESR1, PIK3CA, ERBB2 (HER2) 12/24/2024 7:15 PM FUSE CUTTER [facility] Low Coverage Regions EPHB2, KDM5D 12/24/2024 7:15 PM FUSE CUTTER [facility] Trial Count 1 12/24/2024 7:15 PM FUSE CUTTER [facility] Tempus: Clinical Trial Match 1 Clinical Trial NCT ID: [id number] Clinical Trial Title: Study of oNM405 in Subjects With Selected Advanced Solid Tumor Malignancies Clinical Trial URL: https://clinicalt rials.gov/ct2/allie w/[id number] Clinical Phase: Phase 1/Phase 2 Clinical Trial Matches: CCND1 amplification Clinical Trial Distance and Location: [address], [place], [place] 12/24/2024 7:15 PM FUSE CUTTER [facility] xR Result 1 NEGATIVE Negative - This report is being issued to report the results of gene rearrangement and altered splicing analysis from RNA sequencing. No gene rearrangements nor reportable altered splicing events were identified from RNA sequencing. 12/24/2024 7:15 PM FUSE CUTTER [facility] Germline Variant Note No potential germline variants were found in the limited set of genes on which we report. 12/24/2024 7:15 PM FUSE CUTTER [facility] Treatment Implications Note No reportable treatment options found. 12/24/2024 7:15 PM FUSE CUTTER [facility] Tissue specimen (specimen) 11/29/2024 2:16 PM CDT 12/07/2024 10:12 AM CDT Narrative This result has genomic variants that were not included in this document. us Cuco Izquierdo MD MOLECULAR ORDERABLES Edited Res ult - Final [facility] [address], [address] [place] [address], [facility] [address], [address] [place] [address] * PET BONE IMG W CT SKB (11/22/2024 11:03 AM CDT) Anatomical Region Laterality Modality Positron Emissio n Tomography (PET) us Cuco Izquierdo MD PE ORDERABLES Final Result from Last 3 Months Insurance RX MEDIMPACT Member Subscriber Plan / Payer (Ef fective for All Dates) Name:Kassy Maher Relation to Subscriber:Self Name:Kassy Maher Payer ID:Not on file Group ID:[id number] Type:RX Commercial Address: [facility] [employer] Commercial [employer] HMO Member Subscriber Plan / Payer (Ef fective 2024-Present) Name:Kassy Maher Relation to Subscriber:Self Name:Kassy Maher Payer ID:Not on file Type:HMO Address: [address] [address] [facility] Advance Directives For more information, please contact: [phone] * Full Code (Latest Code Status on File) Date Activated Date Inactivated Comments 01/30/2021 3:28 PM 01/31/2021 12:30 PM Care Teams Reproduction Order Processor Relationship Specialty Start Date End Date Brianne Yusuf MD [address] [place] [address] PCP - General Family Practice 08/17/20
[2025-02-07 10:08] LABS: Free T4 Free Thyroxine 1.52 ng/dL (0.78-2.19)
[2025-02-07 10:22] LABS: Thyroid Stimulating Hormone 6.420 uIU/mL (0.465-4.680)
== END 2025-02-07 08:23 | disposition home or self-care (01) ==
LOC: ANHLAB 08:23
PROVIDERS: PCP Family Medicine; Visit Provider Internal Medicine
DX: Z13.820 Encounter for screening for osteoporosis (principal); E11.65 Type 2 diabetes mellitus with hyperglycemia; E78.5 Hyperlipidemia, unspecified; E03.8 Other specified hypothyroidism; I10 Essential (primary) hypertension; R79.89 Other specified abnormal findings of blood chemistry; Z79.4 Long term (current) use of insulin
CPT/HCPCS: 36415; 82306; 84439; 84443

== ENCOUNTER 2025-02-07 09:51 | Observation (INO) | payer OTHER, SELFPAY ==
--- NOTE | ~2025-02-07 | XR_ITS ---
XR chest 1V portable 02/07/2025 13:18 Indication: Weakness. History of cancer. Procedure: AP portable chest Comparison: Comparison to multiple prior studies sequentially, with oldest reviewed study dated 12/08/2024. Findings: Large pleural effusion has increased in size with mediastinal shift to the right. There is a probable large bleb in the left upper thorax. No definite pneumothorax. There are interstitial infiltrates of the right lung unchanged. There are surgical clips in the axilla bilaterally. Impression: 1: Enlarging left pleural effusion with mediastinal shift to the right. 2: Interstitial infiltrates of the right lung which may represent edema or atypical pneumonia. 3: Large circumscribed lucency left suprahilar region which may represent a bleb. No definite pneumothorax. Reviewed, dictated and finalized at location O. [facility]TER Impression: 1: Enlarging left pleural effusion with mediastinal shift to the right. 2: Interstitial infiltrates of the right lung which may represent edema or atyp ical pneumonia. 3: Large circumscribed lucency left suprahilar region which may represent a ble b. No definite pneumothorax.
--- OUTSIDE RECORDS SUMMARY | 2025-02-07 08:30 | XMS_ITS | Encounter Summary ---
Author Organization [facility] Address [address] [place] [address] Care Team Providers Care Lamp Shade Assembler Name Role Phone Brianne Yusuf MD Primary Care Provider [phone] Reason for Visit * Reason Comments Breast Cancer Intractable nausea vomiting Encounter Details Date Type Department Care Team (Late st Contact Info) Description 02/07/2025 8:30 AM MDS COORDINATOR Office Visit [facility] Oncology and Hematology - [address] [place] [address] Mino Martinez MD [address] [place] [address] Acute renal failure, unspecified acute renal failure type (Primary Dx); Hypokalemia; Dehydration; Nausea and vomiting, unspecified vomiting type Social History Tobacco Use Types Packs/Day Years [...] Sign Reading Time Taken Comments Blood Pressure 99/84 02/07/2025 8:45 AM MDS COORDINATOR Pulse 90 02/07/2025 8:45 AM MDS COORDINATOR Temperature 36.2 C (97.2 F) 02/07/2025 8:45 AM MDS COORDINATOR Respiratory Rate 16 02/07/2025 8:45 AM MDS COORDINATOR Oxygen Saturation 90% 02/07/2025 8:45 AM MDS COORDINATOR Inhaled Oxygen Concentration - - Weight 58.2 kg (128 lb 3.2 oz) 02/07/2025 8:45 A M MDS COORDINATOR Height - - Body Mass Index 22.01 09/22/2023 10:56 AM CDT documented in this encounter Functional Status * Encounter Vitals Question Answer Date of Assessment Author Pain Score Zero 02/07/2025 8:45 AM MDS COORDINATOR Lea Arce documented as of this encounter Progress Notes * Mino Martinez MD - 02/07/2025 8:30 AM CST HEMATOLOGY / ONCOLOGY PROGRESS NOTE Patient Identification: Name: Kassy Maher Age: 59 y.o. Sex: female : 1965 DIAGNOSIS Metastatic breast cancer. 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 Grade 3 tumor ER/PA positive HER-2/quentin negative with DCIS intermediate grade. Metastatic ductal carcinoma in the axillary lymphnode. Genetic testing negative CURRENT TREATMENT Verzenio 150 mg twice a day started December 13, 2024. Faslodex started December 12, 2024 Zometa started December 12, 2024 TREATMENT HISTORY Patient completed neoadjuvant chemotherapy with Adriamycin, Cytoxan and Taxol cycle four in December 2020. Adjuvant radiation therapy with Xeloda completed April 26, 2021. Adjuvant Xeloda cycle 6/6 completed October 15, 2021 Right skin punch biopsy done on June 12, 2022 showed no evidence of malignancy. Status post left-sided thoracentesis done on November 13, 2024 came back positive for metastatic breast cancer. Arimidex 1 mg daily started October 29, 2021. Discontinued in November 2024 due to progressive disease. SUBJECTIVE She reported feeling worse overall clinically since last visit. She has been having constant nauseaand retching and vomiting at least once a day sometimes more than once a day. She also endorsed significant weakness which is limiting her ability to walk short distances. She reported presyncopal episodes for the past 2 weeks. She is trying to hydrate well but she is losing liquids through vomiting. Her oral intake of nutrition has been compromised for family. She has been taking abemaciclib 150mg twice daily without missing doses. Required alternating Zofran and Phenergan every 4 hours over the past 2 to 3 weeks. Patient really like to lower the dose of the treatment for her to be able to f eel better and tolerate moving forward. She requested refill of Zofran today. Review of system Negative except as listed in HPI/subjective section Objective: Vital signs in last 24 hours: As per nursing note Exam: General appearance: alert, cooperative, feeling weak Head: normocephalic, without obvious abnormality, atraumatic Eyes: conjunctivae/corneas clear, EOM's intact Ears: normal external ear canals AU Nose: Nares normal. Septum midline. Mucosa normal. No drainage or sinus tenderness Throat: Lips, dry mucosa Neck: supple, symmetrical, trachea midline. Lungs: clear to auscultation bilaterally Heart: regular rate and rhythm Abdomen: soft, non-tender. Bowel sounds normal. No masses, No organomegaly Extremities: extremities normal, atraumatic Skin: Skin color, texture, turgor normal. No rashes or lesions Lymph nodes: No lymphadenopathy Neuro: No obvious focal deficit PATH LABS @IMAGEIMP@ Assessment: Plan: Patient Active Problem List Diagnosis [...] small to moderate right sided pleural effusion. [facility] NGS showed ESR 1 mutation positive PD-L1 negative TMB low microsatellite stable disease T p53 positive CCND1, CKS1B, PAK1 and RS F1 positive. 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 Patient is started verzenio 150 mg twice a day on December 13, 2024 and Faslodex on December 12, 2024. Genetic testing negative. Blood workup from 02/08/2024 demonstrated white blood cell count-3.1, hemoglobin 11.1 g/dL, platelets 279. Serum sodium 140, potassium 2.6, serum creatinine 1.4, estimated GFR 38. Plan: Hold Verzenio today along with Faslodex and Zometa due to grade 3 fatigue, acute renal failure, severe hypokalemia. Transferred to the emergency room for IV fluids, IV potassium, IV steroids Plan to reduce abemaciclib to 100 mg twice daily starting next week if her Clinical status improvesalong with laboratory results. Prescribed 100 mg twice daily dose to her specialty pharmacy. Advised patient not to take any abemaciclib over the next 1 week until she sees a provider. Also plan to resume Faslodex and Zometa next week. Patient able to hold treatment for the next 1 week given worsening clinical status and weight loss of 15 to 20 pounds over the past 3 weeks. Also prescribed olanzapine to her pharmacy to help with nausea vomiting control and weight gain Prescribed oral potassium 40 mEq liquid once a day for the next 1 week Prescribed oral ondansetron 8 mg every 8 hours as needed tablets Recurrent pleural effusion. Patient had another thoracentesis done on January 02, 2025 with 1 L fluid removed. If patient continues to have need for thoracentesis then will consider PleurX catheter placement. Bone metastasis. Patient is asymptomatic and will continue monthly bisphosphonates along with calcium and vitamin D Anemia. Anemia iron and B12 daily. Follow-up with labs in 1 week with infusion clinic appointment 02/07/2025 Mino Martinez MD COORDINATOR documented in this encounter Plan of Treatment Upcoming Encounters Date Type Department Care Team (Late st Contact Info) Description 02/14/2025 9:30 AM MDS COORDINATOR Office Visit [facility] Oncology and Hematology [facility] [address] [facility] [address] [place] [id number] Mino Martinez MD [address] [id number] documented as of this encounter Visit Diagnoses Diagnosis Acute renal failure, unspecified acute renal failure type- Primary Hypokalemia Hypopotassemia Dehydration Nausea and vomiting, unspecified vomiting type documented in this encounter Care Teams Lamp Shade Assembler Relationship Specialty Start Date End Date Brianne Yusuf MD [address] [place] [id number] PCP - General Family Practice 08/17/20 documented as of this encounter
--- OUTSIDE RECORDS SUMMARY | 2025-02-07 08:30 | XMS_ITS | Encounter Summary ---
Author Organization [facility] Address [address] [place] [address] Care Team Providers Care Chemical Strength Tester Name Role Phone Brianne Yusuf MD Primary Care Provider [phone] Reason for Visit * Reason Comments Breast Cancer Intractable nausea vomiting Encounter Details Date Type Department Care Team (Late st Contact Info) Description 02/07/2025 8:30 AM ELECTRONIC GAME DEVELOPER Office Visit [facility] Oncology and Hematology - [place] [address] [place] [address] Mino Martinez MD [address] [place] [address] Acute renal failure, unspecified acute [...] Comments Blood Pressure 99/84 02/07/2025 8:45 AM ELECTRONIC GAME DEVELOPER Pulse 90 02/07/2025 8:45 AM ELECTRONIC GAME DEVELOPER Temperature 36.2 C (97.2 F) 02/07/2025 8:45 AM ELECTRONIC GAME DEVELOPER Respiratory Rate 16 02/07/2025 8:45 AM ELECTRONIC GAME DEVELOPER Oxygen Saturation 90% 02/07/2025 8:45 AM ELECTRONIC GAME DEVELOPER Inhaled Oxygen Concentration - - Weight 58.2 kg (128 lb 3.2 oz) 02/07/2025 8:45 A M ELECTRONIC GAME DEVELOPER Height - - Body Mass Index 22.01 09/22/2023 10:56 AM CDT documented in this encounter Functional Status * Encounter Vitals Question Answer Date of Assessment Author Pain Score Zero 02/07/2025 8:45 AM ELECTRONIC GAME DEVELOPER Lea Arce documented as of this encounter Progress Notes * Mino Martinez MD - 02/07/2025 8:30 AM CST HEMATOLOGY / ONCOLOGY PROGRESS NOTE Patient Identification: Name: Kassy Maher Age: 59 y.o. Sex: female : 1965 DIAGNOSIS Metastatic breast cancer. Patient was initially diagnosed with T4 N3 aM1 stage IV ER OR positive HER2/quentin negative right-sided inflammatory breast cancer [...] on August 17, 2020. Grade 3 tumor ER/OR positive HER-2/quentin negative with DCIS intermediate grade. [...] with T4 N3 aM1 stage IV ER OR positive HER2/quentin negative right-sided inflammatory breast cancer [...] infusion clinic appointment 02/07/2025 Mino Martinez MD TRONIC GAME DEVELOPER documented in this encounter Plan of Treatment Upcoming Encounters Date Type Department Care Team (Late st Contact Info) Description 02/14/2025 9:30 AM ELECTRONIC GAME DEVELOPER Office Visit [facility] Oncology and Hematology [facility] [address] [facility] [address] [place] [phone] Mino Martinez MD [address] [phone] documented as of this encounter Visit Diagnoses Diagnosis Acute renal failure, unspecified acute renal failure type- Primary Hypokalemia Hypopotassemia Dehydration Nausea and vomiting, unspecified vomiting type documented in this encounter Care Teams Chemical Strength Tester Relationship Specialty Start Date End Date Brianne Yusfu MD [address] [place] [phone] PCP - General Family Practice 08/17/20 documented as of this encounter
[2025-02-07 09:59] VITALS: BP 114/68; PULSE 92; RESP 16; TEMP 36.4; O2SAT 97
--- OUTSIDE RECORDS SUMMARY | 2025-02-07 10:14 | XMS_ITS | Encounter Summary ---
Author Organization [facility] Address [address] [place] [address] Care Team Providers Care Telecommunications Field Engineer Name Role Phone Brianne Yusuf MD Primary Care Provider [phone] Encounter Details Date Type Department Care Team ([facility] Contact Info) Description 02/14/2021 Chart Note [facility] Radiation Oncology [address] [place] [address] Jorge Farmer MD [address] [address] Social History Tobacco Use Types [...] COVID-19? No / Unsure 02/05/2021 12:22 PM FIELD SPECIALIST documented as of this encounter Plan of Treatment Upcoming Encounters Date Type Department Care Team (Late Contact Info) Description 02/14/2025 9:30 AM FIELD SPECIALIST Office Visit [facility] Oncology and Hematology - [place] [address] [facility] [address] [place] [address] Mino Martinez MD [address] [address] documented as of this encounter Visit Diagnoses Not on filedocumented in this encounter Care Teams Telecommunications Field Engineer Relationship Specialty Start Date End Date Brianne Yusuf MD [address] [place] [address] PCP - General Family Practice 08/17/20 documented as of this encounter
--- OUTSIDE RECORDS SUMMARY | 2025-02-07 10:14 | XMS_ITS ---
Author Organization [facility] [place] Address [address] [place] [address] Phone Care Team Providers Care Manager Epic Name Role Phone Brianne Yusuf MD Primary Care Provider [phone] Active Problems Patient Care Coordination No te Formatting of this note migh t be different from the original. Primary Care: Brianne Yusuf MD Referring Provider: Brianne Yusuf MD [facility] [place] [address] Other: Dr. Kerry Correia MD Problem Noted [...]
--- OUTSIDE RECORDS SUMMARY | 2025-02-07 10:14 | XMS_ITS | Clinical Summary ---
Author Organization [employer] [facility] [place] Address [address] [place] [address] Phone Care Team Providers Care Specialty Development Consultant Name Role Phone Brianne Yusuf MD Primary Care Provider [phone] Allergies Active Allergy Reactions Criticality Noted Date [...] 10 mg by mouth daily. 2 Active diphenhydrAMIN E12.5 mg/5 mL-viscous lidocaine-Maal ox 1:1:1 (MAGIC MOUTHWASH) oral suspension compound 2 Active BD Joya 2nd Gen Pen Needle 32 gauge x 5/32 Needle USE TO INJECT INSULIN TWICE A DAY 2 Active busPIRone (BUSPAR) 5 mg tablet Take 5 mg by mouth 3 times daily. 4 Active levothyroxine 25 mcg tablet Take 50 mcg by mouth daily. 4 Active promethazine (PHENERGAN) 25 mg tablet Take 25 mg by mouth every 6 hours as needed. 5 Active potassium CHLORIDE (KAYCIEL) 40 mEq/15 mL Liquid Take 15 mL (40 mEq) by mouth daily. 500 mL 5 Active OLANZapine (ZyPREXA) 5 mg tablet Take 1 Tablet (5 mg) by mouth daily at bedtime. 60 Tablet 1 5 Active ondansetron (ZOFRAN) 8 mg Tablet Take 1 Tablet (8 mg) by mouth every 8 hours as needed for Nausea/Emesi s. 90 Tablet 2 5 Active abemaciclib (VERZENIO) 100 mg tablet Take 1 Tablet (100 mg) by mouth 2 times daily. 60 Tablet 5 Active abemaciclib (Verzenio) 150 mg tablet Take 1 tablet (150 mg) by mouth 2 times daily. 56 Tablet 4 12/15/2024 11:49 AM CDT 5 025 Discontinued abemaciclib (Verzenio) 150 mg tablet Take 1 Tablet (150 mg) by mouth 2 times daily. 60 Tablet 2 5 025 Discontinued ondansetron (ZOFRAN ODT) 8 mg Tablet, Rapid Dissolve Dissolve 1 tablet on top of tongue then swallow with saliva every 8 hours as needed for nausea or vomiting 30 Tablet 1 5 025 Discontinued potassium CHLORIDE (K-DUR,KLOR-CO N M20) 20 mEq Extended Release tablet Take 1 Tablet (20 mEq) by mouth daily. 30 Tablet 2 5 025 Discontinued Active Problems Patient Care Coordination No te Formatting of this note migh t be different from the original. Primary Care: Brianne Yusuf MD Referring Provider: Brianne Yusuf MD [address] [place] [address] Other: Dr. Kerry Correia MD Problem Noted Date Diagnosed Date S/P bilateral mastectomy 03/07/2021 Hard to intubate 01/30/2021 Inflammatory breast cancer, right 08/23/2020 Cancer Staging:Clinical stage from 08/23/2020:Stage IIIB(cT4b, cN1(f), cM0, G2, ER+, WA+, HER2-) - Signed by Kerry Correia MD on 08/23/2020 Encounters Date Type Department Care Team Description 02/07/2025 8:30 AM FLOOR POLISHER Office Visit [facility] Oncology and Hematology - [place] [address] [place] [phone] Mino Martinez MD Acute renal failure, unspecified acute renal failure type (Primary Dx); Hypokalemia; Dehydration; Nausea and vomiting, unspecified vomiting type 01/30/2025 Orders Only [facility] Oncology and Hematology - [place] [address] [place] [phone] Cuco Izquierdo MD Inflammatory breast cancer, right 01/18/2025 Orders Only [facility] Oncology and Hematology - [place] [address] [place] [address] Cuco Izquierdo MD 01/16/2025 Orders Only [facility] Oncology and Hematology - [place] [address] [place] [address] Cuco Izquierdo MD Inflammatory breast cancer, right (Primary Dx) 01/16/2025 Orders Only [facility] Oncology and Hematology - [place] [address] [place] [address] Cuco Izquierdo MD Inflammatory breast cancer, right 01/10/2025 8:30 AM FLOOR POLISHER Office Visit [facility] Oncology and Hematology - [place] [address] [place] [address] Cuco Izquierdo MD Inflammatory breast cancer, right (Primary Dx) 01/10/2025 Orders Only [facility] Oncology and Hematology - [place] [address] [place] [address] Cuco Izquierdo MD 01/10/2025 Specialty Pharmacy [facility] [address] [place], [place] [phone] Akila Calderon, PHARMACIST 01/09/2025 Orders Only [facility] Oncology and Hematology - [place] [address] [place] [phone] Cuco Izquierdo MD Inflammatory breast cancer, right 01/06/2025 Orders Only [facility] Oncology and Hematology - [place] [address] [place] [phone] Cuco Izquierdo MD Inflammatory breast cancer, right (Primary Dx) 01/03/2025 External Device Data STL ABSTRACTION Provider, Abstract 12/29/2024 Telephone [facility] Oncology and Hematology - [place] [address] [place] [phone] Cuco Izquierdo MD Lab Result Concerns 12/28/2024 Abstract [facility] Oncology and Hematology - [place] [address] [place] [phone] Cuco Izquierdo MD 12/28/2024 Abstract [facility] Oncology and Hematology - [place] [address] [place] [phone] Cuco Izquierdo MD 12/27/2024 Orders Only [facility] Oncology and Hematology - [place] [address] [place] [address] Cuco Izquierdo MD 12/26/2024 Orders Only [facility] Oncology and Hematology - [place] [address] [place] [address] Cuco Izquierdo MD Inflammatory breast cancer, right 12/16/2024 Refill [facility] Oncology and Hematology - [place] [address] [place] [address] Cuco Izquierdo MD 12/15/2024 Telephone [facility] Oncology and Hematology - [place] [address] [place] [address] Cuco Izquierdo MD Letter to return to work 12/15/2024 Abstract [facility] Oncology and Hematology [facility] [address] [place] [address] Cuco Izquierdo MD 12/13/2024 Specialty Pharmacy [facility] [address] [place] [address] Akila Calderon, PHARMACIST 12/13/2024 Refill [facility] Oncology and Hematology [facility] [address] [place] [address] Cuco Izquierdo MD 12/12/2024 Orders Only [facility] Oncology and Hematology [facility] [address] [place] [address] Cuco Izquierdo MD Inflammatory breast cancer, right (Primary Dx) 12/07/2024 External Device Data STL ABSTRACTION Provider, Abstract 12/06/2024 Orders Only [facility] Oncology and Hematology [facility] [address] [place] [address] Cuco Izquierdo MD 12/05/2024 2:03 PM CDT - 12/05/2024 11:59 PM CDT Hospital Encounter [facility] [address] [place] [address] Ccuo Izquierdo MD Discharge Disposition: Home or Self Care 11/29/2024 1:15 PM CDT Office Visit [facility] Oncology and [facility] [address] [place] [address] Cuco Izquierdo MD Inflammatory breast cancer, right (Primary Dx); Metastasis to bone (CMS/HCC) 11/28/2024 Orders Only [facility] Oncology and Hematology [facility] [address] [place] [address] Cuco Izquierdo MD 11/22/2024 External Device Data STL ABSTRACTION Provider, Abstract 11/16/2024 9:30 AM CDT Office Visit [facility] Oncology and Hematology [facility] [address] [place] [address] Cuco Izquierdo MD Inflammatory breast cancer, right (Primary Dx) 11/16/2024 Refill [facility] Oncology and Hematology [facility] [address] [place] [address] Cuco Izquierdo MD Inflammatory breast cancer, right from Last 3 Months Immunizations Immunization Administration Dates Next Due (Use It Better) COVID-19 VACCINE - EMERGENCY USE AUTHORIZATION, AD26,COV2S(PF) [...] Comments Blood Pressure 99/84 02/07/2025 8:45 AM FLOOR POLISHER Pulse 90 02/07/2025 8:45 AM FLOOR POLISHER Temperature 36.2 C (97.2 F) 02/07/2025 8:45 AM FLOOR POLISHER Respiratory Rate 16 02/07/2025 8:45 AM FLOOR POLISHER Oxygen Saturation 90% 02/07/2025 8:45 AM FLOOR POLISHER Inhaled Oxygen Concentration - - Weight 58.2 kg (128 lb 3.2 oz) 02/07/2025 8:45 A M FLOOR POLISHER Height 162.6 cm (5' 4) 09/22/2023 10:56 AM CDT Body Mass Index 22.01 09/22/2023 10:56 AM CDT Plan of Treatment Upcoming Encounters Date Type Department Care Team (Late st Contact Info) Description 02/14/2025 9:30 AM FLOOR POLISHER Office Visit [facility] Oncology and Hematology - [place] [address] [place] [address] Mino Martinez MD [address] [place] [address] Health Maintenance Due Date Last [...] series) 09/13/2038 Medical Devices Implanted Type Area Early Head Start Teacher Device Identifier Shelf Expiration Date Model / Serial / Lot Department Supervisor Clip Surgiclip Ii Cheo 9.75in [id number] - [id number] Implanted:Qty: 1 on 01/30/2021 by Kerry Correia MD at [facility] Right: Breast [employer] - COVIDIEN 05/16/2025 [id number] / / [id number] Department Supervisor Clip Surgiclip Ii Cheo 9.75in [id number] - [id number] Implanted:Qty: 1 on 01/30/2021 by Kerry Correia MD at [facility] [place] Clip Right: Breast [employer] - COVID[employer]EN 07/16/2025 [id number] / / [id number] Hemostatic Surgicel 4x8in 1953 - [id number] Implanted:Qty: 4 on 01/30/2021 by Kerry Correia MD at [facility] Hemostatic N/A: Breast [employer] 02/15/20251951 / / [id number] Description:two on left,two on right Port Powerport Clearvue 8fr Mri [id number] - [id number] Implanted:Qty: 1 on 09/03/2020 by Kerry Correia MD at [facility] Port Left: Chest CR BARD- [employer] 10/16/2021 [id number] / / [id number] Procedures Procedure Name Priority Date/Time Associated Diagnosis Comments COMPREHENSIVE METABOLIC PANEL Routine 01/10/2025 2:09 PM FLOOR POLISHER CBC WITH AUTODIFFERENTIAL Routine 01/10/2025 12:55 PM FLOOR POLISHER CHG CA 15 3 Routine 01/10/2025 10:18 AM FLOOR POLISHER CHG CA 15 3 Routine 12/26/2024 3:21 PM FLOOR POLISHER [facility] XF Routine 12/09/2024 11:55 AM CDT [...] * COMPREHENSIVE METABOLIC PANEL (01/10/2025 2:09 PM FLOOR POLISHER) Blood us Cuco Izquierdo MD CHEMISTRY ORDERABLES Final Resu lt * CBC WITH AUTODIFFERENTIAL (01/10/2025 12:55 PM FLOOR POLISHER) Blood us Cuco Izquierdo MD HEMATOLOGY ORDERABLES Final Res ult * CHG CA 15 3 (01/10/2025 10:18 AM FLOOR POLISHER) Only the most recent of2 resultswithin the [...] AM CDT [facility] [email or web address] 12/09/2024 11:55 AM CDT [facility] Comment:[facility] [...] Status: Consensus Evidence ID: NCCN KDB Variant: [id number] n NCCN Associated Evidence: Consensus, Breast Cancer [...] Status: Consensus Evidence ID: NCCN KDB Variant: [id number]-[id number] n NCCN Associated Evidence: Consensus, Breast Cancer [...] Status: Consensus Evidence ID: FDA KDB Variant: [id number] n Label: FDA On Label FDA Approved?: Yes On label?: Yes 12/09/2024 11:55 AM CDT [facility]: Potential Therapy 4 Gene: 3467^ESR1^HGNC Variant: p.Y537S Match Type: snvIndel Match Type Description: ESR1 p.Y537S Agent: Imlunestrant Drug Class: Estrogen Receptor Antagonist Tissue: Breast Cancer Association: Response Evidence Status: Consensus Evidence ID: FDA KDB Variant: Rdsm-ki-hegktdj n Label: FDA On Label FDA Approved?: Yes On label?: Yes 12/09/2024 11:55 AM CDT [facility]: Potential Therapy 5 Gene: 3467^ESR1^HGNC Variant: p.D538G Match Type: snvIndel Match Type Description: ESR1 p.D538G Agent: Class Effect Drug Class: Endocrine Therapy Tissue: Breast Cancer Association: Non-response Evidence Status: Clinical research Evidence ID: [id number] Evidence URL: https://www.ncb i.nlm.nih.gov/p ubmed/31371101 Evidence Title: ESR1 mutations are frequent in [...] Non-response Evidence Status: Clinical research Evidence ID: [id number] Evidence URL: https://www.wib i.nlm.nih.gov/p ubmed/54929997 Evidence Title: ESR1 mutations are frequent in newly diagnosed metastatic and loco-regional recurrence of endocrine-treat ed breast cancer and carry worse prognosis - PubMed KDB Variant: Y537 - GOF Label: FDA On Label FDA Approved?: Yes On label?: Yes 12/09/2024 11:55 AM CDT [facility] Trial Count 3 12/09/2024 11:55 AM CDT [facility]: Clinical Trial Match 1 Clinical Trial NCT ID: [id number] Clinical Trial Title: Evaluation of Lasofoxifene Combined With Abemaciclib Compared With Fulvestrant Combined With Abemaciclib in Locally Advanced or Metastatic ER+/HER2- Breast Cancer With an ESR1 Mutation Clinical Trial URL: https://clinica ltrials.gov/ct2 /show/YVF293867 26 Clinical Phase: Phase 3 Clinical Trial Matches: ESR1 p.Y537S mutation, ESR1 p.D538G mutation Clinical Trial Distance and Location: [address] [place] [address] 12/09/2024 11:55 AM CDT [facility]: Clinical Trial Match 2 Clinical Trial NCT ID: [id number] Clinical Trial Title: A Study to Evaluate Efficacy and Safety of Giredestrant Compared With Fulvestrant (Plus a CDK4/6 Inhibitor), in Participants With ER-Positive, HER2-Negative Advanced Breast Cancer Resistant to Adjuvant Endocrine Therapy (pionERA Breast Cancer) Clinical Trial URL: https://clinica ltrials.gov/ct2 /show/OJW387241 48 Clinical Phase: Phase 3 Clinical Trial Matches: ESR1 p.Y537S mutation, ESR1 p.D538G mutation Clinical Trial Distance and Location: [address], [place], [place] 12/09/2024 11:55 AM CDT [facility]: Clinical Trial Match 3 Clinical Trial NCT ID: [id number] Clinical Trial Title: A Evqqa-Ct-Vvtny, Phase 1 Study Evaluating Oral TACC3 PPI Inhibitor, AO-252, in Advanced Solid Tumors With or Without Brain Metastases Clinical Trial URL: https://clinica ltrials.gov/ct2 /show/MJX421622 84 Clinical Phase: Phase 1 Clinical Trial Matches: TP53 p.I195T mutation, TP53 p.C176Y mutation, TP53 p.G244S mutation Clinical Trial Distance and Location: [address] [facility], [place] 12/09/2024 11:55 AM CDT [facility] Tumor Mutational [place] 8.6 m/MB 12/09/2024 11:55 AM CDT [facility] Microsatellite Instability Note MSI-High not detected 12/09/2024 11:55 AM CDT [facility] Blood specimen (specimen) 12/01/2024 10:43 PM CDT Narrative This result has genomic variants that were not included in this document. us Cuco Izquierdo MD MOLECULAR ORDERABLES Final Resu lt [facility] [address], [address] [place] [address], [facility] [address], [address] [place] [address] * PATHOLOGY (12/05/2024 2:09 PM CDT) CASE REPORT Surgical Pathology Report Case: [id number] Authorizing Provider: Cuco Izquierdo MD Collected: 12/05/2024 02:09 PM Ordering Location: [facility] Received: 12/05/2024 02:10 PM Services [facility] Pathologist: Amy King MD Specimen: Other, specify 4:26 PM CDT [facility] FINAL DIAGNOSIS A request for [facility] was received on 11/30/[address] Cuco Izquierdo. This test was performed on tissue from case [id number]. The case report, slides, and blocks for this case were retrieved from archives. The pathologist reviewed the original pathology report, examined candidate slides, and selected the most appropriate block B7. This selected material was forwarded to [facility] where the test was performed. The final report will be issued directly to the requesting physician. 4:26 PM CDT [facility] at 1626 CDT CLINICAL INFORMATION Z01.89 - Encounter for laboratory test [ICD-10-CM] 4:26 PM CDT [facility] COMMENT Special stain, immunohistochemical, and/or in situ hybridization results are interpreted with controls that demonstrate appropriate staining reactions. Note on use of immunohistochemistry reagents and in situ hybridization probes: These tests were developed and their performance characteristics determined by [facility], Department of Laboratory Medicine. It has not [...] part or completely in the following laboratories: [facility], CLIA #[id number] [address] [place] [address] [facility], CLIA #[id number] [address] [place] [address] [facility]/[place], [place] #[id number] [address] [place] [address] This report was created with the Hiptype voice-activated dictation system. Inherent to this system is the possibility of syntax, grammar, punctuation and other errors that could impact the interpretation of the report. If there are interpretative questions about aspects of this report, please contact the performing pathologist. 4:26 PM CDT [facility] [employer] [facility] Tissue (Other, specify) 12/05/2024 2:09 PM CDT 12/05/2024 2:10 PM CDT us Cuco Izquierdo MD PATHOLOGY/CYTOLOGY ORDERABLES F inal Result Performing Organization Address City/[facility]/ZIP Co de Phone Number [facility] [employer] [facility] CLIA# [id number] [address] [place] [address] * [facility] NORMAL BLOOD (11/29/2024 2:16 PM CDT) Pathologist [facility] 11/29/2024 11:01 PM CDT [facility] Comment:See NGS Report for R esults. Blood specimen (specimen) 11/29/2024 2:16 PM CDT 11/29/2024 2:17 PM CDT us Cuco Izquierdo MD MOLECULAR ORDERABLES Final Resu lt Performing Organization Address [facility] Co de Phone Number [facility] [address], [address] [place] [address], [facility] [address], [address] [place] [address] * [facility] DNA AND RNA SOLID TUMOR (11/29/2024 2:16 PM CDT) Reason for Study To identify somatic and germline mutations relevant to patient's cancer. 12/24/2024 7:15 PM FLOOR POLISHER [facility] Genetic Diseases Assessed Cancer 12/24/2024 7:15 PM FLOOR POLISHER [facility] Description of Ranges of DNA Sequences Examined 648 gene panel 12/24/2024 7:15 PM FLOOR POLISHER [facility] Overall Interpretation positive 12/24/2024 7:15 PM FLOOR POLISHER [facility] MSI Stable 12/24/2024 7:15 PM FLOOR POLISHER [facility] TMB 0.5 m/MB 12/24/2024 7:15 PM FLOOR POLISHER [facility] [email or web address] /[email or web address] [id number] 12/24/2024 7:15 PM FLOOR POLISHER [facility] Comment:[facility] link PD-L1 Interpretation by 22C3 negative 12/24/2024 7:15 PM FLOOR POLISHER [facility] PD-L1 (22C3) Combined Positive Score <1 12/24/2024 7:15 PM FLOOR POLISHER [facility] PD-L1 (22C3) Tumor Proportion Score <1 % 12/24/2024 7:15 PM FLOOR POLISHER [facility] Pertinent Negatives ESR1, PIK3CA, ERBB2 (HER2) 12/24/2024 7:15 PM FLOOR POLISHER [facility] Low Coverage Regions EPHB2, KDM5D 12/24/2024 7:15 PM FLOOR POLISHER [facility] Trial Count 1 12/24/2024 7:15 PM FLOOR POLISHER [facility]: Clinical Trial Match 1 Clinical Trial NCT ID: [id number] Clinical Trial Title: Study of mDP766 in Subjects With Selected Advanced Solid Tumor Malignancies Clinical Trial URL: https://clinicalt rials.gov/ct2/allie w/[id number] Clinical Phase: Phase 1/Phase 2 Clinical Trial Matches: CCND1 amplification Clinical Trial Distance and Location: [facility], [place], [place] 12/24/2024 7:15 PM FLOOR POLISHER [facility] xR Result 1 NEGATIVE Negative - This report is being issued to report the results of gene rearrangement and altered splicing analysis from RNA sequencing. No gene rearrangements nor reportable altered splicing events were identified from RNA sequencing. 12/24/2024 7:15 PM FLOOR POLISHER [facility] Germline Variant Note No potential germline variants were found in the limited set of genes on which we report. 12/24/2024 7:15 PM FLOOR POLISHER [facility] Treatment Implications Note No reportable treatment options found. 12/24/2024 7:15 PM FLOOR POLISHER [facility] Tissue specimen (specimen) 11/29/2024 2:16 PM CDT 12/07/2024 10:12 AM CDT Narrative This result has genomic variants that were not included in this document. us Cuco Izquierdo MD MOLECULAR ORDERABLES Edited Res ult - Final [facility] [address] [place] [address], [facility] [address], [address] [place] [address] * PET BONE IMG W CT SKB MDTH (11/22/2024 11:03 AM CDT) Anatomical Region Laterality Modality Positron Emissio n Tomography (PET) us Cuoc Izquierdo MD PE ORDERABLES Final Result from Last 3 Months Insurance RX MEDIMPACT Member Subscriber Plan / Payer (Ef fective for All Dates) Name:Kassy Maher Relation to Subscriber:Self Name:Kassy Maher Payer ID:Not on file Group ID:[id number] Type:RX Commercial Address: [address] [employer] Commercial HMO [facility] Advance Directives For more information, please contact: [phone] * Full Code (Latest Code Status on File) Date Activated Date Inactivated Comments 01/30/2021 3:28 PM 01/31/2021 12:30 PM Care Teams Specialty Development Consultant Relationship Specialty Start Date End Date Brianne Yusuf MD [address] [place] [address] PCP - General Family Practice 08/17/20
--- NOTE | 2025-02-07 10:54 | ECG_ITS ---
Test Date: 2025-02-07 11:03:16 Measurements Intervals [place] Rate: 89 P: 49 NC: 154 QRS: 25 QRSD: 86 T: 31 QT: 364 QTc: 443 Interpretive Statements SINUS RHYTHM BORDERLINE ST-T WAVE ABNORMALITY- DIFFUSE LEADS BASELINE ARTIFACT- I, II, AVR, AVL, AVF, V1, V4-V6 BORDERLINE ECG Compared to ECG 01/01/2025 09:35:41 NO SIGNIFICANT CHANGE Electronically Signed On 02-07-2025 11:09:45 SENIOR SEARCH MARKETING ANALYST by John Jenkins D.O.
[2025-02-07 12:28] LABS: Hematocrit 33.1 % (37.0-47.0); Hemoglobin 10.9 g/dL (12.0-15.0); Immature Granulocyte Percent A 0.3 % (0-0.5); Lymphocytes Absolute Auto 0.80 K/mm3 (0.9-3.2); Mean Corpuscular HGB Conc 32.9 g/dl (32-36); Mean Corpuscular Hemoglobin 29.1 pg (26-34); Mean Corpuscular Volume 88.3 fl (80-100); Nucleated Red Blood Cells Absolute Auto 0.000 K/mm3 (0.0-0.012); Nucleated Red Blood Cells Perc 0.0 % (0.0-0.2); Platelet Count Result 285 k/mm3 (150-375); Red Blood Count 3.75 M/mm3 (4.2-5.4); White Blood Count 3.4 K/mm3 (4.5-10.0)
--- OUTSIDE RECORDS SUMMARY | 2025-02-07 12:31 | XMS_ITS | Encounter Summary ---
Author Organization [facility] [employer] [facility] Address [address] [place] [address] Care Team Providers Care Terminal Makeup Operator Name Role Phone Brianne Yusuf MD Primary Care Provider [phone] Encounter Details Date Type Department Care Team (Late Contact Info) Description 02/07/2025 Orders Only [facility] Oncology and Hematology - [place] [address] [place] [address] [address] [place] [phone] Cuco Izquierdo MD [address] [facility] [address] [place] [address] Social History Tobacco Use Types [...] st Contact Info) Description 02/14/2025 9:30 AM SKIN TANNER Office Visit [facility] Oncology and Hematology - [place] [address] [place] [address] Mino Martinez MD [address] [place] [address] documented as of this encounter Procedures Procedure Name Priority Date/Time Associated Diagnosis Comments CBC WITH AUTODIFFERENTIAL Routine 2024 12:20 PM SKIN TANNER documented in this encounter Results * CBC WITH AUTODIFFERENTIAL (02/07/2025 12:20 PM SKIN TANNER) Blood Cuco Izquierdo MD HEMATOLOGY ORDERABLES Final Res ult documented in this encounter Visit Diagnoses Not on filedocumented in this encounter Care Teams Terminal Makeup Operator Relationship Specialty Start Date End Date Brianne Yusuf MD [address] [place] [address] PCP - General Family Practice 08/17/20 documented as of this encounter
--- OUTSIDE RECORDS SUMMARY | 2025-02-07 12:31 | XMS_ITS | Encounter Summary ---
Author Organization [facility] [employer] [facility] Address [address] [place] [address] Care Team Providers Care Process Assistant Name Role Phone Brianne Yusuf MD Primary Care Provider [phone] Reason for Visit * Reason Onset Date Comments Medication Refill 02/07/2025 Encounter Details Date Type Department Care Team (Late st Contact Info) Description 02/07/2025 Refill [facility] Oncology and Hematology - Noel [address] [place] [address] Mino Martinez MD [address] [place] [address] Social History Tobacco Use Types [...] st Contact Info) Description 02/14/2025 9:30 AM SUPERVISOR ASSEMBLY Office Visit [facility] On[facility] and Hematology - [address]el [address] [place] [address] Mino Martinez MD [address] [place] [address] documented as of this encounter Visit Diagnoses Not on filedocumented in this encounter Care Teams Process Assistant Relationship Specialty Start Date End Date Brianne Yusuf MD [address] [place] [address] PCP - General Family Practice 08/17/20 documented as of this encounter
--- OUTSIDE RECORDS SUMMARY | 2025-02-07 12:31 | XMS_ITS | Clinical Summary ---
Author Organization [employer] [facility] [place] Address [address] [place] [address] Phone Care Team Providers Care Apartment Coordinator Name Role Phone Brianne Yusuf MD Primary Care Provider [phone] Allergies Active Allergy Reactions Criticality Noted Date [...] MOUTHWASH) oral suspension compound 04/24/19 22 Active BD Joya 2nd Gen Pen Needle 32 gauge x 5/32 Needle USE TO INJECT INSULIN TWICE A DAY 05/09/19 22 Active busPIRone (BUSPAR) 5 mg tablet Take 5 mg by mouth 3 times daily. 03/27/19 24 Active levothyroxine 25 mcg tablet Take 50 mcg by mouth daily. 11/02/19 24 Active promethazine (PHENERGAN) 25 mg tablet Take 25 mg by mouth every 6 hours as needed. 01/03/20 Active potassium CHLORIDE (KAYCIEL) 40 mEq/15 mL Liquid Take 15 mL (40 mEq) by mouth daily. 500 mL 02/08/20 Active OLANZapine (ZyPREXA) 5 mg tablet Take 1 Tablet (5 mg) by mouth daily at bedtime. 60 Tablet 1 02/08/20 Active ondansetron (ZOFRAN) 8 mg Tablet Take 1 Tablet (8 mg) by mouth every 8 hours as needed for Nausea/Emesi s. 90 Tablet 2 02/08/20 Active abemaciclib (VERZENIO) 100 mg tablet Take 1 Tablet (100 mg) by mouth 2 times daily. 60 Tablet 02/08/20 Active abemaciclib (Verzenio) 150 mg tablet Take 1 tablet (150 mg) by mouth 2 times daily. 56 Tablet 4 5 11:49 AM CDT 12/07/19 25 Discontinued abemaciclib (Verzenio) 150 mg tablet Take 1 Tablet (150 mg) by mouth 2 times daily. 60 Tablet 2 12/14/19 25 Discontinued ondansetron (ZOFRAN ODT) 8 mg Tablet, Rapid Dissolve Dissolve 1 tablet on top of tongue then swallow with saliva every 8 hours as needed for nausea or vomiting 30 Tablet 1 12/17/19 25 025 Discontinued potassium CHLORIDE (K-DUR,KLOR-CO N M20) 20 mEq Extended Release tablet Take 1 Tablet (20 mEq) by mouth daily. 30 Tablet 2 01/11/20 25 025 Discontinued abemaciclib (VERZENIO) 100 mg tablet Take 1 Tablet (100 mg) by mouth 2 times daily. 60 Tablet 02/08/20 25 025 Discontinued(Re order) Active Problems Patient Care Coordination No te Formatting of this note migh t be different from the original. Primary Care: Brianne Yusuf MD Referring Provider: Brianne Yusuf MD [address] [place] [address] Other: Dr. Kerry Correia MD Problem Noted Date Diagnosed Date S/P bilateral mastectomy 03/07/2021 Hard to intubate 01/30/2021 Inflammatory breast cancer, right 08/23/2020 Cancer Staging:Clinical stage from 08/23/2020:Stage IIIB(cT4b, cN1(f), cM0, G2, ER+, DE+, HER2-) - Signed by Kerry Correia MD on 08/23/2020 Encounters Date Type Department Care Team Description 02/07/2025 8:30 AM CUSTOMER SERVICER Office Visit [facility] Oncology and Hematology - [address] [place] [id number] Mino Martinez MD Acute renal failure, unspecified acute renal failure type (Primary Dx); Hypokalemia; Dehydration; Nausea and vomiting, unspecified vomiting type 02/07/2025 Orders Only [facility] Oncology and Hematology - [address] [place] [phone] Cuco Izquierdo MD 02/07/2025 Refill [facility] Oncology and Hematology - [address] [place] [address] Mino Martinez MD 01/30/2025 Orders Only [facility] Oncology and Hematology - [address] [place] [address] Cuco Izquierdo MD Inflammatory breast cancer, right 01/18/2025 Orders Only [facility] Oncology and Hematology - [address] [place] [address] Cuco Izquierdo MD 01/16/2025 Orders Only [facility] Oncology and Hematology - [address] [place] [address] Cuco Izquierdo MD Inflammatory breast cancer, right (Primary Dx) 01/16/2025 Orders Only [facility] Oncology and Hematology - Noel [address] [place] [address] Cuco Izquierdo MD Inflammatory breast cancer, right 01/10/2025 8:30 AM CUSTOMER SERVICER Office Visit [facility] Oncology and Hematology - Noel [address] [place] [address] Cuco Izquierdo MD Inflammatory breast cancer, right (Primary Dx) 01/10/2025 Orders Only [facility] Oncology and Hematology - [address] [place] [address] Cuco Izquierdo MD 01/10/2025 Specialty Pharmacy [facility] [address] [place] [address] Akila Calderon, PHARMACIST 01/09/2025 Orders Only [facility] Oncology and Hematology - [address] [place] [address] Cuco Izquierdo MD Inflammatory breast cancer, right 01/06/2025 Orders Only [facility] Oncology and Hematology - [address] [place] [address] Cuco Izquierdo MD Inflammatory breast cancer, right (Primary Dx) 01/03/2025 External Device Data STL ABSTRACTION Provider, Abstract 12/29/2024 Telephone [facility] Oncology and Hematology - [address] [place] [address] Cuco Izquierdo MD Lab Result Concerns 12/28/2024 Abstract [facility] Oncology and Hematology - [address] [place] [address] Cuco Izquierdo MD 12/28/2024 Abstract [facility] Oncology and Hematology - [address] [place] [address] Cuco Izquierdo MD 12/27/2024 Orders Only [facility] Oncology and Hematology - [place] [place] [address] Cuco Izquierdo MD 12/26/2024 Orders Only [facility] Oncology and Hematology - Noel [address] [place] [address] Cuco Izquierdo MD Inflammatory breast cancer, right 12/16/2024 Refill [facility] Oncology and Hematology - [address] [place] [address] Cuco Izquierdo MD 12/15/2024 Telephone [facility] Oncology and Hematology - [address] [place] [address] Cuco Izquierdo MD Letter to return to work 12/15/2024 Abstract [facility] Oncology and Hematology - [address] [place] [address] Cuco Izquierdo MD 12/13/2024 Specialty Pharmacy [facility] [address] [place] [phone] Akila Calderon, PHARMACIST 12/13/2024 Refill [facility] Oncology and Hematology - Noel [address] [place] [address] Cuco Izquierdo MD 12/12/2024 Orders Only [facility] Oncology and Hematology - [address] [place] [address] Cuco Izquierdo MD Inflammatory breast cancer, right (Primary Dx) 12/07/2024 External Device Data STL ABSTRACTION Provider, Abstract 12/06/2024 Orders Only [facility] Oncology and Hematology - [address]el [address] [place] [address] Cuco Izquierdo MD 12/05/2024 2:03 PM CDT - 12/05/2024 11:59 PM CDT Hospital Encounter [facility] Laboratory Services [facility] [address] [place] [address] Cuco Izquierdo MD Discharge Disposition: Home or Self Care 11/29/2024 1:15 PM CDT Office Visit [facility] Oncology and Hematology [facility] [address] [place] [address] Cuco Izquierdo MD Inflammatory breast cancer, right (Primary Dx); Metastasis to bone (CMS/HCC) 11/28/2024 Orders Only [facility] Oncology and Hematology [facility] [address] [place] [address] Cuco Izqiuerdo MD 11/22/2024 External Device Data STL ABSTRACTION Provider, Abstract 11/16/2024 9:30 AM CDT Office Visit [facility] Oncology and Hematology [facility] [address] [place] [address] Cuco Izquierdo MD Inflammatory breast cancer, right (Primary Dx) 11/16/2024 Refill [facility] Oncology and Hematology [facility] [address] [place] [address] Cuco Izquierdo MD Inflammatory breast cancer, right from Last 3 Months Immunizations Immunization Administration Dates Next Due ([place]) COVID-19 VACCINE - EMERGENCY USE AUTHORIZATION, AD26,COV2S(PF) [...] Comments Blood Pressure 99/84 02/07/2025 8:45 AM CUSTOMER SERVICER Pulse 90 02/07/2025 8:45 AM CUSTOMER SERVICER Temperature 36.2 C (97.2 F) 02/07/2025 8:45 AM CUSTOMER SERVICER Respiratory Rate 16 02/07/2025 8:45 AM CUSTOMER SERVICER Oxygen Saturation 90% 02/07/2025 8:45 AM CUSTOMER SERVICER Inhaled Oxygen Concentration - - Weight 58.2 kg (128 lb 3.2 oz) 02/07/2025 8:45 A M CUSTOMER SERVICER Height 162.6 cm (5' 4) 09/22/2023 10:56 AM CDT Body Mass Index 22.01 09/22/2023 10:56 AM CDT Plan of Treatment Upcoming Encounters Date Type Department Care Team (Late st Contact Info) Description 02/14/2025 9:30 AM CUSTOMER SERVICER Office Visit [facility] Oncology and Hematology - Herminie [address] [place] [address] Mino Martinez MD [address] [place] [address] Health Maintenance Due Date Last [...] series) 09/13/2038 Medical Devices Implanted Type [employer] Device Identifier Shelf Expiration Date Model / Serial / Lot Field Service Representative Clip Surgiclip Ii Cheo 9.75in [id number] - [id number] Implanted:Qty: 1 on 01/30/2021 by Kerry Correia MD at [facility] Clip Right: Breast [employer] - COVIDIEN 05/16/2025 [id number] / / [id number] Field Service Representative Clip Surgiclip Ii Cheo 9.75in [id number] - [id number] Implanted:Qty: 1 on 01/30/2021 by Kerry Correia MD at [facility] Clip Right: Breast [employer] - COVIDIEN 07/16/2025 [id number] / / [id number] Hemostatic Surgicel 4x8in 1953 - [id number] Implanted:Qty: 4 on 01/30/2021 by Kerry Correia MD at [facility] Hemostatic N/A: Breast [employer] 02/15/20251951 / / [id number] Description:two on left,two on right Port Powerport Clearvue 8fr Mri [id number] - [id number] Implanted:Qty: 1 on 09/03/2020 by Kerry Correia MD at [facility] Left: Chest CR BARD- [employer] 10/16/2021 [id number] / / [id number] Procedures Procedure Name Priority Date/Time Associated Diagnosis Comments CBC WITH AUTODIFFERENTIAL Routine 02/07/2025 12:20 PM CUSTOMER SERVICER COMPREHENSIVE METABOLIC PANEL Routine 01/10/2025 2:09 PM CUSTOMER SERVICER CBC WITH AUTODIFFERENTIAL Routine 01/10/2025 12:55 PM CUSTOMER SERVICER CHG CA 15 3 Routine 01/10/2025 10:18 AM CUSTOMER SERVICER CHG CA 15 3 Routine 12/26/2024 3:21 PM CUSTOMER SERVICER [facility] XF Routine 12/09/2024 11:55 AM CDT [...] CDT from Last 3 Months Results * CBC WITH AUTODIFFERENTIAL (02/07/2025 12:20 PM CUSTOMER SERVICER) Only the most recent of2 resultswithin the time period is included. Blood us Cuco Izquierdo MD HEMATOLOGY ORDERABLES Final Res ult * COMPREHENSIVE METABOLIC PANEL (01/10/2025 2:09 PM CUSTOMER SERVICER) Blood us Cuco Izquierdo MD CHEMISTRY ORDERABLES Final Resu lt * CHG CA 15 3 (01/10/2025 10:18 AM CUSTOMER SERVICER) Only the most recent of2 resultswithin the [...] AM CDT [facility] Portal [email or web address] 12/09/2024 11:55 AM CDT [facility] Comment:[facility] Portal link Low Coverage Regions SPOP 12/09/2024 11:55 AM CDT [facility] Therapy Count 6 12/09/2024 11:55 AM CDT [facility]: Potential Therapy 1 Gene: 3467^ESR1^HGNC Variant: p.D538G Match Type: snvIndel Match Type Description: ESR1 p.D538G Agent: Elacestrant Drug Class: Estrogen Receptor Antagonist Tissue: Breast Cancer Association: Response Evidence Status: Consensus Evidence ID: SHELIA KDB Variant: [id number]-bhfphmj n NCCN Associated Evidence: Consensus, Breast Cancer MSK Associated Evidence: MSK OncoKB, Level 1 Label: FDA On Label FDA Approved?: Yes On label?: Yes 12/09/2024 11:55 AM CDT [facility]: Potential Therapy 2 Gene: 3467^ESR1^HGNC Variant: p.Y537S Match Type: snvIndel Match Type Description: ESR1 p.Y537S Agent: Elacestrant Drug Class: Estrogen Receptor Antagonist Tissue: Breast Cancer Association: Response Evidence Status: Consensus Evidence ID: SHELIA KDB Variant: Eqtr-qf-rdcoovq n NCCN Associated Evidence: Consensus, Breast Cancer MSK Associated Evidence: MSK OncoKB, Level 1 Label: FDA On Label FDA Approved?: Yes On label?: Yes 12/09/2024 11:55 AM CDT [facility]: Potential Therapy 3 Gene: 3467^ESR1^HGNC Variant: p.D538G Match Type: snvIndel Match Type Description: ESR1 p.D538G Agent: Imlunestrant Drug Class: Estrogen Receptor Antagonist Tissue: Breast Cancer Association: Response Evidence Status: Consensus Evidence ID: HOLLAND KDB Variant: Jaxs-oe-tdbxtxp n Label: FDA On Label FDA Approved?: Yes On label?: Yes 12/09/2024 11:55 AM CDT [facility]: Potential Therapy 4 Gene: 3467^ESR1^HGNC Variant: p.Y537S Match Type: snvIndel Match Type Description: ESR1 p.Y537S Agent: Imlunestrant Drug Class: Estrogen Receptor Antagonist Tissue: Breast Cancer Association: Response Evidence Status: Consensus Evidence ID: FDA KDB Variant: Gqky-yx-odikqgi n Label: FDA On Label FDA Approved?: Yes On label?: Yes 12/09/2024 11:55 AM CDT [facility]: Potential Therapy 5 Gene: 3467^ESR1^HGNC Variant: p.D538G Match Type: snvIndel Match Type Description: ESR1 p.D538G Agent: Class Effect Drug Class: Endocrine Therapy Tissue: Breast Cancer Association: Non-response Evidence Status: Clinical research Evidence ID: [id number] Evidence URL: https://www.ncb i.nlm.nih.gov/p ubmed/52407470 Evidence Title: ESR1 mutations are frequent in [...] Non-response Evidence Status: Clinical research Evidence ID: [id number] Evidence URL: https://www.ncb i.nlm.nih.gov/p ubmed/57334718 Evidence Title: ESR1 mutations are frequent in newly diagnosed metastatic and loco-regional recurrence of endocrine-treat ed breast cancer and carry worse prognosis - PubMed KDB Variant: Y537 - GOF Label: FDA On Label FDA Approved?: Yes On label?: Yes 12/09/2024 11:55 AM CDT [facility] Trial Count 3 12/09/2024 11:55 AM CDT [facility]: Clinical Trial Match 1 Clinical Trial NCT ID: [id number] Clinical Trial Title: Evaluation of Lasofoxifene Combined With Abemaciclib Compared With Fulvestrant Combined With Abemaciclib in Locally Advanced or Metastatic ER+/HER2- Breast Cancer With an ESR1 Mutation Clinical Trial URL: https://clinica InstaJob.gov/ct2 /show/[email or web address] 26 Clinical Phase: Phase 3 Clinical Trial Matches: ESR1 p.Y537S mutation, ESR1 p.D538G mutation Clinical Trial Distance and Location: [address] [place], [place] 12/09/2024 11:55 AM CDT [facility]: Clinical Trial Match 2 Clinical Trial NCT ID: [id number] Clinical Trial Title: A Study to Evaluate Efficacy and Safety of Giredestrant Compared With Fulvestrant (Plus a CDK4/6 Inhibitor), in Participants With ER-Positive, HER2-Negative Advanced Breast Cancer Resistant to Adjuvant Endocrine Therapy (pionERA Breast Cancer) Clinical Trial URL: https://Deskarmaa InstaJob.gov/ct2 /show/[email or web address] 48 Clinical Phase: Phase 3 Clinical Trial Matches: ESR1 p.Y537S mutation, ESR1 p.D538G mutation Clinical Trial Distance and Location: [address] [place], [place] 12/09/2024 11:55 AM CDT [facility]: Clinical Trial Match 3 Clinical Trial NCT ID: [id number] Clinical Trial Title: A Kpord-Jo-Zoune, Phase 1 Study Evaluating Oral TACC3 PPI Inhibitor, AO-252, in Advanced Solid Tumors With or Without Brain Metastases Clinical Trial URL: https://Deskarmaa InstaJob.gov/ct2 /show/[email or web address] 84 Clinical Phase: Phase 1 Clinical Trial Matches: TP53 p.I195T mutation, TP53 p.C176Y mutation, TP53 p.G244S mutation Clinical Trial Distance and Location: [address] [place], [place] 12/09/2024 11:55 AM CDT [facility] Tumor Mutational Leonardo 8.6 m/MB 12/09/2024 11:55 AM CDT [facility] Microsatellite Instability Note MSI-High not detected 12/09/2024 11:55 AM CDT [facility] Blood specimen (specimen) 12/01/2024 10:43 PM CDT Narrative This result has genomic variants that were not included in this document. us Cuco M Timbo MD MOLECULAR ORDERABLES Final Resu lt [facility] [address], [address] [place] [address], [facility] [address] [place] [address] * PATHOLOGY (12/05/2024 2:09 PM CDT) CASE REPORT Surgical Pathology Report Case: [id number] Authorizing Provider: Cuco Izquierdo MD Collected: 12/05/2024 02:09 PM Ordering Location: [facility] Received: 12/05/2024 02:10 PM Services [facility] Pathologist: Amy King MD Specimen: Other, specify 4:26 PM CDT [facility] FINAL DIAGNOSIS A request for [facility] was received on 11/30/[address] Cuco Izquierdo. This test was performed on tissue from case [id number]. The case report, slides, and blocks for this case were retrieved from archives. The pathologist reviewed the original pathology report, examined candidate slides, and selected the most appropriate block B7. This selected material was forwarded to [facility] where the test was performed. The final report will be issued directly to the requesting physician. 4:26 PM CDT [facility] at 1626 CDT CLINICAL INFORMATION Z01.89 - Encounter for laboratory test [ICD-10-CM] 4:26 PM CDT [facility] COMMENT Special stain, immunohistochemical, and/or in situ hybridization results are interpreted with controls that demonstrate appropriate staining reactions. Note on use of immunohistochemistry reagents and in situ hybridization probes: These tests were developed and their performance characteristics determined by [facility], Department of Laboratory Medicine. It has not [...] part or completely in the following laboratories: [facility], CLIA #[id number] [address] [place] [address] [facility], CLIA #[id number] [address] [place] [address] [facility], CLIA #[id number] [address] [place] [address] This report was created with the [employer] voice-activated dictation system. Inherent to this system is the possibility of syntax, grammar, punctuation and other errors that could impact the interpretation of the report. If there are interpretative questions about aspects of this report, please contact the performing pathologist. 4:26 PM CDT [facility] Tissue (Other, specify) 12/05/2024 2:09 PM CDT 12/05/2024 2:10 PM CDT Cuco Izquierdo MD PATHOLOGY/CYTOLOGY ORDERABLES F inal Result [id number] [address] [place] [address] * [facility] NORMAL BLOOD (11/29/2024 2:16 PM CDT) [facility] 11/29/2024 11:01 PM CDT [facility] Comment:See NGS Report for R esults. Blood specimen (specimen) 11/29/2024 2:16 PM CDT 11/29/2024 2:17 PM CDT us Cuco Izquierdo MD MOLECULAR ORDERABLES Final Resu lt [facility] [address], [address] [place] [address], [place] [phone] [facility] [address], [address] [place] [address] * [facility] DNA AND RNA SOLID TUMOR (11/29/2024 2:16 PM CDT) Reason for Study To identify somatic and germline mutations relevant to patient's cancer. 12/24/2024 7:15 PM CUSTOMER SERVICER [facility] Genetic Diseases Assessed Cancer 12/24/2024 7:15 PM CUSTOMER SERVICER [facility] Description of Ranges of DNA Sequences Examined 648 gene panel 12/24/2024 7:15 PM CUSTOMER SERVICER [facility] Overall Interpretation positive 12/24/2024 7:15 PM CUSTOMER SERVICER [facility] MSI Stable 12/24/2024 7:15 PM CUSTOMER SERVICER [facility] TMB 0.5 m/MB 12/24/2024 7:15 PM CUSTOMER SERVICER [facility] [id number] 12/24/2024 7:15 PM CUSTOMER SERVICER [facility] Comment:[facility] link PD-L1 Interpretation by 22C3 negative 12/24/2024 7:15 PM CUSTOMER SERVICER [facility] PD-L1 (22C3) Combined Positive Score <1 12/24/2024 7:15 PM CUSTOMER SERVICER [facility] PD-L1 (22C3) Tumor Proportion Score <1 % 12/24/2024 7:15 PM CUSTOMER SERVICER [facility] Pertinent Negatives ESR1, PIK3CA, ERBB2 (HER2) 12/24/2024 7:15 PM CUSTOMER SERVICER [facility] Low Coverage Regions EPHB2, KDM5D 12/24/2024 7:15 PM CUSTOMER SERVICER [facility] Trial Count 1 12/24/2024 7:15 PM CUSTOMER SERVICER [facility]: Clinical Trial Match 1 Clinical Trial NCT ID: [id number] Clinical Trial Title: Study of xTJ552 in Subjects With Selected Advanced Solid Tumor Malignancies Clinical Trial URL: https://clinicalt rials.gov/ct2/allie w/[email or web address] Clinical Phase: Phase 1/Phase 2 Clinical Trial Matches: CCND1 amplification Clinical Trial Distance and Location: [address], [place], [place] 12/24/2024 7:15 PM CUSTOMER SERVICER [facility] xR Result 1 NEGATIVE Negative - This report is being issued to report the results of gene rearrangement and altered splicing analysis from RNA sequencing. No gene rearrangements nor reportable altered splicing events were identified from RNA sequencing. 12/24/2024 7:15 PM CUSTOMER SERVICER [facility] Germline Variant Note No potential germline variants were found in the limited set of genes on which we report. 12/24/2024 7:15 PM CUSTOMER SERVICER [facility] Treatment Implications Note No reportable treatment options found. 12/24/2024 7:15 PM CUSTOMER SERVICER [facility] Tissue specimen (specimen) 11/29/2024 2:16 PM CDT 12/07/2024 10:12 AM CDT Narrative This result has genomic variants that were not included in this document. us Cuco Izquierdo MD MOLECULAR ORDERABLES Edited Res ult - Final [facility] [address], [address] [place] [address], [facility] [address], [address] [place] [address] * PET BONE IMG W CT SKB [...] Type:RX Commercial Address: [facility] [employer] Commercial O O Advance Directives For more information, please contact: [phone] * Full Code (Latest Code Status on File) Date Activated Date Inactivated Comments 01/30/2021 3:28 PM 01/31/2021 12:30 PM Care Teams Apartment Coordinator Relationship Specialty Start Date End Date Brianne Yusuf MD [address] [place] [address] PCP - General Family Practice 08/17/20
--- OUTSIDE RECORDS SUMMARY | 2025-02-07 12:31 | XMS_ITS ---
Author Organization [employer] [facility] [place] Address [address] [place] [address] Phone Care Team Providers Care Diamond Die Maker Name Role Phone Brianne Yusuf MD Primary Care Provider [phone] Active Problems Patient Care Coordination No te Formatting of this note migh t be different from the original. Primary Care: Brianne Yusuf MD Referring Provider: Brianne Yusuf MD [facility] [place] [address] Other: Dr. Kerry Correia MD Problem Noted Date Diagnosed Date S/P bilateral mastectomy 03/07/2021 Hard to intubate 01/30/2021 Inflammatory breast cancer, right 08/23/2020 Cancer Staging:Clinical stage from 08/23/2020:Stage IIIB(cT4b, cN1(f), cM0, G2, ER+, OK+, HER2-) - Signed by Kerry Correia MD [...]
--- OUTSIDE RECORDS SUMMARY | 2025-02-07 12:31 | XMS_ITS | Encounter Summary ---
Author Organization [facility] Address [address] [place] [address] Care Team Providers Care Waiter/Waitress Take Out Name Role Phone Brianne Yusuf MD Primary Care Provider [phone] Encounter Details Date Type Department Care Team ([facility] Contact Info) Description 02/14/2021 Chart Note [facility] Radiation Oncology [address] [address] Jorge Farmer MD [address] [address] Social History Tobacco Use Types [...] COVID-19? No / Unsure 02/05/2021 12:22 PM RESIDENTIAL DESIGNER documented as of this encounter Plan of Treatment Upcoming Encounters Date Type Department Care Team (Late Contact Info) Description 02/14/2025 9:30 AM RESIDENTIAL DESIGNER Office Visit [facility] Oncology and Hematology - [place] [address] [facility] [address] [place] [address] Mino Martinez MD [address] [address] documented as of this encounter Visit Diagnoses Not on filedocumented in this encounter Care Teams Waiter/Waitress Take Out Relationship Specialty Start Date End Date Brianne Yusuf MD [address] [place] [address] PCP - General Family Practice 08/17/20 documented as of this encounter
--- NOTE | 2025-02-07 12:36 | ED.GENADULT ---
HPI - General Adult General Chief complaint: Recheck/Abnormal Lab/Rx Stated complaint: abnormal labs Time Seen by Provider: 02/07/25 12:18 Source: patient Mode of arrival: ambulatory Limitations: no limitations History of Present Illness HPI narrative: 59 years old white female, breast cancer with bone metastasis, went for infusion at the Oncology office today, potassium level was 2.7, referred to the emergency room for further evaluation and management. Patient is telling me that she been having nausea, vomiting and diarrhea for over 1 month. She denies any fever, or chills. Patient is losing weight, feeling weak, no energy. Related Data Home Medications ?Medication ?Instructions ?Recorded ?Confirmed ?Last Taken ?Type buspirone 5 mg tablet 10 mg PO TID PRN anxiety 12/08/24 02/07/25 12/27/24 History abemaciclib 150 mg tablet 100 mg PO BID 12/26/24 02/07/25 02/06/25 History (Verzenio) aspirin 81 mg chewable tablet 81 mg PO DAILY 01/01/25 02/07/25 02/06/25 History (Don Chewable Low Dose Aspirin) ondansetron 8 mg disintegrating 8 mg PO Q8H PRN nausea and vomiting 01/01/25 02/07/25 02/07/25 History tablet potassium chloride 20 mEq 20 meq PO DAILY 02/07/25 02/07/25 01/02/25 History tablet,extended release(part/cryst) Allergies Allergy/AdvReac Type Severity Reaction Status Date / Time metformin AdvReac Intermediate Gastrointestinal Verified 02/07/25 17:45 Upset Review of Systems Review of Systems: All systems reviewed & are unremarkable except as noted in HPI and below PMFSH Past Medical History Medical History 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 lower extremity Malignant inflammatory neoplasm of right breast Hair changes Type 2 diabetes mellitus treated with insulin 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 Obesity (BMI 30.0-34.9) Suspected sleep apnea Generalized anxiety disorder Anxiety Hypercholesteremia Depression Surgical History Surgical History Hx of section Hx of cholecystectomy History of removal of Port-a-Cath H/O bilateral mastectomy History of hysterectomy Family History Family History Grandparent Family history of Alzheimer's disease Sibling Family history of malignant neoplasm of esophagus Social History Social History Smoking status: Never smoker Second hand tobacco smoke exposure: No Alcohol intake: never Substance use: never Substance use type: does not use Lack of Transportation: No Lack of Food: Never True Current Housing: I Have Housing Concerned About Future Housing: No Difficulty Paying Gas/Electric Bills: No Difficulty Paying for Meds: No Currently Unemployed: No Education: Bachelor's Degree Difficulty w/ Childcare or Family Care: No Living arrangements: with family Gender identity (if verbalized by the patient): Female Spiritual care concerns: No Exam Narrative: General appearance: Well-developed, well-nourished Skin: Normal color Head: Normocephalic, nontraumatic Eyes: Clear conjunctiva ENT: Oropharynx normal, ears normal, nose normal Neck: Supple, nontender Chest and respiratory: Airway patent, no respiratory distress, no accessory muscle use Heart: Regular rate/rhythm Abdomen: Soft, nontender, no organomegaly, quiet bowel sounds Vascular: Normal peripheral pulses, normal capillary refill. 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, no gross motor deficit Course Vital Signs Vital signs: Vital Signs Temperature 36.4 C 02/07/25 09:59 Pulse Rate 92 02/07/25 09:59 Respiratory Rate 16 02/07/25 09:59 Blood Pressure 114/68 02/07/25 09:59 Pulse Oximetry 97 02/07/25 09:59 Oxygen Delivery Room Air 02/07/25 09:59 Temperature 36.6 C 02/07/25 21:12 Pulse Rate 92 02/07/25 21:12 Respiratory Rate 20 02/07/25 21:12 Blood Pressure 118/71 02/07/25 21:12 Pulse Oximetry 95 02/07/25 21:12 Oxygen Delivery Room Air 02/07/25 21:00 [facility] Narrative Medical decision making narrative: PATIENT REFERRED TO THE EMERGENCY ROOM BY HER ONCOLOGY OFFICE BECAUSE OF HYPOKALEMIA. HISTORY OF BREAST CANCER WITH BONE METASTASIS VITAL SIGNS ARE STABLE PHYSICAL EXAMINATION SHOWING ILL LOOKING PATIENT, DOES NOT LOOK IN PAIN OR DISTRESS DIFFERENTIAL DIAGNOSIS INCLUDE ELECTROLYTE ABNORMALITY, DEHYDRATION SECONDARY TO DIARRHEA AND VOMITING BLOOD WORKUP TODAY INCLUDES CBC AND CMP SHOWED POTASSIUM LEVEL OF 2.7 EKG SHOWED NO ACUTE ABNORMALITY DIAGNOSIS HYPOKALEMIA SECONDARY TO VOMITING AND DIARRHEA ADMIT TO MED TELE, HOSPITALIST Differential Diagnosis Differential Diagnosis: ABOVE Lab Data 02/07/25 12:16 02/07/25 20:44 Labs: Lab Results 02/07/25 Range/Units 12:16 WBC 3.4 L (4.5-10.0) K/mm3 RBC 3.75 L (4.2-5.4) M/mm3 Hgb 10.9 L (12.0-15.0) g/dL Hct 33.1 L (37.0-47.0) % MCV 88.3 (80-100) fl MCH 29.1 (26-34) pg MCHC 32.9 (32-36) g/dl RDW 16.4 H (11.5-14.5) % Plt Count 285 (150-375) k/mm3 MPV 9.9 (7.4-10.4) fl Immature Gran % (Auto) 0.3 (0-0.5) % Neut % (Auto) 66.2 (45.5-73.1) % Lymph % (Auto) 23.7 (18.3-44.2) % [place] % (Auto) 7.7 (2.6-8.5) % Eos % (Auto) 0.9 (0-4.4) % Baso % (Auto) 1.2 (0.2-1.2) % Lymph # (Auto) 0.80 L (0.9-3.2) K/mm3 [place] # (Auto) 0.3 (0.1-0.6) K/mm3 Eos # (Auto) 0.0 (0-0.3) K/mm3 Baso # (Auto) 0.0 (0.0-0.1) K/mm3 Abs Immat Gran (auto) 0.01 (0.00-0.031) K/mm3 Absolute Neuts (auto) 2.2 (1.3-6.7) K/mm3 Absolute Nucleated RBC 0.000 (0.0-0.012) K/mm3 Nucleated RBC % 0.0 (0.0-0.2) % Sodium 139 (137-145) mmol/L Potassium 2.7 L* (3.4-5.0) mmol/L Chloride 103 (98-107) mmol/L Carbon Dioxide 26 (22-30) mmol/L Anion Gap 10 (4-12) mmol/L BUN 22 H (7-17) mg/dL Creatinine 1.27 H (0.7-1.0) mg/dL Estim Creat Clear Calc 36 ml/min Estimated GFR 43 L (59 - ) Glucose 112 H (65-110) mg/dL Calcium 9.5 (8.4-10.2) mg/dL Total Bilirubin 0.8 (0.2-1.3) mg/dL AST 28 (14-36) U/L ALT 20 (6-35) U/L Alkaline Phosphatase 85 (38-126) U/L Total Protein 8.0 (6.3-8.2) g/dL Albumin 4.2 (3.5-5.1) g/dL Imaging Data Radiologist's impression: ITS Impressions Chest X-Ray 02/07/25 13:22 Impression: 1: Enlarging left pleural effusion with mediastinal shift to the right. 2: Interstitial infiltrates of the right lung which may represent edema or atypical pneumonia. 3: Large circumscribed lucency left suprahilar region which may represent a bleb. No definite pneumothorax. Critical Care Time Critical Care Time Critical Care Time: Yes Time Type: Intermittent Initial evaluation, discuss w/ involved parties, attempting to gather old records: 10 minutes Documenting medical record: 5 minutes Review of results (EKG's, labs, imaging): 5 minutes Serial repeat bedside evaluation: 10 minutes Discussing case with multiple memebers of the care team and consultants: 5 minutes Total Critical Care Time: 35 Discharge Plan Discharge Clinical Impression: History of breast cancer, Acute hypokalemia Patient Disposition: Still a Patient Condition: Stable
[2025-02-07 13:01] LABS: Alanine Aminotransferase 20 U/L (6-35); Albumin Level 4.2 g/dL (3.5-5.1); Alkaline Phosphatase 85 U/L (38-126); Anion Gap 10 mmol/L (4-12); Aspartate Amino Transferase 28 U/L (14-36); Bilirubin,Total 0.8 mg/dL (0.2-1.3); Blood Urea Nitrogen 22 mg/dL (7-17); Calcium 9.5 mg/dL (8.4-10.2); Carbon Dioxide 26 mmol/L (22-30); Chloride 103 mmol/L (98-107); Estimated CRCL calculation 36 ml/min; Estimated Glomerular Filt Rate 43; Glucose 112 mg/dL (65-110); Potassium 2.7 mmol/L (3.4-5.0); Sodium 139 mmol/L (137-145); Total Protein 8.0 g/dL (6.3-8.2)
[2025-02-07 13:29] VITALS: BP 112/75; PULSE 84; RESP 17; O2SAT 97
[2025-02-07] MEDS: ONDANSETRON INJ 4 MG/2 ML VIAL 8 MG IV PUSH (13:33)
[2025-02-07] MEDS: POTASSIUM CHLORIDE INJ 40 MEQ in SODIUM CHLORIDE 0.9% IV 500 ML 130 MEQ IVPB (13:38)
[2025-02-07] MEDS: SODIUM CHLORIDE 0.9% IV 1,000 ML 999 ML IV CONT (13:39)
--- NOTE | 2025-02-07 14:35 | PC.NURSE ---
Pt. given a menu and this RN offered to order pt. a meal tray but she declined stating that her is bringing her food. Pt. offered a hospital gown but states she does not want to put it on at this time.
[2025-02-07] MEDS: dexAMETHasone SOD PHOS INJ 10 MG/ML 1 ML VIAL IV PUSH (14:36)
[2025-02-07] MEDS: SODIUM CHLORIDE 0.9% IV 1,000 ML 125 ML IV CONT ×2 (15:52→23:47)
--- NOTE | 2025-02-07 15:54 | PC.NURSE ---
Pt. refuses oral potassium d/t taste.
--- NOTE | 2025-02-07 15:59 | WPCEDHO ---
ED Hand Off Checklist All vitals saved:YES IV Site documented:YES All med administrations documented:YES Triage Note Triage Note Patient sent to ED by oncologist 02/07/25 12:40 after having labs drawn at our facility this AM and her potassium was low. P. is asymptomatic. Patient reports having metastatic breast cancer. Allergies metformin Adverse Reaction (Intermediate, Verified 02/07/25 09:51) Gastrointestinal Upset diarrhea, gas, nausuea Family History (Last Reviewed 02/07/25 @ 13:39 by Henry Mayorga MD) Grandparent Family history of Alzheimer's disease Sibling Family history of malignant neoplasm of esophagus Active Medications including assessments/comments Potassium Chloride 40 meq/ (Sodium Chloride) 520 mls @ 130 mls/hr IVPB ONCE STA Stop: 02/07/25 17:01 Last Admin: 02/07/25 13:38 Dose: 130 mls/hr Documented By: TITO Infusion/Titration Document 02/07/25 13:38 BUDDYT (Rec: 02/07/25 13:38 BUDDYT [id number]) Intake IV Site Peripheral Access Left Antecubital Container Volume 520 Waste Amount 0 Dosing Infusion Rate 130 Increase/Decrease Started Elapsed Time Elapsed Time ( 0m minutes) Sodium Chloride (Normal Saline Iv) 1,000 mls @ 125 mls/hr IV CONT .Q8H PATT Last Admin: 02/07/25 15:52 Dose: 125 mls/hr Documented By: TITO Infusion/Titration Document 02/07/25 15:52 KJT (Rec: 02/07/25 15:52 BUDDYT [id number]) Intake IV Site Peripheral Access Left Antecubital Container Volume 1,000 Waste Amount 0 Dosing Infusion Rate 125 Cumulative Dose Not Applicable Increase/Decrease Started Elapsed Time Elapsed Time ( 0m minutes) Administered/Completed Medications Discontinued Medications Dexamethasone Sodium Phosphate (Dexamethasone Sod Phos Inj 10 Mg/Ml 1 Ml Vial) 10 mg IV PUSH ONCE ONE Stop: 02/07/25 13:41 Last Admin: 02/07/25 14:36 Dose: 10 mg Documented By: TITO Sodium Chloride (Normal Saline Iv) 1,000 mls @ 999 mls/hr IV CONT .Q1H1M STA Stop: 02/07/25 14:02 Last Infusion: 02/07/25 14:30 Dose: Infused Documented By: Admin: 02/07/25 13:39 Dose: 999 mls/hr Documented By: TITO Ondansetron HCl (Ondansetron Inj 4 Mg/2 Ml Vial) 8 mg IV PUSH ONCE STA Stop: 02/07/25 13:03 Last Admin: 02/07/25 13:33 Dose: 8 mg Documented By: TITO Potassium Chloride (Potassium Chloride 20 Meq Packet (For Liquid)) 40 meq PO ONCE STA Stop: 02/07/25 13:03 Last Admin: 02/07/25 15:54 Dose: Not Given Documented By: TITO Non-Admin Reason: Patient Refuses Notes 02/07/25 15:54 Nurse Note by Nessa Appiah Pt. refuses oral potassium d/t taste. Initialized on 02/07/25 15:54 - END OF NOTE 02/07/25 14:35 Nurse Note by Nessa Appiah Pt. given a menu and this RN offered to order pt. a meal tray but she declined stating that her is bringing her food. Pt. offered a hospital gown but states she does not want to put it on at this time. Initialized on 02/07/25 14:35 - END OF NOTE Interventions/Assessments IV / Saline Lock, Insert Start: 02/07/25 09:52 Freq: Status: Active Protocol: Document 02/07/25 12:15 TITO (Rec: 02/07/25 12:40 TITO [id number]) IV Assessment Peripheral Access Left Antecubital IV Catheter Access Initiated IV Insertion Date 02/07/25 IV Insertion Time 12:39 Catheter Gauge 20 IV Insertion 1 Attempts Ultrasound Used for No Placement IV Site Assessment WNL IV Care and WNL Maintenance Last Vital Signs Temperature 97.6 F 02/07/25 09:59 Pulse Rate 84 02/07/25 13:29 Respiratory Rate 17 02/07/25 13:29 Pulse Oximetry 97 02/07/25 13:29 Blood Pressure 112/75 02/07/25 13:29 Blood Pressure Mean 87 02/07/25 13:29 Blood Pressure Position Sitting 02/07/25 13:29 Oxygen Delivery Room Air 02/07/25 09:59 Weight 58.2 kg 02/07/25 09:59 Last Result - Abnormals Only WBC 3.4 K/mm3 (4.5-10.0) L 02/07/25 12:16 RBC 3.75 M/mm3 (4.2-5.4) L 02/07/25 12:16 Hgb 10.9 g/dL (12.0-15.0) L 02/07/25 12:16 Hct 33.1 % (37.0-47.0) L 02/07/25 12:16 RDW 16.4 % (11.5-14.5) H 02/07/25 12:16 Lymph # (Auto) 0.80 K/mm3 (0.9-3.2) L 02/07/25 12:16 Potassium 2.7 mmol/L (3.4-5.0) L* 02/07/25 12:16 BUN 22 mg/dL (7-17) H 02/07/25 12:16 Creatinine 1.27 mg/dL (0.7-1.0) H 02/07/25 12:16 Estimated GFR 43 (59-) L 02/07/25 12:16 Glucose 112 mg/dL (65-110) H 02/07/25 12:16 Most Recent Suicide Severity Rating Suicide Severity Rating NO RISK INDICATED 02/07/25 12:40
--- NOTE | 2025-02-07 16:35 | ADMGEN ---
This patient, Kassy Maher, was admitted to Medical Room 247-. Patient/family oriented to hospital policies and general routines including ID bracelet, bed and alarms, visiting hours, pain management, procedures, bathroom and other care routines, personal items, smoking policy, room service/diet, and visiting hours. Information on how to activate the Rapid Response Team has been discussed. Patient/Family are encouraged to report perceived risks to care and to ask questions if they do not understand what they are told or what they should do.
[2025-02-07 16:42] LABS: Add Urine Microscopic? YES; Appearance Urine Cloudy (Clear); Glucose Urine UA Negative (Negative); Leukocyte Esterase Ur 2+ LEU/UL (Negative); Need Manual Microscopic Reviewed; Nitrate Urine Positive (Negative); Non Pathogenic Casts >20; Specific Grav Ur 1.024 (1.001-1.035)
[2025-02-07 20:00] VITALS: PULSE 92
[2025-02-07 21:08] LABS: Anion Gap 9 mmol/L (4-12); Blood Urea Nitrogen 19 mg/dL (7-17); Calcium 8.9 mg/dL (8.4-10.2); Carbon Dioxide 21 mmol/L (22-30); Chloride 109 mmol/L (98-107); Estimated CRCL calculation 43 ml/min; Estimated Glomerular Filt Rate 53; Glucose 215 mg/dL (65-110); Potassium 3.5 mmol/L (3.4-5.0); Sodium 139 mmol/L (137-145)
[2025-02-07 21:12] VITALS: BP 118/71; PULSE 92; RESP 20; TEMP 36.6; O2SAT 95
--- NOTE | 2025-02-07 23:44 | P.HP_ITS ---
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 The patient had outpatient labs ordered by her oncologist and results returned with potassium 2.7. Patient has had a struggle with recurrent hypokalemia since December. She is on 20 mEq of potassium supplementation at home. She has also had recent difficulty with acute kidney injury on and off since October. She reports that she was started on potassium supplements but the potassium pills are so large that they choked her and that will set off her gag reflex in then she starts having more dry heaves. She denies any coffee- ground emesis or him hematemesis. She usually has several loose stools a day. She denies any fevers or chills. She has been having dysuria with increased urinary urgency and frequency over the last 3 days. She reports that her oncologist made her stop her Ozempic and since her Ozempic has been discontinued. She has had persistent weight loss recently and her weight is dropped from 142 lb down to 128 lb. She reports that she has been had having more elevated blood sugars since her Ozempic has been discontinued. She is frustrated with this. Labs in the ER confirmed hypokalemia. UA was suspicious for UTI given patient's symptoms of frequency and urgency UTIs likely. Urine culture pending Patient did not receive antibiotic therapy in the ER. She received liquid potassium supplement in the ER she states that she cannot tolerate the taste of this. She is on a oral chemotherapeutic agent daily and she gets monthly infusions. She had went to the infusion center today to get her infusion but was unable to get her infusion due to abnormal labs. Review of Systems 2 Review of Systems: 12 systems were reviewed with pertinent positives and negatives per HPI. Except as documented in the HPI, all other systems were reviewed and are negative. [facility] Past Medical History Medical History (Updated 02/08/25 @ 03:04 by Amada Howell DO) Hyperlipidemia associated with type 2 diabetes mellitus Metabolic dysfunction-associated fatty liver disease (MAFLD) Seasonal allergies Breast cancer metastasized to lung Difficult airway for intubation Malignant pleural effusion Thoracentesis 9 09/04/2024 1.1 L Subclinical hypothyroidism 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 lower extremity Malignant inflammatory neoplasm of right breast (01/2021) T4 N3 M1 stage IV ER UT positive HER2 negative right breast inflammatory carcinoma PET scan 11/2024: Extensive FDG avid metastatic disease including multiple scattered bone lesions in the axial skeleton extensive pleural based and subpleural metastatic disease at the periphery of the left lung with large pleural effusion and small amount of pleural and subpleural metastatic disease at the basilar right lung with small the moderate-sized right pleural effusion as well as mediastinal and right hilar lymphadenopathy consistent with metastatic disease Type 2 diabetes mellitus treated with insulin intermediate frame tender (current) use of insulin Obesity (BMI 30.0-34.9) Suspected sleep apnea Generalized anxiety disorder Depression Surgical History Surgical History (Updated 02/08/25 @ 00:21 by Amada Howell DO) Hx of section Hx of cholecystectomy History of removal of Port-a-Cath H/O bilateral mastectomy (02/2021) History of hysterectomy Family History Family History (Updated 02/08/25 @ 00:23 by Amada Howell DO) Grandparent Dementia Sibling Esophageal cancer Social History Social History (Updated 02/08/25 @ 02:58 by Amada Howell DO) Social History: She has been for 12 years. Her only son 10 years ago of a drug overdose. She is a lifelong nonsmoker and does not drink alcohol or use illicit substances. She works at [employer] Code status: DNR/DNI per patient request. She states that she would want all treatment up to the point of her heart stopping. She would agree to pressor therapy and noninvasive ventilator support. But given the fact that she has stage IV cancer and is on palliative chemotherapy if her heart were to stop she would not want to be resuscitated only to have to fight the cancer further. Surrogate decision maker: Gopal () Smoking status: Never smoker Second hand tobacco smoke exposure: No Alcohol intake: never Substance use: never Substance use type: does not use Lack of Transportation: No Lack of Food: Never True Current Housing: I Have Housing Concerned About Future Housing: No Difficulty Paying Gas/Electric Bills: No Difficulty Paying for Meds: No Currently Unemployed: No Education: Bachelor's Degree Difficulty w/ Childcare or Family Care: No Living arrangements: with family Gender identity (if verbalized by the patient): Female Spiritual care concerns: No Meds Home Medications and Allergies Home Medications ?Medication ?Instructions ?Recorded ?Confirmed ?Type atorvastatin 40 mg tablet 40 mg PO DAILY #90 tabs 01/1702/07/25 Rx levothyroxine 50 mcg tablet See Rx Instructions .Route 08/26/24 02/07/25 Rx .COMPLEX #90 tabs empagliflozin 25 mg tablet See Rx Instructions .Route 08/29/24 02/07/25 Rx (Jardiance) .COMPLEX #90 tabs ezetimibe 10 mg tablet See Rx Instructions .Route 0 10/24/24 02/07/25 Rx .COMPLEX #90 tabs buspirone 5 mg tablet 10 mg PO TID PRN anxiety 02/07/25 History abemaciclib 150 mg tablet 100 mg PO BID 12/26/2402/07 History (Verzenio) citalopram 40 mg tablet See Rx Instructions .Route 1 02/26/24 02/07/25 Rx .COMPLEX #90 tabs aspirin 81 mg chewable tablet 81 mg PO DAILY 01/01/25 02/07/25 History (Don Chewable Low Dose Aspirin) ondansetron 8 mg disintegrating 8 mg PO Q8H PRN nausea and vomiting 01/01/25 02/07/25 History tablet promethazine 25 mg tablet 25 mg PO TID PRN nausea and 01/02/25 02/07/25 Rx vomiting 30 days #90 tabs FreeStyle Ania 3 Plus Sensor #6 ea 01/11/25 02/07/25 Rx (blood-glucose sensor) potassium chloride 20 mEq 20 meq PO DAILY 02/07/25 History tablet,extended release(part/cryst) Allergies Allergy/AdvReac Type Severity Reaction Status Date / Time metformin AdvReac Intermediate Gastrointestinal Verified 02/07/25 17:45 Upset Vital Signs Vital Signs - 24 hr 02/07/25 09:59 02/07/25 13:29 02/07/25 16:45 Temperature 97.6 F Pulse Rate 92 84 Respiratory Rate 16 17 Blood Pressure 114/68 112/75 Pulse Oximetry 97 97 Oxygen Delivery Room Air Room Air 02/07/25 21:00 02/07/25 21:12 Temperature 97.9 F Pulse Rate 92 Respiratory Rate 20 Blood Pressure 118/71 Pulse Oximetry 95 Oxygen Delivery Room Air Exam 2 Narrative: Weight 58.2 kg BMI 22 Const: Other: Chronically ill-appearing but no acute distress, height weight proportionate HENMT: Other: Mucous membranes are moist, no oral pharyngeal erythema, mildly crowded posterior oropharynx, Eyes: Other: Positive conjunctival pallor, no scleral icterus, pupils are equal and reactive Neck: Other: No JVD, no lymphadenopathy Resp: Other: Clear to auscultation bilaterally, no increased work of breathing Cardio: Other: Regular rate, regular rhythm, 2+ bilateral radial pedal pulses, telemetry reviewed no evidence of ectopy or arrhythmia noted GI: Other: Soft, nontender, nondistended, positive bowel sounds Skin: Other: Generalized pallor, non jaundice, no petechiae Neuro: Other: Alert oriented x4, speech is clear, no facial asymmetry, no localizing neurologic deficits noted during the course of conversation Extrem: Other: No clubbing, no cyanosis, no edema, moves all extremities equally Psych: Other: Appropriate mood and affect, pleasant and cooperative, judgment and insight intact Results Labs Labs: Laboratory Tests 02/07/25 12:16 02/07/25 20:44 02/07/25 02/07/25 02/07/25 12:16 15:52 20:44 WBC 3.4 L RBC 3.75 L Hgb 10.9 L Hct 33.1 L MCV 88.3 MCH 29.1 MCHC 32.9 RDW 16.4 H Plt Count 285 MPV 9.9 Immature Gran % (Auto) 0.3 Neut % (Auto) 66.2 Lymph % (Auto) 23.7 [place] % (Auto) 7.7 Eos % (Auto) 0.9 Baso % (Auto) 1.2 Lymph # (Auto) 0.80 L [place] # (Auto) 0.3 Eos # (Auto) 0.0 Baso # (Auto) 0.0 Abs Immat Gran (auto) 0.01 Absolute Neuts (auto) 2.2 Absolute Nucleated RBC 0.000 Nucleated RBC % 0.0 Sodium 139 139 Potassium 2.7 L* 3.5 Chloride 103 109 H Carbon Dioxide 26 21 L Anion Gap 10 9 BUN 22 H 19 H Creatinine 1.27 H 1.06 H Estim Creat Clear Calc 36 43 Estimated GFR 43 L 53 L Glucose 112 H 215 H POC Capillary Glucose Calcium 9.5 8.9 Total Bilirubin 0.8 AST 28 ALT 20 Alkaline Phosphatase 85 Total Protein 8.0 Albumin 4.2 Urine Color Yellow Urine Appearance Cloudy H Urine pH 5.5 Ur Specific [place] 1.024 Urine Protein 1+ H Urine Glucose (UA) Negative Urine Ketones 1+ H Ur Blood (Man) Negative Urine Nitrate Positive H Urine Bilirubin Negative Urine Urobilinogen 1.0 Add Ur Microanalysis Reviewed Leukocyte Esterase Rfl 2+ H Urine RBC 0-2 Urine WBC >100 H Ur Squamous Epith Cells None seen Urine Bacteria 4+ H Urine Casts >20 Hyaline Casts Present 02/07/25 21:07 WBC RBC Hgb Hct MCV MCH MCHC RDW Plt Count MPV Immature Gran % (Auto) Neut % (Auto) Lymph % (Auto) [place] % (Auto) Eos % (Auto) Baso % (Auto) Lymph # (Auto) [place] # (Auto) Eos # (Auto) Baso # (Auto) Abs Immat Gran (auto) Absolute Neuts (auto) Absolute Nucleated RBC Nucleated RBC % Sodium Potassium Chloride Carbon Dioxide Anion Gap BUN Creatinine Estim Creat Clear Calc Estimated GFR Glucose POC Capillary Glucose 229 H Calcium Total Bilirubin AST ALT Alkaline Phosphatase Total Protein Albumin Urine Color Urine Appearance Urine pH Ur Specific [place] Urine Protein Urine Glucose (UA) Urine Ketones Ur Blood (Man) Urine Nitrate Urine Bilirubin Urine Urobilinogen Add Ur Microanalysis Leukocyte Esterase Rfl Urine RBC Urine WBC Ur Squamous Epith Cells Urine Bacteria Urine Casts Hyaline Casts Impressions Chest X-Ray 02/07/25 13:22 Impression: 1: Enlarging left pleural effusion with mediastinal shift to the right. 2: Interstitial infiltrates of the right lung which may represent edema or atypical pneumonia. 3: Large circumscribed lucency left suprahilar region which may represent a bleb. No definite pneumothorax. Test Date: 2025-02-07 11:03:16 Measurements Intervals [place] Rate: 89 P: 49 UT: 154 QRS: 25 QRSD: 86 T: 31 QT: 364 QTc: 443 Interpretive Statements SINUS RHYTHM BORDERLINE ST-T WAVE ABNORMALITY- DIFFUSE LEADS BASELINE ARTIFACT- I, II, AVR, AVL, AVF, V1, V4-V6 BORDERLINE ECG Compared to ECG 01/01/2025 09:35:41 NO SIGNIFICANT CHANGE Quality VTE Prophylaxis VTE prophylaxis: pharmacologic ordered (Lovenox 40 mg subQ daily.) Assessment and Plan Assessment and plan (1) Chemotherapy induced nausea and vomiting: Code(s): R11.2 - Nausea with vomiting, unspecified; T45.1X5A - Adverse effect of antineoplastic and immunosuppressive drugs, initial encounter Status: Acute (2) Chemotherapy induced diarrhea: Code(s): K52.1 - Toxic gastroenteritis and colitis; T45.1X5A - Adverse effect of antineoplastic and immunosuppressive drugs, initial encounter Status: Acute (3) Acute hypokalemia: Code(s): E87.6 - Hypokalemia Status: Acute (4) Acute kidney injury: Code(s): N17.9 - Acute kidney failure, unspecified Status: Acute (5) Normocytic anemia: Code(s): D64.9 - Anemia, unspecified Status: Acute (6) Counseling regarding goals of care: Code(s): Z71.89 - Other specified counseling Status: Acute Plan Patient has acute hypokalemia likely due to chronic losses from chemotherapy- induced nausea vomiting and diarrhea. Patient received a total of 80 mEq of potassium replacement in the ER. Repeat BMP ordered prior to my evaluation demonstrated resolution of hypokalemia with potassium 3.5. Will check a magnesium level and repeat BMP in a.m.. Will change the patient's home potassium dosing up to 40 mEq today. However will request pharmacy give the patient 410 mEq tablets as the radically these would be smaller in she may have an easier time swallowing them. Patient does have mild acute kidney injury due to hypovolemia. Creatinine is improving with IV fluid hydration. Will monitor strict I&O's. Will obtain C diff to rule out concomitant infectious cause of diarrhea but diarrhea is been more likely due to chemotherapeutic agents especially given concomitant new onset normocytic anemia. Will continue p.r.n. antiemetics. Patient does have chemotherapy-induced leukopenia which has improved since prior values in December. She is not having any fever but does have abnormal urinalysis with increased urinary frequency and urgency over the last 3 days symptoms are consistent with UTI. Will start the patient on Rocephin. Urine cultures are pending. Patient as type 2 diabetes mellitus not on insulin therapy. She is having some hyperglycemia. Unfortunately will need to hold patient's Jardiance given acute kidney injury and UTI. Will also need to avoid use of Ozempic given recurrent acute kidney injury. The patient may need to transition to Lantus and sliding scale insulin. Will monitor blood sugars closely. Patient been placed on moderate sliding scale insulin with Accu-Cheks a.c. HS. She states that she would want all treatment up to the point of her heart stopping. She would agree to pressor therapy and noninvasive ventilator support. But given the fact that she has stage IV cancer and is on palliative chemotherapy if her heart were to stop she would not want to be resuscitated only to have to fight the cancer further. Patient's code status has been changed to DNR/DNI. Will consult care coordination persistence in obtaining a POLST documentation. She would really like to go home in the a.m. if her potassium is stable. Patient has been admitted as observation status. MEDICAL DECISION MAKING NARRATIVE -Spoke with the ED provider in detail regarding patient's evaluation, workup and management -Patient seen and examined at bedside -Collaborated with patient's nurse at the bedside in detail and addressed all concerns -Labs, electrolytes, radiology, investigations and test results personally reviewed and interpreted unless otherwise specified -ED/Consult/Nursing/Ancilliary notes on the chart reviewed and appreciated -applicable past medical records and labs were reviewed and unless stated otherwise. -Spoke with patient at bedside and diagnosis, plan of care was discussed and questions answered. Time Spent with Patient Time with patient: 75 minutes or greater Hospitalist MIPS Advance Care Plan I have confirmed that the patient's Advanced Care Plan is present, code status is documented, or surrogate decision maker is listed in patient medical record.: Yes Medication Reconciliation I have utilized all available resources to obtain, update and review the patients current medications (includes all prescriptions, OTC, herbals, cannabis, and nutritional supplements).: Yes
[2025-02-07] MEDS: PROMETHAZINE HCL 25 MG TABLET PO (23:46)
[2025-02-08 00:55] VITALS: PULSE 87
[2025-02-08] MEDS: cefTRIAXone 1 GM in SODIUM CHLORIDE 0.9% IV 50 ML 100 ML IVPB (03:24)
[2025-02-08 04:00] VITALS: PULSE 80
[2025-02-08 05:17] LABS: Hematocrit 33.6 % (37.0-47.0); Hemoglobin 10.6 g/dL (12.0-15.0); Immature Granulocyte Percent A 0.8 % (0-0.5); Lymphocytes Absolute Auto 0.65 K/mm3 (0.9-3.2); Mean Corpuscular HGB Conc 31.5 g/dl (32-36); Mean Corpuscular Hemoglobin 29.3 pg (26-34); Mean Corpuscular Volume 92.8 fl (80-100); Nucleated Red Blood Cells Absolute Auto 0.000 K/mm3 (0.0-0.012); Nucleated Red Blood Cells Perc 0.0 % (0.0-0.2); Platelet Count Result 247 k/mm3 (150-375); Red Blood Count 3.62 M/mm3 (4.2-5.4); White Blood Count 3.6 K/mm3 (4.5-10.0)
[2025-02-08] MEDS: LEVOTHYROXINE SODIUM 50 MCG TABLET PO (05:39)
[2025-02-08 05:56] VITALS: BP 118/70; PULSE 85; RESP 20; TEMP 36.3; O2SAT 97
[2025-02-08 08:00] VITALS: PULSE 93
[2025-02-08] MEDS: POTASSIUM CHLORIDE 10 MEQ ER TABLET 40 MEQ PO (08:33)
[2025-02-08] MEDS: CITALOPRAM HYDROBROMIDE 20 MG TABLET 40 MG PO (08:33)
[2025-02-08] MEDS: EZETIMIBE 10 MG TABLET PO (08:33)
[2025-02-08] MEDS: ASPIRIN 81 MG CHEWABLE TABLET PO (08:34)
[2025-02-08] MEDS: ATORVASTATIN 40 MG TABLET PO (08:34)
[2025-02-08] MEDS: ENOXAPARIN 40 MG/0.4 ML SYRINGE SUB-Q (08:35)
[2025-02-08] MEDS: PROMETHAZINE HCL 25 MG TABLET PO (08:35)
[2025-02-08 10:41] VITALS: BMI 22.0
[2025-02-08 11:29] VITALS: O2SAT 96
--- NOTE | 2025-02-08 11:45 | P.DS_ITS ---
DS: Admitting Diagnosis Discharge Date 02/08/2025 Admitting Diagnosis Chemotherapy induced nausea and vomiting DS: Discharge Diagnosis Discharge Diagnosis (1) Chemotherapy induced nausea and vomiting: Code(s): R11.2 - Nausea with vomiting, unspecified; T45.1X5A - Adverse effect of antineoplastic and immunosuppressive drugs, initial encounter Status: Acute (2) Chemotherapy induced diarrhea: Code(s): K52.1 - Toxic gastroenteritis and colitis; T45.1X5A - Adverse effect of antineoplastic and immunosuppressive drugs, initial encounter Status: Acute (3) Acute hypokalemia: Code(s): E87.6 - Hypokalemia Status: Acute (4) Acute kidney injury: Code(s): N17.9 - Acute kidney failure, unspecified Status: Acute (5) Normocytic anemia: Code(s): D64.9 - Anemia, unspecified Status: Acute (6) Counseling regarding goals of care: Code(s): Z71.89 - Other specified counseling Status: Acute Plan Patient has acute hypokalemia likely due to chronic losses from chemotherapy- induced nausea vomiting and diarrhea. Patient received a total of 80 mEq of potassium replacement in the ER. Repeat BMP ordered prior to my evaluation demonstrated resolution of hypokalemia with potassium 3.5. Will check a magnesium level and repeat BMP in a.m.. Will change the patient's home potassium dosing up to 40 mEq today. However will request pharmacy give the patient 410 mEq tablets as the radically these would be smaller in she may have an easier time swallowing them. Patient does have mild acute kidney injury due to hypovolemia. Creatinine is improving with IV fluid hydration. Will monitor strict I&O's. Will obtain C diff to rule out concomitant infectious cause of diarrhea but diarrhea is been more likely due to chemotherapeutic agents especially given concomitant new onset normocytic anemia. Will continue p.r.n. antiemetics. Patient does have chemotherapy-induced leukopenia which has improved since prior values in December. She is not having any fever but does have abnormal urinalysis with increased urinary frequency and urgency over the last 3 days symptoms are consistent with UTI. Will start the patient on Rocephin. Urine cultures are pending. Patient as type 2 diabetes mellitus not on insulin therapy. She is having some hyperglycemia. Unfortunately will need to hold patient's Jardiance given acute kidney injury and UTI. Will also need to avoid use of Ozempic given recurrent acute kidney injury. The patient may need to transition to Lantus and sliding scale insulin. Will monitor blood sugars closely. Patient been placed on moderate sliding scale insulin with Accu-Cheks a.c. HS. She states that she would want all treatment up to the point of her heart st opping. She would agree to pressor therapy and noninvasive ventilator support. But given the fact that she has stage IV cancer and is on palliative chemotherapy if her heart were to stop she would not want to be resuscitated only to have to fight the cancer further. Patient's code status has been changed to DNR/DNI. Will consult care coordination persistence in obtaining a POLST documentation. She would really like to go home in the a.m. if her potassium is stable. Patient has been admitted as observation status. MEDICAL DECISION MAKING NARRATIVE -Spoke with the ED provider in detail regarding patient's evaluation, workup and management -Patient seen and examined at bedside -Collaborated with patient's nurse at the bedside in detail and addressed all concerns -Labs, electrolytes, radiology, investigations and test results personally reviewed and interpreted unless otherwise specified -ED/Consult/Nursing/Ancilliary notes on the chart reviewed and appreciated -applicable past medical records and labs were reviewed and unless stated otherwise. -Spoke with patient at bedside and diagnosis, plan of care was discussed and questions answered. DS: Summary Hospital Course Reason for hospitalization: Nausea and vomiting Hospital Course: 59 years old female was admitted for chemotherapy-induced nausea and vomiting. Potassium on admission was low. Potassium was supplemented placed. Chest x-ray showed pleural effusion. Case discussed with patient detail. She has appointment with Oncology and and scheduled pleural fluid drainage on Thursday at [facility].. Status at Discharge Cognitive/behavioral status at discharge: Stable Time Spent with Patient Time attestation: Total time spent providing and/or coordinating discharge services: 30 minutes Exam Narrative: Weight 58.2 kg BMI 22 Const: Other: Chronically ill-appearing but no acute distress, height weight proportionate HENMT: Other: Mucous membranes are moist, no oral pharyngeal erythema, mildly crowded posterior oropharynx, Eyes: Other: Positive conjunctival pallor, no scleral icterus, pupils are equal and reactive Neck: Other: No JVD, no lymphadenopathy Resp: Other: Clear to auscultation bilaterally, no increased work of breathing Cardio: Other: Regular rate, regular rhythm, 2+ bilateral radial pedal pulses, telemetry rev iewed no evidence of ectopy or arrhythmia noted GI: Other: Soft, nontender, nondistended, positive bowel sounds Skin: Other: Generalized pallor, non jaundice, no petechiae Neuro: Other: Alert oriented x4, speech is clear, no facial asymmetry, no localizing neurologic deficits noted during the course of conversation Extrem: Other: No clubbing, no cyanosis, no edema, moves all extremities equally Psych: Other: Appropriate mood and affect, pleasant and cooperative, judgment and insight intact DS: Data Data Completed and Pending Labs on day of discharge: Labs from last 24 hours 02/08/25 02/08/25 02/07/25 08:01 04:44 21:07 WBC 3.6 L RBC 3.62 L Hgb 10.6 L Hct 33.6 L MCV 92.8 D MCH 29.3 MCHC 31.5 L RDW 16.9 H Plt Count 247 MPV 10.0 Immature Gran % (Auto) 0.8 H Neut % (Auto) 75.5 H Lymph % (Auto) 18.3 [place] % (Auto) 5.4 Eos % (Auto) 0.0 Baso % (Auto) 0.0 L Lymph # (Auto) 0.65 L [place] # (Auto) 0.2 Eos # (Auto) 0.0 Baso # (Auto) 0.0 Abs Immat Gran (auto) 0.03 Absolute Neuts (auto) 2.7 Absolute Nucleated RBC 0.000 Nucleated RBC % 0.0 Sodium Pending Potassium Pending Chloride Pending Carbon Dioxide Pending Anion Gap Pending BUN Pending Creatinine Pending Estim Creat Clear Calc Pending Estimated GFR Pending Glucose Pending POC Capillary Glucose 133 H 229 H Calcium Pending Magnesium Pending Total Bilirubin AST ALT Alkaline Phosphatase Total Protein Albumin Urine Color Urine Appearance Urine pH Ur Specific [place] Urine Protein Urine Glucose (UA) Urine Ketones Ur Blood (Man) Urine Nitrate Urine Bilirubin Urine Urobilinogen Add Ur Microanalysis Leukocyte Esterase Rfl Urine RBC Urine WBC Ur Squamous Epith Cells Urine Bacteria Urine Casts Hyaline Casts 02/07/25 02/07/25 02/07/25 20:44 15:52 12:16 WBC 3.4 L RBC 3.75 L Hgb 10.9 L Hct 33.1 L MCV 88.3 MCH 29.1 MCHC 32.9 RDW 16.4 H Plt Count 285 MPV 9.9 Immature Gran % (Auto) 0.3 Neut % (Auto) 66.2 Lymph % (Auto) 23.7 [place] % (Auto) 7.7 Eos % (Auto) 0.9 Baso % (Auto) 1.2 Lymph # (Auto) 0.80 L [place] # (Auto) 0.3 Eos # (Auto) 0.0 Baso # (Auto) 0.0 Abs Immat Gran (auto) 0.01 Absolute Neuts (auto) 2.2 Absolute Nucleated RBC 0.000 Nucleated RBC % 0.0 Sodium 139 139 Potassium 3.5 2.7 L* Chloride 109 H 103 Carbon Dioxide 21 L 26 Anion Gap 9 10 BUN 19 H 22 H Creatinine 1.06 H 1.27 H Estim Creat Clear Calc 43 36 Estimated GFR 53 L 43 L Glucose 215 H 112 H POC Capillary Glucose Calcium 8.9 9.5 Magnesium Total Bilirubin 0.8 AST 28 ALT 20 Alkaline Phosphatase 85 Total Protein 8.0 Albumin 4.2 Urine Color Yellow Urine Appearance Cloudy H Urine pH 5.5 Ur Specific [place] 1.024 Urine Protein 1+ H Urine Glucose (UA) Negative Urine Ketones 1+ H Ur Blood (Man) Negative Urine Nitrate Positive H Urine Bilirubin Negative Urine Urobilinogen 1.0 Add Ur Microanalysis Reviewed Leukocyte Esterase Rfl 2+ H Urine RBC 0-2 Urine WBC >100 H Ur Squamous Epith Cells None seen Urine Bacteria 4+ H Urine Casts >20 Hyaline Casts Present Discharge Plan Discharge Attending physician on discharge: Garry Velez Consulting providers: Federico Cee Discharging Clinician: Garry Velez Patient Disposition: Home Activity: as tolerated Diet: as tolerated Patient Instructions: Antibiotic Form Patient Language: [place] Stand Alone Forms: General Discharge Information Follow-up/Referrals: Cuco Izquierdo MD [Physician, Hematology] Maikel Garrett MD [Primary Care Provider, Family Practice] Discharge Medications: Continued Verzenio 150 mg tablet 100 mg PO BID atorvastatin 40 mg tablet 40 mg PO DAILY Qty: 90 5RF buspirone 5 mg tablet 10 mg PO TID PRN (Reason: anxiety) aspirin [Don Chewable Aspirin] 81 mg tablet,chewable 81 mg PO DAILY ondansetron 8 mg tablet,disintegrating 8 mg PO Q8H PRN (Reason: nausea and vomiting) promethazine 25 mg tablet 25 mg PO TID PRN (Reason: nausea and vomiting) 30 Days Qty: 90 0RF potassium chloride 20 mEq tablet,ER particles/crystals 20 meq PO DAILY Patient Comments: patient states she chokes on pills so she has not been taking them levothyroxine 50 mcg tablet See Rx Instructions .ROUTE .COMPLEX Qty: 90 2RF Dose Instruction: Take 1 tablet by mouth once daily Rx Instructions: Take 1 tablet by mouth once daily Jardiance 25 mg tablet See Rx Instructions .ROUTE .COMPLEX Qty: 90 1RF Dose Instruction: Take 1 tablet by mouth once daily Rx Instructions: Take 1 tablet by mouth once daily ezetimibe 10 mg tablet See Rx Instructions .ROUTE .COMPLEX Qty: 90 3RF Dose Instruction: Take 1 tablet by mouth once daily Rx Instructions: Take 1 tablet by mouth once daily citalopram 40 mg tablet See Rx Instructions .ROUTE .COMPLEX Qty: 90 1RF Dose Instruction: TAKE 1 TABLET BY MOUTH EVERY DAY Rx Instructions: TAKE 1 TABLET BY MOUTH EVERY DAY (DME) [employer] Ania 3 Plus Sensor Device See Rx Instructions .Route Qty: 6 1RF Rx Instructions: change sensor every 15 days Date of admission: 02/07/25 13:47 Primary Care Provider: Maikel Garrett Admitting Provider: Claude Valadez Attending physician on admission: Claude Valadez Condition: Stable Quality VTE Prophylaxis VTE prophylaxis: pharmacologic ordered (Lovenox 40 mg subQ daily.)
[2025-02-08 12:00] VITALS: PULSE 105
[2025-02-08 12:18] LABS: Anion Gap 9 mmol/L (4-12); Blood Urea Nitrogen 18 mg/dL (7-17); Calcium 8.5 mg/dL (8.4-10.2); Carbon Dioxide 20 mmol/L (22-30); Chloride 109 mmol/L (98-107); Estimated CRCL calculation 49 ml/min; Estimated Glomerular Filt Rate > 60; Glucose 116 mg/dL (65-110); Magnesium 1.8 mg/dL (1.6-2.3); Potassium 3.2 mmol/L (3.4-5.0); Sodium 138 mmol/L (137-145)
== END 2025-02-08 12:55 | disposition home or self-care (01) ==
LOC: ANHED 13:45 → ANH2MED 02-08 11:52
PROVIDERS: Emergency Medicine; Internal Medicine; Admitting Provider Internal Medicine; Emergency Provider Emergency Medicine; PCP Family Medicine Adolescent Medicine; Visit Provider Internal Medicine
DX: R11.2 Nausea with vomiting, unspecified (principal); K52.1 Toxic gastroenteritis and colitis; T45.1X5A Adverse effect of antineoplastic and immunosuppressive drugs, initial encounter; C50 Malignant neoplasm of breast; C79.51 Secondary malignant neoplasm of bone; C78.2 Secondary malignant neoplasm of pleura; J91.0 Malignant pleural effusion; Z17.32 Human epidermal growth factor receptor 2 negative status; E87.6 Hypokalemia; N39.0 Urinary tract infection, site not specified; B96.1 Klebsiella pneumoniae [K. pneumoniae] as the cause of diseases classified elsewhere; N17.9 Acute kidney failure, unspecified; D64.9 Anemia, unspecified; E03.9 Hypothyroidism, unspecified; E78.00 Pure hypercholesterolemia, unspecified; E11.65 Type 2 diabetes mellitus with hyperglycemia; F41.9 Anxiety disorder, unspecified; F32.A Depression, unspecified; Z71.89 Other specified counseling; Z79.4 Long term (current) use of insulin; Z79.82 Long term (current) use of aspirin; Z79.811 Long term (current) use of aromatase inhibitors; Z79.85 Long-term (current) use of injectable non-insulin antidiabetic drugs; Z79.84 Long term (current) use of oral hypoglycemic drugs; Z90.13 Acquired absence of bilateral breasts and nipples; Z90.49 Acquired absence of other specified parts of digestive tract; Z90.710 Acquired absence of both cervix and uterus; Z80.0 Family history of malignant neoplasm of digestive organs; Z81.8 Family history of other mental and behavioral disorders
CPT/HCPCS: 36415; 71045; 80048; 80053; 81001; 82948; 83735; 85025; 87077; 87086; 87186; 93005; 96361; 96372; 96374; 99285; A9270; G0378; J0696; J1100; J1650; J2405; J3480; J7030; J7040